=== PATIENT | male | born 1940 | race Caucasian/White ===

== ENCOUNTER → 2017-01-30 | Outpatient (CLI) | payer BC ==
[~2017-01-30] MED LIST: ASPI81TA28 PO; CARV12.52 PO; DEXT30TA7 PO; LOSA50TA6 PO; LPT/40 PO; MAGN1CAP2 PO; OPTIRAY 320 IV PRN; WARF-246 PO
[2017-01-30 10:48] LABS: BLOOD UREA NITROGEN 11 mg/dl (7-18); BUN/CREATININE RATIO 10.4 (10-20)
--- NOTE | 2017-01-30 11:20 | DIAGNOSTIC IMAGING REPORT ---
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 Images are reviewed in the axial, sagittal, and coronal planes. IV contrast was administered without complication. A dose lowering technique was utilized adhering to the principles of ALARA. CT DOSE: 452.54 mGy.cm FINDINGS: Thyroid: Imaged portions of the thyroid gland are normal in appearance. Thoracic aorta: There is mild dilatation of the ascending thoracic aorta which measures 43 mm in diameter. There are no intimal flaps to indicate acute aortic dissection. Atherosclerotic changes are present, and there is an ulcerated plaque within the descending thoracic aorta. Pulmonary vasculature: The pulmonary trunk is normal in caliber. There are no central filling defects identified to suggest pulmonary embolus. Note that this examination was not protocoled for the evaluation of pulmonary emboli. HEART: The heart is normal in size and configuration, without pericardial effusion. Lungs and pleural spaces: No pleural effusions are visualized. There is no focal pulmonary consolidation. There are dependent atelectatic changes. Mediastinum: There is no mediastinal lymphadenopathy. Gabby: Clear. Axilla: Clear. Upper abdomen: Partially visualized upper abdominal viscera is within normal limits. Skeletal structures: There are no lytic or blastic osseous lesions. IMPRESSION: 1. Mild dilatation of the ascending thoracic aorta which measures 43 mm in diameter 2. No evidence of aortic dissection 3. No evidence of focal pulmonary consolidation 4. No evidence of pathologic adenopathy Electronically signed by: Ian Geronimo M.D. 01/30/2017 11:19 AM Dictated Date/Time: 01/30/2017 11:13 AM
== END | disposition home or self-care (01) ==
LOC: C.CTS 10:02
PROVIDERS: ATTEND Internal Medicine Interventional Cardiology
DX: I71.2 Thoracic aortic aneurysm, without rupture (principal)

== ENCOUNTER → 2017-09-07 | Outpatient (CLI) | payer BC ==
[~2017-09-07] MED LIST changes: +ATOR-22 PO; +CZR50 PO; +DILT180C50 PO; +DLTCD/240 PO; +MRLP17 PO; -OPTIRAY 320 IV PRN; +OXYC-57 PO
[2017-09-07 12:33] LABS: ALT/SGPT 27 U/L (12-78); BLOOD UREA NITROGEN 14 mg/dl (7-18); CALCIUM 9.4 mg/dl (8.5-10.1); CARBON DIOXIDE 29 mmol/L (21-32); CHOLESTEROL 141 mg/dl (0-200); CREATININE 1.12 mg/dl (0.60-1.40); GLUCOSE 108 mg/dl (70-99); POTASSIUM 4.5 mmol/L (3.5-5.1); SODIUM 137 mmol/L (136-145)
[2017-09-07 12:36] LABS: ALKALINE PHOSPHATASE 114 U/L (45-117); AST/SGOT 19 U/L (15-37); LDL CHOLESTEROL CALCULATED 66 mg/dl
== END | disposition home or self-care (01) ==
LOC: C.LAB1850 10:42
PROVIDERS: ATTEND Internal Medicine Interventional Cardiology
DX: I65.29 Occlusion and stenosis of unspecified carotid artery (principal)

== ENCOUNTER → 2017-09-20 | Outpatient (CLI) | payer BC ==
[~2017-09-20] MED LIST changes: +OPTIRAY 320 IV PRN
--- NOTE | 2017-09-20 08:21 | DIAGNOSTIC IMAGING REPORT ---
CT ANGIO ABD/PELVIS WITH CONTRAST CT DOSE: 1050.65 mGy.cm CLINICAL HISTORY: Iliac artery aneurysms TECHNIQUE: Arterial phase helical images were acquired during intravenous administration 116 cc of Optiray 320. MIP imaging was performed. A dose lowering technique was utilized adhering to the principles of ALARA. COMPARISON STUDY: None. FINDINGS: There is a 7 mm hypodensity within the right lobe of the liver. There is cholelithiasis. No splenic masses are visualized. No pancreatic masses are visualized. No adrenal masses are visualized. No renal masses are visualized this arterial phase study. There is extensive colonic diverticulosis. No acute peridiverticular inflammatory changes are visualized. Atheromatous changes are present within the distal thoracic aorta. There are mild atheromatous changes the celiac origin. There is no evidence for hemodynamic significant stenosis. There is no evidence of superior mesenteric artery stenosis. There is minimal dilatation of the origin of the right renal artery with atheromatous plaque occupying 50% of the luminal diameter. There is an 80% stenosis of the proximal left renal artery with poststenotic dilatation. Several dissection flaps are visualized within the abdominal aorta. The first is at the level of the left renal artery. The second involves the infrarenal abdominal aorta. The infrarenal abdominal aorta measures 28 mm transversely. The inferior mesenteric artery is patent. The right common iliac artery is dilated measuring 27 mm. The left common iliac artery is dilated measuring 23 mm. There is a focal dissection flap within the left common iliac artery. There is mild dilatation of the left internal iliac artery. There are no stenoses of the external iliac arteries. IMPRESSION: 1. 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 2. 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 3. Bilateral fusiform common iliac artery aneurysms. The right common iliac artery measures 27 mm, and the left common iliac artery measures 23 mm. 4. Short segment dissection involving the left common iliac artery 5. No evidence of hemodynamically significant celiac or superior mesenteric artery stenosis. The inferior mesenteric artery is patent. Electronically signed by: Ian Geronimo M.D. 09/20/2017 8:20 AM Dictated Date/Time: 09/20/2017 8:10 AM
== END | disposition home or self-care (01) ==
LOC: C.CTS 07:42
PROVIDERS: ATTEND Internal Medicine Interventional Cardiology
DX: I72.3 Aneurysm of iliac artery (principal); I71.02 Dissection of abdominal aorta; I70.1 Atherosclerosis of renal artery; I77.72 Dissection of iliac artery

== ENCOUNTER 2017-09-21 13:57 | Inpatient (IN) | payer BC, OTHER ==
[~2017-09-21] VITALS: Ht 177.8 cm; Wt 77.9 kg
[~2017-09-21 13:57] MED LIST changes: -ATOR-22 PO; -CZR50 PO; -DILT180C50 PO; -DLTCD/240 PO; -MRLP17 PO; -OPTIRAY 320 IV PRN; -OXYC-57 PO
[2017-09-21] MEDS ORDERED: DILT180C50 PO (14:27)
[2017-09-21] MEDS ORDERED: ATOR-22 PO (14:27)
[2017-09-21] MEDS ORDERED: SODIUM CHLORIDE 0.9% 1000ML 1,000 ML IV STA (14:33)
[2017-09-21] MEDS ORDERED: ESMOLOL / NSS 2,500 MG in PREMIXED NSS 250 ML IV PRN (14:45)
[2017-09-21] MEDS ORDERED: OPTIRAY 320 IV PRN (15:00)
[2017-09-21 15:12] LABS: BASO % 0.8 %; BASO ABS # 0.04 K/uL (0-0.2); EOS ABS # 0.15 K/uL (0-0.5); HEMATOCRIT 43.8 % (42-52); HEMOGLOBIN 15.4 g/dL (14.0-18.0); IG# 0.01 K/uL (0.00-0.02); LYMPH % 23.8 %; LYMPH ABS # 1.19 K/uL (1.2-3.4); MEAN CELL VOLUME 87.4 fL (80-100); MEAN CORPUSCULAR HEMOGLOBIN 30.7 pg (25-34); MEAN CORPUSCULAR HGB CONC 35.2 g/dl (32-36); MEAN PLATELET VOLUME 9.7 fL (7.4-10.4); MONO % 10.6 %; MONO ABS # 0.53 K/uL (0.11-0.59); NEUT % 61.6 %; NEUT ABS # 3.09 K/uL (1.4-6.5); PLATELET COUNT 188 K/uL (130-400); RED CELL DISTRIBUTION WIDTH CV 13.6 % (11.5-14.5); WHITE BLOOD COUNT 5.01 K/uL (4.8-10.8)
[2017-09-21 15:14] LABS: ISTAT IONIZED CALCIUM 1.14 mmol/l (1.12-1.32); ISTAT POTASSIUM 4.6 mEq/L (3.3-5.0)
[2017-09-21 15:20] LABS: INR 1.9 (0.9-1.1)
--- NOTE | 2017-09-21 15:21 | EMERGENCY ROOM VISIT NOTE ---
History First contact with patient: 14:06 Chief Complaint: BACK PAIN Stated Complaint: BACK PAIN, SEVERE PAIN RADIATING DOWN IN LEG History of Present Illness The patient is a 76 year old male who presents to the Emergency Room for evaluation of low back pain. Notes 1 month of low back pain worse with exertion. Tried physical therapy without improvement. Worse with movement. Better with rest. Developed significant worsening pain 4 days ago and now radiating down both legs. No significant weakness nor loss bowel/bladder functions. Denies abdominal pain, syncope, cp, shob, headache, neck pain, leg swelling, rashes, diarrhea, bleeding, nor other symptoms. On coumadin for history of TIA/pAF. He declines pain medications at this time. Review of Systems See HPI for pertinent positives & negatives. A total of 10 systems reviewed and were otherwise negative. Past Medical/Surgical History Medical Problems: (1) Atrial fibrillation (2) Bicuspid aortic valve (3) History of tonsillectomy (4) Hypertension (5) Hypertensive crisis Family History Hypertension Social History Smoking Status: Former Smoker Alcohol Use: occasionally Drug Use: none Marital Status: Housing Status: lives with family Occupation Status: retired Current/Historical Medications Scheduled Aspirin (Aspirin Ec), 81 MG PO QAM Atorvastatin (Lipitor), 20 MG PO DAILY Diltiazem Hcl Coated Beads (Cartia Xt), 180 MG PO DAILY Losartan Potassium (Cozaar), 50 MG PO HS Warfarin Sodium (Warfarin Sodium), 5 MG PO 5XWK Warfarin Sodium (Warfarin Sodium), 2.5 MG PO 2XWK Physical Exam Vital Signs Date Time Temp Pulse Resp B/P (MAP) Pulse Ox O2 Delivery O2 Flow Rate FiO2 09/21/17 17:42 75 14 149/62 93 Room Air 09/21/17 17:31 70 14 133/60 94 Room Air 09/21/17 17:21 67 14 127/66 93 Room Air 09/21/17 17:11 68 14 133/75 93 Room Air 09/21/17 17:01 69 12 129/66 93 Room Air 09/21/17 16:51 67 14 134/86 94 Room Air 09/21/17 16:45 67 11 147/83 94 Room Air 09/21/17 16:32 63 19 153/83 95 09/21/17 16:28 65 09/21/17 16:26 65 16 150/83 92 Room Air 09/21/17 15:50 60 12 153/85 95 Room Air 09/21/17 15:44 70 16 163/100 93 Room Air 09/21/17 15:00 69 20 164/97 93 Room Air 09/21/17 14:01 36.8 72 20 180/98 95 Room Air Physical Exam GENERAL: Patient is uncomfortable appearing and in moderate distress. EYES: No scleral icterus, unremarkable pupils. ENT: Mucous membranes moist, no nasal congestion. NECK: No masses appreciated, no meningismus, trachea is midline. RESPIRATORY: No dyspnea. Clear to auscultation and equal bilaterally. No wheeze , no rhonchi. CARDIOVASCULAR: Regular rate and rhythm. No murmurs, rubs, gallops appreciated. GASTROINTESTINAL: Abdomen soft, nontender, no peritonitis. Bowel sounds positive. No masses appreciated. BACK: No midline tenderness, no CVA tenderness EXTREMITIES: Normal motion all extremities, no cyanosis, no edema. NEUROLOGIC: Alert and oriented, no acute motor or sensory deficits, no focal weakness, cranial nerves grossly intact. SKIN: No rash, no jaundice, no diaphoresis. Medical Decision & Procedures ER Provider Diagnostic Interpretation: See CT reads on Chart from Yesterday and Today. Laboratory Results 09/21/17 14:45 Red Blood Count 5.01, Mean Corpuscular Volume 87.4, Mean Corpuscular Hemoglobin 30.7, Mean Corpuscular Hemoglobin Concent 35.2, Mean Platelet Volume 9.7, Neutrophils (%) (Auto) 61.6, Lymphocytes (%) (Auto) 23.8, Monocytes (%) (Auto) 10.6, Eosinophils (%) (Auto) 3.0, Basophils (%) (Auto) 0.8, Neutrophils # (Auto ) 3.09, Lymphocytes # (Auto) 1.19, Monocytes # (Auto) 0.53, Eosinophils # (Auto ) 0.15, Basophils # (Auto) 0.04 09/21/17 14:45 Test 09/21/17 14:45 09/21/17 14:58 09/21/17 17:11 White Blood Count 5.01 K/uL (4.8-10.8) Red Blood Count 5.01 M/uL (4.7-6.1) Hemoglobin 15.4 g/dL (14.0-18.0) Hematocrit 43.8 % (42-52) Mean Corpuscular Volume 87.4 fL (80-100) Mean Corpuscular Hemoglobin 30.7 pg (25-34) Mean Corpuscular Hemoglobin Concent 35.2 g/dl (32-36) Platelet Count 188 K/uL (130-400) Mean Platelet Volume 9.7 fL (7.4-10.4) Neutrophils (%) (Auto) 61.6 % Lymphocytes (%) (Auto) 23.8 % Monocytes (%) (Auto) 10.6 % Eosinophils (%) (Auto) 3.0 % Basophils (%) (Auto) 0.8 % Neutrophils # (Auto) 3.09 K/uL (1.4-6.5) Lymphocytes # (Auto) 1.19 K/uL (1.2-3.4) Monocytes # (Auto) 0.53 K/uL (0.11-0.59) Eosinophils # (Auto) 0.15 K/uL (0-0.5) Basophils # (Auto) 0.04 K/uL (0-0.2) RDW Standard Deviation 43.0 fL (36.4-46.3) RDW Coefficient of Variation 13.6 % (11.5-14.5) Immature Granulocyte % (Auto) 0.2 % Immature Granulocyte # (Auto) 0.01 K/uL (0.00-0.02) Prothrombin Time 20.1 SECONDS (9.0-12.0) Prothromb Time International Ratio 1.9 (0.9-1.1) Activated Partial Thromboplast Time 32.0 SECONDS (21.0-31.0) Partial Thromboplastin Ratio 1.2 Est Creatinine Clear Calc Drug Dose 70.6 ml/min Estimated GFR () 79.2 Estimated GFR (Non- 68.3 BUN/Creatinine Ratio 19.1 (10-20) Calcium Level 8.9 mg/dl (8.5-10.1) C-Reactive Protein < 0.29 mg/dl (0-0.29) Bedside Hemoglobin 15.6 g/dl (14.0-18.0) Bedside Hematocrit 46 % (42-52) Bedside Sodium 141 mEq/L (135-144) Bedside Potassium 4.6 mEq/L (3.3-5.0) Bedside Chloride 103 mEq/L (101-112) Bedside Total CO2 29 mEq/l (24-31) Anion Gap 14.0 mmol/L (16-25) Bedside Blood Urea Nitrogen 23 mg/dl (7-18) Bedside Creatinine 1.0 mg/dl (0.6-1.3) Bedside Glucose (other) 85 mg/dl (70-99) Bedside Ionized Calcium (Neha) 1.14 mmol/l (1.12-1.32) Bedside D-Dimer > 450 ng/mlFEU (0-450) Medications Administered Medications (Trade) Dose Ordered Sig/Richard Route Start Time Stop Time Status Last Admin Dose Admin Sodium Chloride 1,000 ml @ 200 mls/hr Q5H STAT IV 09/21/17 14:33 09/21/17 19:32 DC 09/21/17 14:33 200 MLS/HR Esmolol HCl 2500 mg/Prmx 250 ml @ 0 mls/hr Q0M PRN IV 09/21/17 14:45 09/21/17 16:21 DC 09/21/17 15:06 54.4 MLS/HR Fentanyl Citrate (Fentanyl Inj) 75 mcg NOW STAT IV 09/21/17 16:03 09/21/17 16:04 DC 09/21/17 16:28 75 MCG Nicardipine HCl 25 mg/Sodium Chloride 250 ml @ 0 mls/hr Q0M STAT IV 09/21/17 16:19 09/21/17 16:21 DC 09/21/17 16:46 5 MLS/HR Medical Decision Differential: Renal Colic, Pyelonephritis, Hydronephrosis, Appendicitis, Diverticulitis, Retroperitoneal Bleed/Infection, Aortic Pathology, MSK, Neurologic Pathology, amongst other pathologies entertained. 76 yr old male 4 days rapidly worsening low back pain now radiating down leg. Incidentally had CTA Abdo/Pelv for review of his aneurysm yesterday. Review of this notes multiple small dissections. He is quite hypertensive and given dissection, hypertension and on coumadin felt that rapid management of BP required. Given IV esmolol initially though with fact that BP still elevated and HR dropping in to 50s switched to Cardene. Excellent bilateral pulses in legs and no evidence of ischemia. Initially refusing pain medications. No active bleed and thus hold off on reversing already subtherapeutic INR. Seems Coumadin was for episode AFib during a hospitalization previously vs history of his TIA. With history bicuspid valve and his dissection went ahead and did CTA Chest as well which was unremarkable. He did eventually request something for pain which was given IV fentanyl with good result. BP came down and patient looks well. While this may just be incidental dissection findings vs even just calcifications, with his significant hypertension and amount of pain he is is must treat this as actual pain from dissection until proven otherwise. BP monitored closely and patient stable. He will need to come in for further evaluation, but at this time I do not feel he requires emergent surgical intervention. I made multiple phone calls to hospitalist, vascular surgery and cards during management of care of this patient. Impression Primary Impression: Hypertensive emergency Additional Impression: Abdominal aortic aneurysm dissection Critical Care I have personally spent greater than 35 minutes of critical care time in the direct management of this patient. This was a life/limb threatening event. This includes time spent evaluating patient, direct bedside care, chart review, placing orders, interpretation of diagnostic studies, discussion with consultants, patient, and family members, as well as other required patient management activities. This 35 minutes is in excess of all separately billable procedures. Departure Information Referrals Rishi Fournire M.D. (PCP) Patient Instructions My [facility] Problem Qualifiers
[2017-09-21 15:29] LABS: CALCIUM 8.9 mg/dl (8.5-10.1); CREATININE 1.06 mg/dl (0.60-1.40); POTASSIUM 4.4 mmol/L (3.5-5.1)
--- NOTE | 2017-09-21 15:30 | EMERGENCY ROOM VISIT NOTE ---
ED Visit Note First contact with patient: 14:06 Chief Complaint: Lower back pain. History of Present Illness: Mr. Thomas is a 76-year-old white male who ambulates into the ED accompanied by his complaining of lumbar back pain. Historically patient reports he has a history of lumbar spinal stenosis and arthritis. He reports he has been in physical therapy multiple years and has seen multiple back surgeons for his symptoms. He reports he did receive injections of steroids in the past which relieved his symptoms. He also reports that normally when he goes to physical therapy it relieves his back pain. Patient reports he has had exacerbation of lower back pain for approximately 1 week. He reports it was initially mild but gradually increased in intensity. He places his discomfort across the lower back in the L5-S1 area. He does report this is new normally it is unilateral. He rates his discomfort 9/10. He reports radiation down into his buttocks and hip and lateral thigh with prominence on the left. He also reports the radiation is new. His pain worsens with flexion and extension of the lumbar spine and palpation. He has not identified any alleviating factors related to the pain. He reports he has been taken Tylenol without relief of his discomfort. He denies any associated symptoms but does report yesterday Dr. 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 I reviewed the medical records and it showed short segment dissections within the abdominal aorta, hemodynamically significant stenosis involving the proximal left renal artery, bilateral fusiform common iliac artery aneurysms, short segment dissection involving the left common iliac artery and no evidence of hemodynamically stable celiac or superior mesenteric artery stenosis. Patient denies fevers, chills, sweats, skin eruptions, skin color changes, chest pain, shortness of breath, palpitations, abdominal pain, nausea, vomiting , urinary symptoms, hematuria, diarrhea, constipation, rectal bleeding, black/ tarry stools, genital paresthesias, bowel and bladder dysfunction, lower extremity weakness/numbness/tingling. Review of Systems: As noted above in history of present illness. All body systems were reviewed and found to be negative as noted above. Past Medical History: As previously noted and (1) Atrial fibrillation (2) Bicuspid aortic valve (3) History of tonsillectomy (4) Hypertension Current Medications: Medications Dose Route/Sig Max Daily Dose Days Date Category Dose Instructions Lipitor (Atorvastatin Calcium) 20 Mg Tab 20 Mg PO DAILY 09/21/17 Reported Cartia Xt (Diltiazem Hcl Coated Beads) 180 Mg Cap 180 Mg PO DAILY 09/21/17 Reported Cozaar (Losartan Potassium) 50 Mg Tab 50 Mg PO HS 06/14/16 Reported Aspirin Ec (Aspirin) 81 Mg Tab 81 Mg PO QAM 04/03/14 Reported Warfarin Sodium 5 Mg Tab 2.5 Mg PO 2XWK 04/03/14 Reported TAKE HALF A TABLET (2.5 MG) EVERY MON AND FRI OR OTHERWISE DIRECTED TO TAKE BY ANTICOAGULATION CLINIC/MD. Warfarin Sodium 5 Mg Tab 5 Mg PO 5XWK 04/03/14 Reported TAKE 5 MG EVERY SUN,TUE,WED,TH,SAT OR OTHERWISE DIRECTED TO TAKE BY ANTICOAGULATION CLINIC/MD. Allergies to Medications: Patient denies. Social History: Patient is not currently employed; he lives with his and feels safe in his home environment; he denies tobacco use. Physical Examination: Vital Signs: Date Time Temp Pulse Resp B/P (MAP) Pulse Ox O2 Delivery O2 Flow Rate FiO2 09/21/17 15:00 69 20 164/97 93 Room Air 09/21/17 14:01 36.8 72 20 180/98 95 Room Air GENERAL: 76-year-old male in moderate distress due to pain, nontoxic-appearing, afebrile and hemodynamically stable. NEUROLOGICAL: Awake, alert and oriented to person, place and time. Answering questions appropriately and following commands. Normal gait. Good hand eye coordination. SKIN: Warm, dry and pink. No soft tissue eruptions or trauma noted. HEENT: Atraumatic and normocephalic. BACK: No tenderness over the bony thoracic and lumbar spine. Minimal tenderness in the paraspinous muscles associated with L5-S1 without possible spasm. Mild decreased range of motion specifically flexion and extension of the spine. Negative straight leg raise test. No CVA tenderness. THORAX: Lungs sounds are clear to auscultation and equal bilaterally with symmetrical chest wall. HEART: Regular rate and rhythm. ABDOMEN: Mildly distended, soft and nontender. Decreased bowel sounds in all quadrants. No guarding, rigidity or organomegaly. LOWER EXTREMITIES: No gross bony deformity. No shortening or malrotation. No tenderness in the hips, knees, ankles or feet. Was not really able to elicit either patellar or Achilles deep tendon reflexes. 5/5 muscle strength in all movements of the hip, knees and the ankle. He was able to distinguish light sensations to all dermatomes of the lower legs and feet. Dorsalis pedis and anterior tibialis pulses intact and equal bilaterally. The feet were warm and pink and capillary refill was brisk. No calf tenderness or cords. ED Course: Patient is assessed as noted above. Patient's medication list was reviewed. Patient's case was reviewed with Dr. Chaudhry; he took over patient care of this patient. At his request I did put initial laboratory tests and on this patient. Clinical Impression: Abdominal aneurysm. Lumbar back pain. Disposition and Plan: Please see Dr. Chaudhry's notes and orders for final disposition and plan.
--- NOTE | 2017-09-21 15:58 | DIAGNOSTIC IMAGING REPORT ---
CHEST COMBO ANGIO DISSECTION CLINICAL HISTORY: 76 years-old Male presenting with ^multiple dissections on CTA no, back pain, chest pain. TECHNIQUE: Multidetector CT angiography of the chest was performed before and after the administration of intravenous contrast. 3-D volumetric and/or maximum intensity projection (MIP) images were subsequently reconstructed for review. IV contrast: 120 mL of Optiray 320. A dose lowering technique was used consistent with the principles of ALARA (as low as reasonably achievable). COMPARISON: CT chest from 01/30/2017. CT DOSE (mGy.cm): The estimated cumulative dose is 1252.61 mGy.cm. FINDINGS: Business Supervisor topogram: Unremarkable. Vasculature: The study is adequate for assessment of the aorta. Precontrast imaging demonstrates no evidence of intramural hematoma. Postcontrast imaging demonstrates no evidence of dissection, penetrating ulcer, or pseudoaneurysm. Ectasia of the ascending aorta, which measures 4.4 cm in diameter. This is unchanged from the prior exam. The descending thoracic aorta is normal in caliber though tortuous. Atherosclerosis of the three-vessel aortic arch though the origins of the branch vessels remain patent. Tortuosity of cervical vessels suggest chronic hypertension. Allowing for timing of the contrast bolus, no gross evidence of a filling defect within the pulmonary arteries to suggest embolus. Main pulmonary artery is not enlarged. No flattening of the interventricular septum. No intracardiac filling defect. No reflux of contrast into the hepatic veins. Remaining chest: On soft tissue windows, normal thyroid and thoracic inlet. No axillary, supraclavicular, hilar, or mediastinal lymphadenopathy. Normal heart size. No pericardial or pleural effusion. Upper abdomen normal. On lung windows, minimal dependent changes likely atelectasis. Trace apical emphysema. Minimal lower lobe predominant bronchial wall thickening. No other focal nodule or infiltrate. Airways patent. On bone windows, degenerative changes of the spine. IMPRESSION: 1. No evidence of acute aortic injury. No acute intrathoracic pathology. 2. Ectasia of the ascending aorta, which measures 4.4 cm in diameter. This is unchanged since prior CT from January. 3. Trace emphysema. Electronically signed by: Kurt Tatum M.D. 09/21/2017 3:57 PM Dictated Date/Time: 09/21/2017 3:48 PM
[2017-09-21] MEDS ORDERED: FENTANYL CITRATE INJ 50 MCG/1 ML 2 ML VIAL IV STA (16:03)
[2017-09-21] MEDS ORDERED: NiCARDipine IV 25 MG in SODIUM CHLORIDE 0.9% 250ML 240 ML IV STA (16:19)
[2017-09-21] MEDS ORDERED: NiCARDipine IV 25 MG in SODIUM CHLORIDE 0.9% 250ML 240 ML IV PRN (16:45)
[2017-09-21] MEDS ORDERED: ONDANSETRON INJ 2 MG/ML 2 ML VIAL IV PRN (18:00)
[2017-09-21] MEDS ORDERED: MoRPHine SULFATE 2 MG/ML CARP IV PRN (18:00)
[2017-09-21] MEDS ORDERED: ZOLPIDEM TARTRATE 5 MG TAB PO PRN ×2 (18:00)
[2017-09-21] MEDS ORDERED: MAGNESIUM HYDROXIDE SUSP 30 ML UDC PO PRN (18:00)
[2017-09-21] MEDS ORDERED: ACETAMINOPHEN 325 MG TAB PO PRN (18:00)
[2017-09-21] MEDS ORDERED: HydrALAZINE HCL 20 MG/ML VIAL IV. PRN (18:30)
[2017-09-21] MEDS ORDERED: DILTIAZEM HCL 120 MG CAPCR PO STA (18:59)
--- NOTE | 2017-09-21 19:11 | History and Physical ---
History & Physical Date & Time of Service: Sep 21, 2017 at 18:42 Chief Complaint: Back Pain, Severe Pain Radiating Down In Leg Primary Care Physician: Rishi Fournier M.D. History of Present Illness Source: patient, family 76 years old man with PMHx of dyslipidemia, PVD/carotid stenosis s/p b/l CEA, PA Afib currently on coumadin, HTN and lumbar spinal stenosis. Patient has been having lower back pain on and off for the last year. He was told by his orthopedic doctor to come back if he ever had the pain going down his lower extremities. Also referred by his orthopedic doctor for physical therapy. This patient since he started physical therapy for about 1 week he has been having 9/10 severe lower back pain referred to both buttocks. He had a follow-up appointment with Dr. 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 He does not have any abdominal pain and has well intact femoral pulses. Also the CT scan showed left renal artery stenosis. Report will be copied and based on imaging section. Case discussed with Dr. Ivy who will see the patient tomorrow, no need for acute intervention at this point. Patient denies any incontinence to urine or stool. Denies any lower extremity weakness. Past Medical/Surgical History Medical Problems: (1) Atrial fibrillation (2) Bicuspid aortic valve (3) Bronchitis (4) Carotid stenosis (5) History of tonsillectomy (6) Hypertension (7) Hypertension (8) Hypertensive crisis (9) Near syncope (10) Near syncope (11) Rib pain Family History Hypertension Social History Smoking Status: Former Smoker Drug Use: none Marital Status: Occupational Status: retired Immunizations History of Influenza Vaccine: Yes History of Tetanus Vaccine?: Yes History of Pneumococcal: Yes History of Hepatitis B Vaccine: No Allergies Coded Allergies: No Known Allergies (Unverified , 09/21/17) Home Medications Scheduled Aspirin (Aspirin Ec), 81 MG PO QAM Atorvastatin (Lipitor), 20 MG PO DAILY Diltiazem Hcl Coated Beads (Cartia Xt), 180 MG PO DAILY Losartan Potassium (Cozaar), 50 MG PO HS Warfarin Sodium (Warfarin Sodium), 5 MG PO 5XWK Warfarin Sodium (Warfarin Sodium), 2.5 MG PO 2XWK Review of Systems Review of system Constitutional: No fever / no chills / no sweats / no weakness / no fatigue Eyes: no blurring of vision / no eye pain / no discharge / no redness ENT: no hearing loss / no epistaxis /no swallowing problems Respiratory: no cough / no wheezing / no SOB / no hemoptysis Cardiovascular: no Chest pain / no lower extremity edema / no palpitation Abdomen: no pain / no nausea / no vomiting / no constipation Musculoskeletal: Severe lower back pain referred to both buttocks with some muscle cramp Genitourinary: no dysuria / no incontinence / no urinary retention Neurologic: no focal weakness / no numbness/tingling / no ataxia Psychiatric: no depression symptoms / no anxiety / no insomnia Endocrine: no excessive thirst / no excessive urination Hematologic: no abnormal bleeding / no bruising / no LN swelling Skin: No rash / no pallor Physical Exam Vital Signs Date Time Temp Pulse Resp B/P (MAP) Pulse Ox O2 Delivery O2 Flow Rate FiO2 09/21/17 18:17 63 16 128/70 92 Room Air 09/21/17 17:42 75 14 149/62 93 Room Air 09/21/17 17:31 70 14 133/60 94 Room Air 09/21/17 17:21 67 14 127/66 93 Room Air 09/21/17 17:11 68 14 133/75 93 Room Air 09/21/17 17:01 69 12 129/66 93 Room Air 09/21/17 16:51 67 14 134/86 94 Room Air 09/21/17 16:45 67 11 147/83 94 Room Air 09/21/17 16:32 63 19 153/83 95 09/21/17 16:28 65 09/21/17 16:26 65 16 150/83 92 Room Air 09/21/17 15:50 60 12 153/85 95 Room Air 09/21/17 15:44 70 16 163/100 93 Room Air 09/21/17 15:00 69 20 164/97 93 Room Air 09/21/17 14:01 36.8 72 20 180/98 95 Room Air Physical examination General patient appears to be comfortable, not in acute distress HEENT: Atraumatic , normocephalic /no jaundice /no pallor /anicteric /no dry mucous membrane /normal external ear inspection Neck: Supple /no swelling /central trach Heart: S1/S2 normal/regular rate and rhythm/no gallop /no rub /no murmur Lungs: Clear to auscultation bilaterally/normal chest with expansion/no rhonchi/ no rales/no wheezing/no use of accessory muscles of respiration Abdomen: Soft/nontender/no guarding/no rebound/no organomegaly/no pulsatile mass Musculoskeletal: Tenderness and on lumbar spines appears to be less severe than his level of symptoms but he already received pain medications Neuro exam: Awake alert oriented 3/cranial nerves II through XII appear to be intact/sensation intact/moves all extremities/no abnormal movements Psychiatric evaluation: No depressed mood/normal affect Skin: No rash on exposed skin area/no erythema Extremity: Normal pulse/no pitting edema/no clubbing or cyanosis Endocrine/lymphatic: No obvious lymphadenopathy /no lymphedema Diagnostics Laboratory Results Results Past 24 Hours Test 09/21/17 14:45 09/21/17 14:58 09/21/17 17:11 Range/Units White Blood Count 5.01 4.8-10.8 K/uL Red Blood Count 5.01 4.7-6.1 M/uL Hemoglobin 15.4 14.0-18.0 g/dL Hematocrit 43.8 42-52 % Mean Corpuscular Volume 87.4 80-100 fL Mean Corpuscular Hemoglobin 30.7 25-34 pg Mean Corpuscular Hemoglobin Concent 35.2 32-36 g/dl Platelet Count 188 130-400 K/uL Mean Platelet Volume 9.7 7.4-10.4 fL Neutrophils (%) (Auto) 61.6 % Lymphocytes (%) (Auto) 23.8 % Monocytes (%) (Auto) 10.6 % Eosinophils (%) (Auto) 3.0 % Basophils (%) (Auto) 0.8 % Neutrophils # (Auto) 3.09 1.4-6.5 K/uL Lymphocytes # (Auto) 1.19 1.2-3.4 K/uL Monocytes # (Auto) 0.53 0.11-0.59 K/uL Eosinophils # (Auto) 0.15 0-0.5 K/uL Basophils # (Auto) 0.04 0-0.2 K/uL RDW Standard Deviation 43.0 36.4-46.3 fL RDW Coefficient of Variation 13.6 11.5-14.5 % Immature Granulocyte % (Auto) 0.2 % Immature Granulocyte # (Auto) 0.01 0.00-0.02 K/uL Prothrombin Time 20.1 9.0-12.0 SECONDS Prothromb Time International Ratio 1.9 0.9-1.1 Activated Partial Thromboplast Time 32.0 21.0-31.0 SECONDS Partial Thromboplastin Ratio 1.2 Sodium Level 138 136-145 mmol/L Potassium Level 4.4 3.5-5.1 mmol/L Chloride Level 105 98-107 mmol/L Carbon Dioxide Level 28 21-32 mmol/L Anion Gap 5.0 14.0 16-25 mmol/L Blood Urea Nitrogen 20 7-18 mg/dl Creatinine 1.06 0.60-1.40 mg/dl Est Creatinine Clear Calc Drug Dose 70.6 ml/min Estimated GFR () 79.2 Estimated GFR (Non- 68.3 BUN/Creatinine Ratio 19.1 10-20 Random Glucose 82 70-99 mg/dl Calcium Level 8.9 8.5-10.1 mg/dl Bedside Hemoglobin 15.6 14.0-18.0 g/dl Bedside Hematocrit 46 42-52 % Bedside Sodium 141 135-144 mEq/L Bedside Potassium 4.6 3.3-5.0 mEq/L Bedside Chloride 103 101-112 mEq/L Bedside Total CO2 29 24-31 mEq/l Bedside Blood Urea Nitrogen 23 7-18 mg/dl Bedside Creatinine 1.0 0.6-1.3 mg/dl Bedside Glucose (other) 85 70-99 mg/dl Bedside Ionized Calcium (Neha) 1.14 1.12-1.32 mmol/l Bedside D-Dimer > 450 0-450 ng/mlFEU Diagnostic Radiology Patient Name: VENKATESH MONDRAGON Unit Number: [id number] Dictated: 09/20/17809 Transcribed: 09/20/17809 ARG Printed Date/Time: [~ rep prt dt]/[~ rep prt tm] [~ rep ct labl] - [~ rep ct ivnm] [facility] [place] [address] Dictated: 09/20/17809 Transcribed: 09/20/17809 ARG Printed Date/Time: [~ rep prt dt]/[~ rep prt tm] [~ rep ct labl] - [~ rep ct ivnm] Patient: VENKATESH MONDRAGON Address1: [address] [place] [address] Rec: [id number] Address2: Acct ID: [id number] [facility] Zip: [place] [id number] Date: 1940 Sex: M Room/Bed: Ref Phy: Rishi Fournier M.D. SC: C.CTS Att Phy: Jose Luis Schroeder MD Report #: [id number] Rajni Phy: Rishi Fournier M.D. Test: AAPW Admit Phy: Telephone Directory Distributor Driver: [facility] Interpreting Phy: Ian Geronimo M.D. Diagnosis: ILLIAC ANEURYSM Ordering Phy: Jose Luis Schroeder MD Service Date: 09/20/17 Admit Date: 09/20/17 MNE: [id number] CONF: DICTATED BY: Ian Geronimo M.D.]] CC: Rishi Fournier M.D. Jones, Christopher R., MD Endcc: [~ rep ct add3]] CT ANGIO ABD/PELVIS WITH CONTRAST CT DOSE: 1050.65 mGy.cm CLINICAL HISTORY: Iliac artery aneurysms TECHNIQUE: Arterial phase helical images were acquired during intravenous administration 116 cc of Optiray 320. MIP imaging was performed. A dose lowering technique was utilized adhering to the principles of ALARA. COMPARISON STUDY: None. FINDINGS: There is a 7 mm hypodensity within the right lobe of the liver. There is cholelithiasis. No splenic masses are visualized. No pancreatic masses are visualized. No adrenal masses are visualized. No renal masses are visualized this arterial phase study. There is extensive colonic diverticulosis. No acute peridiverticular inflammatory changes are visualized. Atheromatous changes are present within the distal thoracic aorta. There are mild atheromatous changes the celiac origin. There is no evidence for hemodynamic significant stenosis. There is no evidence of superior mesenteric artery stenosis. There is minimal dilatation of the origin of the right renal artery with atheromatous plaque occupying 50% of the luminal diameter. There is an 80% stenosis of the proximal left renal artery with poststenotic dilatation. Several dissection flaps are visualized within the abdominal aorta. The first is at the level of the left renal artery. The second involves the infrarenal abdominal aorta. The infrarenal abdominal aorta measures 28 mm transversely. The inferior mesenteric artery is patent. The right common iliac artery is dilated measuring 27 mm. The left common iliac artery is dilated measuring 23 mm. There is a focal dissection flap within the left common iliac artery. There is mild dilatation of the left internal iliac artery. There are no stenoses of the external iliac arteries. IMPRESSION: 1. 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 2. 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 3. Bilateral fusiform common iliac artery aneurysms. The right common iliac artery measures 27 mm, and the left common iliac artery measures 23 mm. 4. Short segment dissection involving the left common iliac artery 5. No evidence of hemodynamically significant celiac or superior mesenteric artery stenosis. The inferior mesenteric artery is patent. Electronically signed by: Ian Geronimo M.D. 09/20/2017 8:20 AM Dictated Date/Time: 09/20/2017 8:10 AM ++++++++++++++++++++++++++++++++++++++++++++++++++++++++++++++++++++++++++++++++ ++++++++++++++++++++++++++++++++++++++++++++++++++++++ Patient: VENKATESH MONDRAGON Address1: [address] [place] [address] Rec: [id number] Address2: Acct ID: [id number] [facility] Zip: [place] [address] Date: 1940 Sex: M Room/Bed: Ref Phy: Jose Luis Schroeder MD SC: ADRI Roy Phy: Report #: [id number] [facility] Phy: Rishi Fournier M.D. Test: CXCAD Admit Phy: Telephone Directory Distributor Driver: [facility] Interpreting Phy: Kurt Tatum MD Diagnosis: BACK PAIN, SEVERE PAIN RADIATING DOWN IN LEG Ordering Phy: Campos Chaudhry M.D. Service Date: 09/21/17 Admit Date: 09/21/17 MNE: [id number] CONF: DICTATED BY: Kurt Tatum MD]] CC: Rishi Fournier M.D. Jones, Christopher R., MD McKinley, Daniel F., M.D. Endcc: [~ rep ct add3]] CHEST COMBO ANGIO DISSECTION CLINICAL HISTORY: 76 years-old Male presenting with ^multiple dissections on CTA no, back pain, chest pain. TECHNIQUE: Multidetector CT angiography of the chest was performed before and after the administration of intravenous contrast. 3-D volumetric and/or maximum intensity projection (MIP) images were subsequently reconstructed for review. IV contrast: 120 mL of Optiray 320. A dose lowering technique was used consistent with the principles of ALARA (as low as reasonably achievable). COMPARISON: CT chest from 01/30/2017. CT DOSE (mGy.cm): The estimated cumulative dose is 1252.61 mGy.cm. FINDINGS: [employer] Finisher topogram: Unremarkable. Vasculature: The study is adequate for assessment of the aorta. Precontrast imaging demonstrates no evidence of intramural hematoma. Postcontrast imaging demonstrates no evidence of dissection, penetrating ulcer, or pseudoaneurysm. Ectasia of the ascending aorta, which measures 4.4 cm in diameter. This is unchanged from the prior exam. The descending thoracic aorta is normal in caliber though tortuous. Atherosclerosis of the three-vessel aortic arch though the origins of the branch vessels remain patent. Tortuosity of cervical vessels suggest chronic hypertension. Allowing for timing of the contrast bolus, no gross evidence of a filling defect within the pulmonary arteries to suggest embolus. Main pulmonary artery is not enlarged. No flattening of the interventricular septum. No intracardiac filling defect. No reflux of contrast into the hepatic veins. Remaining chest: On soft tissue windows, normal thyroid and thoracic inlet. No axillary, supraclavicular, hilar, or mediastinal lymphadenopathy. Normal heart size. No pericardial or pleural effusion. Upper abdomen normal. On lung windows, minimal dependent changes likely atelectasis. Trace apical emphysema. Minimal lower lobe predominant bronchial wall thickening. No other focal nodule or infiltrate. Airways patent. On bone windows, degenerative changes of the spine. IMPRESSION: 1. No evidence of acute aortic injury. No acute intrathoracic pathology. 2. Ectasia of the ascending aorta, which measures 4.4 cm in diameter. This is unchanged since prior CT from January. 3. Trace emphysema. Electronically signed by: Kurt Tatum M.D. 09/21/2017 3:57 PM Dictated Date/Time: 09/21/2017 3:48 PM The status of this report is Signed. Impression Assessment and Plan 76 years old man with PMHx of dyslipidemia, PVD/carotid stenosis s/p b/l CEA, PA Afib currently on coumadin, HTN and lumbar spinal stenosis. Presented to the ED with intractable lower back pain, hypertensive urgency and abnormal CTA abdomen suspicious for multiple dissection. Assessment Hypertensive urgency Intractable lower back pain lumbar spinal stenosis with exacerbation Paroxysmal A. fib currently on Coumadin, rate controlled Carotid stenosis status post bilateral carotid endarterectomy Peripheral vascular disease Dyslipidemia Obesity Plan Control blood pressure, in ED patient was started on nicardipine, currently his blood pressure is 120/80, will titrate nicardipine off, patient is not on beta- bessie as he is slightly bradycardic will give him an extra dose of Cardizem CD , will start his losartan that he takes at home, he will also take his Cardizem CD in the morning, we will put him on hydralazine as needed for systolic blood pressure more than 170. Morphine/Lidoderm patch for his lower back pain also will continue his home Percocet Consult Dr. Ivy regarding his suspected dissections, as per Dr. Ivy no need to reverse Coumadin and can continue Coumadin while in the hospital Gentle IV fluid hydration as patient received CT with contrast 2 days in a row Continue home medications including Lipitor, except aspirin We will hold aspirin for now just in case any kind of intervention is needed, Coumadin can be reversed but aspirin might create a problem. DVT prophylaxis is not required as INR is 1.9 Resuscitation Status VTE Prophylaxis Will order VTE Prophylaxis: Yes
[2017-09-21] MEDS ORDERED: NURSING VERBAL MED ORDER ONE (19:45)
[2017-09-21] MEDS ORDERED: SODIUM CHLORIDE 0.9% 1000ML 1,000 ML IV SCH (20:30)
[2017-09-21] MEDS ORDERED: WARFARIN SOD 2.5 MG TAB PO SCH (20:30)
[2017-09-21 20:59] VITALS: BP 144/69; PULSE 67; TEMP 36.5; O2SAT 95
[2017-09-21] MEDS ORDERED: OXYCODONE/ACETAMINOPHEN 10/325MG TAB PO PRN (21:00)
[2017-09-21] MEDS ORDERED: LOSARTAN POTASSIUM 50 MG TAB PO SCH (21:00)
[2017-09-21] MEDS ORDERED: DEXAMETHASONE INJ 6 MG in SYRINGE 0 ML IV SCH (21:00)
[2017-09-21 21:35] VITALS: BP 121/71; PULSE 64; TEMP 36.5; O2SAT 95; Ht 177.8 cm; Wt 77.9 kg
--- NOTE | 2017-09-21 21:58 | DIAGNOSTIC IMAGING REPORT ---
LUMBAR SPINE W/O CONTRAST CLINICAL HISTORY: 76 years-old Male presenting with lower back pain with neuropathy / has tooth implant, lumbar pain that radiates bilaterally into the legs, difficulty walking, no prior surgery or injury. TECHNIQUE: Multisequence, multiplanar MR imaging of the lumbar spine was performed without the use of intravenous contrast. IV contrast: None. COMPARISON: CT of the abdomen and pelvis from 09/20/2017. FINDINGS: Localizer images: Diffuse rectal wall thickening likely due to underdistention. 6 mm of retrolisthesis of L2 on L3. Otherwise alignment is maintained. Vertebral bodies and straight fatty endplate changes at L2-3 and L3-4. Prominent Schmorl's node at the superior endplate of L5 as well as fatty endplate changes at L4-5. Vertebral body heights maintained. Significant intervertebral disc height loss at L2-3 and to a lesser extent at L3-4. Disc desiccation and height loss noted at L4-5. Disc desiccation without significant height loss at L5-S1. Severe spinal canal stenosis at L2-3 secondary to disc osteophyte complex, facet arthropathy, and ligamentum flavum hypertrophy. Abnormality along the dorsal thecal sac at this level may be due to facet joint synovial outpouching, ligamentum flavum hypertrophy with displacement of the epidural fat, or simply exuberant facet joint degenerative change (series 6 image 8). This results in significant effacement of the already stenotic spinal canal at this level. Resultant buckling of the cauda equina suggest impingement. Moderate right and severe left neural foraminal narrowing also results at L2-3. Mass effect on the exiting L2 nerve root suspected. Disc osteophyte complex at L3-4 results in mild effacement of the ventral thecal sac. Mild bilateral neural foraminal narrowing noted from L3-4 through L5-S1. No paraspinal muscular edema. Nonspecific subcutaneous edema in the lumbar region. Spinal cord ends in good position at L1. Tortuous and ectatic aorta with suspected focal aneurysm at the bifurcation measuring 2.8 cm in diameter. IMPRESSION: 1. Multilevel degenerative changes most severe at L2-3, where there is severe spinal canal stenosis and suspected cauda equina impingement. This is in large part secondary to effacement of the dorsal aspect of the thecal sac from degenerative change. 2. Moderate right and severe left neural foraminal narrowing at L2-3 with suspected mass effect on the exiting L2 nerve roots. Lesser degrees of neural foraminal narrowing at the more inferior levels. 3. Additional degenerative changes as detailed above. 4. Ectasia of the abdominal aorta measuring 2.8 cm at the bifurcation. The report will be called/faxed according to standard departmental protocol. Electronically signed by: Kurt Tatum M.D. 09/21/2017 9:56 PM Dictated Date/Time: 09/21/2017 9:47 PM
[2017-09-21] MEDS: ATORVASTATIN 20 MG TAB PO SCH (22:01)
[2017-09-22] VITALS (7 sets, daily range): BP systolic 118–143; BP diastolic 74–92; PULSE 52–88; TEMP 36.4–36.9; O2SAT 88–94
--- NOTE | 2017-09-22 00:02 | Progress Note ---
Progress Note Date of Service Sep 21, 2017. Progress Note Phoned by nurse with MRI lumbar spine result which showed possible cauda equina syndrome I went to evaluate the patient and he denied any lumbar spine pain. He denied any urinary/bowel incontinence or leg weakness. He had 5/5 power in his extremities, and normal sensation distally. I was unable to elicit patella reflexes. I tried phoning Neurology but did not get an answer from them. I spoke to Dr. Santamaria who suggested decadron IV 10mg and then 6mg q6 - Campos Willis
[2017-09-22] MEDS ORDERED: DEXAMETHASONE INJ 10 MG in SYRINGE 0 ML IV STA (00:08)
[2017-09-22] MEDS ORDERED: DEXAMETHASONE INJ 6 MG in SYRINGE 0 ML IV STA (00:12)
[2017-09-22] MEDS: DEXAMETHASONE INJ 6 MG in SYRINGE 0 ML IV SCH ×4 (05:59→23:30)
[2017-09-22 06:55] LABS: BASO % 0.2 %; BASO ABS # 0.01 K/uL (0-0.2); HEMATOCRIT 44.1 % (42-52); HEMOGLOBIN 15.4 g/dL (14.0-18.0); IG# 0.01 K/uL (0.00-0.02); LYMPH % 13.1 %; LYMPH ABS # 0.64 K/uL (1.2-3.4); MEAN CELL VOLUME 86.6 fL (80-100); MEAN CORPUSCULAR HEMOGLOBIN 30.3 pg (25-34); MEAN CORPUSCULAR HGB CONC 34.9 g/dl (32-36); MEAN PLATELET VOLUME 10.2 fL (7.4-10.4); MONO ABS # 0.05 K/uL (0.11-0.59); NEUT % 85.5 %; NEUT ABS # 4.16 K/uL (1.4-6.5); PLATELET COUNT 198 K/uL (130-400); RED CELL DISTRIBUTION WIDTH CV 13.5 % (11.5-14.5); WHITE BLOOD COUNT 4.87 K/uL (4.8-10.8)
[2017-09-22 07:09] LABS: INR 1.7 (0.9-1.1)
[2017-09-22 07:32] LABS: ALBUMIN 3.8 gm/dl (3.4-5.0); CALCIUM 9.3 mg/dl (8.5-10.1); CREATININE 0.88 mg/dl (0.60-1.40); POTASSIUM 4.3 mmol/L (3.5-5.1)
[2017-09-22 07:38] LABS: PHOSPHORUS 2.4 mg/dl (2.5-4.9); TOTAL PROTEIN 7.9 gm/dl (6.4-8.2)
--- NOTE | 2017-09-22 08:09 | ORTHOPEDIC CONSULTATION ---
DATE OF ADMISSION: 09/21/2017 HISTORY OF PRESENT ILLNESS: The patient is a 76-year-old man who is admitted for back pain. He has been followed by Dr. Cooper in the past. He has also seen Dr. Ayon in the past. He notes that he has primarily back pain with pain going down both legs. He denies any numbness or tingling in the distal legs. He has difficulty at times walking and standing because of the pain and the burning. He notes that at this point in time, he is sitting up in bed without any pain. He denies any numbness or tingling. Denies any problems voiding. PAST MEDICAL HISTORY: Remarkable for atrial fibrillation, bicuspid aortic valve, bronchitis, carotid stenosis, tonsillectomy, hypertension, hypertensive crisis, near syncope, rib pain. He actually was admitted for his hypertension, presently. SOCIAL HISTORY: Reveals that he is a former smoker. No drug use. He is . He is retired. IMMUNIZATIONS: As charted. ALLERGIES: None. PREADMISSION MEDICATIONS: Include aspirin, Lipitor, diltiazem, Cozaar and warfarin. REVIEW OF SYSTEMS: Reveals no chest pain, shortness of breath, fever, chills, nausea, vomiting or headache. PERTINENT ORTHOPEDIC EXAMINATION: Reveals intact femoral sciatic nerve function, intact peroneal deep superficial function. Intact posterior tibial function, has normal sensation throughout the leg. He has supple hip motion. No log rolling pain. He has good quad and hamstring function, good anterior and posterior tib tendon function, good eversion with peroneals, good inversion with posterior tib. LABORATORY WORK: Reveals white count 5.01. Hematocrit stable at 43.8, INR is at 1.9. Platelet count 188. MRI scan of his back reveals substantial spinal stenosis, multilevel, particularly at the L2-3 level. ASSESSMENT: Substantial degenerative disc disease, spinal stenosis of the lumbar spine At this point in time, will need to defer care to a spine surgeon , Dr. Cooper, who the patient has an appointment with on 10/05/2017. Presently just pain management and discharge when able based on medical findings. If patient's pain remains escalated, will need to officially have you consult Dr. Cooper directly.At this point ,a course of steroids is appropriate if there are no issues from a medical perspective. PIPPA
--- NOTE | 2017-09-22 08:19 | Progress Note ---
Subjective Date of Service: Sep 22, 2017. Subjective this pt has had lower extermity pain radiating from lower back, he has not had any motor weakness nor loss of bowel or bladder function unfortunatley his CTA 09/20 as an out pt shows 1. 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 2. 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 3. Bilateral fusiform common iliac artery aneurysms. The right common iliac artery measures 27 mm, and the left common iliac artery measures 23 mm. 4. Short segment dissection involving the left common iliac artery Dr vegas did see and evaluate the pt on 09/22 and his A/P is : Imp: Infrarenal aortic dissection Bilateral iliac artery aneurysms Plan: Back pain is not related to his aorto iliac disease. Can be d/c from vascular standpoint once BP controlled. Will follow up in 6 months with [facility]. If iliac aneurysms enlarge in the future, they can be repaired by endovascular approach. Problem List Medical Problems: (1) Abdominal aortic aneurysm dissection Status: Acute (2) Hypertensive emergency Status: Acute Review of Systems Constitutional: No fever, No chills, No weakness Respiratory: No cough, No shortness of breath, No dyspnea on exertion Cardiac: No chest pain, No edema Abdomen: No pain, No nausea, No vomiting, No diarrhea Psychiatric: No depression symptoms, No anhedonism, No anxiety Objective Vital Signs Date Time Temp Pulse Resp B/P (MAP) Pulse Ox O2 Delivery O2 Flow Rate FiO2 09/22/17 07:55 36.4 78 20 137/92 (107) 91 Room Air 09/22/17 04:00 Nasal Cannula 2.0 09/22/17 03:22 36.7 72 18 143/83 (103) 92 Room Air 09/22/17 00:30 36.9 52 18 134/80 (98) 94 Nasal Cannula 2.0 09/22/17 00:01 Nasal Cannula 2.0 09/21/17 21:35 36.5 64 16 121/71 95 Room Air 2.0 09/21/17 20:59 36.5 67 18 144/69 (94) 95 Nasal Cannula 2.0 09/21/17 18:58 95 09/21/17 18:50 62 20 106/73 93 Room Air 09/21/17 18:17 63 16 128/70 92 Room Air 09/21/17 17:42 75 14 149/62 93 Room Air 09/21/17 17:31 70 14 133/60 94 Room Air 09/21/17 17:21 67 14 127/66 93 Room Air 09/21/17 17:11 68 14 133/75 93 Room Air 09/21/17 17:01 69 12 129/66 93 Room Air 09/21/17 16:51 67 14 134/86 94 Room Air 09/21/17 16:45 67 11 147/83 94 Room Air 09/21/17 16:32 63 19 153/83 95 09/21/17 16:28 65 09/21/17 16:26 65 16 150/83 92 Room Air 09/21/17 15:50 60 12 153/85 95 Room Air 09/21/17 15:44 70 16 163/100 93 Room Air 09/21/17 15:00 69 20 164/97 93 Room Air 09/21/17 14:01 36.8 72 20 180/98 95 Room Air Physical Exam General Appearance: WD/WN, + moderate distress (worsend with ambulation) Neck: supple, no JVD Respiratory/Chest: chest non-tender, lungs clear, normal breath sounds Cardiovascular: regular rate, rhythm (although history of afib sounds regular) , + systolic murmur Abdomen: normal bowel sounds, non tender, soft Extremities: no pedal edema, no calf tenderness Neurologic/Psychiatric: alert, oriented x 3 Laboratory Results Last 24 Hours Test 09/21/17 14:45 09/21/17 14:58 09/21/17 17:11 09/21/17 19:59 White Blood Count 5.01 K/uL Red Blood Count 5.01 M/uL Hemoglobin 15.4 g/dL Hematocrit 43.8 % Mean Corpuscular Volume 87.4 fL Mean Corpuscular Hemoglobin 30.7 pg Mean Corpuscular Hemoglobin Concent 35.2 g/dl Platelet Count 188 K/uL Mean Platelet Volume 9.7 fL Neutrophils (%) (Auto) 61.6 % Lymphocytes (%) (Auto) 23.8 % Monocytes (%) (Auto) 10.6 % Eosinophils (%) (Auto) 3.0 % Basophils (%) (Auto) 0.8 % Neutrophils # (Auto) 3.09 K/uL Lymphocytes # (Auto) 1.19 K/uL Monocytes # (Auto) 0.53 K/uL Eosinophils # (Auto) 0.15 K/uL Basophils # (Auto) 0.04 K/uL RDW Standard Deviation 43.0 fL RDW Coefficient of Variation 13.6 % Immature Granulocyte % (Auto) 0.2 % Immature Granulocyte # (Auto) 0.01 K/uL Prothrombin Time 20.1 SECONDS Prothromb Time International Ratio 1.9 Activated Partial Thromboplast Time 32.0 SECONDS Partial Thromboplastin Ratio 1.2 Sodium Level 138 mmol/L Potassium Level 4.4 mmol/L Chloride Level 105 mmol/L Carbon Dioxide Level 28 mmol/L Anion Gap 5.0 mmol/L 14.0 mmol/L Blood Urea Nitrogen 20 mg/dl Creatinine 1.06 mg/dl Est Creatinine Clear Calc Drug Dose 70.6 ml/min Estimated GFR () 79.2 Estimated GFR (Non- 68.3 BUN/Creatinine Ratio 19.1 Random Glucose 82 mg/dl Calcium Level 8.9 mg/dl C-Reactive Protein < 0.29 mg/dl Bedside Hemoglobin 15.6 g/dl Bedside Hematocrit 46 % Bedside Sodium 141 mEq/L Bedside Potassium 4.6 mEq/L Bedside Chloride 103 mEq/L Bedside Total CO2 29 mEq/l Bedside Blood Urea Nitrogen 23 mg/dl Bedside Creatinine 1.0 mg/dl Bedside Glucose (other) 85 mg/dl Bedside Ionized Calcium (Neha) 1.14 mmol/l Bedside D-Dimer > 450 ng/mlFEU Troponin I < 0.015 ng/ml Test 09/21/17 21:05 09/22/17 06:02 Urine Color YELLOW Urine Appearance CLEAR Urine pH 6.0 Urine Specific Marana > 1.045 Urine Protein NEG Urine Glucose (UA) NEG Urine Ketones NEG Urine Occult Blood TRACE Urine Nitrite NEG Urine Bilirubin NEG Urine Urobilinogen NEG Urine Leukocyte Esterase NEG Urine WBC (Auto) 0 /hpf Urine RBC (Auto) 0-4 /hpf Urine Hyaline Casts (Auto) 0 /lpf Urine Epithelial Cells (Auto) 0-5 /lpf Urine Bacteria (Auto) NEG White Blood Count 4.87 K/uL Red Blood Count 5.09 M/uL Hemoglobin 15.4 g/dL Hematocrit 44.1 % Mean Corpuscular Volume 86.6 fL Mean Corpuscular Hemoglobin 30.3 pg Mean Corpuscular Hemoglobin Concent 34.9 g/dl Platelet Count 198 K/uL Mean Platelet Volume 10.2 fL Neutrophils (%) (Auto) 85.5 % Lymphocytes (%) (Auto) 13.1 % Monocytes (%) (Auto) 1.0 % Eosinophils (%) (Auto) 0.0 % Basophils (%) (Auto) 0.2 % Neutrophils # (Auto) 4.16 K/uL Lymphocytes # (Auto) 0.64 K/uL Monocytes # (Auto) 0.05 K/uL Eosinophils # (Auto) 0.00 K/uL Basophils # (Auto) 0.01 K/uL RDW Standard Deviation 43.0 fL RDW Coefficient of Variation 13.5 % Immature Granulocyte % (Auto) 0.2 % Immature Granulocyte # (Auto) 0.01 K/uL Prothrombin Time 17.4 SECONDS Prothromb Time International Ratio 1.7 Sodium Level 135 mmol/L Potassium Level 4.3 mmol/L Chloride Level 104 mmol/L Carbon Dioxide Level 21 mmol/L Anion Gap 10.0 mmol/L Blood Urea Nitrogen 20 mg/dl Creatinine 0.88 mg/dl Est Creatinine Clear Calc Drug Dose 83.5 ml/min Estimated GFR () 97.4 Estimated GFR (Non- 84.0 BUN/Creatinine Ratio 23.0 Random Glucose 157 mg/dl Calcium Level 9.3 mg/dl Phosphorus Level 2.4 mg/dl Magnesium Level 2.1 mg/dl Total Bilirubin 0.8 mg/dl Aspartate Amino Transf (AST/SGOT) 17 U/L Alanine Aminotransferase (ALT/SGPT) 28 U/L Alkaline Phosphatase 105 U/L Total Protein 7.9 gm/dl Albumin 3.8 gm/dl Globulin 4.1 gm/dl Albumin/Globulin Ratio 0.9 Triglycerides Level 66 mg/dl Cholesterol Level 142 mg/dl HDL Cholesterol 47 mg/dl LDL Cholesterol, Calculated 82 mg/dl VLDL Cholesterol, Calculated 13 mg/dl Cholesterol/HDL Ratio 3.0 Assessment and Plan 76 years old man presented to the ED with intractable lower back pain, hypertensive urgency and ectasia of Ascending aorta as before PMHx of dyslipidemia, PVD/carotid stenosis s/p b/l CEA, PA Afib currently on coumadin, HTN and lumbar spinal stenosis. Hypertensive urgency, titrated nicardipine off, losartan( increased 09/22) , Cardizem CD and hydralazine as needed Intractable lower back pain with a lumbar spinal stenosis with exacerbation, has concern for cauda equina syndrome and L2 nerve root impingement, Morphine/ Lidoderm patch for his lower back pain also will continue his home Percocet, ortho evaluation but if intervention is needed will involve cardiology to optimize pre operatively consideration of aortic abnormality, possible JOANNA, Consulted Dr. Vegas regarding his suspected dissections, no plans of immediate intervention, will recommend outpt follow up Paroxysmal A. fib currently on Coumadin, rate controlled Carotid stenosis status post bilateral carotid endarterectomy Peripheral vascular disease, will hold aspirin in case of procedure needed Dyslipidemia, lipitor DVT prophylaxis will be scd as coumadin is held in consideration if surgical intervention is needed
[2017-09-22] MEDS ORDERED: DICLOFENAC SOD 1% GEL 100 GM TUBE EXT SCH (09:00)
--- NOTE | 2017-09-22 09:42 | Surgery Consultation ---
Consultation Date of Service Sep 22, 2017. Chief Complaint Back pain History of Present Illness The patient is a 76 year old male who was seen in the and admitted for hypertension control. He had a CT scan done prior to admission which showed slight aneurysmal dilatation of the aorta with dissection from the proximal infrarenal aorta to the right common iliac artery with small iliac artery aneurysms. He was also complaining of back pain which has been off and on over the last year. He does have spinal stenosis. Since starting PT one week ago, he has had severe lower back pain into the buttocks. He has known PVD and carotid disease, atrial fib, hypertension and a bicuspid aortic valve. He denies any rest pain in his feet. Vitals Vital Signs Past 12 Hours Date Time Temp Pulse Resp B/P (MAP) Pulse Ox O2 Delivery O2 Flow Rate FiO2 09/22/17 07:55 36.4 78 20 137/92 (107) 91 Room Air 09/22/17 04:00 Nasal Cannula 2.0 09/22/17 03:22 36.7 72 18 143/83 (103) 92 Room Air 09/22/17 00:30 36.9 52 18 134/80 (98) 94 Nasal Cannula 2.0 09/22/17 00:01 Nasal Cannula 2.0 09/21/17 21:35 36.5 64 16 121/71 95 Room Air 2.0 Allergies Coded Allergies: No Known Allergies (Unverified , 09/21/17) Home Medications Scheduled Aspirin (Aspirin Ec), 81 MG PO QAM Atorvastatin (Lipitor), 20 MG PO DAILY Diltiazem Hcl Coated Beads (Cartia Xt), 180 MG PO DAILY Losartan Potassium (Cozaar), 50 MG PO HS Warfarin Sodium (Warfarin Sodium), 5 MG PO [id number] Warfarin Sodium (Warfarin Sodium), 2.5 MG PO [id number] Problem List Medical Problems: (1) Atrial fibrillation (2) Bicuspid aortic valve (3) History of tonsillectomy (4) Hypertension (5) Hypertensive crisis Surgical / Medical History Hx Cardiac Surgery: Yes (Bicuspid valve replacement) Hx Abdominal Surgery: Yes (LT INGUINAL HERNIA REPAIR) Hx Cancer Surgery: Yes (SKIN CANCER REMOVALS) Hx Thoracic Surgery: No Hx Orthopedic: Yes (RT RCR, LT HAND TRIGGER FINGER, Degen disc disease) Hx Urinary Tract Surgery: No Past Medical/Surgical History: Heart Disease, High Cholesterol, Hypertension, Other (spinal stenosis, carotid stenosis, a fib, bicuspid aortic valve) Family History Hypertension Social History Smoking Status: Former Smoker Hx Tobacco Use In Past Year?: No Hx Alcohol Use - Type & Amnt: Yes (10-12 beers) Hx Substance Use -Type & Amnt: No Review of Systems Constitutional: No chills, No diaphoresis, No fever, No malaise, No weakness, No weight gain, No weight loss, No sweats, No fatigue, No problem reported Respiratory: No cough, No cyanosis, No RAND, No hemoptysis, No orthopnea, No PND , No short of breath, No sputum production, No stridor, No wheezing, No dyspnea , No problem reported Cardiovascular: No chest pain, No chest tightness, No chest pressure, No palpitations, No syncope, No diaphoresis, No edema, No intermittent claudication , No orthopnea, No cyanosis, No mumur, No lightheadedness, No paroxysmal nocturnal dyspnea, No problem reported Gastrointestinal: No abdominal pain, No constipation, No diarrhea, No nausea, No vomiting, No anorexia, No appetite changes, No belching, No flatulence, No food intolerance, No hematemesis, No hemorrhoids, No hematochezia, No stool changes, No heartburn, No indigestion, No dysphagia, No rectal bleeding, No problem reported Genitourinary - Male: No impotence, No penile discharge, No penile itching, No rash, No testicular pain, No testicular swelling, No hematuria, No difficulty urinating, No problem reported Musculoskeletal: + back pain Neurologic: No dizziness, No weakness, No headache, No lethargy, No numbness, No paresthesia, No pre-existing deficit, No seizures, No tics, No tingling, No tremors, No vertigo, No memory loss, No LOC, No problem reported Psychiatric: No anxiety, No alcohol abuse, No auditory hallucinations, No depression, No drug abuse, No homicidal ideation, No mood changes, No suicidal ideation, No visual hallucinations, No problem reported Physical Exam Constitutional: General Apperance: heathly-appearing, well-nourished, well-developed Level of Distress: NAD Ambulation: ambulating normally Psychiatric: Mental Status: active & alert, normal mood, normal affect Orientation: oriented except where noted, to time, to place, to person Memory: recent memory normal, remote memory normal Lungs: Auscultation: breath sounds normal Cardiovascular: Heart Auscultation: RRR, II/ MYKEL Peripheral Pulses: Pulses: full and equal, in all extremities except if noted Abdomen: Inspection & Palpation: soft, non-distended, no tenderness, guarding & rebound Musculoskeletal: normal Extremities: Upper Right: no cyanosis, no edema, no varicosities, no palpable cord, no clubbing, no ulcers, no mottling Upper Left: no cyanosis, no edema, no palpable cord, no clubbing, no ulcers , no mottling Lower Right: no cyanosis, no edema, no varicosities, no palpable cord, no clubbing, no ulcers, no mottling Lower Left: no cyanosis, no edema, no varicosities, no palpable cord, no clubbing, no ulcers, no mottling Neurologic: Cranial Nerves: grossly intact Sensation: grossly intact Assessment and Plan Imp: Infrarenal aortic dissection Bilateral iliac artery aneurysms Plan: Back pain is not related to his aorto iliac disease. Can be d/c from vascular standpoint once BP controlled. Will follow up in 6 months with [facility]. If iliac aneurysms enlarge in the future, they can be repaired by endovascular approach. Thank you very much for letting me participate in the care of this patient.
[2017-09-22] MEDS: LIDODERM (LIDOCAINE) PATCH 5% TD SCH (10:17)
[2017-09-22] MEDS: CYCLOBENZAPRINE HCL 5 MG TAB PO SCH ×3 (10:18→20:55)
[2017-09-22] MEDS: DILTIAZEM HCL 180 MG CAPCR PO SCH (10:18)
[2017-09-22] MEDS ORDERED: NURSING VERBAL MED ORDER ONE ×3 (14:00→21:30)
[2017-09-22] MEDS ORDERED: WARFARIN SOD 5 MG TAB PO SCH (16:00)
[2017-09-22] MEDS: ATORVASTATIN 20 MG TAB PO SCH (20:55)
[2017-09-22] MEDS: LOSARTAN POTASSIUM 50 MG TAB PO SCH (20:55)
[2017-09-22] MEDS: DICLOFENAC SOD 1% GEL 100 GM TUBE EXT SCH (20:55)
[2017-09-23] VITALS (7 sets, daily range): BP systolic 112–130; BP diastolic 69–87; PULSE 60–126; TEMP 36.4–36.8; O2SAT 91–95
[2017-09-23] MEDS: DEXAMETHASONE INJ 6 MG in SYRINGE 0 ML IV SCH ×2 (05:59→13:14)
[2017-09-23] MEDS: DILTIAZEM HCL 180 MG CAPCR PO SCH (07:47)
[2017-09-23 07:48] LABS: HEMATOCRIT 41.7 % (42-52); HEMOGLOBIN 14.9 g/dL (14.0-18.0); MEAN CELL VOLUME 87.2 fL (80-100); MEAN CORPUSCULAR HEMOGLOBIN 31.2 pg (25-34); MEAN CORPUSCULAR HGB CONC 35.7 g/dl (32-36); MEAN PLATELET VOLUME 10.1 fL (7.4-10.4); PLATELET COUNT 214 K/uL (130-400); RED CELL DISTRIBUTION WIDTH CV 13.6 % (11.5-14.5); RED CELL DISTRIBUTION WIDTH SD 43.4 fL (36.4-46.3); WHITE BLOOD COUNT 13.49 K/uL (4.8-10.8)
[2017-09-23] MEDS: LIDODERM (LIDOCAINE) PATCH 5% TD SCH (07:48)
[2017-09-23] MEDS: CYCLOBENZAPRINE HCL 5 MG TAB PO SCH ×3 (07:48→20:30)
--- NOTE | 2017-09-23 07:51 | PROGRESS NOTE ---
DATE: 09/23/2017 The patient is sitting up in bed comfortably. He is frustrated at this point because he wants to get up and do more. He denies any increased numbness or tingling in his legs. He notes no change in his overall complaints. He has no increased weakness. Vital signs are stable. He is afebrile. His blood pressure is well controlled. His pulse is in the 60s. Laboratory work today that was ordered is pending. ASSESSMENT: Clinically stable spinal stenosis. At this point in time, there has been no aggressive progressive change. He does need spinal surgical assessment for potential decompression. At this point in time, we will order PT. Discharge plans per medicine. From my perspective, this can be redone and reevaluated as an outpatient if they cannot get Dr. Cooper if he is not available for in-house consultation this weekend. The patient has an appointment with him early in September. The patient is to discontinue all of his outpatient physical therapy because that seems to be aggravating his condition. He will follow up with me on a p.r.n. basis as he has spinal needs and has an appointment with Dr. Cooper.
[2017-09-23 08:03] LABS: INR 1.8 (0.9-1.1)
[2017-09-23 08:20] LABS: CALCIUM 8.8 mg/dl (8.5-10.1); CREATININE 1.2 mg/dl (0.60-1.40); POTASSIUM 4.3 mmol/L (3.5-5.1)
--- NOTE | 2017-09-23 12:09 | HISTORY & PHYSICAL EXAMINATION ---
DATE OF ADMISSION: 09/21/2017 UNIT NUMBER: [id number]. REASON FOR CONSULTATION: significant spinal stenosis at L2-L3 of lumbar spine. HISTORY OF PRESENT ILLNESS: Varun is a delightful patient, I remember him from the past it was either 1 or 2 years ago in the office, he had stenosis at that period of time, we were to put it off from a surgical prospective and he has done well. For the last few weeks he has had increasing pain, he called the office, he was given an appointment in about 2 weeks. The pain became unbearable for him, more recently he had to make a trip to the Emergency Room on the or 22 of September was admitted because of pain and his significant stenosis. It is radicular, it is in his back and his lower extremities. In the Emergency Room's setting, visual analog scale, his pain was a 9/10 with radiation to the buttocks and lateral thigh. He was admitted appropriately for evaluation and treatment along with the possibility of surgical intervention on spine along with control of his medical problems. PAST MEDICAL HISTORY: Atrial fibrillation, tonsillectomy, hypertension, and aortic valve issues. MEDICATIONS: Lipitor, Cozaar, aspirin, and warfarin as well. REVIEW OF SYSTEMS: He denies any blurred vision, double vision, tinnitus or vertigo. Denies any chest pain, orthopnea. Denies nausea, vomiting, urgency, frequency. He has no loss of bowel and bladder function. His lower extremities given difficulty in the hip region in lateral thigh towards the thigh itself. OBJECTIVE: VITAL SIGNS: Blood pressure elevated at 180/90, respirations 20, pulse 72 and irregular, temperature 36.2. HEENT: Pupils react to light and accommodation. Ear, nose and throat clear. GENERAL: Currently, in atrial fibrillation. ABDOMEN: Soft, nontender, no organomegaly, no rebound tenderness. No referred pain. No masses. EXTREMITIES: Intact with normal in appearance. He has good motor strength in quadriceps, hamstrings, dorsiflexes, plantar flexes, a little bit of weakness in iliopsoas bilaterally. UPPER EXTREMITIES: Fine. No signs of upper motor neuron issues, no hyperreflexia clonus. We did not walk the patient this morning. He has been to get up on his feet and ambulate and does moderately well. IMAGES: His MRI scan was amazingly impressive with severe stenosis, looks like at the L2-L3 level of the lumbar spine with almost pinpoint canal. ASSESSMENT: Delightful gentleman with medical issues including atrial fibrillation, aortic valve issues, and severe spinal stenosis. DISPOSITION: At this point in time, I had tyler discussion with the family. He would like to proceed with surgical intervention, it truly is a surgical problem. If left unattended, it could end him with some bowel and bladder incontinence. I also do not want to have to operate this on an emergent basis on some evening or late on the weekend. I think the desmin cast and surgery on his spine is inevitable. He agrees with the assessment and understands and asked intelligent questions. To make a long story short, we will medically optimize the patient in the next 24-48 hours. I will look at my schedule to get him on the operative schedule for lumbar spine laminectomy. I believe I can accomplish his surgery to about 90 minutes, I keep blood loss to about 100-150 mL, fairly minimally invasive approach. I will continue talking to the family. I will be looking at my schedule to see when I get him on the schedule as soon as possible. PIPPA
--- NOTE | 2017-09-23 14:26 | Progress Note ---
Subjective Date of Service: Sep 23, 2017. Subjective pt remains with significant issues when ambulating only going short distances before back, and leg pain and extreme leg fatigue, no chest pain or sob discussion with Dr Cooper may consider surgical intervention Problem List Medical Problems: (1) Abdominal aortic aneurysm dissection Status: Acute (2) Hypertensive emergency Status: Acute Review of Systems Constitutional: + weakness, + fatigue, No fever, No chills Respiratory: No cough, No shortness of breath, No dyspnea on exertion Cardiac: No chest pain, No edema, No claudication Abdomen: No pain, No nausea, No vomiting, No diarrhea Musculoskeletal: + joint pain, + muscle pain Neurologic: + weakness, No memory loss Psychiatric: + anxiety, No depression symptoms Objective Vital Signs Date Time Temp Pulse Resp B/P (MAP) Pulse Ox O2 Delivery O2 Flow Rate FiO2 09/23/17 11:01 36.4 66 18 130/76 (94) 92 Room Air 09/23/17 09:15 95 Room Air 09/23/17 08:05 Room Air 09/23/17 07:45 36.5 66 16 115/73 (87) 93 2.0 09/23/17 04:00 Room Air 09/23/17 03:05 36.6 60 16 112/69 (83) 92 Nasal Cannula 2.0 09/23/17 00:01 Room Air 09/22/17 23:15 36.6 71 16 122/75 (91) 91 Room Air 09/22/17 20:00 Room Air 09/22/17 19:25 36.6 69 18 133/74 (93) 92 Nasal Cannula 2.0 09/22/17 16:00 Room Air 09/22/17 15:54 90 Nasal Cannula 2.0 09/22/17 15:54 36.7 67 18 118/75 (89) 88 Room Air Physical Exam General Appearance: WD/WN, + moderate distress Eyes: normal inspection, sclerae normal Neck: supple, thyroid normal Respiratory/Chest: chest non-tender, lungs clear, normal breath sounds Cardiovascular: regular rate, rhythm, + systolic murmur Abdomen: normal bowel sounds, non tender, soft Extremities: no pedal edema, no calf tenderness Neurologic/Psychiatric: alert, oriented x 3 Laboratory Results Last 24 Hours Test 09/23/17 07:17 White Blood Count 13.49 K/uL Red Blood Count 4.78 M/uL Hemoglobin 14.9 g/dL Hematocrit 41.7 % Mean Corpuscular Volume 87.2 fL Mean Corpuscular Hemoglobin 31.2 pg Mean Corpuscular Hemoglobin Concent 35.7 g/dl RDW Standard Deviation 43.4 fL RDW Coefficient of Variation 13.6 % Platelet Count 214 K/uL Mean Platelet Volume 10.1 fL Prothrombin Time 19.1 SECONDS Prothromb Time International Ratio 1.8 Sodium Level 136 mmol/L Potassium Level 4.3 mmol/L Chloride Level 103 mmol/L Carbon Dioxide Level 25 mmol/L Anion Gap 8.0 mmol/L Blood Urea Nitrogen 35 mg/dl Creatinine 1.20 mg/dl Est Creatinine Clear Calc Drug Dose 59.9 ml/min Estimated GFR () 68.1 Estimated GFR (Non- 58.8 BUN/Creatinine Ratio 29.0 Random Glucose 151 mg/dl Calcium Level 8.8 mg/dl Assessment and Plan 76 years old man presented to the ED with intractable lower back pain, hypertensive urgency and ectasia of Ascending aorta as before PMHx of dyslipidemia, PVD/carotid stenosis s/p b/l CEA, PA Afib currently on coumadin, HTN and lumbar spinal stenosis. I personally discussed the case with Dr Cooper in the unit 09/23 Hypertensive urgency, resolved, losartan( increased 09/22) , Cardizem CD and hydralazine as needed Intractable lower back pain with a lumbar spinal stenosis with exacerbation, has concern for cauda equina syndrome and L2 nerve root impingement, Morphine/ Lidoderm patch for his lower back pain also will continue his home Percocet, ortho evaluation considering surgical intervention will consult cardiology to optimize pre operatively consideration of aortic abnormality, possible JOANNA, Consulted Dr. Ivy regarding his suspected dissections, no plans of immediate intervention, will recommend outpt follow up Paroxysmal A. fib currently, rate controlled, coumadin held on full dose therapeutic lovenox will need to be held pre op Carotid stenosis status post bilateral carotid endarterectomy Peripheral vascular disease, will hold aspirin in case of procedure needed Dyslipidemia, lipitor DVT prophylaxis will be scd as coumadin is held in consideration if surgical intervention is needed
[2017-09-23] MEDS: ENOXAPARIN 100 MG/1ML SYR SQ SCH (20:28)
[2017-09-23] MEDS: DICLOFENAC SOD 1% GEL 100 GM TUBE EXT SCH (20:29)
[2017-09-23] MEDS: DEXAMETHASONE INJ 4 MG in SYRINGE 0 ML IV SCH (20:29)
[2017-09-23] MEDS: LOSARTAN POTASSIUM 50 MG TAB PO SCH (20:30)
[2017-09-23] MEDS: ATORVASTATIN 20 MG TAB PO SCH (20:30)
[2017-09-24 03:48] VITALS: BP 122/61; PULSE 94; TEMP 36.8; O2SAT 93
[2017-09-24 07:27] LABS: INR 1.8 (0.9-1.1)
[2017-09-24 07:43] VITALS: BP 129/89; PULSE 88; TEMP 36.6; O2SAT 90
[2017-09-24] MEDS: ENOXAPARIN 100 MG/1ML SYR SQ SCH ×2 (09:09→18:15)
[2017-09-24] MEDS: DILTIAZEM HCL 180 MG CAPCR PO SCH (09:09)
[2017-09-24] MEDS: CYCLOBENZAPRINE HCL 5 MG TAB PO SCH ×3 (09:09→20:56)
[2017-09-24] MEDS: LIDODERM (LIDOCAINE) PATCH 5% TD SCH (09:09)
[2017-09-24] MEDS: DEXAMETHASONE INJ 4 MG in SYRINGE 0 ML IV SCH ×2 (09:10→20:56)
[2017-09-24] MEDS: POLYETHYLENE (MIRALAX) 17 GM PACK PO PRN (09:40)
[2017-09-24 12:24] VITALS: BP 145/92; PULSE 101; TEMP 37; O2SAT 95
[2017-09-24] MEDS ORDERED: NURSING VERBAL MED ORDER ONE (14:00)
--- NOTE | 2017-09-24 14:47 | Cardiology Consultation ---
Cardiology Consultation Date of Consultation: Sep 24, 2017. Requesting Physician: Hafsa History of Present Illness Mr. Thomas is a very pleasant 76-year-old man well known to me from the outpatient setting, followed for his bicuspid aortic valve with mild aortic insufficiency and paroxysmal atrial fibrillation who is currently admitted for acute low back pain in the setting of lumbar spinal stenosis being evaluated for possible laminectomy. Cardiology consult for management of atrial fibrillation and perioperative recommendations. Patient was last seen by me earlier this month at which time was doing well but continued to deal with issues with his back pain. He had had a recent abdominal aortic ultrasound which had shown iliac aneurysms and a CT scan of his abdomen and pelvis have been ordered to confirm iliac aneurysms. CTA was remarkable for incidentally noted infrarenal aortic dissection in confirmed bilateral iliac aneurysms. Patient presented on 09/21 with refractory back pain. Was initially treated for possible hypertensive urgency in the setting of dissections noted on CTA. Has since been evaluated by vascular surgery recommends outpatient surveillance. MRI confirmed lumbar stenosis with possible cauda equina syndrome. Currently being treated with high-dose steroids has been evaluated by Dr. Cooper was considering laminectomy later this week. From a cardiac standpoint patient went into atrial fibrillation with intermittent RVR yesterday around 1400. Has been continued on his home Cardizem. His Coumadin is being held in preparation for surgery, currently on Lovenox. Past Medical/Surgical History Medical Problems: 1. Paroxysmal atrial fibrillation 2. Bicuspid aortic valve--mild aortic insufficiency, no significant stenosis 3. Mildly dilated aortic root--stable on surveillance echocardiograms, CTA 2016 4. Hypertension 5. Carotid artery disease status post prior bilateral endarterectomy--lasts duplex 08/2016 6. Bilateral common iliac aneurysms -- 2.4 on right, 2.1 on left 7. Spinal stenosis Recent cardiovascular studies: Abdominal aorta ultrasound (06/2017):No evidence of AAA, less than 50 percent stenosis in the aortoiliac system. Dilated bilateral common iliacs (proximal 2.1 centimeter, right proximal 2.4 centimeter) Echo (12/2016): Normal LV size and wall thickness. EF 60-65 percent. Bicuspid aortic valve with mild aortic insufficiency, mild MR, mild ascending aortic dilation (4.3 centimeters) chest CTA (01/2017): Mild dilation of ascending aorta (4.3 centimeter) carotid Doppler (08/2016): Less than 50 percent stenosis bilaterally, no significant atherosclerotic plaque noted status post right ICA endarterectomy [facility] 01/2016): Right 0.98, left 0.95; normal segmental pressures, PVR waveforms Family History Hypertension Social History Smoking Status: Former Smoker History of Alcohol Use: Yes (10-12 beers) Review of Systems Respiratory: No cough, No shortness of breath, No dyspnea on exertion Cardiac: No chest pain, No edema, No claudication 10 point review of systems was completed and was otherwise negative unless stated in HPI Allergies Coded Allergies: No Known Allergies (Unverified , 09/21/17) Medications Current Inpatient Medications Medications (Trade) Dose Ordered Sig/Richard Route Start Time Stop Time Status Last Admin Dose Admin Ioversol (Optiray 320) 111 ml UD PRN IV 09/21/17 15:00 09/25/17 14:59 Diltiazem HCl (Cardizem Cd Cap) 180 mg DAILY PO 09/22/17 09:00 10/22/17 08:59 09/24/17 09:09 180 MG Warfarin Sodium (Coumadin Tab) 2.5 mg MoFr@1600 PO 09/21/17 20:30 10/21/17 20:29 Future Hold 09/21/17 21:58 2.5 MG Acetaminophen (Tylenol Tab) 650 mg Q4H PRN PO 09/21/17 18:00 10/21/17 17:59 Al Hydrox/Mg Hydrox/Simethicone (Maalox Max Susp) 15 ml Q4H PRN PO 09/21/17 18:00 10/21/17 17:59 Magnesium Hydroxide (Milk Of Magnesia Susp) 30 ml Q12H PRN PO 09/21/17 18:00 10/21/17 17:59 09/23/17 20:28 30 ML Zolpidem Tartrate (Ambien Tab) 5 mg HSZ PRN PO 09/21/17 18:00 10/21/17 17:59 Zolpidem Tartrate (Ambien Tab) 5 mg HSZ PRN PO 09/21/17 18:00 10/21/17 17:59 Ondansetron HCl (Zofran Inj) 4 mg Q6H PRN IV 09/21/17 18:00 10/21/17 17:59 Morphine Sulfate (MoRPHine SULFATE INJ) 2 mg Q30M PRN IV 09/21/17 18:00 10/05/17 17:59 Polyethylene (Miralax Powder Packet) 17 gm DAILY PRN PO 09/21/17 18:00 10/21/17 17:59 09/24/17 09:40 17 GM Hydralazine HCl (HydrALAZINE INJ) 15 mg Q6H PRN IV. 09/21/17 18:30 10/21/17 18:29 Lidocaine (Lidoderm Patch 5%) 1 patch QAM TD 09/22/17 09:00 10/22/17 08:59 09/24/17 09:09 1 PATCH Miscellaneous (Remove Lidoderm Patch) 1 ea DAILY@21 N/A 09/22/17 21:00 10/22/17 20:59 09/23/17 20:30 1 EA Oxycodone/ Acetaminophen (Percocet 10-325MG Tab) 1 tab Q8H PRN PO 09/21/17 21:00 10/05/17 20:59 09/22/17 10:29 1 TAB Cyclobenzaprine HCl (Flexeril Tab) 5 mg TID PO 09/22/17 09:00 10/22/17 08:59 09/24/17 13:44 5 MG Diclofenac Sodium (Voltaren 1% Top Gel) 1 appln HS EXT 09/22/17 21:00 10/22/17 08:59 09/23/17 20:29 1 APPLN Losartan Potassium (coZAAR TAB) 100 mg HS PO 09/22/17 21:00 10/21/17 20:59 09/23/17 20:30 100 MG Atorvastatin Calcium (Lipitor Tab) 20 mg HS PO 09/23/17 21:00 10/23/17 20:59 09/23/17 20:30 20 MG Dexamethasone Sodium Phosphate 4 mg/Syringe 1 ml @ 1 mls/min Q12 IV 09/23/17 21:00 10/22/17 05:59 09/24/17 09:10 1 MLS/MIN Enoxaparin Sodium (Lovenox Inj) 90 mg Q12H SQ 09/23/17 19:00 10/23/17 18:59 09/24/17 09:09 90 MG Metoprolol Tartrate (Lopressor Iv) 5 mg Q4H PRN IV 09/23/17 16:45 10/23/17 16:44 Guaifenesin (Mucinex Contr Rel Tab) 600 mg Q12 PO 09/24/17 14:00 10/24/17 13:59 Physical Exam Vital Signs Past 12 Hours Date Time Temp Pulse Resp B/P (MAP) Pulse Ox O2 Delivery O2 Flow Rate FiO2 09/24/17 12:24 37.0 101 16 145/92 (109) 95 09/24/17 11:34 Room Air 09/24/17 08:05 Room Air 09/24/17 07:43 36.6 88 16 129/89 (102) 90 Room Air 09/24/17 04:00 Room Air 09/24/17 03:48 36.8 94 18 122/61 (81) 93 Room Air Psychiatric: Orientation: oriented except where noted, to time, to place, to person Memory: recent memory normal, remote memory normal General: Comfortable, no acute distress Eyes: Sclerae anicteric, extraocular movements intact HENT: Oropharynx clear mucous membranes moist Neck: Normal carotid upstrokes, no bruits. No JVD. Lungs: Clear to auscultation bilaterally, no rhonchi or wheezes Cardiac: Irregularly irregular, no murmurs, rubs or gallops. Vascular: 2+ radial, DP and PT pulses. 2+ femoral pulses bilaterally Abdomen: Soft, nontender, nondistended, positive bowel sounds. Extremities: Well perfused, no peripheral edema Skin: No rashes or lesions. Neuro: Nonfocal Psych: Alert orient x3, normal affect and mood Data Laboratory Results: Last 24 Hours Test 09/24/17 07:01 Prothrombin Time 18.3 SECONDS Prothromb Time International Ratio 1.8 Imaging: CTA--ascending aorta 4.4 cm, unchanged from study in January CTA abdomen and pelvis--short dissection with an infrarenal abdominal aorta; left renal artery stenosis (80%), right common iliac dilated 27 mm, left common iliac dilated 23 mm with short segment of dissection EKG: EKG (09/23/2017): Atrial fibrillation, ventricular rate 106, nonspecific T- wave abnormality Telemetry reviewed: Atrial fibrillation beginning 09/23 at 1400. Largely in the 90s to 100s, occasionally up to 140s overnight Assessment & Plan 1. Spinal stenosis, cauda equina syndrome, intractable back pain 2. Paroxysmal atrial fibrillation with RVR 3. Bicuspid aortic valve with mild aortic insufficiency 4. Preserved LV function 5. Hypertension 6. Chronic abdominal aortic dissection; iliac aneurysms 7. Renal artery stenosis 8. Dyslipidemia -patient with improved back pain, no significant neurologic symptoms, up ambulating the floor; on high-dose steroids with plan for possible laminectomy by Dr. Cooper later this week. -from a cardiac standpoint now in atrial fibrillation with intermittent RVR, asymptomatic, on anticoagulation now with Lovenox -on exam well compensated without signs of heart failure Recommendations: -with epsidoes AF+RVR to 140s increase Cardizem to 240 mg daily -agree with perioperative Lovenox although feel cardioembolic risk relatively low. Feel lovenox can be safely held as long as needed from a surgical standpoint. -continue current losartan, atorvastatin and perioperative setting -overall from a cardiac standpoint, assuming heart rate well controlled, patient is relatively low risk for planned surgery and can undergo laminectomy without additional risk stratification or cardiac testing. Will continue to follow in hospital. Thank you for consultation.
[2017-09-24 14:51] VITALS: BP 123/84; PULSE 99; TEMP 36.5; O2SAT 95
[2017-09-24] MEDS: GUAIFENESIN 600 MG TABCR PO SCH ×2 (15:04→20:56)
--- NOTE | 2017-09-24 15:35 | ORTHOPEDICS PROGRESS NOTE ---
DATE: 09/24/2017 SUBJECTIVE: Back and lower extremity difficulty, paresthesias. Slight weakness. MRI demonstrate a severe central stenosis at L2-L3 with a pending cauda equina. IMPRESSION: Severe stenosis lumbar spine, L2-L3 with paroxysmal atrial fibrillation. DISPOSITION: I will be in contact with Dr. Jose Luis Schroeder, tentatively reschedule him for a surgery, which will be coming . This is the first time ____ clear off my schedule to get him taken care of. We will more or less hold the Lovenox on the morning of Sunday and the surgery scheduled for . I anticipate approximately a 90-minute operation. I will be reviewing with this patient and the family over the next several days.
[2017-09-24 19:24] VITALS: BP 139/89; PULSE 89; TEMP 36.5; O2SAT 91
[2017-09-24] MEDS: DICLOFENAC SOD 1% GEL 100 GM TUBE EXT SCH (20:56)
[2017-09-24] MEDS: ATORVASTATIN 20 MG TAB PO SCH (20:56)
[2017-09-24] MEDS: LOSARTAN POTASSIUM 50 MG TAB PO SCH (20:58)
--- NOTE | 2017-09-24 21:04 | Progress Note ---
Subjective Date of Service: Sep 24, 2017. Subjective Pt evaluation today including: conversation w/ patient, physical exam Patient reports that his pain has significantly improved. Patient reports that he is ambulating with no significant discomfort. He does state that he is receiving pain medicine that is helping him tremendously. Patient is excited to get his surgery for . Problem List Medical Problems: (1) Abdominal aortic aneurysm dissection Status: Acute (2) Hypertensive emergency Status: Acute Review of Systems Constitutional: No fever, No chills Eyes: No worsening of vision ENT: No hearing loss Respiratory: No cough Cardiac: No chest pain Abdomen: No pain Musculoskeletal: No joint pain Neurologic: No memory loss Psychiatric: No depression symptoms All Other Systems: Reviewed and Negative Medications Current Inpatient Medications Medications (Trade) Dose Ordered Sig/Richard Route Start Time Stop Time Status Last Admin Dose Admin Ioversol (Optiray 320) 111 ml UD PRN IV 09/21/17 15:00 09/25/17 14:59 Diltiazem HCl (Cardizem Cd Cap) 180 mg DAILY PO 09/22/17 09:00 10/22/17 08:59 09/25/17 10:04 180 MG Warfarin Sodium (Coumadin Tab) 2.5 mg MoFr@1600 PO 09/21/17 20:30 10/21/17 20:29 Future Hold 09/21/17 21:58 2.5 MG Acetaminophen (Tylenol Tab) 650 mg Q4H PRN PO 09/21/17 18:00 10/21/17 17:59 Al Hydrox/Mg Hydrox/Simethicone (Maalox Max Susp) 15 ml Q4H PRN PO 09/21/17 18:00 10/21/17 17:59 Magnesium Hydroxide (Milk Of Magnesia Susp) 30 ml Q12H PRN PO 09/21/17 18:00 10/21/17 17:59 09/23/17 20:28 30 ML Zolpidem Tartrate (Ambien Tab) 5 mg HSZ PRN PO 09/21/17 18:00 10/21/17 17:59 Zolpidem Tartrate (Ambien Tab) 5 mg HSZ PRN PO 09/21/17 18:00 10/21/17 17:59 Ondansetron HCl (Zofran Inj) 4 mg Q6H PRN IV 09/21/17 18:00 10/21/17 17:59 Morphine Sulfate (MoRPHine SULFATE INJ) 2 mg Q30M PRN IV 09/21/17 18:00 10/05/17 17:59 Polyethylene (Miralax Powder Packet) 17 gm DAILY PRN PO 09/21/17 18:00 10/21/17 17:59 09/24/17 09:40 17 GM Hydralazine HCl (HydrALAZINE INJ) 15 mg Q6H PRN IV. 09/21/17 18:30 10/21/17 18:29 Lidocaine (Lidoderm Patch 5%) 1 patch QAM TD 09/22/17 09:00 10/22/17 08:59 09/25/17 10:04 1 PATCH Miscellaneous (Remove Lidoderm Patch) 1 ea DAILY@21 N/A 09/22/17 21:00 10/22/17 20:59 09/24/17 20:56 1 EA Oxycodone/ Acetaminophen (Percocet 10-325MG Tab) 1 tab Q8H PRN PO 09/21/17 21:00 10/05/17 20:59 09/22/17 10:29 1 TAB Cyclobenzaprine HCl (Flexeril Tab) 5 mg TID PO 09/22/17 09:00 10/22/17 08:59 09/25/17 10:04 5 MG Diclofenac Sodium (Voltaren 1% Top Gel) 1 appln HS EXT 09/22/17 21:00 10/22/17 08:59 09/24/17 20:56 1 APPLN Losartan Potassium (coZAAR TAB) 100 mg HS PO 09/22/17 21:00 10/21/17 20:59 09/24/17 20:58 100 MG Atorvastatin Calcium (Lipitor Tab) 20 mg HS PO 09/23/17 21:00 10/23/17 20:59 09/24/17 20:56 20 MG Dexamethasone Sodium Phosphate 4 mg/Syringe 1 ml @ 1 mls/min Q12 IV 09/23/17 21:00 10/22/17 05:59 09/25/17 10:04 1 MLS/MIN Enoxaparin Sodium (Lovenox Inj) 90 mg Q12H SQ 09/23/17 19:00 10/23/17 18:59 Future Hold 09/25/17 10:05 90 MG Metoprolol Tartrate (Lopressor Iv) 5 mg Q4H PRN IV 09/23/17 16:45 10/23/17 16:44 09/24/17 23:15 5 MG Guaifenesin (Mucinex Contr Rel Tab) 600 mg Q12 PO 09/24/17 14:00 10/24/17 13:59 09/25/17 10:04 600 MG Objective Vital Signs Date Time Temp Pulse Resp B/P (MAP) Pulse Ox O2 Delivery O2 Flow Rate FiO2 09/24/17 19:24 36.5 89 19 139/89 (106) 91 Room Air 09/24/17 14:51 36.5 99 20 123/84 (97) 95 Room Air 09/24/17 12:24 37.0 101 16 145/92 (109) 95 09/24/17 12:00 Room Air 09/24/17 11:34 Room Air 09/24/17 08:05 Room Air 09/24/17 07:43 36.6 88 16 129/89 (102) 90 Room Air 09/24/17 04:00 Room Air 09/24/17 03:48 36.8 94 18 122/61 (81) 93 Room Air 09/24/17 00:00 Room Air 09/23/17 23:56 36.4 88 18 127/81 (96) 91 Room Air Physical Exam General Appearance: WD/WN, no apparent distress Eyes: normal inspection ENT: normal ENT inspection Neck: supple, no adenopathy Respiratory/Chest: chest non-tender, lungs clear, normal breath sounds, no respiratory distress Cardiovascular: no edema, + irregularly irregular Abdomen: normal bowel sounds, non tender, soft Extremities: normal range of motion Neurologic/Psychiatric: alert, oriented x 3 Skin: normal color Lymphatic: no adenopathy Laboratory Results Last 24 Hours Test 09/24/17 07:01 Prothrombin Time 18.3 SECONDS Prothromb Time International Ratio 1.8 Assessment and Plan 76 years old man presented to the ED with intractable lower back pain, hypertensive urgency and ectasia of Ascending aorta as before PMHx of dyslipidemia, PVD/carotid stenosis s/p b/l CEA, PA Afib currently on coumadin, HTN and lumbar spinal stenosis. Lumbar spinal stenosis Team discussed the case with Dr Cooper in the unit 09/23 Patient is scheduled for procedure on Hypertensive urgency, resolved, losartan( increased 09/22) , Cardizem CD and hydralazine as needed will monitor BP. Intractable lower back pain with a lumbar spinal stenosis with exacerbation, has concern for cauda equina syndrome and L2 nerve root impingement, Morphine/Lidoderm patch for his lower back pain also will continue his home Percocet, ortho evaluation considering surgical intervention will consult cardiology to optimize pre operatively consideration of aortic abnormality, possible JOANNA, Consulted Dr. Ivy regarding his suspected dissections, no plans of immediate intervention, will recommend outpt follow up Paroxysmal A. fib currently, rate controlled, coumadin held on full dose therapeutic lovenox will need to be held pre op. Plan to hold either Sunday morning or Sunday evening dose. Patient is low risk for emboli from a. fib. Carotid stenosis status post bilateral carotid endarterectomy Peripheral vascular disease, will continue to hold aspirin Dyslipidemia, lipitor DVT prophylaxis will be scd as coumadin is held in consideration if surgical intervention is needed Continued [facility] stay due to: other Discharge planning: rehab hospital
[2017-09-24] MEDS: METOPROLOL TARTRATE 1 MG/ML VIAL IV PRN (23:15)
[2017-09-25] VITALS (8 sets, daily range): BP systolic 101–132; BP diastolic 72–88; PULSE 67–99; TEMP 36.4–36.9; O2SAT 90–95
[2017-09-25 04:44] LABS: HEMATOCRIT 43.3 % (42-52); HEMOGLOBIN 15.3 g/dL (14.0-18.0); MEAN CELL VOLUME 87.1 fL (80-100); MEAN CORPUSCULAR HEMOGLOBIN 30.8 pg (25-34); MEAN CORPUSCULAR HGB CONC 35.3 g/dl (32-36); MEAN PLATELET VOLUME 10.3 fL (7.4-10.4); PLATELET COUNT 222 K/uL (130-400); RED CELL DISTRIBUTION WIDTH CV 13.7 % (11.5-14.5); RED CELL DISTRIBUTION WIDTH SD 43.2 fL (36.4-46.3)
[2017-09-25 04:52] LABS: INR 1.5 (0.9-1.1)
[2017-09-25 05:18] LABS: CALCIUM 8.8 mg/dl (8.5-10.1); CREATININE 1.11 mg/dl (0.60-1.40)
[2017-09-25 05:38] LABS: POTASSIUM 5.2 mmol/L (3.5-5.1)
[2017-09-25] MEDS: GUAIFENESIN 600 MG TABCR PO SCH ×2 (10:04→20:37)
[2017-09-25] MEDS: LIDODERM (LIDOCAINE) PATCH 5% TD SCH (10:04)
[2017-09-25] MEDS: DEXAMETHASONE INJ 4 MG in SYRINGE 0 ML IV SCH ×2 (10:04→20:37)
[2017-09-25] MEDS: CYCLOBENZAPRINE HCL 5 MG TAB PO SCH ×3 (10:04→20:38)
[2017-09-25] MEDS: DILTIAZEM HCL 180 MG CAPCR PO SCH (10:04)
[2017-09-25] MEDS: ENOXAPARIN 100 MG/1ML SYR SQ SCH (10:05)
--- NOTE | 2017-09-25 10:44 | Progress Note ---
Subjective Date of Service: Sep 25, 2017. Subjective Pt evaluation today including: conversation w/ patient Patient reports feeling well. He has no complaints at this time. Problem List Medical Problems: (1) Abdominal aortic aneurysm dissection Status: Acute (2) Hypertensive emergency Status: Acute Review of Systems Constitutional: No fever, No chills Eyes: No worsening of vision ENT: No hearing loss Respiratory: No cough Abdomen: No pain Musculoskeletal: No joint pain Neurologic: No memory loss Psychiatric: No depression symptoms Heme: No abnormal bleeding/bruising Endo: No fatigue Skin: No rash All Other Systems: Reviewed and Negative Medications Current Inpatient Medications Medications (Trade) Dose Ordered Sig/Richard Route Start Time Stop Time Status Last Admin Dose Admin Warfarin Sodium (Coumadin Tab) 2.5 mg MoFr@1600 PO 09/21/17 20:30 10/21/17 20:29 Future Hold 09/21/17 21:58 2.5 MG Acetaminophen (Tylenol Tab) 650 mg Q4H PRN PO 09/21/17 18:00 10/21/17 17:59 Al Hydrox/Mg Hydrox/Simethicone (Maalox Max Susp) 15 ml Q4H PRN PO 09/21/17 18:00 10/21/17 17:59 Magnesium Hydroxide (Milk Of Magnesia Susp) 30 ml Q12H PRN PO 09/21/17 18:00 10/21/17 17:59 09/23/17 20:28 30 ML Zolpidem Tartrate (Ambien Tab) 5 mg HSZ PRN PO 09/21/17 18:00 10/21/17 17:59 Zolpidem Tartrate (Ambien Tab) 5 mg HSZ PRN PO 09/21/17 18:00 10/21/17 17:59 Ondansetron HCl (Zofran Inj) 4 mg Q6H PRN IV 09/21/17 18:00 10/21/17 17:59 Morphine Sulfate (MoRPHine SULFATE INJ) 2 mg Q30M PRN IV 09/21/17 18:00 10/05/17 17:59 Polyethylene (Miralax Powder Packet) 17 gm DAILY PRN PO 09/21/17 18:00 10/21/17 17:59 09/24/17 09:40 17 GM Hydralazine HCl (HydrALAZINE INJ) 15 mg Q6H PRN IV. 09/21/17 18:30 10/21/17 18:29 Lidocaine (Lidoderm Patch 5%) 1 patch QAM TD 09/22/17 09:00 10/22/17 08:59 09/25/17 10:04 1 PATCH Miscellaneous (Remove Lidoderm Patch) 1 ea DAILY@21 N/A 09/22/17 21:00 10/22/17 20:59 09/25/17 20:37 1 EA Oxycodone/ Acetaminophen (Percocet 10-325MG Tab) 1 tab Q8H PRN PO 09/21/17 21:00 10/05/17 20:59 09/22/17 10:29 1 TAB Cyclobenzaprine HCl (Flexeril Tab) 5 mg TID PO 09/22/17 09:00 10/22/17 08:59 09/25/17 20:38 5 MG Diclofenac Sodium (Voltaren 1% Top Gel) 1 appln HS EXT 09/22/17 21:00 10/22/17 08:59 09/25/17 20:37 1 APPLN Losartan Potassium (coZAAR TAB) 100 mg HS PO 09/22/17 21:00 10/21/17 20:59 09/25/17 20:38 100 MG Atorvastatin Calcium (Lipitor Tab) 20 mg HS PO 09/23/17 21:00 10/23/17 20:59 09/25/17 20:37 20 MG Dexamethasone Sodium Phosphate 4 mg/Syringe 1 ml @ 1 mls/min Q12 IV 09/23/17 21:00 10/22/17 05:59 09/25/17 20:37 1 MLS/MIN Enoxaparin Sodium (Lovenox Inj) 90 mg Q12H SQ 09/23/17 19:00 10/23/17 18:59 Future Hold 09/25/17 10:05 90 MG Metoprolol Tartrate (Lopressor Iv) 5 mg Q4H PRN IV 09/23/17 16:45 10/23/17 16:44 09/24/17 23:15 5 MG Guaifenesin (Mucinex Contr Rel Tab) 600 mg Q12 PO 09/24/17 14:00 10/24/17 13:59 09/25/17 20:37 600 MG Diltiazem HCl (Cardizem Cd Cap) 240 mg DAILY PO 09/26/17 09:00 10/22/17 08:59 Objective Vital Signs Date Time Temp Pulse Resp B/P (MAP) Pulse Ox O2 Delivery O2 Flow Rate FiO2 09/25/17 07:56 36.5 81 18 126/80 (95) 92 09/25/17 04:05 36.9 72 16 132/83 (99) 92 Room Air 09/25/17 04:00 Room Air 09/25/17 00:10 36.4 99 18 132/88 (103) 90 Room Air 09/25/17 00:00 Room Air 09/24/17 23:15 125 133/89 09/24/17 20:00 Room Air 09/24/17 19:24 36.5 89 19 139/89 (106) 91 Room Air 09/24/17 14:51 36.5 99 20 123/84 (97) 95 Room Air 09/24/17 12:24 37.0 101 16 145/92 (109) 95 09/24/17 12:00 Room Air 09/24/17 11:34 Room Air Physical Exam Comments: General Appearance: WD/WN, no apparent distress Eyes: normal inspection ENT: normal ENT inspection Neck: supple, no adenopathy Respiratory/Chest: chest non-tender, lungs clear, normal breath sounds, no respiratory distress Cardiovascular: no edema, + irregularly irregular Abdomen: normal bowel sounds, non tender, soft Extremities: normal range of motion Neurologic/Psychiatric: alert, oriented x 3 Skin: normal color Lymphatic: no adenopathy Laboratory Results Last 24 Hours Test 09/25/17 04:11 White Blood Count 12.00 K/uL Red Blood Count 4.97 M/uL Hemoglobin 15.3 g/dL Hematocrit 43.3 % Mean Corpuscular Volume 87.1 fL Mean Corpuscular Hemoglobin 30.8 pg Mean Corpuscular Hemoglobin Concent 35.3 g/dl RDW Standard Deviation 43.2 fL RDW Coefficient of Variation 13.7 % Platelet Count 222 K/uL Mean Platelet Volume 10.3 fL Prothrombin Time 15.9 SECONDS Prothromb Time International Ratio 1.5 Sodium Level 136 mmol/L Potassium Level 5.2 mmol/L Chloride Level 103 mmol/L Carbon Dioxide Level 26 mmol/L Anion Gap 7.0 mmol/L Blood Urea Nitrogen 32 mg/dl Creatinine 1.11 mg/dl Est Creatinine Clear Calc Drug Dose 64.8 ml/min Estimated GFR () 74.9 Estimated GFR (Non- 64.6 BUN/Creatinine Ratio 28.9 Random Glucose 151 mg/dl Calcium Level 8.8 mg/dl Assessment and Plan 76 years old man presented to the ED with intractable lower back pain, hypertensive urgency and ectasia of Ascending aorta as before PMHx of dyslipidemia, PVD/carotid stenosis s/p b/l CEA, PA Afib currently on coumadin, HTN and lumbar spinal stenosis. Lumbar spinal stenosis Team discussed the case with Dr Cooper in the unit 09/23 Patient is scheduled for procedure on (09/27) Hypertensive urgency, resolved, losartan( increased 09/22) , Cardizem CD and hydralazine as needed will monitor BP. Intractable lower back pain with a lumbar spinal stenosis with exacerbation, has concern for cauda equina syndrome and L2 nerve root impingement, Morphine/Lidoderm patch for his lower back pain also will continue his home Percocet, ortho evaluation considering surgical intervention will consult cardiology to optimize pre operatively consideration of aortic abnormality, possible JOANNA, Consulted Dr. Ivy regarding his suspected dissections, no plans of immediate intervention, will recommend outpt follow up Paroxysmal A. fib currently, rate controlled, coumadin held on full dose therapeutic lovenox will need to be held pre op will hold tonights dose. Carotid stenosis status post bilateral carotid endarterectomy Peripheral vascular disease, will hold aspirin in case of procedure needed Dyslipidemia, lipitor DVT prophylaxis will be scd as coumadin is held in consideration if surgical intervention is needed
--- NOTE | 2017-09-25 13:40 | Cardiology Follow-Up ---
Subjective Subjective Date of Service: Sep 25, 2017. Pt evaluation today including: conversation w/ patient, physical exam, chart review, lab review, review of studies, review of inpatient medication list Additional Details: Patient feeling well. Back pain well controlled. Denies any palpitations. No other new concerns today Telemetry reviewed--remains in atrial fibrillation heart rates up to the 140s last night, better controlled today post diltiazem, 90s to 100s Problem List Medical Problems: (1) Abdominal aortic aneurysm dissection Status: Acute (2) Hypertensive emergency Status: Acute Review of Systems Constitutional: No fever, No chills Eyes: No worsening of vision ENT: No hearing loss Respiratory: No cough Cardiac: No chest pain Abdomen: No pain Musculoskeletal: No joint pain Neurologic: No memory loss Psychiatric: No depression symptoms Objective Vital Signs Last Vital Signs Documentation Date Time Temp Pulse Resp B/P (MAP) Pulse Ox O2 Delivery O2 Flow Rate FiO2 09/25/17 12:11 36.6 67 18 116/81 (93) 95 09/25/17 04:05 Room Air 09/23/17 07:45 2.0 Physical Exam: General Appearance: no apparent distress ENT: normal ENT inspection Neck: supple, no adenopathy Respiratory/Chest: lungs clear, normal breath sounds, no respiratory distress Cardiovascular: no edema, + tachycardia, + irregularly irregular Abdomen: normal bowel sounds, non tender, soft Extremities: normal range of motion Neurologic/Psychiatric: alert, oriented x 3 Skin: normal color Lymphatic: no adenopathy Assessment and Plan 1. Spinal stenosis, cauda equina syndrome, intractable back pain 2. Paroxysmal atrial fibrillation with RVR 3. Bicuspid aortic valve with mild aortic insufficiency 4. Preserved LV function 5. Hypertension 6. Chronic abdominal aortic dissection; iliac aneurysms 7. Renal artery stenosis 8. Dyslipidemia Patient feeling well. Awaiting laminectomy on with Dr. Cooper. Remains in atrial fibrillation, reasonably rate controlled on diltiazem, receiving Lovenox for anticoagulation --will increase patient's Cardizem to 240 milligrams daily --home coumadin held. OK to stop lovenox today in preparation for surgery No other change to current cardiac regimen. Will continue to follow through perioperative period. Medications: Current Inpatient Medications Medications (Trade) Dose Ordered Sig/Richard Route Start Time Stop Time Status Last Admin Dose Admin Ioversol (Optiray 320) 111 ml UD PRN IV 3/23/18 15:00 09/25/17 14:59 Diltiazem HCl (Cardizem Cd Cap) 180 mg DAILY PO 09/22/17 09:00 10/22/17 08:59 09/25/17 10:04 180 MG Warfarin Sodium (Coumadin Tab) 2.5 mg MoFr@1600 PO 09/21/17 20:30 10/21/17 20:29 Future Hold 09/21/17 21:58 2.5 MG Acetaminophen (Tylenol Tab) 650 mg Q4H PRN PO 09/21/17 18:00 10/21/17 17:59 Al Hydrox/Mg Hydrox/Simethicone (Maalox Max Susp) 15 ml Q4H PRN PO 09/21/17 18:00 10/21/17 17:59 Magnesium Hydroxide (Milk Of Magnesia Susp) 30 ml Q12H PRN PO 09/21/17 18:00 10/21/17 17:59 09/23/17 20:28 30 ML Zolpidem Tartrate (Ambien Tab) 5 mg HSZ PRN PO 09/21/17 18:00 10/21/17 17:59 Zolpidem Tartrate (Ambien Tab) 5 mg HSZ PRN PO 09/21/17 18:00 10/21/17 17:59 Ondansetron HCl (Zofran Inj) 4 mg Q6H PRN IV 09/21/17 18:00 10/21/17 17:59 Morphine Sulfate (MoRPHine SULFATE INJ) 2 mg Q30M PRN IV 09/21/17 18:00 10/05/17 17:59 Polyethylene (Miralax Powder Packet) 17 gm DAILY PRN PO 09/21/17 18:00 10/21/17 17:59 09/24/17 09:40 17 GM Hydralazine HCl (HydrALAZINE INJ) 15 mg Q6H PRN IV. 09/21/17 18:30 10/21/17 18:29 Lidocaine (Lidoderm Patch 5%) 1 patch QAM TD 09/22/17 09:00 10/22/17 08:59 09/25/17 10:04 1 PATCH Miscellaneous (Remove Lidoderm Patch) 1 ea DAILY@21 N/A 09/22/17 21:00 10/22/17 20:59 09/24/17 20:56 1 EA Oxycodone/ Acetaminophen (Percocet 10-325MG Tab) 1 tab Q8H PRN PO 09/21/17 21:00 10/05/17 20:59 09/22/17 10:29 1 TAB Cyclobenzaprine HCl (Flexeril Tab) 5 mg TID PO 09/22/17 09:00 10/22/17 08:59 09/25/17 10:04 5 MG Diclofenac Sodium (Voltaren 1% Top Gel) 1 appln HS EXT 09/22/17 21:00 10/22/17 08:59 09/24/17 20:56 1 APPLN Losartan Potassium (coZAAR TAB) 100 mg HS PO 09/22/17 21:00 10/21/17 20:59 09/24/17 20:58 100 MG Atorvastatin Calcium (Lipitor Tab) 20 mg HS PO 09/23/17 21:00 10/23/17 20:59 09/24/17 20:56 20 MG Dexamethasone Sodium Phosphate 4 mg/Syringe 1 ml @ 1 mls/min Q12 IV 09/23/17 21:00 10/22/17 05:59 09/25/17 10:04 1 MLS/MIN Enoxaparin Sodium (Lovenox Inj) 90 mg Q12H SQ 09/23/17 19:00 10/23/17 18:59 Future Hold 09/25/17 10:05 90 MG Metoprolol Tartrate (Lopressor Iv) 5 mg Q4H PRN IV 09/23/17 16:45 10/23/17 16:44 09/24/17 23:15 5 MG Guaifenesin (Mucinex Contr Rel Tab) 600 mg Q12 PO 09/24/17 14:00 10/24/17 13:59 09/25/17 10:04 600 MG Lab Results: 09/25/17 04:11 09/25/17 04:11 Test 09/25/17 04:11 Red Blood Count 4.97 M/uL (4.7-6.1) Mean Corpuscular Volume 87.1 fL (80-100) Mean Corpuscular Hemoglobin 30.8 pg (25-34) Mean Corpuscular Hemoglobin Concent 35.3 g/dl (32-36) RDW Standard Deviation 43.2 fL (36.4-46.3) RDW Coefficient of Variation 13.7 % (11.5-14.5) Mean Platelet Volume 10.3 fL (7.4-10.4) Prothrombin Time 15.9 SECONDS (9.0-12.0) Prothromb Time International Ratio 1.5 (0.9-1.1) Anion Gap 7.0 mmol/L (3-11) Est Creatinine Clear Calc Drug Dose 64.8 ml/min Estimated GFR () 74.9 Estimated GFR (Non- 64.6 BUN/Creatinine Ratio 28.9 (10-20) Calcium Level 8.8 mg/dl (8.5-10.1)
[2017-09-25] MEDS: DICLOFENAC SOD 1% GEL 100 GM TUBE EXT SCH (20:37)
[2017-09-25] MEDS: ATORVASTATIN 20 MG TAB PO SCH (20:37)
[2017-09-25] MEDS: LOSARTAN POTASSIUM 50 MG TAB PO SCH (20:38)
[2017-09-26] VITALS (7 sets, daily range): BP systolic 94–129; BP diastolic 61–79; PULSE 86–114; TEMP 36.5–37.1; O2SAT 92–97
[2017-09-26] MEDS: METOPROLOL TARTRATE 1 MG/ML VIAL IV PRN (06:54)
[2017-09-26 07:36] LABS: INR 1.3 (0.9-1.1)
[2017-09-26] MEDS: DEXAMETHASONE INJ 4 MG in SYRINGE 0 ML IV SCH ×2 (08:02→21:00)
[2017-09-26] MEDS: LIDODERM (LIDOCAINE) PATCH 5% TD SCH (08:03)
[2017-09-26] MEDS: GUAIFENESIN 600 MG TABCR PO SCH ×2 (08:03→21:00)
[2017-09-26] MEDS: CYCLOBENZAPRINE HCL 5 MG TAB PO SCH ×3 (08:03→21:00)
[2017-09-26] MEDS ORDERED: DILTIAZEM HCL 180 MG CAPCR PO SCH (09:00)
--- NOTE | 2017-09-26 09:48 | Anesthesiology Progress Note ---
Anesthesia Progress Note Date of Service Sep 26, 2017. Progress Notes Mr. Thomas is scheduled for posterior spinal fusion on 09/27/[address] Cooper. NKDA. PSH sig for b/l CEA's (4.5 years ago) and tonsillectomy without anesthesia complications. PMH sig for snoring but neg sleep study, HTN, A fib with RVR being followed by cardiology as inpatient and being rate controlled, chronic abdominal aortic dissection, TIA 2012, obesity. Former smoker (quit 2012 ). Echo 12/2016 with EF 60-65%. Cardiology stated assuming HR well controlled, patient relatively low risk for planned surgery and can undergo laminectomy without additional stratification or cardiac testing. Airway notable for full dentures and MP 3. GETA discussed. Consent obtained. All questions answered.
[2017-09-26] MEDS: DICLOFENAC SOD 1% GEL 100 GM TUBE EXT SCH (21:00)
[2017-09-26] MEDS: LOSARTAN POTASSIUM 50 MG TAB PO SCH (21:00)
[2017-09-26] MEDS: ATORVASTATIN 20 MG TAB PO SCH (21:00)
[2017-09-27] VITALS (13 sets, daily range): BP systolic 110–138; BP diastolic 68–90; PULSE 76–94; TEMP 36.4–36.7; O2SAT 90–97
[2017-09-27 06:50] LABS: HEMATOCRIT 43.4 % (42-52); HEMOGLOBIN 15.4 g/dL (14.0-18.0); MEAN CELL VOLUME 86.3 fL (80-100); MEAN CORPUSCULAR HEMOGLOBIN 30.6 pg (25-34); MEAN CORPUSCULAR HGB CONC 35.5 g/dl (32-36); MEAN PLATELET VOLUME 9.9 fL (7.4-10.4); PLATELET COUNT 216 K/uL (130-400); RED CELL DISTRIBUTION WIDTH CV 13.6 % (11.5-14.5); RED CELL DISTRIBUTION WIDTH SD 42.6 fL (36.4-46.3); WHITE BLOOD COUNT 10.15 K/uL (4.8-10.8)
[2017-09-27 06:57] LABS: INR 1.2 (0.9-1.1)
[2017-09-27 07:20] LABS: CALCIUM 8.2 mg/dl (8.5-10.1); CREATININE 1.39 mg/dl (0.60-1.40); POTASSIUM 4.7 mmol/L (3.5-5.1)
--- NOTE | 2017-09-27 08:05 | Cardiology Follow-Up ---
Subjective Subjective Date of Service: Sep 27, 2017. Pt evaluation today including: conversation w/ patient, physical exam, chart review, lab review, review of studies, review of inpatient medication list Additional Details: Feeling well. Anxious for surgery today. No chest pain, palpitations, shortness of breath. Tele reviewed -- AF primarily in 100-110s, occasionally up to 140s. Problem List Medical Problems: (1) Abdominal aortic aneurysm dissection Status: Acute (2) Hypertensive emergency Status: Acute Review of Systems Constitutional: No fever, No chills Eyes: No worsening of vision ENT: No hearing loss Respiratory: No cough Cardiac: No chest pain Abdomen: No pain Musculoskeletal: No joint pain Neurologic: No memory loss Psychiatric: No depression symptoms Objective Vital Signs Last Vital Signs Documentation Date Time Temp Pulse Resp B/P (MAP) Pulse Ox O2 Delivery O2 Flow Rate FiO2 09/27/17 04:00 Room Air 09/27/17 03:35 36.7 89 22 117/81 (93) 95 09/26/17 12:00 2.0 Physical Exam: General Appearance: no apparent distress Neck: supple, no adenopathy Respiratory/Chest: lungs clear, normal breath sounds Cardiovascular: no edema, + tachycardia, + irregularly irregular Abdomen: normal bowel sounds, non tender, soft Extremities: normal range of motion Neurologic/Psychiatric: alert, oriented x 3 Skin: normal color Lymphatic: no adenopathy Assessment and Plan 1. Spinal stenosis, cauda equina syndrome, intractable back pain 2. Paroxysmal atrial fibrillation with RVR 3. Bicuspid aortic valve with mild aortic insufficiency 4. Preserved LV function 5. Hypertension 6. Chronic abdominal aortic dissection; iliac aneurysms 7. Renal artery stenosis 8. Dyslipidemia Patient feeling well. Awaiting laminectomy with Dr. Cooper today No signs of heart failure. Remains in AF, RVR prior to cardizem this morning. --Cardizem increased to 300mg --Anticoagulation on hold OK to proceed with planned surgery later this afternoon. Continued [facility] stay due to: other Discharge planning: rehab hospital Medications: Current Inpatient Medications Medications (Trade) Dose Ordered Sig/Richard Route Start Time Stop Time Status Last Admin Dose Admin Warfarin Sodium (Coumadin Tab) 2.5 mg MoFr@1600 PO 09/21/17 20:30 10/21/17 20:29 Future Hold 09/21/17 21:58 2.5 MG Acetaminophen (Tylenol Tab) 650 mg Q4H PRN PO 09/21/17 18:00 10/21/17 17:59 Al Hydrox/Mg Hydrox/Simethicone (Maalox Max Susp) 15 ml Q4H PRN PO 09/21/17 18:00 10/21/17 17:59 Magnesium Hydroxide (Milk Of Magnesia Susp) 30 ml Q12H PRN PO 09/21/17 18:00 10/21/17 17:59 09/23/17 20:28 30 ML Zolpidem Tartrate (Ambien Tab) 5 mg HSZ PRN PO 09/21/17 18:00 10/21/17 17:59 Zolpidem Tartrate (Ambien Tab) 5 mg HSZ PRN PO 09/21/17 18:00 10/21/17 17:59 Ondansetron HCl (Zofran Inj) 4 mg Q6H PRN IV 09/21/17 18:00 10/21/17 17:59 Morphine Sulfate (MoRPHine SULFATE INJ) 2 mg Q30M PRN IV 09/21/17 18:00 10/05/17 17:59 Polyethylene (Miralax Powder Packet) 17 gm DAILY PRN PO 09/21/17 18:00 10/21/17 17:59 09/24/17 09:40 17 GM Hydralazine HCl (HydrALAZINE INJ) 15 mg Q6H PRN IV. 09/21/17 18:30 10/21/17 18:29 Lidocaine (Lidoderm Patch 5%) 1 patch QAM TD 09/22/17 09:00 10/22/17 08:59 09/26/17 08:03 1 PATCH Miscellaneous (Remove Lidoderm Patch) 1 ea DAILY@21 N/A 09/22/17 21:00 10/22/17 20:59 09/26/17 21:00 1 EA Oxycodone/ Acetaminophen (Percocet 10-325MG Tab) 1 tab Q8H PRN PO 09/21/17 21:00 10/05/17 20:59 09/22/17 10:29 1 TAB Cyclobenzaprine HCl (Flexeril Tab) 5 mg TID PO 09/22/17 09:00 10/22/17 08:59 09/26/17 21:00 5 MG Diclofenac Sodium (Voltaren 1% Top Gel) 1 appln HS EXT 09/22/17 21:00 10/22/17 08:59 09/26/17 21:00 1 APPLN Losartan Potassium (coZAAR TAB) 100 mg HS PO 09/22/17 21:00 10/21/17 20:59 09/26/17 21:00 100 MG Atorvastatin Calcium (Lipitor Tab) 20 mg HS PO 09/23/17 21:00 10/23/17 20:59 09/26/17 21:00 20 MG Dexamethasone Sodium Phosphate 4 mg/Syringe 1 ml @ 1 mls/min Q12 IV 09/23/17 21:00 10/22/17 05:59 09/26/17 21:00 1 MLS/MIN Enoxaparin Sodium (Lovenox Inj) 90 mg Q12H SQ 09/23/17 19:00 10/23/17 18:59 Future Hold 09/25/17 10:05 90 MG Metoprolol Tartrate (Lopressor Iv) 5 mg Q4H PRN IV 09/23/17 16:45 10/23/17 16:44 09/26/17 06:54 5 MG Guaifenesin (Mucinex Contr Rel Tab) 600 mg Q12 PO 09/24/17 14:00 10/24/17 13:59 09/26/17 21:00 600 MG Diltiazem HCl (Cardizem Cd Cap) 240 mg DAILY PO 09/26/17 09:00 10/22/17 08:59 09/26/17 08:02 240 MG Lab Results: 09/27/17 06:34 09/27/17 06:34 Test 09/27/17 06:34 Red Blood Count 5.03 M/uL (4.7-6.1) Mean Corpuscular Volume 86.3 fL (80-100) Mean Corpuscular Hemoglobin 30.6 pg (25-34) Mean Corpuscular Hemoglobin Concent 35.5 g/dl (32-36) RDW Standard Deviation 42.6 fL (36.4-46.3) RDW Coefficient of Variation 13.6 % (11.5-14.5) Mean Platelet Volume 9.9 fL (7.4-10.4) Prothrombin Time 12.8 SECONDS (9.0-12.0) Prothromb Time International Ratio 1.2 (0.9-1.1) Anion Gap 6.0 mmol/L (3-11) Est Creatinine Clear Calc Drug Dose 52.9 ml/min Estimated GFR () 57.1 Estimated GFR (Non- 49.2 BUN/Creatinine Ratio 25.7 (10-20) Calcium Level 8.2 mg/dl (8.5-10.1)
[2017-09-27] MEDS: DEXAMETHASONE INJ 4 MG in SYRINGE 0 ML IV SCH (08:25)
[2017-09-27] MEDS: GUAIFENESIN 600 MG TABCR PO SCH ×2 (08:26→20:45)
[2017-09-27] MEDS: LIDODERM (LIDOCAINE) PATCH 5% TD SCH (08:26)
[2017-09-27] MEDS: CYCLOBENZAPRINE HCL 5 MG TAB PO SCH ×3 (08:26→20:45)
[2017-09-27] MEDS: METOPROLOL TARTRATE 1 MG/ML VIAL IV PRN (08:56)
[2017-09-27] MEDS ORDERED: MIDAZOLAM HCL 1 MG/ML 2ML VIAL ONE (09:33)
[2017-09-27] MEDS ORDERED: PROPOFOL IV EMULSION 10 MG/ML 20 ML VIAL IV ONE (09:33)
[2017-09-27] MEDS ORDERED: FENTANYL CITRATE INJ 50 MCG/1 ML 2 ML VIAL ONE ×2 (09:33→15:01)
[2017-09-27] MEDS ORDERED: DEXAMETHASONE SOD INJ 4 MG/ML VIAL ONE (09:33)
[2017-09-27] MEDS ORDERED: NEOSTIGMINE METHYLSULFATE 1 MG/ML 10ML VIAL ONE (09:33)
[2017-09-27] MEDS ORDERED: LIDOCAINE HCL 2% 2 ML VIAL (20MG/ML) ONE (09:33)
[2017-09-27] MEDS ORDERED: GLYCOPYRROLATE INJ 0.2 MG/ML VIAL ONE ×2 (09:33→14:06)
[2017-09-27] MEDS ORDERED: ROCURONIUM BROMIDE 10 MG/ML 5 ML VIAL IV ONE (09:33)
[2017-09-27] MEDS ORDERED: ONDANSETRON INJ 2 MG/ML 2 ML VIAL ONE (09:33)
[2017-09-27] MEDS: DILTIAZEM HCL 300 MG CAPCR PO SCH (10:36)
--- NOTE | 2017-09-27 10:48 | Progress Note ---
Subjective Date of Service: Sep 26, 2017. Subjective Late entry as system was down. Patient is scheduled for procedure on . Patient has no complaints today. Problem List Medical Problems: (1) Abdominal aortic aneurysm dissection Status: Acute (2) Hypertensive emergency Status: Acute Review of Systems Constitutional: No fever, No chills Eyes: No worsening of vision ENT: No hearing loss Respiratory: No cough Cardiac: No chest pain Abdomen: No pain Neurologic: No memory loss Psychiatric: No depression symptoms Heme: No abnormal bleeding/bruising Endo: No fatigue Skin: No rash All Other Systems: Reviewed and Negative Objective Vital Signs Date Time Temp Pulse Resp B/P (MAP) Pulse Ox O2 Delivery O2 Flow Rate FiO2 09/27/17 08:56 132 09/27/17 08:00 96 Room Air 2.0 09/27/17 07:52 36.4 76 21 119/81 (94) 94 Room Air 09/27/17 04:00 Room Air 09/27/17 03:35 36.7 89 22 117/81 (93) 95 Room Air 09/26/17 23:59 Room Air 09/26/17 23:50 36.5 99 20 94/61 (72) 92 Room Air 09/26/17 16:00 Room Air 09/26/17 15:29 37.1 96 20 122/79 (93) 92 Room Air 09/26/17 12:00 96 Room Air 2.0 09/26/17 11:52 36.6 114 18 129/71 (90) 97 Physical Exam Comments: General Appearance: WD/WN, no apparent distress Eyes: normal inspection ENT: normal ENT inspection Neck: supple, no adenopathy Respiratory/Chest: chest non-tender, lungs clear, normal breath sounds, no respiratory distress Cardiovascular: no edema, + irregularly irregular Abdomen: normal bowel sounds, non tender, soft Extremities: normal range of motion Neurologic/Psychiatric: alert, oriented x 3 Skin: normal color Lymphatic: no adenopathy Laboratory Results Last 24 Hours Test 09/27/17 06:34 White Blood Count 10.15 K/uL Red Blood Count 5.03 M/uL Hemoglobin 15.4 g/dL Hematocrit 43.4 % Mean Corpuscular Volume 86.3 fL Mean Corpuscular Hemoglobin 30.6 pg Mean Corpuscular Hemoglobin Concent 35.5 g/dl RDW Standard Deviation 42.6 fL RDW Coefficient of Variation 13.6 % Platelet Count 216 K/uL Mean Platelet Volume 9.9 fL Prothrombin Time 12.8 SECONDS Prothromb Time International Ratio 1.2 Sodium Level 135 mmol/L Potassium Level 4.7 mmol/L Chloride Level 102 mmol/L Carbon Dioxide Level 27 mmol/L Anion Gap 6.0 mmol/L Blood Urea Nitrogen 36 mg/dl Creatinine 1.39 mg/dl Est Creatinine Clear Calc Drug Dose 52.9 ml/min Estimated GFR () 57.1 Estimated GFR (Non- 49.2 BUN/Creatinine Ratio 25.7 Random Glucose 158 mg/dl Calcium Level 8.2 mg/dl Assessment and Plan 76 years old man presented to the ED with intractable lower back pain, hypertensive urgency and ectasia of Ascending aorta as before PMHx of dyslipidemia, PVD/carotid stenosis s/p b/l CEA, PA Afib currently on coumadin, HTN and lumbar spinal stenosis. Lumbar spinal stenosis Team discussed the case with Dr Cooper in the unit 09/23 Patient is scheduled for procedure on (tomorrow) Hypertensive urgency, resolved, losartan( increased 09/22) , Cardizem CD and hydralazine as needed will monitor BP. Intractable lower back pain with a lumbar spinal stenosis with exacerbation, has concern for cauda equina syndrome and L2 nerve root impingement, Pain appears to be controlled Morphine/Lidoderm patch for his lower back pain also will continue his home Percocet, ortho evaluation considering surgical intervention will consult cardiology to optimize pre operatively consideration of aortic abnormality, possible JOANNA, Consulted Dr. Ivy regarding his suspected dissections, no plans of immediate intervention, will recommend outpt follow up Paroxysmal A. fib currently, rate controlled, coumadin held on full dose therapeutic lovenox will need to be held pre op. Plan to hold either Sunday morning or Sunday evening dose. Patient is low risk for emboli from a. fib. Carotid stenosis status post bilateral carotid endarterectomy Peripheral vascular disease, will continue to hold aspirin Dyslipidemia, lipitor DVT prophylaxis will be scd as coumadin is held in consideration if surgical intervention is needed Continued [facility] stay due to: other Discharge planning: rehab hospital
[2017-09-27] MEDS ORDERED: HYDROmorphone INJ 0.5 MG/0.5 ML SYR IV PRN (12:15)
[2017-09-27] MEDS ORDERED: ATROPINE SULFATE 0.1 MG/ML 5ML SYR IV PRN (12:15)
[2017-09-27] MEDS ORDERED: EpHEDrine SULFATE INJ 50 MG/ML AMP IV PRN (12:15)
[2017-09-27] MEDS ORDERED: ONDANSETRON INJ 2 MG/ML 2 ML VIAL IV PRN ×2 (12:15→15:30)
[2017-09-27] MEDS ORDERED: PHENYLEPHRINE 100MCG/ML 5ML SYR IV PRN (12:15)
[2017-09-27] MEDS ORDERED: FENTANYL CITRATE INJ 50 MCG/1 ML 2 ML VIAL IV PRN (12:15)
--- NOTE | 2017-09-27 12:54 | History & Physical Bridge Note ---
H&P Re-Evaluation Bridge Note: I have examined the patient, reviewed the History & Physical and in the interval since the performance of the History & Physical I have noted the following changes of clinical significance: No changes noted
[2017-09-27] MEDS ORDERED: GELATIN SPONGE SZ 100 ONE (12:56)
[2017-09-27] MEDS ORDERED: THROMBIN FOR SOLN 20000 UNIT KIT ONE (12:57)
[2017-09-27] MEDS ORDERED: CEFAZOLIN SOD 2000MG/15 ML IV PUSH IV ONE (12:57)
[2017-09-27] MEDS ORDERED: BACITRACIN 50000 UNIT VIAL ONE (12:58)
[2017-09-27] MEDS ORDERED: VANCOMYCIN HCL 1000MG/20ML VIAL ONE (12:58)
[2017-09-27] MEDS ORDERED: NURSING VERBAL MED ORDER ONE (13:00)
[2017-09-27] MEDS ORDERED: BUPIVACAINE/EPINEPHRINE 0.5% MPF 1:200,000 30 ML VIAL ONE (13:16)
[2017-09-27] MEDS ORDERED: PHENYLEPHRINE 100MCG/ML 5ML SYR ONE (13:44)
[2017-09-27] MEDS ORDERED: ESMOLOL HCL 10 MG/ML 10 ML VIAL ONE (13:44)
--- NOTE | 2017-09-27 15:10 | DIAGNOSTIC IMAGING REPORT ---
INTRAOPERATIVE RADIOGRAPH CLINICAL HISTORY: L2-L3 spinal fusion. Fluoroscopy time: 6 seconds. FINDINGS: A single spot fluoroscopic view of the lumbar spine is presented. There has been laminectomy and posterior fusion in the upper lumbar spine, reportedly at L2-L3. Interpedicular screws are present at both levels. The orthopedic hardware appears intact. IMPRESSION: Intraoperative image from L2 -L3 spinal fusion as above. Electronically signed by: Paul Phillips M.D. 09/27/2017 3:09 PM Dictated Date/Time: 09/27/2017 3:08 PM
--- NOTE | 2017-09-27 15:17 | [facility] Post Operative Brief Note ---
Immediate Operative Summary Operative Date Sep 27, 2017. Pre-Operative Diagnosis Spinal Stenosis Post-Operative Diagnosis Spinal Stenosis with hematoma Procedure(s) Performed L2-3 Laminectomy with Fusion Surgeon Dr. Cooper Director Critical Care Surgeon(s) Guru Triana PA-C Estimated Blood Loss 200ml Findings Consistent with Post-Op Diagnosis Specimens A: Ligamentum flavum hematoma- look for abnormal cells (per Dr. Cooper) Drains hemovac Anesthesia Type General Complication(s) none Disposition Accompanied Pt To Recover: yes Disposition: Recovery Room / PACU
[2017-09-27] MEDS: SODIUM CHLORIDE 0.9% 1000ML 1,000 ML IV SCH ×3 (15:21→17:36)
[2017-09-27] MEDS ORDERED: ACETAMINOPHEN 325 MG TAB PO PRN (15:30)
[2017-09-27] MEDS ORDERED: HYDROmorphone HCL 0.5MG/ML 50 ML CASSETTE IV PRN (15:30)
[2017-09-27] MEDS ORDERED: LORAZEPAM INJ 1 MG in SYRINGE 0 ML IV PRN (15:30)
[2017-09-27] MEDS ORDERED: PROMETHAZINE HCL INJ 12.5 MG in SODIUM CHLORIDE 0.9% 50ML 50 ML IV PRN (15:30)
[2017-09-27] MEDS ORDERED: NALOXONE HCL 0.4 MG/1 ML VIAL/CARP IV PRN (15:30)
[2017-09-27] MEDS ORDERED: LORAZEPAM 1 MG TAB PO PRN (15:30)
[2017-09-27] MEDS ORDERED: METOCLOPRAMIDE HCL INJ 5 MG/ML 2 ML VIAL IV PRN (15:30)
[2017-09-27] MEDS ORDERED: CEFAZOLIN IV 1,000 MG in DEXTROSE 5% 50ML 50 ML IV SCH (15:30)
--- NOTE | 2017-09-27 15:40 | OPERATIVE REPORT ---
DATE OF OPERATION: 09/27/2017 PREOPERATIVE DIAGNOSES: Severe stenosis lumbar spine L2-L3, instability through L2-L3, lumbar spine. POSTOPERATIVE DIAGNOSES: Same and included an epidural hematoma, L2-L3 lumbar spine. PROCEDURE: 1. Decompression of the neural elements of 2 levels L2 and L3 laminectomy. 2. Evacuation of a hematoma. 3. Biopsy of the tissue. 4. Pedicle screw instrumentation, L2-L3. 5. Posterolateral fusion. SURGEON: Dr. Cooper. LANDCARE FACILITATOR: Guru Triana PA-C. COMPLICATIONS: No complications. BLOOD LOSS: Controlled at 200 mL ANESTHETIC: General. IMPLANTS USED: By the Fix8. COUNTS: Sponge and needle count correct at the close. DESCRIPTION OF PROCEDURE: The patient was taken to the main OR #4 here at [facility], placed prone, prepped and draped sterile. We made a skin incision, fascial incision. I was able to get the dissection out over the transverse processes putting a deep self-retaining retractor. We decompressed the neural elements, ligamentum flavum, facet joint hypertrophy of the lamina, lamina of 2 and lamina of 3. Good foraminotomies. I was concerned about the soft tissue in the posterior elements of the spine. We did send this for a biopsy. It did look more like hematoma and we were concerned. The nerve roots were free of obstruction. We then safely got pedicle screws in to 2-3 bilaterally, locked down the construct with a longitudinal member. We also did cross link. The implants were used by the Fix8, they varied from 45 mm in length and 50 mm in length. The ebonie used was 45 mm. We irrigated thoroughly, bone grafted out over the transverse process initiating the fusion. Closed fascia to fascia over Gelfoam plus vancomycin powder with #1 Vicryl suture, 2-0 in the subcuticular layer, 3-0 nylon to the skin, sterile dressing applied. This was also closed over a Hemovac drain. Sterile dressings applied. The patient returned supine, extubated to PACU stable. No apparent complications. I attest to the content of the Intraoperative Record and any orders documented therein. Any exception s are noted below.
[2017-09-27] MEDS ORDERED: HYDROmorphone HCL 0.5MG/ML 50 ML CASSETTE ONE (15:42)
--- NOTE | 2017-09-27 16:01 | Anesthesiology Progress Note ---
Anesthesia Post Op Note Date & Time Sep 27, 2017 at 16:01 Vital Signs Pain Intensity: 3 Vital Signs Past 12 Hours Date Time Temp Pulse Resp B/P (MAP) Pulse Ox O2 Delivery O2 Flow Rate FiO2 09/27/17 15:50 96 18 120/87 95 Nasal Cannula 4 09/27/17 15:40 105 20 113/90 96 Oxymask 10 09/27/17 15:30 103 20 124/72 96 Oxymask 10 09/27/17 15:24 36.2 103 20 152/95 98 Oxymask 10 09/27/17 12:23 36.4 86 20 116/77 (90) 96 Room Air 09/27/17 12:00 96 Room Air 2.0 09/27/17 08:56 132 09/27/17 08:00 96 Room Air 2.0 09/27/17 07:52 36.4 76 21 119/81 (94) 94 Room Air Notes Mental Status: alert / awake / arousable, participated in evaluation Pt Amnestic to Procedure: Yes Nausea / Vomiting: adequately controlled Pain: adequately controlled Airway Patency, RR, SpO2: stable & adequate BP & HR: stable & adequate Hydration State: stable & adequate Anesthetic Complications: no major complications apparent
[2017-09-27 16:08] LABS: HEMATOCRIT 44.4 % (42-52); HEMOGLOBIN 15.8 g/dL (14.0-18.0)
[2017-09-27] MEDS: DEXAMETHASONE INJ 10 MG in SYRINGE 0 ML IV SCH (19:16)
[2017-09-27] MEDS: ATORVASTATIN 20 MG TAB PO SCH (20:45)
[2017-09-27] MEDS: LOSARTAN POTASSIUM 50 MG TAB PO SCH (20:46)
[2017-09-27] MEDS: DICLOFENAC SOD 1% GEL 100 GM TUBE EXT SCH (20:46)
--- NOTE | 2017-09-27 22:52 | Progress Note ---
Subjective Date of Service: Sep 27, 2017. Subjective Pt evaluation today including: conversation w/ patient Patient seen prior to surgery Patient reports feeling well. He is excited to get surgery today. He reports his pain has been adequately controlled. Problem List Medical Problems: (1) Abdominal aortic aneurysm dissection Status: Acute (2) Hypertensive emergency Status: Acute Review of Systems Constitutional: No fever Eyes: No worsening of vision ENT: No hearing loss Respiratory: No cough Cardiac: No chest pain Abdomen: No pain Musculoskeletal: + joint pain Neurologic: No memory loss Psychiatric: No depression symptoms Heme: No abnormal bleeding/bruising Endo: No fatigue Skin: No rash All Other Systems: Reviewed and Negative Objective Vital Signs Date Time Temp Pulse Resp B/P (MAP) Pulse Ox O2 Delivery O2 Flow Rate FiO2 09/27/17 20:30 36.6 88 20 138/90 (106) 96 Nasal Cannula 4.0 09/27/17 20:00 Room Air 09/27/17 19:30 36.6 94 20 118/71 (87) 97 Nasal Cannula 4.0 09/27/17 18:30 36.6 94 20 118/71 (87) 97 Nasal Cannula 4.0 09/27/17 18:00 36.4 80 20 125/79 (94) 90 Nasal Cannula 4.0 09/27/17 17:30 36.5 86 20 120/74 (89) 96 Nasal Cannula 4.0 09/27/17 16:49 76 16 110/71 (84) 93 Nasal Cannula 4.0 09/27/17 16:43 94 Nasal Cannula 4.0 09/27/17 16:20 36.4 83 18 114/68 (83) 94 Nasal Cannula 4.0 09/27/17 16:20 Nasal Cannula 4.0 09/27/17 16:00 36.3 94 18 107/78 95 Nasal Cannula 4 09/27/17 15:50 96 18 120/87 95 Nasal Cannula 4 09/27/17 15:40 105 20 113/90 96 Oxymask 10 09/27/17 15:30 103 20 124/72 96 Oxymask 10 09/27/17 15:24 36.2 103 20 152/95 98 Oxymask 10 09/27/17 12:23 36.4 86 20 116/77 (90) 96 Room Air 09/27/17 12:00 96 Room Air 2.0 09/27/17 08:56 132 09/27/17 08:00 96 Room Air 2.0 09/27/17 07:52 36.4 76 21 119/81 (94) 94 Room Air 09/27/17 04:00 Room Air 09/27/17 03:35 36.7 89 22 117/81 (93) 95 Room Air 09/26/17 23:59 Room Air 09/26/17 23:50 36.5 99 20 94/61 (72) 92 Room Air Physical Exam Comments: General Appearance: WD/WN, no apparent distress Eyes: normal inspection ENT: normal ENT inspection Neck: supple, no adenopathy Respiratory/Chest: chest non-tender, lungs clear, normal breath sounds, no respiratory distress Cardiovascular: no edema, + irregularly irregular Abdomen: normal bowel sounds, non tender, soft Extremities: normal range of motion Neurologic/Psychiatric: alert, oriented x 3 Skin: normal color Lymphatic: no adenopathy Laboratory Results Last 24 Hours Test 09/27/17 06:34 09/27/17 06:42 09/27/17 15:41 White Blood Count 10.15 K/uL Red Blood Count 5.03 M/uL Hemoglobin 15.4 g/dL 15.8 g/dL Hematocrit 43.4 % 44.4 % Mean Corpuscular Volume 86.3 fL Mean Corpuscular Hemoglobin 30.6 pg Mean Corpuscular Hemoglobin Concent 35.5 g/dl RDW Standard Deviation 42.6 fL RDW Coefficient of Variation 13.6 % Platelet Count 216 K/uL Mean Platelet Volume 9.9 fL Prothrombin Time 12.8 SECONDS Prothromb Time International Ratio 1.2 Sodium Level 135 mmol/L Potassium Level 4.7 mmol/L Chloride Level 102 mmol/L Carbon Dioxide Level 27 mmol/L Anion Gap 6.0 mmol/L Blood Urea Nitrogen 36 mg/dl Creatinine 1.39 mg/dl Est Creatinine Clear Calc Drug Dose 52.9 ml/min Estimated GFR () 57.1 Estimated GFR (Non- 49.2 BUN/Creatinine Ratio 25.7 Random Glucose 158 mg/dl Calcium Level 8.2 mg/dl Bedside Glucose 137 mg/dl Assessment and Plan 76 years old man presented to the ED with intractable lower back pain, hypertensive urgency and ectasia of Ascending aorta as before PMHx of dyslipidemia, PVD/carotid stenosis s/p b/l CEA, PA Afib currently on coumadin, HTN and lumbar spinal stenosis. Lumbar spinal stenosis Team discussed the case with Dr Cooper in the unit 09/23 Patient is scheduled for procedure later today. Hypertensive urgency, resolved, losartan( increased 09/22) , Cardizem CD and hydralazine as needed will monitor BP. Intractable lower back pain with a lumbar spinal stenosis with exacerbation, has concern for cauda equina syndrome and L2 nerve root impingement, Pain is adeqautely Morphine/Lidoderm patch for his lower back pain also will continue his home Percocet, ortho evaluation considering surgical intervention will consult cardiology to optimize pre operatively consideration of aortic abnormality, possible JOANNA, Consulted Dr. Ivy regarding his suspected dissections, no plans of immediate intervention, will recommend outpt follow up Paroxysmal A. fib currently, rate controlled, coumadin held on full dose therapeutic lovenox will need to be held pre op. Held meds Sunday evening. Patient is low risk for emboli from a. fib. Carotid stenosis status post bilateral carotid endarterectomy Peripheral vascular disease, will continue to hold aspirin Dyslipidemia, lipitor DVT prophylaxis will be scd as coumadin is held in consideration if surgical intervention is needed Continued [facility] stay due to: other Discharge planning: rehab hospital
[2017-09-28] VITALS (9 sets, daily range): BP systolic 113–136; BP diastolic 72–90; PULSE 80–122; TEMP 36.3–36.6; O2SAT 95–96
[2017-09-28] MEDS: ALUMINUM/MAGNESIUM/SIMETH (MAALOX MAX) 30 ML UDC PO PRN (00:31)
[2017-09-28] MEDS: CEFAZOLIN IV 2,000 MG in SYRINGE 0 ML IV SCH ×3 (00:33→14:06)
[2017-09-28] MEDS: DEXAMETHASONE INJ 10 MG in SYRINGE 0 ML IV SCH ×3 (02:12→18:33)
[2017-09-28] MEDS: SODIUM CHLORIDE 0.9% 1000ML 1,000 ML IV SCH (05:00)
[2017-09-28] MEDS ORDERED: NURSING VERBAL MED ORDER ONE (05:15)
[2017-09-28] MEDS ORDERED: DC PCA SCH (06:00)
[2017-09-28] MEDS ORDERED: HYDROmorphone INJ 2 MG/ML SYR/VIAL IV PRN ×2 (06:00)
[2017-09-28] MEDS ORDERED: BISACODYL 10 MG SUPP PR PRN (06:00)
[2017-09-28] MEDS ORDERED: BISACODYL 5 MG TABEC PO PRN (06:00)
[2017-09-28] MEDS ORDERED: OXYCODONE/ACETAMINOPHEN 5-325 TAB PO PRN ×2 (06:00)
[2017-09-28] MEDS: DILTIAZEM HCL 300 MG CAPCR PO SCH (08:53)
[2017-09-28] MEDS: ASPIRIN 81 MG ECTAB PO SCH (08:53)
[2017-09-28] MEDS: GUAIFENESIN 600 MG TABCR PO SCH ×2 (08:54→21:28)
[2017-09-28] MEDS: POLYETHYLENE (MIRALAX) 17 GM PACK PO SCH (08:54)
[2017-09-28] MEDS: CYCLOBENZAPRINE HCL 5 MG TAB PO SCH ×3 (08:54→21:07)
[2017-09-28] MEDS: LIDODERM (LIDOCAINE) PATCH 5% TD SCH (08:55)
--- NOTE | 2017-09-28 09:50 | Anesthesiology Progress Note ---
Anesthesia Post Op Note Date & Time Sep 28, 2017 at 09:49 Vital Signs Pain Intensity: 0.0 Vital Signs Past 12 Hours Date Time Temp Pulse Resp B/P (MAP) Pulse Ox O2 Delivery O2 Flow Rate FiO2 09/28/17 07:28 36.5 89 20 121/79 (93) 96 Nasal Cannula 4.0 09/28/17 04:09 36.5 94 20 130/90 (103) 95 Nasal Cannula 4.0 09/28/17 04:00 96 Room Air 2.0 09/28/17 00:01 96 Room Air 2.0 09/27/17 23:21 36.4 82 20 131/85 (100) 96 Nasal Cannula 4.0 Notes Mental Status: alert / awake / arousable, participated in evaluation Pt Amnestic to Procedure: Yes Nausea / Vomiting: adequately controlled Pain: adequately controlled Airway Patency, RR, SpO2: stable & adequate BP & HR: stable & adequate Hydration State: stable & adequate Anesthetic Complications: no major complications apparent
--- NOTE | 2017-09-28 17:59 | Cardiology Follow-Up ---
Subjective Subjective Date of Service: Sep 28, 2017. Pt evaluation today including: conversation w/ family, physical exam, chart review, lab review, review of studies, conversation w/ otm consultant, review of inpatient medication list Problem List Medical Problems: (1) Abdominal aortic aneurysm dissection Status: Acute (2) Hypertensive emergency Status: Acute Review of Systems Constitutional: No fever, No chills Eyes: No worsening of vision ENT: No hearing loss Respiratory: No cough Cardiac: No chest pain Abdomen: No pain Musculoskeletal: No joint pain Neurologic: No memory loss Psychiatric: No depression symptoms Heme: No abnormal bleeding/bruising Endo: No fatigue Skin: No rash Objective Vital Signs Last Vital Signs Documentation Date Time Temp Pulse Resp B/P (MAP) Pulse Ox O2 Delivery O2 Flow Rate FiO2 09/28/17 16:00 Room Air 2.0 09/28/17 15:50 36.3 80 20 113/74 (87) 95 Physical Exam: General Appearance: no apparent distress Neck: supple, no adenopathy Respiratory/Chest: lungs clear, normal breath sounds Cardiovascular: no edema, + irregularly irregular Abdomen: normal bowel sounds, non tender, soft Extremities: no pedal edema, + pertinent finding (Dressing clean dry and intact at site of back surgery) Neurologic/Psychiatric: alert, oriented x 3 Skin: normal color Lymphatic: no adenopathy Assessment and Plan 1. Spinal stenosis, cauda equina syndrome, intractable back pain--postoperative day 1 L2-L3 laminectomy/fusion 2. Paroxysmal atrial fibrillation with RVR--asymptomatic 3. Bicuspid aortic valve with mild aortic insufficiency 4. Preserved LV function 5. Hypertension 6. Chronic abdominal aortic dissection; iliac aneurysms 7. Renal artery stenosis 8. Dyslipidemia Patient feeling well post surgery yesterday. Tolerated procedure without complications. Remains in atrial fibrillation, heart rates reasonably controlled on current Cardizem. Remains asymptomatic. No signs of heart failure. --continue current rate control with Cardizem --Anticoagulation on hold--do not feel patient needs Lovenox bridging and can be started back on Coumadin when safe from a surgical standpoint --has follow-up with INR clinic at our office on Continued [facility] stay due to: other Discharge planning: rehab hospital Medications: Current Inpatient Medications Medications (Trade) Dose Ordered Sig/Richard Route Start Time Stop Time Status Last Admin Dose Admin Warfarin Sodium (Coumadin Tab) 2.5 mg MoFr@1600 PO 09/21/17 20:30 10/21/17 20:29 Future Hold 09/21/17 21:58 2.5 MG Al Hydrox/Mg Hydrox/Simethicone (Maalox Max Susp) 15 ml Q4H PRN PO 09/21/17 18:00 10/21/17 17:59 09/28/17 00:31 15 ML Zolpidem Tartrate (Ambien Tab) 5 mg HSZ PRN PO 09/21/17 18:00 10/21/17 17:59 Polyethylene (Miralax Powder Packet) 17 gm DAILY PRN PO 09/21/17 18:00 10/21/17 17:59 09/24/17 09:40 17 GM Hydralazine HCl (HydrALAZINE INJ) 15 mg Q6H PRN IV. 09/21/17 18:30 10/21/17 18:29 Lidocaine (Lidoderm Patch 5%) 1 patch QAM TD 09/22/17 09:00 10/22/17 08:59 09/28/17 08:55 1 PATCH Miscellaneous (Remove Lidoderm Patch) 1 ea DAILY@21 N/A 09/22/17 21:00 10/22/17 20:59 09/27/17 20:46 1 EA Cyclobenzaprine HCl (Flexeril Tab) 5 mg TID PO 09/22/17 09:00 10/22/17 08:59 09/28/17 14:06 5 MG Diclofenac Sodium (Voltaren 1% Top Gel) 1 appln HS EXT 09/22/17 21:00 10/22/17 08:59 09/27/17 20:46 1 APPLN Losartan Potassium (coZAAR TAB) 100 mg HS PO 09/22/17 21:00 10/21/17 20:59 09/27/17 20:46 100 MG Atorvastatin Calcium (Lipitor Tab) 20 mg HS PO 09/23/17 21:00 10/23/17 20:59 09/27/17 20:45 20 MG Enoxaparin Sodium (Lovenox Inj) 90 mg Q12H SQ 09/23/17 19:00 10/23/17 18:59 Future Hold 09/25/17 10:05 90 MG Metoprolol Tartrate (Lopressor Iv) 5 mg Q4H PRN IV 09/23/17 16:45 10/23/17 16:44 09/27/17 08:56 5 MG Guaifenesin (Mucinex Contr Rel Tab) 600 mg Q12 PO 09/24/17 14:00 10/24/17 13:59 09/28/17 08:54 600 MG Diltiazem HCl (Cardizem Cd Cap) 300 mg DAILY PO 09/27/17 10:00 10/27/17 09:59 09/28/17 08:53 300 MG Diphenhydramine HCl (Benadryl Cap) 25 mg Q6H PRN PO 09/28/17 06:00 10/28/17 05:59 Magnesium Hydroxide (Milk Of Magnesia Susp) 30 ml DAILY PRN PO 09/27/17 15:30 10/27/17 15:29 Bisacodyl (Dulcolax Supp) 10 mg DAILY PRN [place] 09/28/17 06:00 10/28/17 05:59 Bisacodyl (Dulcolax Tab) 5 mg DAILY PRN PO 09/28/17 06:00 10/28/17 05:59 Polyethylene (Miralax Powder Packet) 17 gm DAILY PO 09/28/17 09:00 10/28/17 08:59 09/28/17 08:54 17 GM Lorazepam 1 mg/ Syringe 0.5 ml @ 1 mls/min Q6H PRN IV 09/27/17 15:30 10/27/17 15:29 Lorazepam (Ativan Tab) 1 mg Q6H PRN PO 09/27/17 15:30 10/27/17 15:29 Metoclopramide HCl (Reglan Inj) 10 mg Q6H PRN IV 09/27/17 15:30 10/27/17 15:29 Ondansetron HCl (Zofran Inj) 4 mg Q6H PRN IV 09/27/17 15:30 10/27/17 15:29 Promethazine HCl 12.5 mg/Sodium Chloride 50.5 ml @ 202 mls/hr Q6H PRN IV 09/27/17 15:30 10/27/17 15:29 Hydromorphone HCl (Dilaudid Inj) 1.5 mg Q3H PRN IV 09/28/17 06:00 10/12/17 05:59 Oxycodone/ Acetaminophen (Percocet 5-325mg Tab) 2 tab Q4H PRN PO 09/28/17 06:00 10/12/17 05:59 Hydromorphone HCl (Dilaudid Inj) 1 mg Q3H PRN IV 09/28/17 06:00 10/12/17 05:59 Oxycodone/ Acetaminophen (Percocet 5-325mg Tab) 1 tab Q4H PRN PO 09/28/17 06:00 10/12/17 05:59 Acetaminophen (Tylenol Tab) 650 mg Q6H PRN PO 09/27/17 15:30 10/27/17 15:29 Dexamethasone Sodium Phosphate 10 mg/Syringe 2.5 ml @ 1 mls/min Q8H IV 09/27/17 18:00 09/29/17 02:03 09/28/17 08:55 1 MLS/MIN Aspirin (Ecotrin Tab) 81 mg QAM PO 09/28/17 09:00 10/28/17 08:59 09/28/17 08:53 81 MG
[2017-09-28] MEDS: DICLOFENAC SOD 1% GEL 100 GM TUBE EXT SCH (21:06)
[2017-09-28] MEDS: LOSARTAN POTASSIUM 50 MG TAB PO SCH (21:06)
[2017-09-28] MEDS: ATORVASTATIN 20 MG TAB PO SCH (21:07)
--- NOTE | 2017-09-28 22:15 | Progress Note ---
Subjective Date of Service: Sep 28, 2017. Subjective 76 yo male reports feeling well. Patient denies any complaints today. Patient states pain is well controlled. Problem List Medical Problems: (1) Abdominal aortic aneurysm dissection Status: Acute (2) Hypertensive emergency Status: Acute Review of Systems Constitutional: No fever Eyes: No worsening of vision ENT: No hearing loss Respiratory: No cough Cardiac: No chest pain Abdomen: No pain Musculoskeletal: + joint pain Neurologic: No memory loss Psychiatric: No depression symptoms Heme: No abnormal bleeding/bruising Endo: No fatigue Skin: No rash All Other Systems: Reviewed and Negative All Other Systems: Reviewed and Negative Objective Vital Signs Date Time Temp Pulse Resp B/P (MAP) Pulse Ox O2 Delivery O2 Flow Rate FiO2 09/28/17 20:00 Room Air 2.0 09/28/17 19:58 36.6 122 22 129/72 (91) 95 Nasal Cannula 4.0 09/28/17 16:00 Room Air 2.0 09/28/17 15:50 36.3 80 20 113/74 (87) 95 Nasal Cannula 4.0 09/28/17 13:07 36.5 92 18 115/75 (88) 96 Nasal Cannula 3.5 09/28/17 12:00 Nasal Cannula 2.0 09/28/17 08:10 Nasal Cannula 2.0 09/28/17 07:28 36.5 89 20 121/79 (93) 96 Nasal Cannula 4.0 09/28/17 04:09 36.5 94 20 130/90 (103) 95 Nasal Cannula 4.0 09/28/17 04:00 96 Room Air 2.0 09/28/17 00:01 96 Room Air 2.0 09/27/17 23:21 36.4 82 20 131/85 (100) 96 Nasal Cannula 4.0 Physical Exam Comments: General Appearance: WD/WN, no apparent distress Eyes: normal inspection ENT: normal ENT inspection Neck: supple, no adenopathy Respiratory/Chest: chest non-tender, lungs clear, normal breath sounds, no respiratory distress Cardiovascular: no edema, + irregularly irregular Abdomen: normal bowel sounds, non tender, soft Extremities: normal range of motion Neurologic/Psychiatric: alert, oriented x 3 Skin: normal color Lymphatic: no adenopathy Assessment and Plan 89 years old man presented to the ED with intractable lower back pain, hypertensive urgency and ectasia of Ascending aorta as before PMHx of dyslipidemia, PVD/carotid stenosis s/p b/l CEA, PA Afib currently on coumadin, HTN and lumbar spinal stenosis. Lumbar spinal stenosis Team discussed the case with Dr Cooper in the unit 09/23 Patient had procedure yesterday Hypertensive urgency, Resolved. Losartan( increased 09/22) , Cardizem CD and hydralazine as needed will monitor BP. Intractable lower back pain with a lumbar spinal stenosis with exacerbation, has concern for cauda equina syndrome and L2 nerve root impingement, Pain is adequately controlled Morphine/Lidoderm patch for his lower back pain also will continue his home Percocet, Patient had surgery yesterday. Will monitor consideration of aortic abnormality, possible JOANNA, Consulted Dr. Ivy regarding his suspected dissections, no plans of immediate intervention, will recommend outpt follow up Paroxysmal A. fib currently, rate controlled, coumadin held on Anticoag held from Sunday evening Will continue to hold for now. Will place patient back on coumadin on Carotid stenosis status post bilateral carotid endarterectomy Peripheral vascular disease, will continue to hold aspirin Dyslipidemia, lipitor DVT prophylaxis will be scd as coumadin is held due to surgical intervention Continued [facility] stay due to: other Discharge planning: rehab hospital
[2017-09-29] VITALS (8 sets, daily range): BP systolic 114–125; BP diastolic 66–78; PULSE 64–97; TEMP 36.2–36.5; O2SAT 92–96
[2017-09-29] MEDS: ALUMINUM/MAGNESIUM/SIMETH (MAALOX MAX) 30 ML UDC PO PRN ×2 (00:25→12:42)
[2017-09-29] MEDS: DEXAMETHASONE INJ 10 MG in SYRINGE 0 ML IV SCH (02:14)
[2017-09-29 06:29] LABS: HEMATOCRIT 41.4 % (42-52); HEMOGLOBIN 14.7 g/dL (14.0-18.0); MEAN CELL VOLUME 85.7 fL (80-100); MEAN CORPUSCULAR HEMOGLOBIN 30.4 pg (25-34); MEAN CORPUSCULAR HGB CONC 35.5 g/dl (32-36); MEAN PLATELET VOLUME 9.9 fL (7.4-10.4); PLATELET COUNT 207 K/uL (130-400); RED CELL DISTRIBUTION WIDTH CV 13.5 % (11.5-14.5); RED CELL DISTRIBUTION WIDTH SD 42.4 fL (36.4-46.3); WHITE BLOOD COUNT 14.44 K/uL (4.8-10.8)
[2017-09-29 07:02] LABS: CALCIUM 7.9 mg/dl (8.5-10.1); CREATININE 1.05 mg/dl (0.60-1.40); POTASSIUM 5.2 mmol/L (3.5-5.1)
[2017-09-29] MEDS: DILTIAZEM HCL 300 MG CAPCR PO SCH (07:34)
[2017-09-29] MEDS: POLYETHYLENE (MIRALAX) 17 GM PACK PO SCH (07:34)
[2017-09-29] MEDS: LIDODERM (LIDOCAINE) PATCH 5% TD SCH (07:34)
[2017-09-29] MEDS: GUAIFENESIN 600 MG TABCR PO SCH ×2 (07:35→20:36)
[2017-09-29] MEDS: CYCLOBENZAPRINE HCL 5 MG TAB PO SCH (07:35)
[2017-09-29] MEDS: ASPIRIN 81 MG ECTAB PO SCH (07:35)
--- NOTE | 2017-09-29 09:48 | ORTHOPEDICS PROGRESS NOTE ---
DATE: 09/29/2017 SUBJECTIVE: He is alert, oriented. Moves all extremities, communicates well. No chest pain or shortness of breath. Vascular structures intact. Wound clean. ASSESSMENT: Status post decompression spinal surgery and fusion, doing well in short run. He is only out now about 40 hours. DISPOSITION: 1. We will change his dressings here today. 2. We will hold on his Lovenox and Coumadin here yet today. We will transfer out of [facility] floor this morning and hopefully start his Lovenox tomorrow and Coumadin, watching this very closely.
[2017-09-29] MEDS: MAGNESIUM HYDROXIDE SUSP 30 ML UDC PO PRN (18:10)
[2017-09-29] MEDS: ATORVASTATIN 20 MG TAB PO SCH (20:36)
[2017-09-29] MEDS: LOSARTAN POTASSIUM 50 MG TAB PO SCH (20:36)
--- NOTE | 2017-09-29 22:42 | Progress Note ---
Subjective Date of Service: Sep 29, 2017. Subjective Patient reports feeling well. Problem List Medical Problems: (1) Abdominal aortic aneurysm dissection Status: Acute (2) Hypertensive emergency Status: Acute Review of Systems Constitutional: No fever, No chills ENT: No hearing loss Respiratory: No cough Cardiac: No chest pain Abdomen: No pain Neurologic: No memory loss Psychiatric: No depression symptoms Heme: No abnormal bleeding/bruising Endo: No fatigue All Other Systems: Reviewed and Negative Objective Vital Signs Date Time Temp Pulse Resp B/P (MAP) Pulse Ox O2 Delivery O2 Flow Rate FiO2 09/29/17 15:39 36.2 94 16 114/78 (90) 92 Room Air 09/29/17 15:08 Room Air 09/29/17 10:44 36.4 93 18 122/70 (87) 93 Room Air 09/29/17 10:30 36.5 97 20 96 2.0 09/29/17 08:00 96 Room Air 2.0 09/29/17 07:17 36.5 97 20 116/66 (83) 93 Nasal Cannula 2.0 09/29/17 04:00 Nasal Cannula 2.0 09/29/17 03:59 36.3 64 20 115/74 (88) 93 Nasal Cannula 2.0 09/28/17 23:59 96 Nasal Cannula 2.0 09/28/17 23:38 36.3 93 22 136/85 (102) 95 Nasal Cannula 4.0 Physical Exam Comments: General Appearance: WD/WN, no apparent distress Eyes: normal inspection ENT: normal ENT inspection Neck: supple, no adenopathy Respiratory/Chest: chest non-tender, lungs clear, normal breath sounds, no respiratory distress Cardiovascular: no edema, + irregularly irregular Abdomen: normal bowel sounds, non tender, soft Extremities: normal range of motion Neurologic/Psychiatric: alert, oriented x 3 Skin: normal color Lymphatic: no adenopathy Laboratory Results Last 24 Hours Test 09/29/17 05:58 White Blood Count 14.44 K/uL Red Blood Count 4.83 M/uL Hemoglobin 14.7 g/dL Hematocrit 41.4 % Mean Corpuscular Volume 85.7 fL Mean Corpuscular Hemoglobin 30.4 pg Mean Corpuscular Hemoglobin Concent 35.5 g/dl RDW Standard Deviation 42.4 fL RDW Coefficient of Variation 13.5 % Platelet Count 207 K/uL Mean Platelet Volume 9.9 fL Sodium Level 130 mmol/L Potassium Level 5.2 mmol/L Chloride Level 100 mmol/L Carbon Dioxide Level 23 mmol/L Anion Gap 8.0 mmol/L Blood Urea Nitrogen 41 mg/dl Creatinine 1.05 mg/dl Est Creatinine Clear Calc Drug Dose 62.8 ml/min Estimated GFR () 80.1 Estimated GFR (Non- 69.1 BUN/Creatinine Ratio 39.0 Random Glucose 192 mg/dl Calcium Level 7.9 mg/dl Assessment and Plan 76 years old man presented to the ED with intractable lower back pain, hypertensive urgency and ectasia of Ascending aorta as before PMHx of dyslipidemia, PVD/carotid stenosis s/p b/l CEA, PA Afib currently on coumadin, HTN and lumbar spinal stenosis. Lumbar spinal stenosis Team discussed the case with Dr Cooper in the unit 09/23 Patient had procedure on Hypertensive urgency, Resolved. Losartan( increased 09/22) , Cardizem CD and hydralazine as needed will monitor BP. Intractable lower back pain with a lumbar spinal stenosis with exacerbation, has concern for cauda equina syndrome and L2 nerve root impingement, Pain is adequately controlled Morphine/Lidoderm patch for his lower back pain also will continue his home Percocet, Patient had surgery yesterday. Will monitor consideration of aortic abnormality, possible JOANNA, Consulted Dr. Ivy regarding his suspected dissections, no plans of immediate intervention, will recommend outpt follow up Paroxysmal A. fib currently, rate controlled, coumadin held on Anticoag held from Sunday evening Will continue to hold for now. Will place patient back on coumadin on Weekend No need for lovenox. will start coumadin tomorrow. Carotid stenosis status post bilateral carotid endarterectomy Peripheral vascular disease, will continue to hold aspirin Dyslipidemia, lipitor DVT prophylaxis will be scd as coumadin is held due to surgical intervention Continued [facility] stay due to: other Discharge planning: rehab hospital
[2017-09-30 06:42] VITALS: BP 124/87; PULSE 85; TEMP 36.4; O2SAT 92
[2017-09-30] MEDS: ALUMINUM/MAGNESIUM/SIMETH (MAALOX MAX) 30 ML UDC PO PRN (07:41)
[2017-09-30 08:05] VITALS: BP 120/77; PULSE 79; TEMP 36.4; O2SAT 90
[2017-09-30 08:17] VITALS: BP 120/77; PULSE 79; O2SAT 90
[2017-09-30] MEDS: ASPIRIN 81 MG ECTAB PO SCH (08:37)
[2017-09-30] MEDS: GUAIFENESIN 600 MG TABCR PO SCH ×2 (08:37→21:19)
[2017-09-30] MEDS: POLYETHYLENE (MIRALAX) 17 GM PACK PO SCH (08:38)
[2017-09-30] MEDS: LIDODERM (LIDOCAINE) PATCH 5% TD SCH (08:38)
[2017-09-30] MEDS: DILTIAZEM HCL 300 MG CAPCR PO SCH (08:38)
[2017-09-30] MEDS ORDERED: WARFARIN SOD 7.5 MG TAB PO ONE (12:30)
[2017-09-30 16:00] VITALS: BP_SYST 116; BP_DIAS 50; BP_DIAS 82; PULSE 58; PULSE 90; TEMP 36.3; O2SAT 94; O2SAT 97
[2017-09-30] MEDS: WARFARIN SOD 5 MG TAB PO SCH (16:45)
[2017-09-30] MEDS: ATORVASTATIN 20 MG TAB PO SCH (21:18)
[2017-09-30] MEDS: LOSARTAN POTASSIUM 50 MG TAB PO SCH (21:19)
[2017-09-30 23:16] VITALS: BP 119/75; PULSE 65; TEMP 36.4; O2SAT 95
--- NOTE | 2017-09-30 23:23 | Progress Note ---
Subjective Date of Service: Sep 30, 2017. Subjective Pt evaluation today including: conversation w/ patient No complaints today. Problem List Medical Problems: (1) Abdominal aortic aneurysm dissection Status: Acute (2) Hypertensive emergency Status: Acute Review of Systems Constitutional: No fever, No chills Eyes: No worsening of vision ENT: No hearing loss Respiratory: No cough Cardiac: No chest pain Abdomen: No pain Male : No dysuria Neurologic: No memory loss Heme: No abnormal bleeding/bruising Skin: No rash All Other Systems: Reviewed and Negative Objective Vital Signs Date Time Temp Pulse Resp B/P (MAP) Pulse Ox O2 Delivery O2 Flow Rate FiO2 09/30/17 23:16 36.4 65 16 119/75 (90) 95 Room Air 09/30/17 16:00 36.3 58 18 116/50 (72) 97 Room Air 09/30/17 15:40 Room Air 09/30/17 08:17 09/30/17 08:05 36.4 79 16 120/77 (91) 90 Room Air 09/30/17 07:15 Room Air 09/30/17 06:42 36.4 85 18 124/87 (99) 92 Room Air 09/29/17 23:40 93 Room Air 2.0 09/29/17 23:32 36.4 87 18 125/77 (93) 93 Room Air Physical Exam Comments: General Appearance: WD/WN, no apparent distress Eyes: normal inspection ENT: normal ENT inspection Neck: supple, no adenopathy Respiratory/Chest: chest non-tender, lungs clear, normal breath sounds, no respiratory distress Cardiovascular: no edema, + irregularly irregular Abdomen: normal bowel sounds, non tender, soft Extremities: normal range of motion Neurologic/Psychiatric: alert, oriented x 3 Skin: normal color Lymphatic: no adenopathy Assessment and Plan 76 years old man presented to the ED with intractable lower back pain, hypertensive urgency and ectasia of Ascending aorta as before PMHx of dyslipidemia, PVD/carotid stenosis s/p b/l CEA, PA Afib currently on coumadin, HTN and lumbar spinal stenosis. Lumbar spinal stenosis Team discussed the case with Dr Cooper in the unit 09/23 Patient had procedure on Hypertensive urgency, Resolved. Losartan( increased 09/22) , Cardizem CD and hydralazine as needed will monitor BP. Intractable lower back pain with a lumbar spinal stenosis with exacerbation, has concern for cauda equina syndrome and L2 nerve root impingement, Pain is adequately controlled Morphine/Lidoderm patch for his lower back pain also will continue his home Percocet, Patient had surgery on Will monitor consideration of aortic abnormality, possible JOANNA, Consulted Dr. Ivy regarding his suspected dissections, no plans of immediate intervention, will recommend outpt follow up Paroxysmal A. fib currently, rate controlled, coumadin will be restarted Anticoag held from Sunday evening Will continue to hold for now. Will place patient back on coumadin on Weekend No need for lovenox. will start coumadin today. Patient take 5mg 5x a week with 2 days he takes 2.5mg. He will be on 5 mg of coumadin daily. Willl recommend checking INR on at his outpatient clinic. Carotid stenosis status post bilateral carotid endarterectomy Peripheral vascular disease, will continue to hold aspirin Dyslipidemia, lipitor DVT prophylaxis will be scd coumadin has been started Discharge in next 1-2 days Continued [facility] stay due to[facility] other Discharge planning: rehab hospital
[2017-09-30] MEDS: POLYETHYLENE (MIRALAX) 17 GM PACK PO PRN (23:38)
[2017-09-30 23:40] VITALS: O2SAT 95
[2017-10-01 07:01] VITALS: BP 129/80; PULSE 59; TEMP 36.3; O2SAT 94
[2017-10-01 07:03] VITALS: BP 136/80; PULSE 63; TEMP 36.3; O2SAT 93
[2017-10-01 07:33] LABS: HEMATOCRIT 42.2 % (42-52); MEAN CELL VOLUME 85.6 fL (80-100); MEAN CORPUSCULAR HEMOGLOBIN 30.4 pg (25-34); MEAN CORPUSCULAR HGB CONC 35.5 g/dl (32-36); MEAN PLATELET VOLUME 9.9 fL (7.4-10.4); PLATELET COUNT 219 K/uL (130-400); RED CELL DISTRIBUTION WIDTH CV 13.6 % (11.5-14.5); RED CELL DISTRIBUTION WIDTH SD 42.5 fL (36.4-46.3); WHITE BLOOD COUNT 10.22 K/uL (4.8-10.8)
--- NOTE | 2017-10-01 08:03 | Cardiology Follow-Up ---
Subjective Subjective Date of Service: Oct 01, 2017. Pt evaluation today including: conversation w/ patient, physical exam, chart review, lab review, review of studies, conversation w/ [employer] consultant, review of inpatient medication list Additional Details: Feels bloated. States hasn't been able to really move his bowels. Denies chest pain, shortness of breath. Back reasonable with walking halls yesterday. Problem List Medical Problems: (1) Abdominal aortic aneurysm dissection Status: Acute (2) Hypertensive emergency Status: Acute Review of Systems Constitutional: No fever, No chills Eyes: No worsening of vision ENT: No hearing loss Respiratory: No cough Cardiac: No chest pain Abdomen: No pain Musculoskeletal: + joint pain Male : No dysuria Neurologic: No memory loss Psychiatric: No depression symptoms Heme: No abnormal bleeding/bruising Endo: No fatigue Skin: No rash Objective Vital Signs Last Vital Signs Documentation Date Time Temp Pulse Resp B/P (MAP) Pulse Ox O2 Delivery O2 Flow Rate FiO2 10/01/17 07:03 36.3 63 19 136/80 (98) 93 Room Air 09/30/17 23:40 2.0 Physical Exam: General Appearance: no apparent distress Neck: supple, no adenopathy Respiratory/Chest: lungs clear, normal breath sounds Cardiovascular: regular rate, rhythm, no edema Abdomen: normal bowel sounds, non tender, soft Extremities: no pedal edema, + pertinent finding (Dressing clean dry and intact at site of back surgery) Neurologic/Psychiatric: alert, oriented x 3 Skin: normal color Lymphatic: no adenopathy Assessment and Plan 1. Spinal stenosis, cauda equina syndrome, intractable back pain--postoperative day 4 L2-L3 laminectomy/fusion 2. Paroxysmal atrial fibrillation with RVR-- now in sinus rhythm 3. Bicuspid aortic valve with mild aortic insufficiency 4. Preserved LV function 5. Hypertension 6. Chronic abdominal aortic dissection; iliac aneurysms 7. Renal artery stenosis 8. Dyslipidemia Asymptomatic from a cardiac standpoint. Converted to sinus rhythm over the weekend. -- Coumadin restarted last night -- outpatient INR check scheduled for -- Now in sinus rhythm -- reduce cardizem to 240mg daily -- No other change to current cardiac meds. From a cardiac standpoint OK for discharge when safe from a surgical standpoint. Continued [facility] stay due to: other Discharge planning: rehab hospital Medications: Current Inpatient Medications Medications (Trade) Dose Ordered Sig/Richard Route Start Time Stop Time Status Last Admin Dose Admin Warfarin Sodium (Coumadin Tab) 2.5 mg MoFr@1600 PO 09/21/17 20:30 10/21/17 20:29 Future Hold 09/21/17 21:58 2.5 MG Al Hydrox/Mg Hydrox/Simethicone (Maalox Max Susp) 15 ml Q4H PRN PO 09/21/17 18:00 10/21/17 17:59 09/30/17 07:41 15 ML Polyethylene (Miralax Powder Packet) 17 gm DAILY PRN PO 09/21/17 18:00 10/21/17 17:59 09/30/17 23:38 17 GM Hydralazine HCl (HydrALAZINE INJ) 15 mg Q6H PRN IV. 09/21/17 18:30 10/21/17 18:29 Lidocaine (Lidoderm Patch 5%) 1 patch QAM TD 09/22/17 09:00 10/22/17 08:59 09/30/17 08:38 1 PATCH Losartan Potassium (coZAAR TAB) 100 mg HS PO 09/22/17 21:00 10/21/17 20:59 09/30/17 21:19 100 MG Atorvastatin Calcium (Lipitor Tab) 20 mg HS PO 09/23/17 21:00 10/23/17 20:59 09/30/17 21:18 20 MG Enoxaparin Sodium (Lovenox Inj) 90 mg Q12H SQ 09/23/17 19:00 10/23/17 18:59 Future Hold 09/25/17 10:05 90 MG Metoprolol Tartrate (Lopressor Iv) 5 mg Q4H PRN IV 09/23/17 16:45 10/23/17 16:44 09/27/17 08:56 5 MG Guaifenesin (Mucinex Contr Rel Tab) 600 mg Q12 PO 09/24/17 14:00 10/24/17 13:59 09/30/17 21:19 600 MG Diltiazem HCl (Cardizem Cd Cap) 300 mg DAILY PO 09/27/17 10:00 10/27/17 09:59 09/30/17 08:38 300 MG Diphenhydramine HCl (Benadryl Cap) 25 mg Q6H PRN PO 09/28/17 06:00 10/28/17 05:59 Magnesium Hydroxide (Milk Of Magnesia Susp) 30 ml DAILY PRN PO 09/27/17 15:30 10/27/17 15:29 09/29/17 18:10 30 ML Bisacodyl (Dulcolax Supp) 10 mg DAILY PRN [place] 09/28/17 06:00 10/28/17 05:59 Bisacodyl (Dulcolax Tab) 5 mg DAILY PRN PO 09/28/17 06:00 10/28/17 05:59 Polyethylene (Miralax Powder Packet) 17 gm DAILY PO 09/28/17 09:00 10/28/17 08:59 09/30/17 08:38 17 GM Lorazepam 1 mg/ Syringe 0.5 ml @ 1 mls/min Q6H PRN IV 09/27/17 15:30 10/27/17 15:29 Lorazepam (Ativan Tab) 1 mg Q6H PRN PO 09/27/17 15:30 10/27/17 15:29 Metoclopramide HCl (Reglan Inj) 10 mg Q6H PRN IV 09/27/17 15:30 10/27/17 15:29 Ondansetron HCl (Zofran Inj) 4 mg Q6H PRN IV 09/27/17 15:30 10/27/17 15:29 Promethazine HCl 12.5 mg/Sodium Chloride 50.5 ml @ 202 mls/hr Q6H PRN IV 09/27/17 15:30 10/27/17 15:29 Oxycodone/ Acetaminophen (Percocet 5-325mg Tab) 2 tab Q4H PRN PO 09/28/17 06:00 10/12/17 05:59 Hydromorphone HCl (Dilaudid Inj) 1 mg Q3H PRN IV 09/28/17 06:00 10/12/17 05:59 Oxycodone/ Acetaminophen (Percocet 5-325mg Tab) 1 tab Q4H PRN PO 09/28/17 06:00 10/12/17 05:59 Acetaminophen (Tylenol Tab) 650 mg Q6H PRN PO 09/27/17 15:30 10/27/17 15:29 Aspirin (Ecotrin Tab) 81 mg QAM PO 09/28/17 09:00 10/28/17 08:59 09/30/17 08:37 81 MG Warfarin Sodium (Coumadin Tab) 5 mg DAILY@16 PO 09/30/17 16:00 10/30/17 15:59 09/30/17 16:45 5 MG Lab Results: 10/01/17 07:05 Test 10/01/17 07:05 Red Blood Count 4.93 M/uL (4.7-6.1) Mean Corpuscular Volume 85.6 fL (80-100) Mean Corpuscular Hemoglobin 30.4 pg (25-34) Mean Corpuscular Hemoglobin Concent 35.5 g/dl (32-36) RDW Standard Deviation 42.5 fL (36.4-46.3) RDW Coefficient of Variation 13.6 % (11.5-14.5) Mean Platelet Volume 9.9 fL (7.4-10.4) Prothrombin Time 11.0 SECONDS (9.0-12.0) Prothromb Time International Ratio 1.0 (0.9-1.1)
[2017-10-01 08:10] LABS: CALCIUM 8.3 mg/dl (8.5-10.1); CREATININE 1.08 mg/dl (0.60-1.40)
[2017-10-01] MEDS: MAGNESIUM HYDROXIDE SUSP 30 ML UDC PO PRN (08:19)
[2017-10-01] MEDS: GUAIFENESIN 600 MG TABCR PO SCH (08:21)
[2017-10-01] MEDS: POLYETHYLENE (MIRALAX) 17 GM PACK PO SCH (08:22)
[2017-10-01] MEDS: ASPIRIN 81 MG ECTAB PO SCH (08:22)
[2017-10-01] MEDS: LIDODERM (LIDOCAINE) PATCH 5% TD SCH (08:22)
[2017-10-01] MEDS ORDERED: DILTIAZEM HCL 240 MG CAPCR PO SCH (09:00)
[2017-10-01 09:41] VITALS: O2SAT 93
--- NOTE | 2017-10-01 10:51 | Discharge Instructions ---
Discharge Instructions Date of Service Oct 01, 2017. Admission Reason for Admission: Hypertensive Crisis Discharge Discharge Diagnosis / Problem: severe stenosi, co morbidities Discharge Goals Goal(s): Improve function Activity Recommendations Activity Limitations: as noted below Lifting Limitations: no more than 5 pounds Exercise/Sports Limitations: until after follow-up appointment May Resume Sexual Activity: after follow-up appointment Shower/Bathe: keep incision dry . Instructions / Follow-Up Instructions / Follow-Up MEDICATIONS: Please take your prescriptions as instructed at your pre-op appointment. SPECIAL CARE: The following information is intended to answer some of the common questions and concerns regarding your surgery. Each patient is an individual and receives individual counselling throughout the course of treatment, from diagnosis to surgery all the way through recovery. What follows is not an exhaustive list, but should be a useful guide to some of the common questions and concerns patients have regarding their surgeries. These are not provided to keep you from calling us; rather, they give you something accurate and concrete to reference as you recover from your procedure. If you need us, we are available to you. As always, if you are not sure about something, call us at [phone]. MEDICAL EMERGENCIES: For these conditions, call 911 or go to your local hospital-based Emergency Department - not [facility] or equivalent. * Paralysis * Severe chest pain or difficulty breathing * Swelling or redness of either leg Spine procedures can be rather complex and though complications are rare, they do occur. In such cases, effective advice regarding emergency situations cannot always be addressed over the telephone. You may be referred to the emergency department for more effective management of your problem. Activity Limitations: It is important to give your body time to heal, so please limit your activities : * In general, don't do anything that moves your spine too much. You should avoid contact sports, twisting or heavy lifting while you recover. * 5-10 pounds is all you should attempt to lift. * You should not plan on driving for approximately 3 weeks and you should avoid traveling more than 30-45 minutes at a time. Longer trips should be broken down with walking breaks spaced appropriately. * Physical therapy is not usually required. * Walking and good posture practices will help you recover and regain your function. * Avoid straining or sudden changes in position. * In general, the goal is to take it easy and recover. Don't cause any new problems. Just relax. Showers: * Do not take a bath, use a Jacuzzi or hot tub or otherwise submerge your incision. * It is usually safe to take a shower 4-5 days after your surgery. * Your incision does not require any special creams or ointments. * Simply clean it with soap and water, dry and re-dress with a clean bandage afterwards. Incision: * Keep incision clean, dry and protected until your first follow-up appointment. * Some amount of drainage and redness is normal. Any drainage should be fairly clear and not have a foul odor. * If you feel anything is wrong or you have excessive drainage, please call us. * Your stitches and calvin will be removed 10-14 days after your surgery. At the time of your first post-op visit. * Neck surgeries are typically closed with a suture underneath the skin. The steri-strips over the incision should be maintained until we see you in the office. Bracing: * You may be provided with a back or neck brace to encourage good posture and prevent injury. It will remind you not to do too much as you heal and will alert others to the fact that you have had a surgery. * Back braces may be removed for showers and when you are resting at home. They must be worn when you are walking around for any period of time or for travel. * For neck surgery, you will likely be provided with two cervical collars. The soft collar ([place] or foam rubber) is worn most commonly throughout the day and while sleeping. The plastic collar (provided at the hospital) is for showering/bathing. * Except while eating, collars should remain in place. More specifically, bracing is provided for a purpose and should be worn. * Please obtain your brace or collars prior to your operation and bring them to the hospital with you on the day of surgery. * You should also bring your collars to your post-op appointment with Dr. Cooper. You should always take good care of your body and practice healthy habits, especially following surgery. You should: * Follow your doctor's treatment plan * Sit and stand properly with good posture (ears over shoulders, shoulders over hips) Don't slouch * Learn to lift correctly * Exercise regularly (low-impact aerobic exercise is especially good, but check with your doctor first) * Generally, be up and walking for 5-10 minutes at a time at least 3-4 times per day from the day you get home * Increasing walking to tolerance until you can walk for 20-30 minutes at a time * Attain and maintain a healthy body weight * Eat healthy foods ( a well-balanced, low-fat diet rich in fruits and vegetables) and get enough calcium * Avoid excessive use of alcohol When to call our office - If you notice any of the following: * Increased pain not relieve by pain medicine * Fevers greater then 100 degrees F, chills or flu symptoms * Increased redness around incision * Drainage from the incision that is not clear * Any foul smelling drainage * Swelling or fluid collection beneath the skin Miscellaneous: * In the hospital, you may be given a walker or cane for support while walking. These are temporary needs and are intended to prevent injuries due to falls. You may discontinue them when you feel strong and steady enough on your feet. * Sleep in a comfortable position. We find that many patients find a lounge chair or recliner with several pillows to be beneficial in the early post-operative period. * The support stockings should be used for 7-10 days and may be discontinued when you are back to walking more and conducting usual household activities. No problem is insignificant. We are here to help you and get you well. Contact us at [phone]. Definitions: Foraminotomy: If part of the disc or a bone spur (osteophyte) is pressing on a nerve as it leaves the vertebra (through an exit called the foramen), a foraminotomy may be done. Otomy means "to make an opening." A foraminotomy is making the opening of the foramen larger, so the nerve can exit without being compressed. Laminotomy: Similar to the foraminotomy, a laminotomy makes a larger opening, this time in your bony plate protecting your spinal canal and spinal cord (the lamina). The lamina may be pressing on your nerve, so the surgeon may make more room for the nerves using a laminotomy. Laminectomy: Sometimes, a laminotomy is not sufficient. The surgeon may need to remove all or part of the lamina. This procedure is called a laminectomy. This can often be done at many levels without any harmful effects. Current Hospital Diet Patient's current hospital diet: AHA Diet (Heart Healthy) Discharge Diet Recommended Diet: AHA Diet (Heart Healthy) Procedures Procedures Performed: L2-3 Laminectomy with Fusion Pending Studies Studies pending at discharge: no Laboratory Results Hemoglobin A1c Test 09/22/17 06:02 Range/Units Estimated Average Glucose 126 mg/dl Hemoglobin A1c 6.0 H 4.5-5.6 % Lipid Panel Test 09/22/17 06:02 Range/Units Triglycerides Level 66 0-150 mg/dl Cholesterol Level 142 0-200 mg/dl HDL Cholesterol 47 mg/dl Cholesterol/HDL Ratio 3.0 LDL Cholesterol, Calculated 82 mg/dl Medical Emergencies . Who to Call and When: Medical Emergencies: If at any time you feel your situation is an emergency, please call 911 immediately. . Non-Emergent Contact Non-Emergency issues call your: Primary Care Provider . "Provider Documentation" section prepared by Shen Cooper. .
[2017-10-01] MEDS ORDERED: SENNA 8.6 MG TAB PO ONE (11:30)
[2017-10-01] MEDS ORDERED: DOCUSATE SODIUM 100 MG CAP PO ONE (11:30)
--- NOTE | 2017-10-01 12:31 | Hospitalist Progress Note ---
Hospitalist Progress Note Date of Service Oct 01, 2017. Subjective Pt evaluation today including: conversation w/ patient, conversation w/ family ( at bedside), physical exam, chart review, lab review, review of inpatient medication list Pain: None PO Intake: Poor intake, ate 1 bite breakfast Voiding: no voiding problems The patient complains of constipation, stating he has not had any significant bowel movements since his surgery. He states he had a very small BM this morning, but he is still very uncomfortable. He has poor oral intake, only eating 1 bite of his breakfast because he feels that there is "no room in there " for more food. He does not even want his lunch. He is otherwise feeling well postoperatively and is ambulating in the antunez. He states his back pain is very manageable. The patient denies fevers, chills, sweats, chest pain, palpitations, claudication, cough, wheezing, shortness of breath, nausea, vomiting, abdominal pain, dysuria, hematuria, urinary retention, paralysis, weakness, numbness and tingling. Additional Comments: See HPI for pertinent positives and negatives. All other systems reviewed and negative. Objective Vital Signs Date Time Temp Pulse Resp B/P (MAP) Pulse Ox O2 Delivery O2 Flow Rate FiO2 10/01/17 09:41 93 Room Air 10/01/17 08:15 Room Air 10/01/17 07:03 36.3 63 19 136/80 (98) 93 Room Air 10/01/17 07:01 36.3 59 18 129/80 (96) 94 Room Air 09/30/17 23:40 95 Room Air 2.0 09/30/17 23:16 36.4 65 16 119/75 (90) 95 Room Air 09/30/17 16:00 36.3 58 18 116/50 (72) 97 Room Air 09/30/17 15:40 Room Air Physical Exam Notes: General appearance: Well-developed, well-nourished, no apparent distress Head: Normocephalic, atraumatic Eyes: Normal inspection, PERRL, EOMI ENT: Normal ENT inspection, hearing grossly normal, pharynx normal Neck: Supple, no JVD, trachea midline Respiratory/Chest: Lungs clear to auscultation, normal breath sounds, no respiratory distress Cardiovascular: Regular rate & rhythm, no gallop, no murmur Abdomen/GI: +Firm. Normal bowel sounds, non-tender Extremities/Musculoskeletal: Normal inspection, no calf tenderness, no pedal edema Neurological/Psych: Alert, normal mood/affect, oriented x 3 Skin: Normal color, warm/dry, no rash Laboratory Results Last 24 Hours Test 10/01/17 07:05 White Blood Count 10.22 K/uL Red Blood Count 4.93 M/uL Hemoglobin 15.0 g/dL Hematocrit 42.2 % Mean Corpuscular Volume 85.6 fL Mean Corpuscular Hemoglobin 30.4 pg Mean Corpuscular Hemoglobin Concent 35.5 g/dl RDW Standard Deviation 42.5 fL RDW Coefficient of Variation 13.6 % Platelet Count 219 K/uL Mean Platelet Volume 9.9 fL Prothrombin Time 11.0 SECONDS Prothromb Time International Ratio 1.0 Sodium Level 131 mmol/L Potassium Level 5.0 mmol/L Chloride Level 97 mmol/L Carbon Dioxide Level 28 mmol/L Anion Gap 6.0 mmol/L Blood Urea Nitrogen 35 mg/dl Creatinine 1.08 mg/dl Est Creatinine Clear Calc Drug Dose 61.0 ml/min Estimated GFR () 77.4 Estimated GFR (Non- 66.8 BUN/Creatinine Ratio 32.7 Random Glucose 132 mg/dl Calcium Level 8.3 mg/dl Assessment and Plan 76 y/o male with a history of HTN, HLD, paroxysmal a-fib on Coumadin, PVD, carotid stenosis s/p bilateral CEA, and lumbar stenosis who presents with hypertensive urgency and lower back pain. HTN urgency--resolved -Home losartan increased to 100 mg PO qd -Decrease diltiazem to 240 per cardio recs -Hydralazine prn Lower back pain w/lumbar stenosis -s/p L2-L3 laminectomy with fusion and evacuation of hematoma on 09/27 -Cardiology consulted for preop clearance, a-fib with RVR, appreciate recs: Decrease Cardizem to 240 mg -Pain well controlled on Lidoderm patch, has not required Percocet/Dilaudid Constipated -Pt receiving scheduled daily Miralax and prn milk of magnesia. No significant BMs since surgery -DulcoLax 10 mg suppository given, still no BM -Add milk & molasses enema -Senokot 2 tab PO qd, Colace 100 mg PO BID HLD--stable -Continue Lipitor 20 mg PO qd PAF on Coumadin--stable, rate controlled. Had episodes of a-fib with RVR, now resolved -Continue Coumadin 5 mg PO qd -INR 1.0 on 10/01 -Recheck INR as outpt later this week Infrarenal aortic dissection, bilateral iliac artery aneurysms, left renal artery stenosis -Vascular surgery consulted, appreciate recs: No intervention at this time. F/ u in 6 months with ultrasound. If aneurysms enlarge, can repair with endovascular approach at that time. Carotid artery stenosis s/p bilateral CEA--noted DVT prophylaxis -SCDs -Coumadin not yet therapeutic
[2017-10-01 12:37] VITALS: BP 130/88; PULSE 70; TEMP 36.3; O2SAT 91
[2017-10-01] MEDS ORDERED: MILK AND MOLASSES ENEMA PR ONE (13:30)
[2017-10-01 14:36] VITALS: BP 130/88; PULSE 70; TEMP 36.3; O2SAT 91
[2017-10-01] MEDS ORDERED: MRLP17 PO (14:40)
[2017-10-01] MEDS ORDERED: CZR50 PO (14:40)
[2017-10-01] MEDS ORDERED: DLTCD/240 PO (14:40)
[2017-10-01] MEDS ORDERED: OXYC-57 PO (14:40)
[2017-10-01] MEDS: WARFARIN SOD 5 MG TAB PO SCH (15:47)
[2017-10-01] MEDS ORDERED: DOCUSATE SODIUM 100 MG CAP PO SCH (21:00)
[2017-10-02] MEDS ORDERED: SENNA 8.6 MG TAB PO SCH (09:00)
--- NOTE | 2017-10-04 17:42 | DISCHARGE SUMMARY ---
Varun is a delightful gentleman who was admitted to the medical service in the late August timeframe. He had significant back pain, vascular issues. He actually had a severe stenotic situation with a lumbar hematoma in the area of the 2-3 area. He was taken to surgery for decompression fusion and did well. Up and ambulatory over the weekend. He was made stable on his anticoagulants. Discharged home the 2nd in improved stable condition. His wound was clean and dry. He was alert, oriented. Mentation normal. No chest pain, shortness of breath or calf tenderness. IMPRESSION: Status post reconstructive surgery. DISPOSITION: Home on 10/01/2017 in improved stable condition. Instructions given, medication provided. Follow up in 10 days with us here in the office.
== END 2017-10-01 15:58 | disposition home or self-care (01) | DRG 459 ==
LOC: C.EDB 13:59 → C.2T 18:02 → ENRESERV 18:29 → CANRESERV 09-23 15:28 → EDBEDREQSVC 09-23 15:48 → CANRESERV 09-23 15:53 → ENRESERV 09-23 15:53 → CANBEDREQ 09-23 16:30 → C.3E 09-27 15:26 → ENRESERV 09-27 15:55 → C.2T 09-27 17:23 → ENRESERV 09-29 10:00 → C.MSW 09-29 10:26
PROVIDERS: ADMIT Internal Medicine; ATTEND Orthopaedic Surgery Orthopaedic Surgery of the Spine
PROC: 0SG00Z1 (ICD-10-PCS; principal; 2017-09-27 11:30)
PROC: 0JB70ZX Excision of Back Subcutaneous Tissue and Fascia, Open Approach, Diagnostic (ICD-10-PCS; principal; 2017-09-27 11:30)
PROC: 009Y0ZZ Drainage of Lumbar Spinal Cord, Open Approach (ICD-10-PCS; principal; 2017-09-27 11:30)
DX: M48.061 Spinal stenosis, lumbar region without neurogenic claudication (principal); I71.02 Dissection of abdominal aorta; S34.109A Unspecified injury to unspecified level of lumbar spinal cord, initial encounter; G83.4 Cauda equina syndrome; Q23.1 Congenital insufficiency of aortic valve; I16.0 Hypertensive urgency; I72.3 Aneurysm of iliac artery; M53.2X6 Spinal instabilities, lumbar region; I70.1 Atherosclerosis of renal artery; K59.03 Drug induced constipation; T40.605A Adverse effect of unspecified narcotics, initial encounter; K59.09 Other constipation; I48.0 Paroxysmal atrial fibrillation; I11.9 Hypertensive heart disease without heart failure; E78.5 Hyperlipidemia, unspecified; I73.9 Peripheral vascular disease, unspecified; E66.9 Obesity, unspecified; Z79.899 Other long term (current) drug therapy; Z79.01 Long term (current) use of anticoagulants; Z79.82 Long term (current) use of aspirin; Z86.73 Personal history of transient ischemic attack (TIA), and cerebral infarction without residual deficits; Z98.890 Other specified postprocedural states; Z68.24 Body mass index [BMI] 24.0-24.9, adult; Z87.891 Personal history of nicotine dependence; Z82.49 Family history of ischemic heart disease and other diseases of the circulatory system; X58.XXXA Exposure to other specified factors, initial encounter

== ENCOUNTER 2020-10-27 20:25 | Observation (INO) ==
[2020-10-27 21:17] LABS: Basophils # (auto) 0.03 K/uL (0-0.2); Basophils % (auto) 0.5 %; Eosinophils # (auto) 0.19 K/uL (0-0.5); Eosinophils % (auto) 3.1 %; Hematocrit (blood only) 42.4 % (42-52); Hemoglobin 14.6 g/dL (14.0-18.0); Immature Granulocytes # (auto) 0.02 K/uL (0.00-0.02); Immature Granulocytes % (auto) 0.3 %; Lymphocytes # (auto) 1.38 K/uL (1.2-3.4); Lymphocytes % (auto) 22.2 %; Mean Corpuscular Hemoglobin 29.7 pg (25-34); Mean Corpuscular Hgb Conc 34.4 g/dL (32-36); Mean Corpuscular Volume 86.2 fL (80-100); Mean Platelet Volume 10.2 fL (7.4-10.4); Monocytes # (auto) 0.68 K/uL (0.11-0.59); Neutrophils # (auto) 3.91 K/uL (1.4-6.5); Neutrophils % (auto) 62.9 %; Platelet Count 226 K/uL (130-400); RDW Coefficient of Variation 13.7 % (11.5-14.5); RDW Standard Deviation 43.1 fL (36.4-46.3); Red Blood Count 4.92 M/uL (4.7-6.1); White Blood Count 6.21 K/uL (4.8-10.8)
[2020-10-27 21:27] LABS: Alanine Aminotransferase 26 U/L (12-78); Albumin Level 4.1 gm/dl (3.4-5.0); Aspartate Aminotransferase 16 U/L (15-37); BUN Creatinine Ratio 16.3 (10-20); Blood Urea Nitrogen 23 mg/dl (7-18); Calcium 9.7 mg/dl (8.5-10.1); Carbon Dioxide 28 mmol/L (21-32); Chloride 104 mmol/L (98-107); Creatinine Clr Calc Pharmacy 49.1 ml/min; Est GFR (African American) 54.1; Est GFR (Non-African American) 46.6; Glucose 143 mg/dl (70-99); Potassium 4.1 mmol/L (3.5-5.1); Sodium 137 mmol/L (136-145)
[2020-10-27] MEDS ORDERED: SODIUM CHLORIDE 0.9% 1000ML 1,000 ML IV SCH (21:30)
[2020-10-27 21:34] LABS: Albumin Globulin Ratio 1.1 (0.9-2); Alkaline Phosphatase 112 U/L (45-117); Bilirubin,Total 0.6 mg/dl (0.2-1); Globulin 3.6 gm/dl (2.5-4.0); Total Protein 7.7 gm/dl (6.4-8.2); Troponin I < 0.015 ng/ml (0-0.045)
--- NOTE | 2020-10-27 21:44 | Emergency Department Note ---
Impression & Plan Syncope ED Provider Note NAME: VENKATESH MONDRAGON AGE: 80 SEX: M : 1940 ARRIVES VIA: Walk-In INFORMANT: Patient, ED PROVIDER(S): King Tejada MD Chief Complaint: Syncope HPI: Patient does present with at bedside due to concern for syncope that occurred prior to arrival. Patient states that he was eating a carrot felt as though he had some indigestion and got not gone to the sink and felt a strange f eeling and subsequently passed out. The states that it was maybe only seconds in duration. No reported head strike but the patient does take Coumadin for known history of A. fib. The patient denies any presyncopal symptoms i.e. dizziness lightheadedness, palpitations, or skipped beats. The patient states that has been compliant with his medications. The patient states that he had been out golfing today but was hydrating well and did not feel ill. Patient denies any nausea or vomiting. The patient denies any numbness tingling or focal weakness. Patient denies any headache or neck pain. Patient has no current chest pain, nausea, vomiting, fevers or chills. ROS: See HPI for pertinent positives and negatives. A total of 10 systems were reviewed and otherwise negative. Past medical history: See below Surgical history: See below Social history: See below Physical Exam: GENERAL: Well appearing, well nourished, NAD, non-toxic. Wearing a mask. EYE EXAM: Normal conjunctiva. PERRL, no anisocoria and EOM's grossly intact w/o pain. NECK: Supple, no nuchal rigidity, no adenopathy, non-tender. No signs of meningismus. LUNGS: Clear to auscultation. Normal chest wall mechanics. HEART: NSR, no MRG. ABDOMEN: Abdomen soft, non-tender, normo-active bowel sounds, no masses, no re bound or guarding. BACK: No CVA TTP. SKIN: No rashes and no bruising. UPPER EXTREMITIES: Upper extremities are grossly normal. LOWER EXTREMITIES: Grossly normal, no edema. NEURO EXAM: A&O x3, cranial nerves II-XII grossly intact, normal speech, moves all 4 extremities on command w/o issue. Differential diagnoses: Vasovagal event, dehydration, infection, hypoglycemia, electrolyte abnormalities, cardiac sources, intracerebral event, pulmonary embolism, seizure, toxicologic, neurologic, as well as other pathologies. Course: Patient was seen and evaluated the bedside. Full history physical exam was performed. EKG: Indication: Syncope Sinus rhythm with PACs, rate of 73, normal QRS, normal axis, no obvious ST changes. Imaging Studies: 1 view chest x-ray No obvious pneumothorax, pleural effusion, or consolidation. Cardiac monitoring: An order was placed for continuous cardiac monitoring. The monitor shows a rate of 65 with sinus rhythm. MDM: Patient did present with concern for syncope. The patient did have blood work completed along with CT of the head and coags. Patient is a normal white count H&H and platelet count. The patient's kidney function does show some mild sky ge in kidney function from 3 years ago but may be age-related. Patient did receive IV fluids. Troponin is not detectable. EKG with no obvious ischemic change. Covid flu and RSV negative. Chest x-ray by my read appears unremarkable and the patient is currently anticoagulated and therapeutic with an INR of 2.6. Given the patient's known history of A. fib with syncope believe the patient would benefit from observation. I did speak with the on-call hospitalist Dr. Mix and the patient was admitted to the medicine service. Past Med/Surg History Medical History (Updated 10/27/20 @ 23:54 by King Tejada MD) Atrial fibrillation Carotid stenosis HTN (hypertension) No significant family history Surgical History No significant past surgical history Social History Smoking Status: Former smoker Preferred Language: Australian Feels Safe at Home: Yes Allergies Allergies Allergy/AdvReac Type Severity Reaction Status Date / Time No Known Drug Allergies Allergy Unknown Verified 10/27/20 20:39 Home Meds Home Medications Medication Instructions Recorded Confirmed aspirin [Aspirin Low-Strength] 81 mg PO DAILY 10/27/20 10/27/20 Previous Rx's Medication Instructions Recorded atorvastatin 20 mg tablet 20 mg PO HS #90 tab 01/13/20 hydrochlorothiazide 25 mg tablet 25 mg PO DAILY #90 tab 02/27/20 losartan 100 mg tablet 100 mg PO DAILY #90 tab 03/04/20 warfarin 5 mg tablet 5 mg PO .COMPLEX #90 tab 10/12/20 diltiazem HCl 240 mg 240 mg PO DAILY #90 cap 10/16/20 capsule,extended release 24 hr Results & Data (ED) Vital Signs Vital Signs - 24 hr 10/27/20 20:32 10/27/20 21:00 10/27/20 21:30 Temperature 36.9 C Temperature Source Temporal Artery Scan Pulse Rate 78 71 69 Pulse Rate from SpO2 Sensor 71 69 Respiratory Rate 18 15 21 Respiratory Depth Normal Blood Pressure 130/70 118/64 128/84 Blood Pressure Mean 90 82 98 Pulse Oximetry 93 94 93 Oxygen Delivery Method Room Air Sepsis Recent Fever Within 48 Hours No Sepsis New/Unexplained Change in Mental Status N/A Sepsis Action Taken by Nursing No Action Required 10/27/20 22:00 10/27/20 22:20 10/27/20 22:34 Temperature Temperature Source Pulse Rate 70 72 Pulse Rate from SpO2 Sensor 70 73 Respiratory Rate 16 25 H Respiratory Depth Blood Pressure 124/83 124/82 Blood Pressure Mean 96 96 Pulse Oximetry 93 94 93 Oxygen Delivery Method Room Air Sepsis Recent Fever Within 48 Hours Sepsis New/Unexplained Change in Mental Status Sepsis Action Taken by Nursing 10/27/20 23:00 10/27/20 23:30 Temperature Temperature Source Pulse Rate 67 65 Pulse Rate from SpO2 Sensor 67 Respiratory Rate 15 Respiratory Depth Blood Pressure 117/70 126/84 Blood Pressure Mean 85 98 Pulse Oximetry 94 94 Oxygen Delivery Method Room Air Room Air Sepsis Recent Fever Within 48 Hours Sepsis New/Unexplained Change in Mental Status Sepsis Action Taken by Snf Medications Current Medication List: was personally reviewed by me Laboratory Data Attestation: I reviewed the patient's lab results. Result diagrams: 10/27/20 20:50 10/27/20 20:50 Lab Results 10/27/20 10/27/20 10/27/20 Range/Units 20:50 20:50 20:50 WBC 6.21 (4.8-10.8) K/uL RBC 4.92 (4.7-6.1) M/uL Hgb 14.6 (14.0-18.0) g/dL Hct 42.4 (42-52) % MCV 86.2 (80-100) fL MCH 29.7 (25-34) pg MCHC 34.4 (32-36) g/dL RDW Std Deviation 43.1 (36.4-46.3) fL RDW Coeff of Demetrius 13.7 (11.5-14.5) % Plt Count 226 (130-400) K/uL MPV 10.2 (7.4-10.4) fL Immature Gran % (Auto) 0.3 % Neut % (Auto) 62.9 % Lymph % (Auto) 22.2 % [place] % (Auto) 11.0 % Eos % (Auto) 3.1 % Baso % (Auto) 0.5 % Neut # (Auto) 3.91 (1.4-6.5) K/uL Lymph # (Auto) 1.38 (1.2-3.4) K/uL [place] # (Auto) 0.68 H (0.11-0.59) K/uL Eos # (Auto) 0.19 (0-0.5) K/uL Baso # (Auto) 0.03 (0-0.2) K/uL Immature Gran # (Auto) 0.02 (0.00-0.02) K/uL PT 24.7 H (9.0-12.0) Seconds INR 2.6 H (0.9-1.1) APTT 35.8 H (21.0-31.0) Seconds PTT Ratio 1.4 Sodium 137 (136-145) mmol/L Potassium 4.1 (3.5-5.1) mmol/L Chloride 104 (98-107) mmol/L Carbon Dioxide 28 (21-32) mmol/L Anion Gap 5.0 (3-11) BUN 23 H (7-18) mg/dl Creatinine 1.42 H (0.6-1.4) mg/dl Est Cr Clr Drug Dosing 49.1 ml/min Est GFR ( Amer) 54.1 Est GFR (Non-Af Amer) 46.6 BUN/Creatinine Ratio 16.3 (10-20) Glucose 143 H (70-99) mg/dl Calcium 9.7 (8.5-10.1) mg/dl Magnesium 2.0 (1.8-2.4) mg/dl Total Bilirubin 0.6 (0.2-1) mg/dl AST 16 (15-37) U/L ALT 26 (12-78) U/L Alkaline Phosphatase 112 (45-117) U/L Troponin I < 0.015 (0-0.045) ng/ml Total Protein 7.7 (6.4-8.2) gm/dl Albumin 4.1 (3.4-5.0) gm/dl Globulin 3.6 (2.5-4.0) gm/dl Albumin/Globulin Ratio 1.1 (0.9-2) TSH 2.200 (0.300-4.500) uIu/ml COVID-19 Eval Order SARS-CoV-2 (PCR) (Negative) Influenza Type A (PCR) (Neg) Influenza Type B (PCR) (Neg) RSV (RT-PCR) (Neg) 10/27/20 10/27/20 Range/Units 22:15 22:15 WBC (4.8-10.8) K/uL RBC (4.7-6.1) M/uL Hgb (14.0-18.0) g/dL Hct (42-52) % MCV (80-100) fL MCH (25-34) pg MCHC (32-36) g/dL RDW Std Deviation (36.4-46.3) fL RDW Coeff of Demetrius (11.5-14.5) % Plt Count (130-400) K/uL MPV (7.4-10.4) fL Immature Gran % (Auto) % Neut % (Auto) % Lymph % (Auto) % [place] % (Auto) % Eos % (Auto) % Baso % (Auto) % Neut # (Auto) (1.4-6.5) K/uL Lymph # (Auto) (1.2-3.4) K/uL [place] # (Auto) (0.11-0.59) K/uL Eos # (Auto) (0-0.5) K/uL Baso # (Auto) (0-0.2) K/uL Immature Gran # (Auto) (0.00-0.02) K/uL PT (9.0-12.0) Seconds INR (0.9-1.1) APTT (21.0-31.0) Seconds PTT Ratio Sodium (136-145) mmol/L Potassium (3.5-5.1) mmol/L Chloride (98-107) mmol/L Carbon Dioxide (21-32) mmol/L Anion Gap (3-11) BUN (7-18) mg/dl Creatinine (0.6-1.4) mg/dl Est Cr Clr Drug Dosing ml/min Est GFR ( Amer) Est GFR (Non-Af Amer) BUN/Creatinine Ratio (10-20) Glucose (70-99) mg/dl Calcium (8.5-10.1) mg/dl Magnesium (1.8-2.4) mg/dl Total Bilirubin (0.2-1) mg/dl AST (15-37) U/L ALT (12-78) U/L Alkaline Phosphatase (45-117) U/L Troponin I (0-0.045) ng/ml Total Protein (6.4-8.2) gm/dl Albumin (3.4-5.0) gm/dl Globulin (2.5-4.0) gm/dl Albumin/Globulin Ratio (0.9-2) TSH (0.300-4.500) uIu/ml COVID-[address] Eval [address] CovFluRsv at [facility] SARS-CoV-2 (PCR) NEGATIVE (Negative) Influenza Type A (PCR) Negative (Neg) Influenza Type B (PCR) Negative (Neg) RSV (RT-PCR) Negative (Neg) Administered Medications Discontinued Medications Sodium Chloride (Nss 1000ml) 1,000 mls @ 999 mls/hr IV .[id number] Stop: 10/27/20 22:30 Last Infusion: 10/27/20 23:16 Dose: 0 mls/hr Documented by: [id number] Admin: 10/27/20 22:15 Dose: 999 mls/hr Documented by: [id number] Discharge Plan Visit Data Chief Complaint: Syncope Stated Complaint: PASSED OUT ED Provider: King Tejada Discharge Problem: Syncope Forms Stand Alone Forms: My [facility] Prescriptions Prescriptions: No Action atorvastatin 20 mg tablet 20 mg PO HS Qty: 90 RF: 3 hydrochlorothiazide 25 mg tablet 25 mg PO DAILY Qty: 90 RF: 3 losartan 100 mg tablet 100 mg PO DAILY Qty: 90 RF: 3 diltiazem HCl 240 mg capsule,extended release 24hr 240 mg PO DAILY Qty: 90 RF: 2 warfarin 5 mg tablet 5 mg PO .COMPLEX Qty: 90 RF: 3 aspirin [Aspirin Low-Strength] 81 mg Tablet,Delayed Release (Dr/Ec) 81 mg PO DAILY RF: 0 Discharge Problem: Syncope Qualifiers: Syncope type: unspecified Qualified Code(s): R55 - Syncope and collapse
[2020-10-27 22:29] LABS: INR 2.6 (0.9-1.1); Partial Thromboplastin Ratio 1.4; Partial Thromboplastin Time 35.8 Seconds (21.0-31.0); Prothrombin Time 24.7 Seconds (9.0-12.0)
[2020-10-27 23:33] LABS: Influenza A virus by PCR Negative (Neg); Influenza B virus by PCR Negative (Neg); RSV by PCR Negative (Neg); SARS CoV2 RNA(COVID-19) InHosp NEGATIVE (Negative)
--- NOTE | 2020-10-28 00:20 | History & Physical Report ---
Date of Service October 28, 2020 Assessment & Plan (1) Syncope: Syncope- Most likely vasovagal syncope on top of dehydrated state. The patient will be admitted to telemetry for serial cardiac enzymes, serial EKG's, cardiac rhythm monitoring and a 2-D echocardiogram with Dopplers. Repeat laboratories in a.m. Present on Admission?: Yes (2) Atrial fibrillation: Atrial fibrillation/bicuspid aortic valve/hypertension- Warfarin therapeutic with INR 2.6. Continue aspirin and warfarin. Present on Admission?: Yes (3) Long-term (current) use of anticoagulants, INR goal 2.0-3.0: See above Present on Admission?: Yes (4) Bicuspid aortic valve: See above Present on Admission?: Yes (5) Hypertension: See above Present on Admission?: Yes (6) Acute kidney injury: Creatinine 1.42 upon admission, with baseline 1.08. NSS at 125 mils per hour Hold HCTZ and losartan Repeat laboratories in a.m. Discussed improved water intake at adding such as golf which occurred today, and increased water in general. Present on Admission?: Yes History of Present Illness Chief Complaint: The patient presents to the emergency department after a syncopal episode that occurred prior to arrival Primary Care Provider: Rishi Fournier MD The patient is a 80-year-old male with a past medical history including atrial fibrillation on warfarin, bicuspid aortic valve, hypertension, carotid stenosis, near syncope, hypertension, hypertensive crisis and lumbar spinal stenosis. The patient reports that he involved in the hot weather today earlier in the morning. He reports that while he was laying on the sofa at home, he felt little little uneasy in the stomach, had gotten the care at to try to settle the stomach down, which seemed to make things worse. He then went to the kitchen, and while holding onto the sink, ended up on the floor during the syncopal episode. He did not have any loss of bowel or bladder control, and his reported he was disoriented for about a few seconds. He denies any palpitations. He denies any recent travels or sick exposures. Allergies Allergy/AdvReac Type Severity Reaction Status Date / Time No Known Drug Allergies Allergy Unknown Verified 10/27/20 20:39 Home Medications Medication Instructions Recorded Confirmed Type atorvastatin 20 mg tablet 20 mg PO HS #90 tab 01/13/20 10/27/20 Rx hydrochlorothiazide 25 mg tablet 25 mg PO DAILY #90 tab 02/27/20 10/27/20 Rx losartan 100 mg tablet 100 mg PO DAILY #90 tab 03/04/20 10/27/20 Rx warfarin 5 mg tablet 5 mg PO .COMPLEX #90 tab 10/12/20 10/27/20 Rx diltiazem HCl 240 mg 240 mg PO DAILY #90 cap 10/16/20 10/27/20 Rx capsule,extended release 24 hr aspirin [Aspirin Low-Strength] 81 mg PO DAILY 10/27/20 10/27/20 History Past Med/Surg History Medical History (Updated 10/28/20 @ 00:41 by Zafar Coleman MD) Atrial fibrillation Carotid stenosis HTN (hypertension) No significant family history Surgical History No significant past surgical history Social History Smoking Status: Former smoker Preferred Language: Czech Feels Safe at Home: Yes Review of Systems Review of Systems: The patient denies chest pain, palpitations, shortness of breath, dyspnea on exertion, cough, lower extremity swelling, sore throat, fevers, chills, sweats, nausea, vomiting, diarrhea , constipation, abdominal pain, pelvic pain, blood in urine or stool, dysuria, urinary frequency or urgency, lightheadedness, dizziness, headache, rash, abnormal bruising or bleeding, imbalance, focal or generalized weakness, numbness or tingling in arms or legs, generalized arthralgias or myalgias, back or neck pain, or night sweats. The review of systems is otherwise negative other than for that already noted above, and at least 10 systems have been reviewed. Physical Exam Physical Exam: The patient is awake, alert and oriented 3, well developed and well nourished, normocephalic and atraumatic, lying in bed and in no acute distress. HEENT--PERRL, EOMI, mucous membranes and oropharynx dry. Neck--supple. No JVD. No bruits. Thyroid normal, trachea midline, no adenopathy. Heart--normal S1 and S2. No murmurs, rubs or gallops. Lungs--clear bilaterally, no respiratory distress, no accessory muscle use. Abdomen--normal bowel sounds and soft. Nontender. Nondistended, no hernias or masses, no organomegaly. Extremities--no cyanosis or clubbing. No edema. There are good distal pulses b/l. Dermatologic--normal skin turgor, normal color, no abnormal lymph nodes, no rash. Neurologic--cranial nerves II through XII grossly intact. Rheumatologic--normal range of motion. Psychiatric--normal affect. Results & Data Results & Data ([facility]) Vital Signs (Past 12 Hours) Vital Signs Temp Pulse Resp BP Pulse Ox 10/27/20 23:30 65 126/84 94 10/27/20 23:00 67 15 117/70 94 10/27/20 22:34 72 25 H 124/82 93 10/27/20 22:20 94 10/27/20 22:00 70 16 124/83 93 10/27/20 21:30 69 21 128/84 93 10/27/20 21:00 71 15 118/64 94 10/27/20 20:32 98.4 F 78 18 130/70 93 Laboratory Results Laboratory Results WBC 6.21 K/uL (4.8-10.8) 10/27/20 20:50 RBC 4.92 M/uL (4.7-6.1) 10/27/20 20:50 Hgb 14.6 g/dL (14.0-18.0) 10/27/20 20:50 Hct 42.4 % (42-52) 10/27/20 20:50 MCV 86.2 fL (80-100) 10/27/20 20:50 MCH 29.7 pg (25-34) 10/27/20 20:50 MCHC 34.4 g/dL (32-36) 10/27/20 20:50 RDW Std Deviation 43.1 fL (36.4-46.3) 10/27/20 20:50 RDW Coeff of Demetrius 13.7 % (11.5-14.5) 10/27/20 20:50 Plt Count 226 K/uL (130-400) 10/27/20 20:50 MPV 10.2 fL (7.4-10.4) 10/27/20 20:50 Immature Gran % (Auto) 0.3 % 10/27/20 20:50 Neut % (Auto) 62.9 % 10/27/20 20:50 Lymph % (Auto) 22.2 % 10/27/20 20:50 [place] % (Auto) 11.0 % 10/27/20 20:50 Eos % (Auto) 3.1 % 10/27/20 20:50 Baso % (Auto) 0.5 % 10/27/20 20:50 Neut # (Auto) 3.91 K/uL (1.4-6.5) 10/27/20 20:50 Lymph # (Auto) 1.38 K/uL (1.2-3.4) 10/27/20 20:50 [place] # (Auto) 0.68 K/uL (0.11-0.59) H 10/27/20 20:50 Eos # (Auto) 0.19 K/uL (0-0.5) 10/27/20 20:50 Baso # (Auto) 0.03 K/uL (0-0.2) 10/27/20 20:50 Immature Gran # (Auto) 0.02 K/uL (0.00-0.02) 10/27/20 20:50 PT 24.7 Seconds (9.0-12.0) H 10/27/20 20:50 INR 2.6 (0.9-1.1) H 10/27/20 20:50 APTT 35.8 Seconds (21.0-31.0) H 10/27/20 20:50 PTT Ratio 1.4 10/27/20 20:50 Sodium 137 mmol/L (136-145) 10/27/20 20:50 Potassium 4.1 mmol/L (3.5-5.1) 10/27/20 20:50 Chloride 104 mmol/L (98-107) 10/27/20 20:50 Carbon Dioxide 28 mmol/L (21-32) 10/27/20 20:50 Anion Gap 5.0 (3-11) 10/27/20 20:50 BUN 23 mg/dl (7-18) H 10/27/20 20:50 Creatinine 1.42 mg/dl (0.6-1.4) H 10/27/20 20:50 Est Cr Clr Drug Dosing 49.1 ml/min 10/27/20 20:50 Est GFR ( Amer) 54.1 10/27/20 20:50 Est GFR (Non-Af Amer) 46.6 10/27/20 20:50 BUN/Creatinine Ratio 16.3 (10-20) 10/27/20 20:50 Glucose 143 mg/dl (70-99) H 10/27/20 20:50 Calcium 9.7 mg/dl (8.5-10.1) 10/27/20 20:50 Magnesium 2.0 mg/dl (1.8-2.4) 10/27/20 20:50 Total Bilirubin 0.6 mg/dl (0.2-1) 10/27/20 20:50 AST 16 U/L (15-37) 10/27/20 20:50 ALT 26 U/L (12-78) 10/27/20 20:50 Alkaline Phosphatase 112 U/L (45-117) 10/27/20 20:50 Troponin I < 0.015 ng/ml (0-0.045) 10/27/20 20:50 Total Protein 7.7 gm/dl (6.4-8.2) 10/27/20 20:50 Albumin 4.1 gm/dl (3.4-5.0) 10/27/20 20:50 Globulin 3.6 gm/dl (2.5-4.0) 10/27/20 20:50 Albumin/Globulin Ratio 1.1 (0.9-2) 10/27/20 20:50 TSH 2.200 uIu/ml (0.300-4.500) 10/27/20 20:50 COVID-19 Eval Order CovFluRsv at [facility] 10/27/20 22:15 SARS-CoV-2 (PCR) NEGATIVE (Negative) 10/27/20 22:15 Influenza Type A (PCR) Negative (Neg) 10/27/20 22:15 Influenza Type B (PCR) Negative (Neg) 10/27/20 22:15 RSV (RT-PCR) Negative (Neg) 10/27/20 22:15 Diagnostic Findings [facility] Patient: VENKATESH MONDRAGON (Male) : 42 Status: ER Date: 10/27/20 22:33 Room #: History: FALL Slices: 65 Priors: Tech: Jack Calderon @ [id number] Exams: CT HEAD Contrast: Accession Numbers: [id number] Preliminary Findings Only See Final Report For Complete Findings CT HEAD: Comparison 03/01/2013. No acute intracranial hemorrhage, edema or mass. Mild periventricular white matter chronic microvascular ischemic changes. No extra-axial fluid collection. No calvarial fracture. Visualized orbits, paranasal sinuses and mastoids are unremarkable. Radiologist: Tommie Fernandez M.D. Study ready at 22:40 and initial results transmitted at 22:46 *This report constitutes a preliminary interpretation only. Non-acute findings felt to be unrelated to the clinical presentation may not be discussed in this report. The study will be interpreted and a final report will be generated by the local Radiologist the following shift. To reach the hospital radiology department call [phone]. If a discrepancy is found between the preliminary and final interpretations of this study, please notify us via our Client Portal at [email or web address] [email or web address].You can also fax this report with a description of the discrepancy, or include the final report, to our daytime fax number [phone].If faxing, please indicate the severity of discrepancy using one of the following categories: [ ] 1 - Agree/Informational [ ] 2 - Unlikely to Affect Management [ ] 3 - Possible Eventual Change of Management [ ] 4 - Probable Immediate Change of Management For all other patient related information, please fax us at [phone]. [id number] Code Status & VTE Plan Code Status Full code VTE Prophylaxis Plan VTE Prophylaxis will be ordered: Yes PG Care Time/CCT Total # of Minutes Spent Total Time Spent with Patient: Total time spent is greater than 50% in coordination of care (as documented) at patient's floor/unit and/or counseling patient: Coding Level of Care Code 90250 OBS Care - Level 3 Diagnoses Syncope R55 Syncope type: unspecified Atrial fibrillation I48.91 Long-term (current) use of anticoagulants, INR goal 2.0-3.0 Z79.01 Bicuspid aortic valve Q23.1 Hypertension I10 Acute kidney injury N17.9 (1) Syncope Syncope type: unspecified Qualified Code(s): R55 - Syncope and collapse
[2020-10-28] MEDS ORDERED: MAGNESIUM HYDROXIDE SUSP 30 ML UDC PO PRN (01:28)
[2020-10-28] MEDS ORDERED: ONDANSETRON INJ 2 MG/ML 2 ML VIAL IV PRN (01:28)
[2020-10-28] MEDS ORDERED: ACETAMINOPHEN 325 MG TAB PO PRN (01:28)
[2020-10-28] MEDS ORDERED: ALUMINUM/MAGNESIUM SUSP 30 ML UDC PO PRN (01:28)
[2020-10-28] MEDS: SODIUM CHLORIDE 0.9% 1000ML 1,000 ML IV SCH ×2 (04:11→13:42)
[2020-10-28 05:03] LABS: Basophils # (auto) 0.04 K/uL (0-0.2); Basophils % (auto) 0.7 %; Eosinophils # (auto) 0.23 K/uL (0-0.5); Eosinophils % (auto) 4.2 %; Hematocrit (blood only) 39.1 % (42-52); Hemoglobin 13.9 g/dL (14.0-18.0); Immature Granulocytes # (auto) 0.01 K/uL (0.00-0.02); Immature Granulocytes % (auto) 0.2 %; Lymphocytes # (auto) 1.57 K/uL (1.2-3.4); Lymphocytes % (auto) 28.4 %; Mean Corpuscular Hemoglobin 30.3 pg (25-34); Mean Corpuscular Hgb Conc 35.5 g/dL (32-36); Mean Corpuscular Volume 85.2 fL (80-100); Mean Platelet Volume 9.8 fL (7.4-10.4); Monocytes # (auto) 0.64 K/uL (0.11-0.59); Monocytes % (auto) 11.6 %; Neutrophils # (auto) 3.03 K/uL (1.4-6.5); Neutrophils % (auto) 54.9 %; Platelet Count 214 K/uL (130-400); RDW Coefficient of Variation 13.8 % (11.5-14.5); RDW Standard Deviation 42.9 fL (36.4-46.3); Red Blood Count 4.59 M/uL (4.7-6.1); White Blood Count 5.52 K/uL (4.8-10.8)
[2020-10-28 05:12] LABS: Prothrombin Time 27.5 Seconds (9.0-12.0)
[2020-10-28 05:23] LABS: Alanine Aminotransferase 23 U/L (12-78); Albumin Level 3.6 gm/dl (3.4-5.0); Aspartate Aminotransferase 15 U/L (15-37); Blood Urea Nitrogen 20 mg/dl (7-18); Calcium 8.4 mg/dl (8.5-10.1); Carbon Dioxide 27 mmol/L (21-32); Chloride 110 mmol/L (98-107); Creatinine Clr Calc Pharmacy 66.2 ml/min; Est GFR (Non-African American) 66.4; Glucose 102 mg/dl (70-99); Potassium 4.1 mmol/L (3.5-5.1); Sodium 140 mmol/L (136-145)
[2020-10-28 05:27] LABS: Albumin Globulin Ratio 1.1 (0.9-2); Alkaline Phosphatase 103 U/L (45-117); Bilirubin,Total 0.5 mg/dl (0.2-1); Globulin 3.3 gm/dl (2.5-4.0); Total Protein 6.9 gm/dl (6.4-8.2); Troponin I < 0.015 ng/ml (0-0.045)
--- NOTE | 2020-10-28 06:41 | CT Scan Report ---
CT head/brain wo con CLINICAL HISTORY: 80 years-old Male with fall, on coumadin. Acute head injury status post fall TECHNIQUE: Multiple axial CT images of the head were obtained without contrast. A dose lowering tech nique was utilized adhering to the principles of ALARA. CT DOSE: 614.27 mGy.cm COMPARISON: 03/01/2013 FINDINGS: No acute intracranial hemorrhage, midline shift, intracranial mass, hydrocephalus, territorial ischem ia or abnormal extra-axial collection. Age-related involutional changes. Mild white matter hypodensit ies suggestive of chronic microvascular ischemic disease. Cerebral vascular calcifications. The calvarium is intact. The paranasal sinuses, mastoid air cells, and middle ear cavities are clear . IMPRESSION: No acute intracranial abnormality or calvarial fracture. ACT 112: Negative or not required by law. The above report was generated using voice recognition software. It may contain grammatical, syntax o r spelling errors. Electronically signed by: Tristen Sawyer M.D. 10/28/2020 6:40 AM
--- NOTE | 2020-10-28 07:34 | XRay Report ---
XR chest 1V portable HISTORY: weakness COMPARISON: Chest 10/03/2018. FINDINGS: The lungs are clear. The cardiac silhouette remains mildly enlarged. There is a mildly tort uous thoracic aorta, unchanged. No pleural effusions. No pneumothorax. IMPRESSION: No significant change compared to the prior study. No acute process. ACT 112: Negative or not required by law. Electronically signed by: Uziel Toth M.D. 10/28/2020 7:32 AM
[2020-10-28] MEDS: ASPIRIN 81 MG ECTAB PO SCH (08:58)
[2020-10-28] MEDS: dilTIAZem HCL 240 MG CAPCR PO SCH (08:58)
--- NOTE | 2020-10-28 12:11 | Hospitalist Progress Note ---
Date of Service October 28, 2020 Assessment & Plan (1) Syncope: Syncope- Most likely vasovagal syncope on top of dehydrated state. However could be cardiac related. Will obtain serial troponins, cardiac echo, head and neck CTA. Continue IV fluids. Hold diuretics. Physical therapy evaluation requested. (2) Atrial fibrillation: Atrial fibrillation/bicuspid aortic valve/hypertension-currently in normal sinus rhythm. Warfarin therapeutic with INR 3.0. Continue aspirin and warfarin. (3) Long-term (current) use of anticoagulants, INR goal 2.0-3.0: See above (4) Bicuspid aortic valve: See above. Cardiac echo pending (5) Hypertension: See above. Treated with losartan, diltiazem, hydrochlorothiazide. HCTZ is on hold (6) Acute kidney injury: Creatinine 1.42 upon admission, with baseline 1.08. Now normalized with IV fluids. HCTZ is on hold. Serial lab studies. DVT prophylaxis: Coumadin therapy Disposition: Eventual discharge to home Admission and Anticipated Discharge Date Admission Date: October 28, 2020 Subjective Alert and oriented and asymptomatic at the time of my examination. He has a history of bicuspid aortic valve, paroxysmal atrial fibrillation on Coumadin therapy, and previously had bilateral CEA studies done. Head CT scan negative for acute findings. He had vague chest discomfort at the time of his syncopal episode. Cardiac dysrhythmia needs to be ruled out. Will obtain head and neck CTA and cardiac echo. Continue IV fluids. Diuretic is on hold. Review of Systems Review of Systems: All systems reviewed & are unremarkable except as noted in HPI & below Physical Exam Physical Exam: General-alert and oriented x3, no fevers, no chills HEENT-head atraumatic and normocephalic, pupils equal and reactive to light, extraocular muscles intact Neck-no lymphadenopathy or thyromegaly, trachea midline Chest-clear to auscultation percussion. No rales wheezing or rhonchi Cardiac-regular rate and rhythm, normal S1 and S2, Abdomen-normal bowel sounds, nontender, no hepatosplenomegaly Extremities-no cyanosis, clubbing, or edema Neuro-cranial nerves II through XII intact, motor and sensory function within normal limits, strength symmetrical , no focal deficits Psych-normal affect, normal mood Results & Data Results & Data ([facility]) Vital Signs (Past 12 Hours) Vital Signs Temp Pulse Pulse Resp BP BP Pulse Ox 10/28/20 03:59 36.5 C 62 16 120/87 96 10/28/20 01:35 36.5 C 69 18 131/92 95 10/28/20 01:28 68 18 117/81 92 10/28/20 00:53 68 18 124/83 91 10/28/20 00:30 69 17 122/76 94 Laboratory Results 10/28/20 04:51 10/28/20 04:51 PG Care Time/CCT Total # of Minutes Spent Total Time Spent with Patient: Total time spent is greater than 50% in coordination of care (as documented) at patient's floor/unit and/or counseling patient: Coding Level of Care Code 58548 Subseq Obs Care Lvl 3 Diagnoses Syncope R55 Syncope type: unspecified Atrial fibrillation I48.91 Long-term (current) use of anticoagulants, INR goal 2.0-3.0 Z79.01 Bicuspid aortic valve Q23.1 Hypertension I10 Acute kidney injury N17.9 (1) Syncope Syncope type: unspecified Qualified Code(s): R55 - Syncope and collapse
[2020-10-28] MEDS ORDERED: OPTIRAY 350 500ml IV ONE (13:03)
--- NOTE | 2020-10-28 13:18 | CT Scan Report ---
CT angio head w con CLINICAL HISTORY: 80 years-old Male with syncope. Acute syncope COMPARISON STUDY: CTA head and CT head studies of same day TECHNIQUE: Following the IV administration of 120 cc of Optiray, CT angiogram of the brain was perfor med from the skull base to the vertex. Images are reviewed in the axial, sagittal, and coronal planes . 3-D MIPS images are created and assessed. IV contrast was administered without complication. All me asurements were obtained according to NASCET criteria. A dose lowering technique was utilized adherin g to the principles of ALARA. FINDINGS: Mild calcified plaque of the cavernous, clinoid and supraclinoid segments without significa nt stenosis. The middle and anterior cerebral arteries are patent. The imaged vertebral arteries, bas ilar and posterior cerebral arteries are widely patent. Cerebral venous sinuses are patent. There is no abnormal intracranial enhancement. IMPRESSION: Unremarkable CTA of the head. ACT 112: Negative or not required by law. The above report was generated using voice recognition software. It may contain grammatical, syntax o r spelling errors. Electronically signed by: Tristen Sawyer M.D. 10/28/2020 1:17 PM
--- NOTE | 2020-10-28 13:22 | CT Scan Report ---
NECK CTA HISTORY: syncope, hx bilateral carotid endarterectomy TECHNIQUE: Multiaxial CT images of the neck were performed following the intravenous administration o f contrast to evaluate the major cervical vessels. Maximum intensity projection images were also obta ined. All measurements were calculated based on NASCET criteria. A dose lowering technique was utili zed adhering to the principles of ALARA. COMPARISON STUDY: Carotid Doppler 05/05/2014. FINDINGS: The aortic arch and proximal great vessels are widely patent. The lung apices are clear. M oderate to severe degenerative changes from C3 through C7. Moderate to severe narrowing within the or igins of the bilateral vertebral arteries due to the calcified plaque. Otherwise, no significant sten osis, occlusion, or dissection within the remaining bilateral vertebral arteries. Evidence for bilate ral carotid endarterectomies. The bilateral common carotid and internal carotid arteries are widely p atent. IMPRESSION: 1. No significant stenosis, occlusion, or dissection identified within the carotid arteries. 2. Moderate to severe focal narrowing within the origins of the bilateral vertebral arteries due to t he calcified plaque. The remaining bilateral vertebral arteries are widely patent. ACT 112: Negative or not required by law. Electronically signed by: Uziel Toth M.D. 10/28/2020 1:21 PM
[2020-10-28] MEDS ORDERED: WARFARIN SOD 5 MG TAB PO SCH (16:00)
--- NOTE | 2020-10-28 17:15 | XCELERA ---
[id number]
[2020-10-28] MEDS ORDERED: ATORVASTATIN 20 MG TAB PO SCH (21:00)
[2020-10-29] MEDS: SODIUM CHLORIDE 0.9% 1000ML 1,000 ML IV SCH (04:12)
--- NOTE | 2020-10-29 06:20 | Electrocardiogram Report ---
Test Reason : Blood Pressure : / mmHG Vent. Rate : 073 BPM Atrial Rate : 073 BPM P-R Int : 206 ms QRS Dur : 094 ms QT Int : 400 ms P-R-T Axes : 035 024 032 degrees QTc Int : 440 ms Sinus rhythm with Premature atrial complexes Otherwise normal ECG When compared with ECG of 25-SEP-2017 06:16, Sinus rhythm has replaced Atrial fibrillation Nonspecific T wave abnormality no longer evident in Anterolateral leads Confirmed by Arron Howard ([id number]) on 10/29/2020 6:19:37 AM Referred By: REFERRED SELF Confirmed By:Arron Howard
[2020-10-29 07:19] LABS: Basophils # (auto) 0.03 K/uL (0-0.2); Basophils % (auto) 0.6 %; Eosinophils # (auto) 0.18 K/uL (0-0.5); Eosinophils % (auto) 3.3 %; Hematocrit (blood only) 39.9 % (42-52); Hemoglobin 13.6 g/dL (14.0-18.0); Immature Granulocytes # (auto) 0.01 K/uL (0.00-0.02); Immature Granulocytes % (auto) 0.2 %; Lymphocytes # (auto) 1.28 K/uL (1.2-3.4); Lymphocytes % (auto) 23.6 %; Mean Corpuscular Hemoglobin 29.4 pg (25-34); Mean Corpuscular Hgb Conc 34.1 g/dL (32-36); Mean Corpuscular Volume 86.4 fL (80-100); Monocytes # (auto) 0.67 K/uL (0.11-0.59); Monocytes % (auto) 12.3 %; Neutrophils # (auto) 3.26 K/uL (1.4-6.5); Platelet Count 202 K/uL (130-400); RDW Coefficient of Variation 13.8 % (11.5-14.5); RDW Standard Deviation 43.2 fL (36.4-46.3); Red Blood Count 4.62 M/uL (4.7-6.1); White Blood Count 5.43 K/uL (4.8-10.8)
[2020-10-29 07:29] LABS: INR 2.8 (0.9-1.1); Prothrombin Time 25.9 Seconds (9.0-12.0)
[2020-10-29 07:53] LABS: Albumin Level 3.4 gm/dl (3.4-5.0); BUN Creatinine Ratio 16.5 (10-20); Calcium 8.7 mg/dl (8.5-10.1); Creatinine Clr Calc Pharmacy 75.6 ml/min; Est GFR (African American) 92.6; Est GFR (Non-African American) 79.9; Magnesium 1.9 mg/dl (1.8-2.4); Potassium 3.9 mmol/L (3.5-5.1)
[2020-10-29 07:56] LABS: Albumin Globulin Ratio 1.1 (0.9-2); Bilirubin,Total 0.7 mg/dl (0.2-1); Globulin 3.2 gm/dl (2.5-4.0); Total Protein 6.6 gm/dl (6.4-8.2)
[2020-10-29] MEDS: dilTIAZem HCL 240 MG CAPCR PO SCH (08:27)
[2020-10-29] MEDS: ASPIRIN 81 MG ECTAB PO SCH (08:27)
--- NOTE | 2020-10-29 09:46 | Discharge Summary ---
Date of Service October 29, 2020 Admission HPI Per Admitting Provider The patient is a 80-year-old male with a past medical history including atrial fibrillation on warfarin, bicuspid aortic valve, hypertension, carotid stenosis, near syncope, hypertension, hypertensive crisis and lumbar spinal stenosis. The patient reports that he involved in the hot weather today earlier in the morning. He reports that while he was laying on the sofa at home, he felt little little uneasy in the stomach, had gotten the care at to try to settle the stomach down, which seemed to make things worse. He then went to the kitchen, and while holding onto the sink, ended up on the floor during the syncopal episode. He did not have any loss of bowel or bladder control, and his reported he was disoriented for about a few seconds. He denies any palpitations. He denies any recent travels or sick exposures. Principal Diagnosis Syncope, acute kidney injury Discharge Data Allergies Allergy/AdvReac Type Severity Reaction Status Date / Time No Known Drug Allergies Allergy Unknown Verified 10/27/20 20:39 Consultations 10/27/20 23:25 ED Decision to Admit Stat Ordered Studies 10/27/20 21:31 CT head/brain wo con Urgent 10/28/20 12:02 CT angio head w con Urgent CT angio neck with con Urgent Hospital Course (1) Syncope: Syncope- Most likely vasovagal syncope on top of dehydrated state. Telemetry while hospitalized revealed normal sinus rhythm. Serial troponins negative. Cardiac echo reveals bicuspid aortic valve with mild stenosis and normal ejection fraction. Neck CTA reveals patent bilateral carotid arteries. 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 Treated with IV fluids. Will discontinue hydrochlorothiazide for now. He will follow-up with his PCP who will decide if this should be restarted. (2) Atrial fibrillation: Atrial fibrillation/bicuspid aortic valve/hypertension-currently in normal sinus rhythm. Warfarin therapeutic with INR 2.8. Continue aspirin and warfarin. (3) Long-term (current) use of anticoagulants, INR goal 2.0-3.0: See above (4) Bicuspid aortic valve: See above. Cardiac echo report noted. No significant aortic stenosis. Normal ejection fraction. (5) Hypertension: See above. Treated with losartan, diltiazem, hydrochlorothiazide. HCTZ has been discontinued (6) Acute kidney injury: Creatinine 1.42 upon admission, with baseline 1.08. Now normalized with IV fluids. HCTZ has been discontinued . Serial lab studies. DVT prophylaxis: Coumadin therapy Disposition: Home today, October 29. Total Time Total Time Spent Total Time Spent (In Minutes): 35 minutes Total Time Includes: Examination of the Patient, Discharge Planning and Medication Reconciliation Discharge Plan Discharge Items Reason For Visit: PASSED OUT Follow-up/Referrals: Rishi Fournier MD [Primary Care Provider] - Stand-Alone Forms: My [facility] Medications and DC Order Prescriptions: No Action atorvastatin 20 mg tablet 20 mg PO HS Qty: 90 RF: 3 hydrochlorothiazide 25 mg tablet 25 mg PO DAILY Qty: 90 RF: 3 losartan 100 mg tablet 100 mg PO DAILY Qty: 90 RF: 3 diltiazem HCl 240 mg capsule,extended release 24hr 240 mg PO DAILY Qty: 90 RF: 2 warfarin 5 mg tablet 5 mg PO .COMPLEX Qty: 90 RF: 3 aspirin [Aspirin Low-Strength] 81 mg Tablet,Delayed Release (Dr/Ec) 81 mg PO DAILY RF: 0 Admission Data Admit Date/Time: 10/28/20 00:19 Attending Provider: Surjit Mendoza Admit Provider: Matias Pereyra Primary Care Provider: Rishi Fournier Other Providers: Zafar Coleman Coding Level of Care Code D/C Day Management >30 mins Diagnoses Syncope R55 Syncope type: unspecified Atrial fibrillation I48.91 Long-term (current) use of anticoagulants, INR goal 2.0-3.0 Z79.01 Bicuspid aortic valve Q23.1 Hypertension I10 Acute kidney injury N17.9
== END 2020-10-29 10:39 | disposition home or self-care (01) ==
LOC: ED 20:25 → INTOOBSV 10-28 00:19 → EDINP 10-28 01:12 → SUATTDRO 10-28 01:12 → 2S 10-28 13:16

== ENCOUNTER 2022-10-25 06:15 | Observation (INO) ==
[2022-10-25] MEDS ORDERED: MoRPHine SULFATE 10 MG/ML CARP/VIAL IV STA (06:54)
[2022-10-25] MEDS ORDERED: SODIUM CHLORIDE 0.9% 1000ML 500 ML IV ONE (06:54)
[2022-10-25] MEDS ORDERED: MoRPHine SULFATE 2 MG/ML CARP ONE (07:01)
--- NOTE | 2022-10-25 07:03 | Emergency Department Note ---
Impression & Plan Acute abdominal pain in left flank ED Provider Note Name: VENKATESH MONDRAGON Age: 82 Sex: M Arrives Via: Ambulance Informant: Patient ED Provider: Campos Chaudhry MD Chief Complaint: Left flank pain Impression: As per impressions above Medical Decision Making: Pleasant 82-year-old male with history of A-fib on anticoagulation and a history of hypertension, amongst others arrives for evaluation of left with 4 days of initially mild left posterior back pain which is rapidly worsened and is now over the left flank. Patient is getting episodes of spasm with severe pain and unable to get around at home. He is quite uncomfortable on arrival. He did have some tenderness palpation over the left lower quadrant. There is no sciatic type symptoms. No falls, trauma, injuries. Recent x-rays were unremarkable. Given the abdominal tenderness palpation a CT was obtained which is fortunately unremarkable. Laboratory work-up is benign. Urinalysis with trace blood recently no evidence of infection. There is no finding of intra- abdominal bleed or retroperitoneal hematoma on the CT. Patient required several rounds of IV narcotics. He still far too uncomfortable to go home and is requiring nasal cannula O2 after the IV narcotics. Do not feel that this is a respiratory infection, PE etc. Prior Medical Record and Triage/Nursing Notes reviewed by Me External chart reviewed by me Differentials:Renal colic, renal infection, pyelonephritis, UTI, obstruction, diverticulitis, appendicitis, shingles, lumbar pathology amongst many other pathologies considered Vital Signs: reviewed and remarkable for tachycardia on arrival Interventions: Fentanyl IV, Dilaudid IV Labs:Reviewed and remarkable for no significant abnormalities Imaging:CT of the and pelvis with IV contrast reveals no evidence of intracranial hemorrhage or retroperitoneal bleed as per my informal interpretation. Radiologist confirms no acute findings. Consults:Dr Mihai POLLARD Hospitalist Plan: Disposition:Hospitalization. Condition: Good History of Present Illness:82-year-old male arrives for evaluation of flank pain. Patient with 4 days rapidly worsening left flank pain. He was initially seen in the ER 4 days ago for left lower back pain that was limited and had been radiating at that time. Since then though patient notes severe worsening of his pain. Pain now radiates to the left lower quadrant/abdomen. Severe and unrelenting. Tylenol does not help pain. No falls, trauma, injury. He does note that he has a hernia in the left lower abdomen. Denies any vomiting or bowel changes. Notes some blood in his urine a few days ago but denies any gross hematuria. His INR was elevated yesterday and thus he held his Coumadin dose last night. He does take Coumadin for A-fib. No history of similar pain like this. Does have a history of low back surgery about 6 years ago but denies this being anything like that pain. Past History:A-fib, hypertension, amongst others. Previous CEA and lumbar back surgeries Home Medications:See Below Allergies:nkda Vitals:Blood Pressure: 170/100, Pulse 98, RR 20, T 36.6C, O2 93% on RA Physical Exam: GENERAL: Patient is uncomfortable appearing and in moderate distress. EYES: No scleral icterus, unremarkable pupils. ENT: Mucous membranes dry, no nasal congestion. RESPIRATORY: No dyspnea. Clear to auscultation and equal bilaterally. No wheeze, no rhonchi. CARDIOVASCULAR: Irregular ABDOMEN: moderate tenderness palpation over the left lower quadrant without guarding, mildly hyperactive bowel sounds BACK: left CVA tenderness EXTREMITIES: Normal motion all extremities, no cyanosis, no edema. NEUROLOGIC: Alert and oriented, no focal neurologic deficit appreciated SKIN: No rash, no jaundice, no diaphoresis. PSYCH: Appropriate GCS: 15 ED Course: Times/Reassessments: Multiple repeat evaluations patient still with significant pain and spasm Campos Chaudhry MD Past Med/Surg History Medical History Atrial fibrillation Atrial fibrillation Bicuspid aortic valve Carotid stenosis HTN (hypertension) Hypertension Long-term (current) use of anticoagulants, INR goal 2.0-3.0 No significant family history Surgical History History of removal of cyst (04/03/22) FINAL DIAGNOSIS: In office procedure Dr. 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 Beliefs That Will Affect Care: None marital status: Current Living Situation: Spouse How many Children do You have: 2 Feels Safe at Home: Yes Assistive Devices: None Allergies Allergies Allergy/AdvReac Type Severity Reaction Status Date / Time No Known Drug Allergies Allergy Unknown Verified 04/18/22 09:55 Home Meds Home Medications Medication Instructions Recorded Confirmed aspirin 81 mg tablet,delayed 81 mg PO QAM 10/27/20 10/25/22 release warfarin 5 mg tablet 2.5 mg PO WK 10/25/22 10/25/22 warfarin 5 mg tablet 5 mg PO [id number] 10/25/22 10/25/22 Previous Rx's Medication Instructions Recorded atorvastatin 20 mg tablet 20 mg PO QPM #90 tabs 01/09/22 losartan 100 mg tablet 100 mg PO QAM #90 tabs 02/23/22 diltiazem HCl 240 mg 240 mg PO QAM #90 caps 07/10/22 capsule,extended release 24 hr Results & Data (ED) Vital Signs Vital Signs - 24 hr 10/25/22 06:23 10/25/22 06:23 10/25/22 06:28 Temperature 36.6 C Temperature Source Temporal Artery Scan Pulse Rate 98 H 103 H Pulse Rate [Apical] 98 H Pulse Rate from SpO2 Sensor Respiratory Rate 20 20 Respiratory Effort / Characteristics Non-Labored Spontaneous Non-Labored Spontaneous Respiratory Depth Normal Normal Blood Pressure 170/100 H Blood Pressure [Right Arm] 170/100 H Blood Pressure Mean 123 Blood Pressure Mean [Right Arm] 123 Blood Pressure Position Lying Blood Pressure Position [Right Arm] Lying Pulse Oximetry 93 93 Oxygen Delivery Method Room Air Room Air Oxygen Flow Rate Sepsis Recent Fever Within 48 Hours No Sepsis New/Unexplained Change in Mental Status No Sepsis Action Taken by Nursing No Action Required 10/25/22 07:00 10/25/22 07:00 10/25/22 07:30 Temperature Temperature Source Pulse Rate 91 H Pulse Rate [Apical] Pulse Rate from SpO2 Sensor Respiratory Rate 15 Respiratory Effort / Characteristics Respiratory Depth Blood Pressure 144/93 H 148/114 H Blood Pressure [Right Arm] Blood Pressure Mean 110 125 Blood Pressure Mean [Right Arm] Blood Pressure Position Blood Pressure Position [Right Arm] Pulse Oximetry Oxygen Delivery Method Oxygen Flow Rate Sepsis Recent Fever Within 48 Hours Sepsis New/Unexplained Change in Mental Status Sepsis Action Taken by Nursing 10/25/22 07:30 10/25/22 08:09 10/25/22 08:10 Temperature Temperature Source Pulse Rate 101 H Pulse Rate [Apical] Pulse Rate from SpO2 Sensor 93 H 82 Respiratory Rate 20 Respiratory Effort / Characteristics Respiratory Depth Blood Pressure 139/97 Blood Pressure [Right Arm] Blood Pressure Mean 111 Blood Pressure Mean [Right Arm] Blood Pressure Position Blood Pressure Position [Right Arm] Pulse Oximetry 92 88 L Oxygen Delivery Method Oxygen Flow Rate Sepsis Recent Fever Within 48 Hours Sepsis New/Unexplained Change in Mental Status Sepsis Action Taken by Nursing 10/25/22 08:10 10/25/22 08:30 10/25/22 08:30 Temperature Temperature Source Pulse Rate 103 H Pulse Rate [Apical] Pulse Rate from SpO2 Sensor 70 109 H Respiratory Rate 22 22 Respiratory Effort / Characteristics Respiratory Depth Blood Pressure 140/99 Blood Pressure [Right Arm] Blood Pressure Mean 112 Blood Pressure Mean [Right Arm] Blood Pressure Position Blood Pressure Position [Right Arm] Pulse Oximetry 93 90 Oxygen Delivery Method Nasal Cannula Nasal Cannula Oxygen Flow Rate 2 1 Sepsis Recent Fever Within 48 Hours Sepsis New/Unexplained Change in Mental Status Sepsis Action Taken by Nursing 10/25/22 09:00 10/25/22 09:00 10/25/22 09:30 Temperature Temperature Source Pulse Rate 106 H 102 H Pulse Rate [Apical] Pulse Rate from SpO2 Sensor Respiratory Rate 22 20 Respiratory Effort / Characteristics Respiratory Depth Blood Pressure 159/107 H Blood Pressure [Right Arm] Blood Pressure Mean 124 Blood Pressure Mean [Right Arm] Blood Pressure Position Blood Pressure Position [Right Arm] Pulse Oximetry 92 93 Oxygen Delivery Method Nasal Cannula Nasal Cannula Oxygen Flow Rate 1 3 Sepsis Recent Fever Within 48 Hours Sepsis New/Unexplained Change in Mental Status Sepsis Action Taken by Nursing 10/25/22 09:31 10/25/22 09:31 10/25/22 10:05 Temperature Temperature Source Pulse Rate 105 H 100 H Pulse Rate [Apical] Pulse Rate from SpO2 Sensor 105 H Respiratory Rate 16 Respiratory Effort / Characteristics Respiratory Depth Blood Pressure 143/97 H Blood Pressure [Right Arm] Blood Pressure Mean 112 Blood Pressure Mean [Right Arm] Blood Pressure Position Blood Pressure Position [Right Arm] Pulse Oximetry 92 Oxygen Delivery Method Nasal Cannula Oxygen Flow Rate 3 Sepsis Recent Fever Within 48 Hours Sepsis New/Unexplained Change in Mental Status Sepsis Action Taken by Nursing 10/25/22 10:00 10/25/22 10:00 10/25/22 10:30 Temperature Temperature Source Pulse Rate 98 H 103 H Pulse Rate [Apical] Pulse Rate from SpO2 Sensor 90 99 H Respiratory Rate 19 15 Respiratory Effort / Characteristics Respiratory Depth Blood Pressure 136/113 H Blood Pressure [Right Arm] Blood Pressure Mean 120 Blood Pressure Mean [Right Arm] Blood Pressure Position Blood Pressure Position [Right Arm] Pulse Oximetry 93 92 Oxygen Delivery Method Nasal Cannula Nasal Cannula Oxygen Flow Rate 3 3 Sepsis Recent Fever Within 48 Hours Sepsis New/Unexplained Change in Mental Status Sepsis Action Taken by Nursing 10/25/22 10:31 10/25/22 10:31 10/25/22 11:39 Temperature Temperature Source Pulse Rate 102 H Pulse Rate [Apical] 100 H Pulse Rate from SpO2 Sensor 79 Respiratory Rate 20 18 Respiratory Effort / Characteristics Respiratory Depth Blood Pressure 150/108 H Blood Pressure [Right Arm] 138/100 Blood Pressure Mean 122 Blood Pressure Mean [Right Arm] 112 Blood Pressure Position Blood Pressure Position [Right Arm] Pulse Oximetry 93 93 Oxygen Delivery Method Nasal Cannula Room Air Oxygen Flow Rate 3 Sepsis Recent Fever Within 48 Hours Sepsis New/Unexplained Change in Mental Status Sepsis Action Taken by Nursing 10/25/22 11:00 10/25/22 11:00 10/25/22 11:30 Temperature Temperature Source Pulse Rate 101 H 98 H Pulse Rate [Apical] Pulse Rate from SpO2 Sensor 100 H 78 Respiratory Rate 16 22 Respiratory Effort / Characteristics Respiratory Depth Blood Pressure 144/103 H Blood Pressure [Right Arm] Blood Pressure Mean 116 Blood Pressure Mean [Right Arm] Blood Pressure Position Blood Pressure Position [Right Arm] Pulse Oximetry 94 93 Oxygen Delivery Method Room Air Room Air Oxygen Flow Rate Sepsis Recent Fever Within 48 Hours Sepsis New/Unexplained Change in Mental Status Sepsis Action Taken by Nursing 10/25/22 12:00 10/25/22 12:00 10/25/22 12:30 Temperature Temperature Source Pulse Rate 116 H 99 H Pulse Rate [Apical] Pulse Rate from SpO2 Sensor 113 H 87 Respiratory Rate 20 16 Respiratory Effort / Characteristics Respiratory Depth Blood Pressure 150/107 H Blood Pressure [Right Arm] Blood Pressure Mean 121 Blood Pressure Mean [Right Arm] Blood Pressure Position Blood Pressure Position [Right Arm] Pulse Oximetry 94 92 Oxygen Delivery Method Nasal Cannula Nasal Cannula Oxygen Flow Rate 2 2 Sepsis Recent Fever Within 48 Hours Sepsis New/Unexplained Change in Mental Status Sepsis Action Taken by Nursing 10/25/22 13:00 10/25/22 13:01 10/25/22 13:30 Temperature Temperature Source Pulse Rate 105 H Pulse Rate [Apical] Pulse Rate from SpO2 Sensor 81 Respiratory Rate Respiratory Effort / Characteristics Respiratory Depth Blood Pressure 150/100 H Blood Pressure [Right Arm] Blood Pressure Mean 116 Blood Pressure Mean [Right Arm] Blood Pressure Position Blood Pressure Position [Right Arm] Pulse Oximetry 95 93 Oxygen Delivery Method Oxygen Flow Rate Sepsis Recent Fever Within 48 Hours Sepsis New/Unexplained Change in Mental Status Sepsis Action Taken by Nursing 10/25/22 13:30 10/25/22 14:00 10/25/22 14:00 Temperature Temperature Source Pulse Rate 112 H 109 H Pulse Rate [Apical] Pulse Rate from SpO2 Sensor 88 Respiratory Rate 16 16 Respiratory Effort / Characteristics Respiratory Depth Blood Pressure 151/98 H Blood Pressure [Right Arm] Blood Pressure Mean 115 Blood Pressure Mean [Right Arm] Blood Pressure Position Blood Pressure Position [Right Arm] Pulse Oximetry 95 Oxygen Delivery Method Oxygen Flow Rate Sepsis Recent Fever Within 48 Hours Sepsis New/Unexplained Change in Mental Status Sepsis Action Taken by Nursing 10/25/22 14:19 10/25/22 14:32 Temperature Temperature Source Pulse Rate 105 H Pulse Rate [Apical] Pulse Rate from SpO2 Sensor Respiratory Rate Respiratory Effort / Characteristics Respiratory Depth Blood Pressure Blood Pressure [Right Arm] Blood Pressure Mean Blood Pressure Mean [Right Arm] Blood Pressure Position Blood Pressure Position [Right Arm] Pulse Oximetry 92 Oxygen Delivery Method Room Air Oxygen Flow Rate Sepsis Recent Fever Within 48 Hours Sepsis New/Unexplained Change in Mental Status Sepsis Action Taken by Nursing Laboratory Data 10/25/22 06:25 10/25/22 06:25 Lab Results 10/25/22 10/25/22 10/25/22 Range/Units 06:25 06:25 06:25 WBC 6.27 (4.8-10.8) K/ul RBC 5.33 (4.70-6.10) M/uL Hgb 15.7 (14.0-18.0) g/dl POC Hgb (14.0-18.0) g/dl Hct 45.7 (42.0-52.0) % POC Hct (42-52) % MCV 85.7 (80.0-100.0) fL MCH 29.5 (25.0-34.0) pg MCHC 34.4 (32.0-36.0) g/dL RDW Std Deviation 43.5 (36.4-46.3) fL RDW Coeff of Demetrius 14.0 (11.5-14.5) % Plt Count 195 (130-400) K/uL MPV 10.4 (9.4-12.4) fL Immature Gran % (Auto) 0.6 % Neut % (Auto) 62.0 % Lymph % (Auto) 21.1 % [place] % (Auto) 12.0 % Eos % (Auto) 3.3 % Baso % (Auto) 1.0 % Neut # (Auto) 3.89 (1.40-6.50) K/uL Lymph # (Auto) 1.32 (1.2-3.4) K/uL [place] # (Auto) 0.75 H (0.11-0.59) K/uL Eos # (Auto) 0.21 (0-0.50) K/uL Baso # (Auto) 0.06 (0-0.2) K/uL Immature Gran # (Auto) 0.04 (0.01-0.20) K/uL PT 36.6 H (9.0-12.0) Seconds INR 3.6 H (0.9-1.1) POC Sodium (135-144) mmol/L Sodium 140 (136-145) mmol/L POC Potassium (3.3-5.0) mmol/L Potassium 4.2 (3.5-5.1) mmol/L POC Chloride (101-112) mmol/L Chloride 108 H (98-107) mmol/L Carbon Dioxide 23 (21-32) mmol/L POC Total CO2 (24-31) mmol/L Anion Gap 9 (3-11) POC Anion Gap (16-25) mmol/L POC BUN (7-18) mg/dl BUN 17 (6-23) mg/dl Creatinine 0.93 (0.6-1.4) mg/dl POC Creatinine (0.6-1.3) mg/dl Est Cr Clr Drug Dosing 74.6 ml/min Est GFR ( Amer) 88.9 ml/min Est GFR (Non-Af Amer) 76.7 ml/min BUN/Creatinine Ratio 18.3 (10-20) Glucose 104 H (70-99(Fasting)) mg/dl POC Glucose (other) (70-99) mg/dl Calcium 9.3 (8.6-10.3) mg/dl POC Ioniz Calcium Neha (1.12-1.32) mmol/l Magnesium 1.8 (1.7-2.4) mg/dl Total Bilirubin 0.6 (0.2-1.0) mg/dl Direct Bilirubin 0.1 (0-0.2) mg/dl AST 27 (13-39) U/L ALT 34 (7-52) U/L Alkaline Phosphatase 100 (34-104) U/L Total Protein 7.3 (6.0-8.3) gm/dl Albumin 4.2 (3.4-5.0) gm/dl Lipase 17 (11-82) U/L Urine Color Urine Appearance (Clear) Urine pH (4.5-7.5) Ur Specific [place] (1.000-1.030) Urine Protein (Negative) Urine Glucose (UA) (Negative) Urine Ketones (Negative) Urine Blood (Negative) Urine Nitrite (Negative) Urine Bilirubin (Negative) Urine Urobilinogen (Negative) Ur Leukocyte Esterase (Negative) Urine WBC (Auto) (0-5) /hpf Urine RBC (Auto) (0-4) /hpf U Hyaline Cast (Auto) (0-5) /lpf U Epithel Cells (Auto) (0-5) /lpf Urine Bacteria (Auto) (Negative) SARS-CoV-2, RNA, NAAT (NEGATIVE) 10/25/22 10/25/22 10/25/22 Range/Units 07:45 09:17 11:38 WBC (4.8-10.8) K/ul RBC (4.70-6.10) M/uL Hgb (14.0-18.0) g/dl POC Hgb 14.6 (14.0-18.0) g/dl Hct (42.0-52.0) % POC Hct 43 (42-52) % MCV (80.0-100.0) fL MCH (25.0-34.0) pg MCHC (32.0-36.0) g/dL RDW Std Deviation (36.4-46.3) fL RDW Coeff of Demetrius (11.5-14.5) % Plt Count (130-400) K/uL MPV (9.4-12.4) fL Immature Gran % (Auto) % Neut % (Auto) % Lymph % (Auto) % [place] % (Auto) % Eos % (Auto) % Baso % (Auto) % Neut # (Auto) (1.40-6.50) K/uL Lymph # (Auto) (1.2-3.4) K/uL [place] # (Auto) (0.11-0.59) K/uL Eos # (Auto) (0-0.50) K/uL Baso # (Auto) (0-0.2) K/uL Immature Gran # (Auto) (0.01-0.20) K/uL PT (9.0-12.0) Seconds INR (0.9-1.1) POC Sodium 142 (135-144) mmol/L Sodium (136-145) mmol/L POC Potassium 4.1 (3.3-5.0) mmol/L Potassium (3.5-5.1) mmol/L POC Chloride 107 (101-112) mmol/L Chloride (98-107) mmol/L Carbon Dioxide (21-32) mmol/L POC Total CO2 24 (24-31) mmol/L Anion Gap (3-11) POC Anion Gap 15.0 L (16-25) mmol/L POC BUN 15 (7-18) mg/dl BUN (6-23) mg/dl Creatinine (0.6-1.4) mg/dl POC Creatinine 0.7 (0.6-1.3) mg/dl Est Cr Clr Drug Dosing ml/min Est GFR ( Amer) ml/min Est GFR (Non-Af Amer) ml/min BUN/Creatinine Ratio (10-20) Glucose (70-99(Fasting)) mg/dl POC Glucose (other) 110 H (70-99) mg/dl Calcium (8.6-10.3) mg/dl POC Ioniz Calcium Neha 1.17 (1.12-1.32) mmol/l Magnesium (1.7-2.4) mg/dl Total Bilirubin (0.2-1.0) mg/dl Direct Bilirubin (0-0.2) mg/dl AST (13-39) U/L ALT (7-52) U/L Alkaline Phosphatase (34-104) U/L Total Protein (6.0-8.3) gm/dl Albumin (3.4-5.0) gm/dl Lipase (11-82) U/L Urine Color Yellow Urine Appearance Cloudy A (Clear) Urine pH 5.5 (4.5-7.5) Ur Specific [place] 1.037 H (1.000-1.030) Urine Protein Negative (Negative) Urine Glucose (UA) Negative (Negative) Urine Ketones Negative (Negative) Urine Blood 1+ H (Negative) Urine Nitrite Negative (Negative) Urine Bilirubin Negative (Negative) Urine Urobilinogen Negative (Negative) Ur Leukocyte Esterase Negative (Negative) Urine WBC (Auto) 0 (0-5) /hpf Urine RBC (Auto) 5-10 H (0-4) /hpf U Hyaline Cast (Auto) 0 (0-5) /lpf U Epithel Cells (Auto) 0-5 (0-5) /lpf Urine Bacteria (Auto) Negative (Negative) SARS-CoV-2, RNA, NAAT NEGATIVE (NEGATIVE) Administered Medications Discontinued Medications Dexamethasone (Dexamethasone Sod Inj 4 Mg/Ml Vial) 8 mg IV ONE STA Stop: 10/25/22 13:00 Last Admin: 10/25/22 13:05 Dose: 8 mg Documented By: AGNIESZKA Diltiazem HCl (Diltiazem Hcl 240 Mg Capcr) 240 mg PO QAM ONE Stop: 10/25/22 12:32 Last Admin: 10/25/22 13:39 Dose: 240 mg Documented By: AGNIESZKA Sodium Chloride (Nss 1000ml) 500 mls @ 999 mls/hr IV .Q31M ONE Stop: 10/25/22 07:24 Last Infusion: 10/25/22 08:12 Dose: 0 mls/hr Documented By: Admin: 10/25/22 07:06 Dose: 999 mls/hr Documented By: SHERI Ioversol (Optiray 350 100ml) 85 ml IV ONCE ONE Stop: 10/25/22 08:11 Last Admin: 10/25/22 08:01 Dose: 85 ml Documented By: HODA Morphine Sulfate (Morphine Sulfate 10 Mg/Ml Carp/Vial) 6 mg IV NOW STA Stop: 10/25/22 06:55 Last Admin: 10/25/22 07:11 Dose: Not Given Documented By: SHERI Morphine Sulfate (Morphine Sulfate 2 Mg/Ml Carp) Confirm Administered Dose 6 mg .ROUTE .STK-MED ONE Stop: 10/25/22 07:02 Last Admin: 10/25/22 07:11 Dose: 6 mg Documented By: SHERI Morphine Sulfate (Morphine Sulfate 4 Mg/Ml 1 Ml Carp\Vial) 4 mg IV NOW STA Stop: 10/25/22 08:55 Last Admin: 10/25/22 09:12 Dose: 4 mg Documented By: SHERI Imaging Data Radiologist's Impression: Abdomen/Pelvis CT 10/25/22 06:54 CT SCAN OF THE ABDOMEN AND PELVIS WITH IV CONTRAST CLINICAL HISTORY: Left lower quadrant abdominal pain. COMPARISON STUDY: Abdominal CT dated 09/20/2017. TECHNIQUE: Following the IV administration of 85 cc of Optiray 350, CT scan of the abdomen and pelvis is performed from the lung bases to the proximal femora. Images are reviewed in the axial, sagittal, and coronal planes. IV contrast was administered without complication. A dose lowering technique was utilized adhering to the principles of ALARA. CT DOSE: 826.02 mGy.cm FINDINGS: Lung bases: The heart is enlarged and without pericardial effusion. The coronary arteries and aortic valve leaflets are densely calcified. Edematous change is suspected. There is dependent consolidation, right greater than left. Probable scarring is seen in the lower lobes. No pleural effusion is identified. There is a [id number] hiatal hernia. Liver: The contrast-enhanced liver is normal in size, contour, and attenuation. There is no intrahepatic biliary ductal dilatation. The hepatic veins and portal veins are patent. Gallbladder: The gallbladder is distended and there are tiny calcified gallstones. There is no definitive CT evidence of acute cholecystitis. Spleen: Normal in size and attenuation imaging heterogeneous arterial phase enhancement. There are scattered calcified splenic granulomas. Pancreas: Unremarkable. Adrenal glands: Unremarkable. Kidneys: The contrast enhanced kidneys are normal in size and without hydronephrosis. The kidneys enhance symmetrically. Scattered subcentimeter cortical hypodensities likely represent cysts but are too small for definitive characterization. Abdominal vasculature: There is advanced atherosclerotic calcification and ectasia of the abdominal aorta. A small infrarenal abdominal aortic aneurysm measures 3.1 x 3.0 cm (AP x transverse). 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 Aneurysmal dilatation of the left internal iliac artery measures up to 1.6 cm. Bowel: There is advanced colonic diverticulosis without CT evidence of acute diverticulitis. No bowel obstruction is seen. Moderate fecal retention is noted throughout the colon. A duodenal diverticulum is observed. The appendix is normal as visualized. Peritoneum: There is no intraperitoneal free air or abdominal ascites. Lymphadenopathy: None. Pelvic viscera: The prostate gland is enlarged and heterogeneous. The bladder is distended, and the wall is thickened/trabeculated indicating chronic outlet obstruction. Skeletal structures: The skeletal structures are osteopenic. Postoperative and spondylotic change is noted in the lumbar spine. No lytic or blastic lesions are seen. IMPRESSION: 1. No acute infectious or inflammatory findings are identified in the abdomen or pelvis. 2. Dependent consolidation is seen at both lung bases, right greater than left. This may represent scarring/atelectasis. Correlate clinically for evidence of a superimposed infectious/inflammatory pneumonitis. 3. Cardiomegaly and suspect emphysema. 4. The gallbladder is distended and contains tiny calcified gallstones. There is no CT evidence of acute cholecystitis. Correlate with clinical and laboratory findings. 5. Advanced colonic diverticulosis without CT evidence of acute diverticulitis. 7. There is a 3.1 cm aneurysm of the distal abdominal aorta. There is also aneurysmal dilatation of the iliac arteries as detailed above. 8. Additional findings as above. ACT 112: Negative or not required by law. Electronically signed by: Paul Phillips M.D. 10/25/2022 8:26 AM Discharge Plan Visit Data Chief Complaint: Back Injury/Pain Stated Complaint: BACK PAIN ED Provider: Campos Chaudhry Discharge Problem: Acute abdominal pain in left flank Forms Stand Alone Forms: [facility] Prescriptions Prescriptions: No Action atorvastatin 20 mg tablet 20 mg PO QPM Qty: 90 3RF losartan 100 mg tablet 100 mg PO QAM Qty: 90 3RF diltiazem HCl 240 mg capsule,extended release 24hr 240 mg PO QAM Qty: 90 1RF aspirin 81 mg Tablet,Delayed Release (Dr/Ec) 81 mg PO QAM warfarin 5 mg Tablet 2.5 mg PO WK Rx Instructions: On Tuesdays warfarin 5 mg tablet 5 mg PO [id number] Protocol: Dose Management Condition: Sunday (Week One) Dose/Route: 5 mg Instruction: 1 x 5 mg tablet Condition: Sunday Dose/Route: 5 mg Instruction: 1 x 5 mg tablet Condition: Sunday Dose/Route: 0 mg Instruction: 0 tablets Condition: Sunday Dose/Route: 0 mg Instruction: 0 tablets Condition: Dose/Route: 5 mg Instruction: 1 x 5 mg tablet Condition: Sunday Dose/Route: 5 mg Instruction: 1 x 5 mg tablet Condition: Sunday Dose/Route: 5 mg Instruction: 1 x 5 mg tablet Condition: Sunday (Week Two) Dose/Route: 5 mg Instruction: 1 x 5 mg tablet Condition: Sunday Dose/Route: 5 mg Instruction: 1 x 5 mg tablet Condition: Sunday Dose/Route: 2.5 mg Instruction: 0.5 x 5 mg tablets Condition: Sunday Dose/Route: 5 mg Instruction: 1 x 5 mg tablet Condition: Dose/Route: 5 mg Instruction: 1 x 5 mg tablet Condition: Sunday Dose/Route: 5 mg Instruction: 1 x 5 mg tablet Condition: Sunday Dose/Route: 5 mg Instruction: 1 x 5 mg tablet Protocol Text: Adjustment Start Date: Sunday10/24/22 INR Value: 3.8 INR Date: 10/24/22 Recheck Date: 11/02/22 Rx Instructions: Except on Sunday take 2.5mg Referrals Referrals: PCP,NO [Primary Care Provider] -
[2022-10-25 07:30] LABS: Basophils # (auto) 0.06 K/uL (0-0.2); Eosinophils # (auto) 0.21 K/uL (0-0.50); Eosinophils % (auto) 3.3 %; Hematocrit (blood only) 45.7 % (42.0-52.0); Hemoglobin 15.7 g/dl (14.0-18.0); Immature Granulocytes # (auto) 0.04 K/uL (0.01-0.20); Immature Granulocytes % (auto) 0.6 %; Lymphocytes # (auto) 1.32 K/uL (1.2-3.4); Lymphocytes % (auto) 21.1 %; Mean Corpuscular Hemoglobin 29.5 pg (25.0-34.0); Mean Corpuscular Hgb Conc 34.4 g/dL (32.0-36.0); Mean Corpuscular Volume 85.7 fL (80.0-100.0); Mean Platelet Volume 10.4 fL (9.4-12.4); Monocytes # (auto) 0.75 K/uL (0.11-0.59); Neutrophils # (auto) 3.89 K/uL (1.40-6.50); Platelet Count 195 K/uL (130-400); RDW Standard Deviation 43.5 fL (36.4-46.3); Red Blood Count 5.33 M/uL (4.70-6.10); White Blood Count 6.27 K/ul (4.8-10.8)
[2022-10-25 07:52] LABS: INR 3.6 (0.9-1.1); Prothrombin Time 36.6 Seconds (9.0-12.0)
[2022-10-25 07:57] LABS: iSTAT Creatinine 0.7 mg/dl (0.6-1.3); iSTAT Hemoglobin 14.6 g/dl (14.0-18.0); iSTAT Ionized Calcium 1.17 mmol/l (1.12-1.32); iSTAT Potassium 4.1 mmol/L (3.3-5.0)
[2022-10-25] MEDS ORDERED: OPTIRAY 350 100ml IV ONE (08:10)
[2022-10-25 08:16] LABS: Albumin Level 4.2 gm/dl (3.4-5.0); BUN Creatinine Ratio 18.3 (10-20); Bilirubin Direct 0.1 mg/dl (0-0.2); Bilirubin,Total 0.6 mg/dl (0.2-1.0); Calcium 9.3 mg/dl (8.6-10.3); Creatinine Clr Calc Pharmacy 74.6 ml/min; Est GFR (African American) 88.9 ml/min; Est GFR (Non-African American) 76.7 ml/min; Magnesium 1.8 mg/dl (1.7-2.4); Potassium 4.2 mmol/L (3.5-5.1); Total Protein 7.3 gm/dl (6.0-8.3)
--- NOTE | 2022-10-25 08:27 | CT Scan Report ---
CT SCAN OF THE ABDOMEN AND PELVIS WITH IV CONTRAST CLINICAL HISTORY: Left lower quadrant abdominal pain. COMPARISON STUDY: Abdominal CT dated 09/20/2017. TECHNIQUE: Following the IV administration of 85 cc of Optiray 350, CT scan of the abdomen and pelvi s is performed from the lung bases to the proximal femora. Images are reviewed in the axial, sagittal , and coronal planes. IV contrast was administered without complication. A dose lowering technique wa s utilized adhering to the principles of ALARA. CT DOSE: 826.02 mGy.cm FINDINGS: Lung bases: The heart is enlarged and without pericardial effusion. The coronary arteries and aortic valve leaflets are densely calcified. Edematous change is suspected. There is dependent consolidation , right greater than left. Probable scarring is seen in the lower lobes. No pleural effusion is ident ified. There is a xiyfp-de-exnarmqi hiatal hernia. Liver: The contrast-enhanced liver is normal in size, contour, and attenuation. There is no intrahepa tic biliary ductal dilatation. The hepatic veins and portal veins are patent. Gallbladder: The gallbladder is distended and there are tiny calcified gallstones. There is no defini tive CT evidence of acute cholecystitis. Spleen: Normal in size and attenuation imaging heterogeneous arterial phase enhancement. There are sc attered calcified splenic granulomas. Pancreas: Unremarkable. Adrenal glands: Unremarkable. Kidneys: The contrast enhanced kidneys are normal in size and without hydronephrosis. The kidneys enh ance symmetrically. Scattered subcentimeter cortical hypodensities likely represent cysts but are too small for definitive characterization. Abdominal vasculature: There is advanced atherosclerotic calcification and ectasia of the abdominal a unruly. A small infrarenal abdominal aortic aneurysm measures 3.1 x 3.0 cm (AP x transverse). 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 Aneurysmal dilatation of the left internal iliac artery measures up to 1.6 cm. Bowel: There is advanced colonic diverticulosis without CT evidence of acute diverticulitis. No bowel obstruction is seen. Moderate fecal retention is noted throughout the colon. A duodenal diverticulum is observed. The appendix is normal as visualized. Peritoneum: There is no intraperitoneal free air or abdominal ascites. Lymphadenopathy: None. Pelvic viscera: The prostate gland is enlarged and heterogeneous. The bladder is distended, and the w all is thickened/trabeculated indicating chronic outlet obstruction. Skeletal structures: The skeletal structures are osteopenic. Postoperative and spondylotic change is noted in the lumbar spine. No lytic or blastic lesions are seen. IMPRESSION: 1. No acute infectious or inflammatory findings are identified in the abdomen or pelvis. 2. Dependent consolidation is seen at both lung bases, right greater than left. This may represent sc arring/atelectasis. Correlate clinically for evidence of a superimposed infectious/inflammatory pneum onitis. 3. Cardiomegaly and suspect emphysema. 4. The gallbladder is distended and contains tiny calcified gallstones. There is no CT evidence of ac sokaogon cholecystitis. Correlate with clinical and laboratory findings. 5. Advanced colonic diverticulosis without CT evidence of acute diverticulitis. 7. There is a 3.1 cm aneurysm of the distal abdominal aorta. There is also aneurysmal dilatation of t he iliac arteries as detailed above. 8. Additional findings as above. ACT 112: Negative or not required by law. Electronically signed by: Paul Phillips M.D. 10/25/2022 8:26 AM
[2022-10-25] MEDS ORDERED: MoRPHine SULFATE 4 MG/ML 1 ML CARP\\VIAL IV STA (08:54)
[2022-10-25 09:28] LABS: Appearance Urine Cloudy (Clear); Bacteria Urine Automated Negative (Negative); Bilirubin Urine Negative (Negative); Blood Urine 1+ (Negative); Cast Urine Automated 0 /lpf (0-5); Color Urine Yellow; Epithelial Cell Urine Auto 0-5 /lpf (0-5); Glucose Urine UA Negative (Negative); Ketones Urine Negative (Negative); Leukocyte Esterase Urine Negative (Negative); Nitrite Urine Negative (Negative); Protein Urine Negative (Negative); Specific Gravity Urine 1.037 (1.000-1.030); Urobilinogen Urine Negative (Negative); WBC Urine Automated 0 /hpf (0-5); pH Urine 5.5 (4.5-7.5)
[2022-10-25] MEDS ORDERED: dilTIAZem HCL 240 MG CAPCR PO ONE (12:31)
--- NOTE | 2022-10-25 12:38 | History & Physical Report ---
Date of Service October 25, 2022 Assessment & Plan (1) Low back pain: Plan: Acute/unstable - no c/f cauda equina syndrome - Admit to med/surg primarily for pain control and additional diagnostic imaging - Reviewed cbc, cmp - no acute abnormalities that require intervention - Obtain MRI w/o contrast of lumbar spine to exclude HNP - Pain control with APAP 1g TID, OxyIR 5-10mg (dose according pain scale), and Morphine for breakthrough - Add Decadron 8mg IV x1 - PT/OT eval - Await MRI results to determine further plan, if no evidence of HNP, will consult pain management - If evidence of HNP, will consult Dr. Ayon, patient has seen him in the past - Can add kpad to affected area prn - Could consider adding muscle relaxer if he should continue to have frequent s pasms (2) Atrial fibrillation: Plan: Chronic/stable - Did not take his morning medications this morning - Dose of Diltiazem CD 240mg PO x1 and then daily - Was told to hold his Coumadin yesterday and today - Today's INR is 3.6, yesterday was 3.9 - Will hold Coumadin today and repeat INR in AM (3) Hypertension: Plan: H/o HTN, Carotid stenosis, HLD Chronic/stable - Controlled on Diltiazem and Losartan - Continue Atorvastatin and ASA Plan Plan as outlined above. No need for DVT ppx as it is covered by therapeutic INR on chronic coumadin therapy. Discussed code status with pt and family, he elects to be full code. Plan has been d/w Dr. Holm who will also see and evaluate this patient, further orders will be implemented as warranted. History of Present Illness Chief Complaint: Back pain Primary Care Provider: NO PCP Varun Thomas is an 82 yo M with a pmhx of afib on chronic Coumadin therapy, HTN, carotid artery stenosis s/p b/l CEA, and spinal stenosis s/p l2/3 laminectomy 6 years ago who presents to the ER today c/o uncontrolled low back pain. Patient reports that since his surgery, he has been told that he would experience intermittent back pain/flares. When these occur, he typically goes to [facility] and has physical therapy and manages the pain with OTC APAP. He does not take NSAIDs due to his Coumadin therapy. He reports that starting Sunday, he began noticing some lower left sided back pain. On Sunday, pain was slightly worse prompting him to come to the ER for evaluation. Here, xrays were taken and he was told there was no acute abnormalities and he was discharged home. Since then, he continued to take OTC APAP for pain without much relief and also contacted [facility] to arrange to be seen. Unfortunately, [facility] was unable to see him until November 09. Since Sunday, his pain has seemed to migrate around his left flank and also into the middle of his lower back. Today, he attempted to ambulate with use of a walker this morning to the bathroom and after taking 2 steps he had to stop and be assisted back to a chair. His family subsequently summoned EMS to transport him back to the ER for evaluation. He denies n/v/d, abdominal pain, f/c, urinary symptoms including dysuria or hematuria. He denies h/o kidney stones. He denies loss of bowel/bladder control or saddle anesthesias. ER work up included a CT a/p that demonstrated no infectious/inflammatory findings in the abdomen or pelvis. No acute laboratory abnormalities were noted. He was medicated with two doses of Morphine, he notes that his pain is slightly improved but continues to have intermittent back spasms. He has been referred to the hospitalist service for admission for further care. Allergies Allergy/AdvReac Type Severity Reaction Status Date / Time No Known Drug Allergies Allergy Unknown Verified 04/18/22 09:55 Home Medications Medication Instructions Recorded Confirmed Type aspirin 81 mg tablet,delayed 81 mg PO QAM 10/27/20 10/25/22 History release atorvastatin 20 mg tablet 20 mg PO QPM #90 tabs 01/09/22 10/25/22 Rx losartan 100 mg tablet 100 mg PO QAM #90 tabs 02/23/22 10/25/22 Rx diltiazem HCl 240 mg 240 mg PO QAM #90 caps 07/10/22 10/25/22 Rx capsule,extended release 24 hr warfarin 5 mg tablet 2.5 mg PO WK 10/25/22 10/25/22 History warfarin 5 mg tablet 5 mg PO [id number] 10/25/22 10/25/22 History Past Med/Surg History Medical History Atrial fibrillation Atrial fibrillation Bicuspid aortic valve Carotid stenosis HTN (hypertension) Hypertension Long-term (current) use of anticoagulants, INR goal 2.0-3.0 No significant family history Surgical History History of removal of cyst (04/03/22) FINAL DIAGNOSIS: In office procedure Dr. 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 NAD. LUNGS: Clear to auscultation bilaterally. No W/R/R. CARDIOVASCULAR: Regular rate and rhythm. No M/G/R. ABDOMEN: Soft, non-tender and non-distended. BS normoactive x 4 quad. Tenderness to palp of left lateral side of abdomen and flank. EXTREMITIES: +cross straight leg raise (R leg elicited L low back pain) Results & Data Results & Data Vital Signs (Past 12 Hours) Vital Signs Temp Pulse Pulse Resp BP BP Pulse Ox 10/25/22 12:00 116 H 20 94 10/25/22 12:00 150/107 H 10/25/22 11:30 98 H 22 93 10/25/22 11:00 101 H 16 94 10/25/22 11:00 144/103 H 10/25/22 11:39 100 H 18 138/100 93 10/25/22 10:31 102 H 20 93 10/25/22 10:31 150/108 H 10/25/22 10:30 103 H 15 92 10/25/22 10:00 98 H 19 93 10/25/22 10:00 136/113 H 10/25/22 10:05 100 H 10/25/22 09:31 105 H 16 92 10/25/22 09:31 143/97 H 10/25/22 09:30 102 H 20 93 10/25/22 09:00 106 H 22 92 10/25/22 09:00 159/107 H 10/25/22 08:30 103 H 22 90 10/25/22 08:30 140/99 10/25/22 08:10 22 93 10/25/22 08:10 139/97 10/25/22 08:09 88 L 10/25/22 07:30 101 H 20 92 10/25/22 07:30 148/114 H 10/25/22 07:00 91 H 15 10/25/22 07:00 144/93 H 10/25/22 06:28 98 H 20 170/100 H 93 10/25/22 06:23 103 H 10/25/22 06:23 36.6 C 98 H 20 170/100 H 93 O2 Del Method O2 Flow Rate 10/25/22 12:00 Nasal Cannula 2 10/25/22 12:00 10/25/22 11:30 Room Air 10/25/22 11:00 Room Air 10/25/22 11:00 10/25/22 11:39 Room Air 10/25/22 10:31 Nasal Cannula 3 10/25/22 10:31 10/25/22 10:30 Nasal Cannula 3 10/25/22 10:00 Nasal Cannula 3 10/25/22 10:00 10/25/22 10:05 10/25/22 09:31 Nasal Cannula 3 10/25/22 09:31 10/25/22 09:30 Nasal Cannula 3 10/25/22 09:00 Nasal Cannula 1 10/25/22 09:00 10/25/22 08:30 Nasal Cannula 1 10/25/22 08:30 10/25/22 08:10 Nasal Cannula 2 10/25/22 08:10 10/25/22 08:09 10/25/22 07:30 10/25/22 07:30 10/25/22 07:00 10/25/22 07:00 10/25/22 06:28 Room Air 10/25/22 06:23 10/25/22 06:23 Room Air Laboratory Results 10/25/22 06:25 10/25/22 06:25 Diagnostic Findings Abdomen/Pelvis CT 10/25/22 06:54 CT SCAN OF THE ABDOMEN AND PELVIS WITH IV CONTRAST CLINICAL HISTORY: Left lower quadrant abdominal pain. COMPARISON STUDY: Abdominal CT dated 09/20/2017. TECHNIQUE: Following the IV administration of 85 cc of Optiray 350, CT scan of the abdomen and pelvis is performed from the lung bases to the proximal femora. Images are reviewed in the axial, sagittal, and coronal planes. IV contrast was administered without complication. A dose lowering technique was utilized adhering to the principles of ALARA. CT DOSE: 826.02 mGy.cm FINDINGS: Lung bases: The heart is enlarged and without pericardial effusion. The coronary arteries and aortic valve leaflets are densely calcified. Edematous change is suspected. There is dependent consolidation, right greater than left. Probable scarring is seen in the lower lobes. No pleural effusion is identified. There is a ewvsd-kq-grrabata hiatal hernia. Liver: The contrast-enhanced liver is normal in size, contour, and attenuation. There is no intrahepatic biliary ductal dilatation. The hepatic veins and portal veins are patent. Gallbladder: The gallbladder is distended and there are tiny calcified gallston es. There is no definitive CT evidence of acute cholecystitis. Spleen: Normal in size and attenuation imaging heterogeneous arterial phase enhancement. There are scattered calcified splenic granulomas. Pancreas: Unremarkable. Adrenal glands: Unremarkable. Kidneys: The contrast enhanced kidneys are normal in size and without hydronephrosis. The kidneys enhance symmetrically. Scattered subcentimeter cortical hypodensities likely represent cysts but are too small for definitive characterization. Abdominal vasculature: There is advanced atherosclerotic calcification and ectasia of the abdominal aorta. A small infrarenal abdominal aortic aneurysm measures 3.1 x 3.0 cm (AP x transverse). 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 Aneurysmal dilatation of the left internal iliac artery measures up to 1.6 cm. Bowel: There is advanced colonic diverticulosis without CT evidence of acute diverticulitis. No bowel obstruction is seen. Moderate fecal retention is noted throughout the colon. A duodenal diverticulum is observed. The appendix is normal as visualized. Peritoneum: There is no intraperitoneal free air or abdominal ascites. Lymphadenopathy: None. Pelvic viscera: The prostate gland is enlarged and heterogeneous. The bladder is distended, and the wall is thickened/trabeculated indicating chronic outlet obstruction. Skeletal structures: The skeletal structures are osteopenic. Postoperative and spondylotic change is noted in the lumbar spine. No lytic or blastic lesions are seen. IMPRESSION: 1. No acute infectious or inflammatory findings are identified in the abdomen or pelvis. 2. Dependent consolidation is seen at both lung bases, right greater than left. This may represent scarring/atelectasis. Correlate clinically for evidence of a superimposed infectious/inflammatory pneumonitis. 3. Cardiomegaly and suspect emphysema. 4. The gallbladder is distended and contains tiny calcified gallstones. There is no CT evidence of acute cholecystitis. Correlate with clinical and laboratory findings. 5. Advanced colonic diverticulosis without CT evidence of acute diverticulitis. 7. There is a 3.1 cm aneurysm of the distal abdominal aorta. There is also aneurysmal dilatation of the iliac arteries as detailed above. 8. Additional findings as above. ACT 112: Negative or not required by law. Electronically signed by: Paul Phillips M.D. 10/25/2022 8:26 AM Supervising Physician Co-Signing Physician Notes Patient seen and examined, chart reviewed, case discussed with Germania Hernandez PA-C and I agree with the assessment and plan as above except as otherwise noted Labs and images reviewed Varun Thomas is an 82-year-old male with past medical history of A-fib on Coumadin, hypertension, carotid stenosis s/p bilateral endarterectomy, spinal stenosis who presents with low back pain. No lower extremity weakness, no bowel or bladder incontinence, no saddle anesthesia. Patient is unable to ambulate due to severe pain. Lumbar spine MRI shows postoperative and spondylitic change. Patient does have significant lumbar for aminal narrowing, and broad- based posterior disc bulges at L4-L5 without significant compromise of the central canal. Patient does have mild central canal stenosis at L3-L4 with a minimum AP diameter of 7 mm. At time of bedside visit patient has 5/5 ankle dorsiflexion/plantarflexion, hip flexion is somewhat limited by pain in his mid low back. No sensory deficits, sensation soft touch is intact in hands and feet bilaterally without asymmetry. Does endorse some shooting pain into his groin in the last few days. Given narrowing of central canal of 7 mm did discuss with Dr. Ayon, who will review images and see patient in the morning. No red flags requiring emergent intervention, no saddle anesthesia/muscle weakness/acute sensory change/bowel or bladder incontinence. Agree with evaluation and management as above. PG Care Time/CCT Total # of Minutes Spent Total Time Spent with Patient: Total time spent is greater than 50% in coordination of care (as documented) at patient's floor/unit and/or counseling patient: Coding Level of Care Code 90685 INT INP/OBS CARE 3/75MIN Diagnoses Low back pain M54.5 Atrial fibrillation I48.91 Hypertension I10
[2022-10-25] MEDS ORDERED: dexAMETHasone 8 MG in SYRINGE 0 ML IV ONE (12:57)
[2022-10-25] MEDS ORDERED: DEXAMETHASONE SOD INJ 4 MG/ML VIAL IV STA (12:59)
[2022-10-25] MEDS ORDERED: ACETAMINOPHEN 500 MG TAB PO PRN (16:23)
[2022-10-25] MEDS ORDERED: POLYETHYLENE (MIRALAX) 17 GM PACK PO PRN (16:23)
[2022-10-25] MEDS ORDERED: MoRPHine SULFATE 4 MG/ML 1 ML CARP\\VIAL IV PRN (16:23)
[2022-10-25] MEDS ORDERED: MAGNESIUM HYDROXIDE SUSP 30 ML UDC PO PRN (16:23)
[2022-10-25] MEDS ORDERED: ONDANSETRON INJ 2 MG/ML 2 ML VIAL IV PRN (16:23)
[2022-10-25] MEDS ORDERED: oxyCODONE HCL IR 5 MG TAB (IMMEDIATE RELEASE) PO PRN ×2 (16:23)
[2022-10-25] MEDS ORDERED: ALUMINUM/MAGNESIUM SUSP 30 ML UDC PO PRN (16:23)
--- NOTE | 2022-10-25 16:29 | Magnetic Resonance Report ---
MRI OF THE LUMBAR SPINE WITHOUT IV CONTRAST CLINICAL HISTORY: Low back pain. Ambulatory dysfunction. COMPARISON STUDY: Radiographs of the lumbar spine dated 10/21/2022. MRI of the lumbar spine dated 09/21. Abdominal CT dated 10/25/2022. TECHNIQUE: MRI of the lumbar spine was performed utilizing various T1 and T2-weighted sequences in th e axial and sagittal planes. IV contrast was not administered for this examination. The examination i s degraded by motion artifact, as well as by susceptibility artifact from metallic spinal hardware. FINDINGS: Lumbar spine: Vertebral body height and alignment are maintained throughout the lumbar spine. Marrow signal intensity is heterogeneous. Anterior and lateral marginal osteophytes are seen throughout. The re is postsurgical change from laminectomy and posterior fusion seen at L2-L3. Interpedicular screws are present at both levels. There is no evidence of spondylolysis. Chronic degenerative endplate sky ges are seen at several levels. Endplate edema is noted at L1-L2 and L4-L5. The transverse processes appear intact. No destructive bony lesion is seen. Intervertebral discs: Degenerative disc desiccation and loss of height is seen throughout the lumbar spine. Loss of height is severe at L2-L3 and moderate at L3-L4 and L4-L5. Spinal cord: The visualized spinal cord is normal in morphology and signal intensity. The conus medul justin terminates at the T12-L1 interspace. The nerve roots of the cauda equina are normal in morpholo gy. L1-L2: Unremarkable. L2-L3: The central canal and neural foramina appear patent. L3-L4: There is broad-based posterior disc bulge. This abuts the transiting nerve roots. In conjuncti on with hypertrophy of the ligamentum flavum, there is mild central canal stenosis at this level with a minimum AP diameter of 7 mm. Bilateral disc bulges contribute to bilateral subarticular stenosis. In conjunction with facet arthropathy, there is moderate left and mild right neural frontal stenosis. L4-L5: There is broad-based posterior disc bulge. This abuts the transiting nerve roots. No significa nt acquired compromise of the central canal is identified. A right lateral disc extrusion at this lev el contributes to subarticular stenosis and impinges the exiting right L4 nerve root. This is best se en on axial image #21. In conjunction with facet arthropathy, there is [id number]-ce-wmpcdq right and m akr-[id number] left neuroforaminal stenosis. L5-S1: The central canal is clear. Lateral disc bulges contribute to mild bilateral subarticular sten osis. This may abut the exiting bilateral L5 nerve roots. In conjunction with facet arthropathy, ther e is mild bilateral neuroforaminal narrowing. Sacrum: The visualized sacrum is normal in morphology and signal intensity. Soft tissues: Postsurgical changes are seen posterior to the thecal sac at L2-L3. There is fatty atro phy of the paraspinous musculature. The retroperitoneal structures are grossly unremarkable but incom pletely evaluated. IMPRESSION: 1. Postoperative and spondylotic change as above. See discussion for detailed level by level analysis . 2. No destructive bony lesion is seen. 3. Degenerative disc disease as above. Dictated: 10/25/2022 3:45 PM Transcribed: 10/25/2022 4:10 PM Demar [id number] [email or web address] Electronically signed by: Paul Phillips M.D. 10/25/2022 4:28 PM
[2022-10-25] MEDS ORDERED: ATORVASTATIN 20 MG TAB PO SCH (21:00)
[2022-10-26 06:25] LABS: BUN Creatinine Ratio 23.1 (10-20); Calcium 9.2 mg/dl (8.6-10.3); Est GFR (African American) 91.3 ml/min; Est GFR (Non-African American) 78.8 ml/min; Potassium 4.4 mmol/L (3.5-5.1)
[2022-10-26 06:37] LABS: Basophils # (auto) 0.01 K/uL (0-0.2); Basophils % (auto) 0.1 %; Hematocrit (blood only) 43.2 % (42.0-52.0); Hemoglobin 14.7 g/dl (14.0-18.0); Immature Granulocytes # (auto) 0.05 K/uL (0.01-0.20); Immature Granulocytes % (auto) 0.5 %; Lymphocytes # (auto) 0.68 K/uL (1.2-3.4); Lymphocytes % (auto) 7.3 %; Mean Corpuscular Hemoglobin 29.1 pg (25.0-34.0); Mean Corpuscular Volume 85.5 fL (80.0-100.0); Mean Platelet Volume 10.3 fL (9.4-12.4); Monocytes # (auto) 0.29 K/uL (0.11-0.59); Monocytes % (auto) 3.1 %; Neutrophils # (auto) 8.34 K/uL (1.40-6.50); Platelet Count 201 K/uL (130-400); RDW Coefficient of Variation 13.7 % (11.5-14.5); RDW Standard Deviation 42.9 fL (36.4-46.3); Red Blood Count 5.05 M/uL (4.70-6.10); White Blood Count 9.37 K/ul (4.8-10.8)
[2022-10-26 06:39] LABS: INR 1.9 (0.9-1.1); Prothrombin Time 20.1 Seconds (9.0-12.0)
[2022-10-26] MEDS ORDERED: ASPIRIN 81 MG ECTAB PO SCH (09:00)
[2022-10-26] MEDS ORDERED: dilTIAZem HCL 240 MG CAPCR PO SCH (09:00)
[2022-10-26] MEDS ORDERED: LOSARTAN POTASSIUM 50 MG TAB PO SCH (09:00)
--- NOTE | 2022-10-26 09:09 | Consultation ---
Date of Consultation October 26, 2022 Assessment & Plan (1) Mechanical low back pain: Patient has a lumbar strain. Pain is improving. There are no acute surgical indications. Continue with current pain control. No true restrictions. Ambulate ad sanyd. I have suggested to him that he starts his physical therapy on November 09 as scheduled with [facility]. He is orthopedically stable. Dr. Ayon has reviewed all imaging. We will sign off. History of Present Illness Reason for Consultation: Left lumbar pain Attending Physician: Matias Pereyra MD History of Present Illness Varun Is a pleasant 82-year-old gentleman we are asked see in consultation regarding acute on chronic left lumbar pain. He has undergone prior L2-3 de compression and fusion by Dr. Cooper in 2018. He states about once a year he sustained a flareup which take several days for to resolve. This started about several days ago. He was working in the yard prior to his back pain starting. He went to the ER. He was concerned about his hardware. X-rays were performed. Hardware was deemed stable. He went home. He followed up with his family physician who gave him an [facility] physical therapy prescription what is which has been successful for him in the past. Pain then progressed throughout the week and he went to the ER yesterday with subsequent admission. This morning he states his left lumbar pain is improving. He has no radicular component to his symptoms. Denies any bowel or bladder changes. At home he ambulates independently. He is on Coumadin. He therefore only takes Tylenol at home for pain control. Allergies Allergy/AdvReac Type Severity Reaction Status Date / Time No Known Drug Allergies Allergy Unknown Verified 04/18/22 09:55 Home Medications Medication Instructions Recorded Confirmed Type aspirin 81 mg tablet,delayed 81 mg PO QAM 10/27/20 10/25/22 History release atorvastatin 20 mg tablet 20 mg PO QPM #90 tabs 01/09/22 10/25/22 Rx losartan 100 mg tablet 100 mg PO QAM #90 tabs 02/23/22 10/25/22 Rx diltiazem HCl 240 mg 240 mg PO QAM #90 caps 07/10/22 10/25/22 Rx capsule,extended release 24 hr warfarin 5 mg tablet 2.5 mg PO WK 10/25/22 10/25/22 History warfarin 5 mg tablet 5 mg PO 6XWK 10/25/22 10/25/22 History Patient History Medical History Atrial fibrillation Atrial fibrillation Bicuspid aortic valve Carotid stenosis HTN (hypertension) Hypertension Long-term (current) use of anticoagulants, INR goal 2.0-3.0 No significant family history Surgical History History of removal of cyst (04/03/22) FINAL DIAGNOSIS: In office procedure Dr. Pickens 04/03/2022 Skin, thigh cyst, excision: - Benign glomangioma (glomus tumor) No significant past surgical history Social History Smoking Status: Former smoker Do You Dip or Chew Tobacco: No; Hx Alcohol Use: No Hx Substance Use: No Preferred Language: Icelandic Communication Ability: Effective Supervisor Matrix Required: No Beliefs That Will Affect Care: None marital status: Current Living Situation: Spouse How many Children do You have: 2 Other Information That Helps Us Care for You: No Feels Safe at Home: Yes Assistive Devices: Cane and Walker Assistive Devices Comment: upper and lower dentures Review of Systems Review of Systems: All systems reviewed & are unremarkable except as noted in HPI & below Physical Exam Physical Exam: He is lying in bed in no acute distress Alert and oriented x3 He is able to change from a lying down to a seated position independently. No significant distress He has a well-healed midline upper lumbar incision He is nontender to palpation to the midline lumbar spine He is nontender over the sciatic notch regions bilaterally Strength is intact bilateral lower extremity Negative tension signs bilateral lower extremities Negative logrolling bilateral lower extremities Constitutional: WD/WN, vitals as above Eyes: normal visual boyd by confrontation ENMT: external ear and nose normal, oropharynx normal Neck: normal visual inspection Respiratory: normal respiratory effort Cardiovascular: Extremities: normal capillary refill Gastrointestinal (Abdomen): Inspection/Auscultation: abdomen normal to inspection Musculoskeletal: Extremities: extremities normal to inspection and strength 5/5 throughout Skin: no rashes, warm and dry Neurologic: normal touch/pain/proprioception and moves all extremities Psychiatric: A+Ox3, euthymic affect Eye Contact: good eye contact Results & Data Vital Signs (Past 12 Hours) Vital Signs Temp Pulse Resp BP Pulse Ox O2 Del Method 10/26/22 07:20 Room Air 10/26/22 07:14 36.3 C L 90 16 123/90 94 Room Air 10/25/22 22:49 36.5 C 88 16 120/68 94 Room Air 10/25/22 22:18 36.5 C 92 H 14 137/91 92 Room Air
--- NOTE | 2022-10-26 09:39 | Hospitalist Progress Note ---
Date of Service October 26, 2022 Assessment & Plan (1) Low back pain: Plan: Acute,surgery did review and is not considering surgical intervention - Obtain MRI w/o contrast of lumbar spine, Postoperative and spondylotic changedid exclude HNP - Pain control with APAP 1g TID, OxyIR 5-10mg (dose according pain scale), and Morphine for breakthrough - Decadron 8mg IV x1 - PT/OT eval - Can add kpad to affected area prn (2) Atrial fibrillation: Plan: Chronic/stable - Diltiazem CD 240mg daily - Coumadin on admission INR is 3.6, coumadin on hold (3) Hypertension: Plan: H/o HTN, Carotid stenosis, HLD Chronic/stable - Controlled on Diltiazem and Losartan - Continue Atorvastatin and ASA Admission and Anticipated Discharge Date Admission Date: October 25, 2022 Results & Data Results & Data Vital Signs (Past 12 Hours) Vital Signs Temp Pulse Resp BP Pulse Ox O2 Del Method 10/26/22 07:20 Room Air 10/26/22 07:14 97.3 F L 90 16 123/90 94 Room Air 10/25/22 22:49 97.7 F 88 16 120/68 94 Room Air 10/25/22 22:18 97.7 F 92 H 14 137/91 92 Room Air PG Care Time/CCT Total # of Minutes Spent Total Time Spent with Patient: Total time spent is greater than 50% in coordination of care (as documented) at patient's floor/unit and/or counseling patient: Coding Diagnoses Low back pain M54.5 Atrial fibrillation I48.91 Hypertension I10
[2022-10-26] MEDS ORDERED: ACETAMINOPHEN 500 MG TAB PO SCH (10:00)
[2022-10-26] MEDS ORDERED: LIDOCAINE 5% 1 PATCH TD SCH (10:00)
[2022-10-26] MEDS ORDERED: WARFARIN SOD 4 MG TAB PO SCH (16:00)
--- NOTE | 2022-10-26 16:02 | Discharge Summary ---
Date of Service October 26, 2022 Admission HPI Per Admitting Provider Varun Thomas is an 82 yo M with a pmhx of afib on chronic Coumadin therapy, HTN, carotid artery stenosis s/p b/l CEA, and spinal stenosis s/p l2/3 laminectomy 6 years ago who presents to the ER today c/o uncontrolled low back pain. Patient reports that since his surgery, he has been told that he would experience intermittent back pain/flares. When these occur, he typically goes to [facility] and has physical therapy and manages the pain with OTC APAP. He does not take NSAIDs due to his Coumadin therapy. He reports that starting Sunday, he began noticing some lower left sided back pain. On Sunday, pain was slightly worse prompting him to come to the ER for evaluation. Here, xrays were taken and he was told there was no acute abnormalities and he was discharged home. Since then, he continued to take OTC APAP for pain without much relief and also contacted [facility] to arrange to be seen. Unfortunately, [facility] was unable to see him until November 09. Since Sunday, his pain has seemed to migrate around his left flank and also into the middle of his lower back. Today, he attempted to ambulate with use of a walker this morning to the bathroom and after taking 2 steps he had to stop and be assisted back to a chair. His family subsequently summoned EMS to transport him back to the ER for evaluation. He denies n/v/d, abdominal pain, f/c, urinary symptoms including dysuria or hematuria. He denies h/o kidney stones. He denies loss of bowel/bladder control or saddle anesthesias. ER work up included a CT a/p that demonstrated no infectious/inflammatory findings in the abdomen or pelvis. No acute laboratory abnormalities were noted. He was medicated with two doses of Morphine, he notes that his pain is slightly improved but continues to have intermittent back spasms. He has been referred to the hospitalist service for admission for further care. Principal Diagnosis mechanical low back pain Discharge Exam Patient is without radicular pain he actually has very little focal pain in his back Discharge Data Allergies Allergy/AdvReac Type Severity Reaction Status Date / Time No Known Drug Allergies Allergy Unknown Verified 04/18/22 09:55 Consultations 10/25/22 11:05 ED Decision to Admit Stat 10/25/22 11:17 ED Decision to Admit Stat 10/25/22 16:53 Consult Orthopedic Surgery Routine Ordered Studies 10/25/22 06:54 CT abd pelvis IV con only Stat 10/25/22 12:31 MRI Lumbar Spine [MR lumbar spine wo con] Stat Hospital Course (1) Low back pain: Acute,surgery did review and is not considering surgical intervention - Obtain MRI w/o contrast of lumbar spine, Postoperative and spondylotic changedid exclude HNP - Pain control with APAP 1g TID, OxyIR 5 milligram as needed Did receive 1 dose of dexamethasone in the emergency department -Prescription for oxycodone given at time of discharge (2) Atrial fibrillation: Chronic/stable - Diltiazem CD 240mg daily - Coumadin on admission INR is 3.6, coumadin INR is come down after holding Coumadin recommend checking INR level as outpatient provider early next week (3) Hypertension: H/o HTN, Carotid stenosis, HLD Chronic/stable - Controlled on Diltiazem and Losartan - Continue Atorvastatin and ASA Total Time Total Time Spent Total Time Spent (In Minutes): It required greater than 30 minutes to prepare this patient for discharge Discharge Plan Discharge Items Patient Disposition: Home - Self-Care Reason For Visit: BACK PAIN Discharge Diagnosis: mechanical low back pain Activity: Per Instructions section Activity Comment: slowly increase activity and stretching Non-emergency contact: Primary Care Provider Call non-emergency contact if: your symptoms worsen Follow-up/Referrals: PCP,NO [Primary Care Provider] - Diet: Regular Addtl Attending Provider Instructions: please be careful moving bending and twisting follow up with your primary care and [facility] as you have scheduled take tylenol 1000mg three times a day for at least another day and if you have no further pain, you may only take as needed use oxycodone sparingly but start early if pain recurs consider involving a daily stretching and strengthening routing into you life please have your warfarin checked early next week at your typical location Pending Studies at Discharge: No Stand-Alone Forms: My [employer], Smoking Cessation Medications and DC Order Prescriptions: New acetaminophen [Tylenol Extra Strength] 500 mg Tablet 1,000 mg PO UD Qty: 1 0RF oxycodone 5 mg Tablet 5 mg PO Q4H PRN (Reason: pain) Qty: 20 0RF Continued atorvastatin 20 mg tablet 20 mg PO QPM Qty: 90 3RF losartan 100 mg tablet 100 mg PO QAM Qty: 90 3RF diltiazem HCl 240 mg capsule,extended release 24hr 240 mg PO QAM Qty: 90 1RF aspirin 81 mg Tablet,Delayed Release (Dr/Ec) 81 mg PO QAM warfarin 5 mg Tablet 2.5 mg PO WK Rx Instructions: On Tuesdays warfarin 5 mg tablet 5 mg PO [id number] Protocol: Dose Management Condition: Sunday (Week One) Dose/Route: 5 mg Instruction: 1 x 5 mg tablet Condition: Sunday Dose/Route: 5 mg Instruction: 1 x 5 mg tablet Condition: Sunday Dose/Route: 0 mg Instruction: 0 tablets Condition: Sunday Dose/Route: 0 mg Instruction: 0 tablets Condition: Dose/Route: 5 mg Instruction: 1 x 5 mg tablet Condition: Sunday Dose/Route: 5 mg Instruction: 1 x 5 mg tablet Condition: Sunday Dose/Route: 5 mg Instruction: 1 x 5 mg tablet Condition: Sunday (Week Two) Dose/Route: 5 mg Instruction: 1 x 5 mg tablet Condition: Sunday Dose/Route: 5 mg Instruction: 1 x 5 mg tablet Condition: Sunday Dose/Route: 2.5 mg Instruction: 0.5 x 5 mg tablets Condition: Sunday Dose/Route: 5 mg Instruction: 1 x 5 mg tablet Condition: Dose/Route: 5 mg Instruction: 1 x 5 mg tablet Condition: Sunday Dose/Route: 5 mg Instruction: 1 x 5 mg tablet Condition: Sunday Dose/Route: 5 mg Instruction: 1 x 5 mg tablet Protocol Text: Adjustment Start Date: Sunday10/24/22 INR Value: 3.8 INR Date: 10/24/22 Recheck Date: 11/02/22 Rx Instructions: Except on Sunday take 2.5mg Discharge Orders: Discharge Order (Routine); Ordered 10/26/22 Ordered By: Matias Pereyra Admission Data Admit Date/Time: 10/25/22 12:31 Attending Provider: Matias Pereyra Admit Provider: Kurt Holm Primary Care Provider: PCP,NO Other Providers: Kurt Holm ; William Ayon Other Interventions: Discharge Summary Assessment (RN) Last Done: 10/26/22 15:33 Coding Level of Care Code 72690 INP/OBS DISCH >30 MIN Diagnoses Low back pain M54.5 Atrial fibrillation I48.91 Hypertension I10
== END 2022-10-26 16:35 | disposition home or self-care (01) | DRG 552 ==
LOC: ED 06:15 → INTOOBSV 12:31 → 3W 12:31 → SUATTDRO 12:31 → 3W 14:50

== ENCOUNTER 2022-10-27 17:32 | Inpatient (IN) ==
--- NOTE | 2022-10-27 18:10 | Emergency Department Note ---
History of Present Illness General Chief complaint: Back Injury/Pain Stated complaint: LOWER BACK PAIN, Time Seen by Provider: 10/27/22 17:49 History of Present Illness Maximum Pain Intensity: 6 82-year-old male who presents emergency department for evaluation of left-sided low back pain. Patient has been seen in this ED twice in the last week as well as admitted and discharged from our hospitalist service yesterday for these symptoms. He has had full work-up including labs and imaging with CT abd/pelvis and Lumbar MRI. CT unremarkable for acute findings. Lumbar MRI demonstrated spo ndylitic changes as well as degenerative disc disease. He was evaluated by orthopedic spine surgeon while inpatient and was felt to have no indications for surgical intervention. He states he was feeling well upon discharge but last evening his symptoms returned. He notes muscle spasms in his left low back. These are unchanged since initial presentation. He was instructed to take Tylenol and prescribed oxycodone for his pain upon discharge from hospital. He was also referred to PT and is scheduled to be seen with [facility] physical therapy on Sunday. Patient reports taking pain medications as prescribed without any major improvement. He is unable to ambulate secondary to pain. He denies w eakness/numbness/tingling of the lower extremity, saddle paresthesias, bowel or bladder incontinence. He further denies fever/chills, n/v, chest pain, SOB, abdominal pain, urinary symptoms. Home Medications Medication Instructions Recorded Confirmed Type aspirin 81 mg tablet,delayed 81 mg PO QAM 10/27/20 10/27/22 History release atorvastatin 20 mg tablet 20 mg PO QPM #90 tabs 01/09/22 10/27/22 Rx losartan 100 mg tablet 100 mg PO QAM #90 tabs 02/23/22 10/27/22 Rx diltiazem HCl 240 mg 240 mg PO QAM #90 caps 07/10/22 10/27/22 Rx capsule,extended release 24 hr warfarin 5 mg tablet See Rx Instructions .Route .COMPLEX 10/25/22 10/27/22 History acetaminophen 500 mg tablet 1,000 mg PO DIRECTED PRN Pain 10/27/22 10/27/22 History (Tylenol Extra Strength) oxycodone 5 mg tablet 5 mg PO Q4H PRN Pain 10/27/22 10/27/22 History Allergies Allergy/AdvReac Type Severity Reaction Status Date / Time No Known Allergies Allergy Verified 10/27/22 19:51 Past Med/Surg History Medical History Atrial fibrillation Atrial fibrillation Bicuspid aortic valve Carotid stenosis HTN (hypertension) Hypertension Long-term (current) use of anticoagulants, INR goal 2.0-3.0 No significant family history Surgical History History of removal of cyst (04/03/22) FINAL DIAGNOSIS: In office procedure Dr. Pickens 04/03/2022 Skin, thigh cyst, excision: - Benign glomangioma (glomus tumor) No significant past surgical history Social History Smoking Status: Former smoker Do You Dip or Chew Tobacco: No; Hx Alcohol Use: No Hx Substance Use: No Preferred Language: Tamazight Communication Ability: Effective Corporate Director Of Pharmacy Required: No Beliefs That Will Affect Care: None marital status: Current Living Situation: Spouse How many Children do You have: 2 Feels Safe at Home: Yes Assistive Devices: Cane and Walker Physical Exam Vital Signs Vital Signs - 24 hr 10/27/22 17:35 10/27/22 21:00 Temperature 36.5 C Temperature Source Temporal Artery Scan Pulse Rate 85 104 H Pulse Rhythm Irregular Respiratory Rate 20 18 Respiratory Effort / Characteristics Non-Labored Respiratory Depth Normal Respiratory Pattern Regular Blood Pressure 122/90 Blood Pressure Mean 100 Blood Pressure Position Sitting Pulse Oximetry 95 95 Oxygen Delivery Method Room Air Room Air Sepsis Recent Fever Within 48 Hours No Sepsis New/Unexplained Change in Mental Status No Sepsis Action Taken by Nursing No Action Required Constitutional: alert and oriented x3. Mild distress secondary to pain HEENT: normocephalic, atraumatic. normal conjunctiva.EOM's grossly intact. Neck: neck is supple, nontender. C-spine nontender Respiratory: lungs are clear to auscultation without wheezes, rhonchi, or rales bilaterally. equal chest rise. normal respiratory effort, no accessory muscle use. Cardiovascular: normal heart sounds without murmur. regular rate and rhythm. GI: abdomen is soft, nontender. nl bowel sounds present throughout. No palpable masses. No rebound tenderness or guarding. No CVA tenderness MSK: No obvious bony deformity. Nontender midline lumbar spine. Positive left straight leg test. Strength +5 in bilateral lower extremities. Sensation intact Peripheral vascular: Lower extremities warm and well perfused with palpable pedal pulses. Psych:appropriate mood and affect. Course Administered Medications Discontinued Medications Baclofen (Baclofen 10 Mg Tab) 10 mg PO NOW STA Stop: 10/27/22 20:23 Last Admin: 10/27/22 20:33 Dose: 10 mg Documented By: IRMA Dexamethasone Sodium Phosphate (DexamethasonePf 10 Mg/Ml Vial) 10 mg IM NOW ONE Stop: 10/27/22 18:20 Last Admin: 10/27/22 18:34 Dose: 10 mg Documented By: TABBYL Diazepam (Diazepam 5 Mg Tablet) 5 mg PO NOW ONE Stop: 10/27/22 18:20 Last Admin: 10/27/22 18:35 Dose: 5 mg Documented By: RSL Morphine Sulfate (Morphine Sulfate 4 Mg/Ml 1 Ml Carp\\Vial) 4 mg IV NOW STA Stop: 10/27/22 20:06 Last Admin: 10/27/22 20:46 Dose: Not Given Documented By: IRMA Medical Decision Making Differential Diagnosis Musculoskeletal, disc herniation, fracture, metastatic disease, cord compression, discitis, sciatica, cauda equina, infection, aortic disease, renal colic, gastrointestinal, as well as other pathologies. Laboratory Data 10/27/22 20:24 Lab Results 10/27/22 Range/Units 20:24 WBC 11.83 H (4.8-10.8) K/ul RBC 4.97 (4.70-6.10) M/uL Hgb 14.6 (14.0-18.0) g/dl Hct 42.7 (42.0-52.0) % MCV 85.9 (80.0-100.0) fL MCH 29.4 (25.0-34.0) pg MCHC 34.2 (32.0-36.0) g/dL RDW Std Deviation 44.4 (36.4-46.3) fL RDW Coeff of Demetrius 14.1 (11.5-14.5) % Plt Count 197 (130-400) K/uL MPV 10.2 (9.4-12.4) fL Immature Gran % (Auto) 0.5 % Neut % (Auto) 83.5 % Lymph % (Auto) 8.0 % [place] % (Auto) 7.8 % Eos % (Auto) 0.1 % Baso % (Auto) 0.1 % Neut # (Auto) 9.88 H (1.40-6.50) K/uL Lymph # (Auto) 0.95 L (1.2-3.4) K/uL [place] # (Auto) 0.92 H (0.11-0.59) K/uL Eos # (Auto) 0.01 (0-0.50) K/uL Baso # (Auto) 0.01 (0-0.2) K/uL Immature Gran # (Auto) 0.06 (0.01-0.20) K/uL MDM Narrative 82-year-old male who presents emergency department for evaluation of left low back pain. Review of pertinent visits including admission from 10/25 to 10/26 as well as past medical history were performed. Vital signs in ED within normal limits, afebrile. Clinically, patient is nontoxic-appearing in moderate distress secondary to pain. He continues to have left low back "spasms." He is nontender over the midline lumbar spine. No red flag back symptoms. He has already undergone x-ray, CT, lumbar MRI. Patient denies any new trauma, therefore, I do not feel repeat imaging is warranted at this time. Patient took Tylenol prior to arrival. He has not taken his prescribed oxycodone since last evening. Patient declines trying any muscle relaxers. Therefore he was given p.o. Valium and IM dexamethasone for his symptoms. Upon reevaluation, patient reports minimal improvement in his symptoms. We discussed further treatment options. He is unable to move his left lower extremity without significant pain as well as be ambulatory. Given these findings, I feel it is best patient be readmitted to the hospital for further pain control and possibly inpatient physical therapy. Patient verbalized understanding and was agreeable to this plan. Case was discussed with hospitalist, Dr. Mix, who reviewed patient's case and graciously excepted him to his service. IV access was then established and patient was provided additional pain control with IV morphine. He was admitted to the hospital in stable condition. Case was discussed with attending, Dr. Floyd, who agrees with work-up and treatment plan. Impression & Plan Low back pain Discharge Plan Visit Data Chief Complaint: Back Injury/Pain Stated Complaint: LOWER BACK PAIN, ED Provider: Claude Floyd ED Midlevel Provider: Betsy Kang Discharge Problem: Low back pain Forms Stand Alone Forms: [facility] Prescriptions Prescriptions: No Action atorvastatin 20 mg tablet 20 mg PO QPM Qty: 90 3RF losartan 100 mg tablet 100 mg PO QAM Qty: 90 3RF diltiazem HCl 240 mg capsule,extended release 24hr 240 mg PO QAM Qty: 90 1RF aspirin 81 mg Tablet,Delayed Release (Dr/Ec) 81 mg PO QAM warfarin 5 mg tablet See Rx Instructions .ROUTE .COMPLEX Protocol: Dose Management Condition: Sunday (Week One) Dose/Route: 5 mg Instruction: 1 x 5 mg tablet Condition: Sunday Dose/Route: 5 mg Instruction: 1 x 5 mg tablet Condition: Sunday Dose/Route: 0 mg Instruction: 0 tablets Condition: Sunday Dose/Route: 0 mg Instruction: 0 tablets Condition: Dose/Route: 5 mg Instruction: 1 x 5 mg tablet Condition: Sunday Dose/Route: 5 mg Instruction: 1 x 5 mg tablet Condition: Sunday Dose/Route: 5 mg Instruction: 1 x 5 mg tablet Condition: Sunday (Week Two) Dose/Route: 5 mg Instruction: 1 x 5 mg tablet Condition: Sunday Dose/Route: 5 mg Instruction: 1 x 5 mg tablet Condition: Sunday Dose/Route: 2.5 mg Instruction: 0.5 x 5 mg tablets Condition: Sunday Dose/Route: 5 mg Instruction: 1 x 5 mg tablet Condition: Dose/Route: 5 mg Instruction: 1 x 5 mg tablet Condition: Sunday Dose/Route: 5 mg Instruction: 1 x 5 mg tablet Condition: Sunday Dose/Route: 5 mg Instruction: 1 x 5 mg tablet Protocol Text: Adjustment Start Date: Sunday10/24/22 INR Value: 3.8 INR Date: 10/24/22 Recheck Date: 11/02/22 Rx Instructions: 5 mg orally ;TAKES QPM @ 1600, TAKES 5 MG EVERY DAY, EXCEPT TUESDAYS--TAKES 2.5 MG. acetaminophen [Tylenol Extra Strength] 500 mg tablet 1,000 mg PO DIRECTED PRN (Reason: Pain) oxycodone 5 mg Tablet 5 mg PO Q4H PRN (Reason: Pain) Rx Instructions: PER PT "USED 1 TAB". Referrals Referrals: PCP,NO [Primary Care Provider] -
[2022-10-27] MEDS ORDERED: dexAMETHasone**PF** 10 MG/ML VIAL IM ONE (18:19)
[2022-10-27] MEDS ORDERED: diazePAM 5 MG TABLET PO ONE (18:19)
[2022-10-27] MEDS ORDERED: MoRPHine SULFATE 4 MG/ML 1 ML CARP\\VIAL IV STA (20:05)
[2022-10-27] MEDS ORDERED: BACLOFEN 10 MG TAB PO STA (20:22)
--- NOTE | 2022-10-27 20:48 | History & Physical Report ---
Date of Service October 27, 2022 Assessment & Plan (1) Acute abdominal pain in left flank: (2) Mechanical low back pain: (3) Bicuspid aortic valve: (4) Atrial fibrillation: (5) snf current use of anticoagulants with INR goal of 2.0-3.0: (6) Syncope: (7) Hypertension: (8) Lumbar stenosis: Plan Intractable low back pain/lumbar spinal stenosis/lumbar degenerative disc disease/postoperative and spondylitic change- Patient was just admitted to [facility] from 10/25-10/26/2022 for similar symptoms MRI and orthopedic spine consult suggested no aggressive surgical intervention Patient has developed intractable pain, and is unable to walk at home He was given dexamethasone 10 mg IV and Valium 5 mg p.o. before arriving to the ED Dexamethasone 6 mg IV every 8 hours Baclofen 10 mg p.o. every 8 hours Acetaminophen 650 mg p.o. every 6 hours as needed for mild pain or fever Oxycodone 5 mg p.o. every 4 hours as needed for moderate pain Once pain is controlled, will need to consult PT/OT, and determine if the patient will need to go to inpatient rehab Hyperlipidemia- Continue atorvastatin Atrial fibrillation/bicuspid aortic valve/hypertension- Continue aspirin, losartan, diltiazem CD and warfarin Follow serial CBC with differential, renal panel, PT/INR History of Present Illness Chief Complaint: The patient presents to the emergency department with complaint of return of severe left-sided low back pain after being discharged from the hospital the previous day. Primary Care Provider: NO PCP The patient is an 82-year-old male with a past medical history including mechanical low back pain, bicuspid aortic valve, atrial fibrillation, long-term use of warfarin, acute kidney injury, syncope, carotid stenosis, near syncope, hypertension, hypertensive crisis, lumbar stenosis and rib pain. He was admitted to [facility] from 10/25-10/26 for severe lower left back pain. During that admission he underwent an MRI of the lumbar spine, which showed postoperative and spondylitic change with no destructive bony lesion seen and degenerative disc disease as noted. He was seen by orthopedic spine surgery during that admission, and there was felt no indication for surgery. He was then discharged to home. Had a recurrence of his severe pain, and return to the emergency department for assessment today. Allergies Allergy/AdvReac Type Severity Reaction Status Date / Time No Known Allergies Allergy Verified 10/27/22 19:51 Home Medications Medication Instructions Recorded Confirmed Type aspirin 81 mg tablet,delayed 81 mg PO QAM 10/27/20 10/27/22 History release atorvastatin 20 mg tablet 20 mg PO QPM #90 tabs 01/09/22 10/27/22 Rx losartan 100 mg tablet 100 mg PO QAM #90 tabs 02/23/22 10/27/22 Rx diltiazem HCl 240 mg 240 mg PO QAM #90 caps 07/10/22 10/27/22 Rx capsule,extended release 24 hr warfarin 5 mg tablet See Rx Instructions .Route .COMPLEX 10/25/22 10/27/22 History acetaminophen 500 mg tablet 1,000 mg PO DIRECTED PRN Pain 10/27/22 10/27/22 History (Tylenol Extra Strength) oxycodone 5 mg tablet 5 mg PO Q4H PRN Pain 10/27/22 10/27/22 History Past Med/Surg History Medical History Atrial fibrillation Atrial fibrillation Bicuspid aortic valve Carotid stenosis HTN (hypertension) Hypertension Long-term (current) use of anticoagulants, INR goal 2.0-3.0 No significant family history Surgical History History of removal of cyst (04/03/22) FINAL DIAGNOSIS: In office procedure Dr. Pickens 04/03/2022 Skin, thigh cyst, excision: - Benign glomangioma (glomus tumor) No significant past surgical history Social History Smoking Status: Former smoker Smoking End Date: 10 years ago; Second Hand Exposure: No; Do You Dip or Chew Tobacco: No; Hx Alcohol Use: Yes Alcohol type: beer Hx Substance Use: No Preferred Language: Maltese Communication Ability: Effective Sealant Mixer Required: No Beliefs That Will Affect Care: None marital status: Current Living Situation: Spouse How many Children do You have: 2 Other Information That Helps Us Care for You: No Feels Safe at Home: Yes Safety Concerns: Feels Safe At This Time Assistive Devices: Cane, Denture - Upper, Denture - Lower and Walker Review of Systems Review of Systems: The patient denies chest pain, palpitations, shortness of breath, dyspnea on exertion, cough, lower extremity swelling, sore throat, fevers, chills, sweats, weight change, fatigue, nausea, vomiting, diarrhea , constipation, abdominal pain, pelvic pain, blood in urine or stool, dysuria, urinary frequency or urgency, lightheadedness, dizziness, headache, memory loss, loss of consciousness, rash, abnormal bruising or bleeding, focal or generalized weakness, numbness or tingling in arms or, generalized arthralgias or myalgias, neck pain, or night sweats. The review of systems is otherwise negative other than for that already noted above, and at least 10 systems have been reviewed. Physical Exam Physical Exam: The patient is awake, alert and oriented 3, well developed and well nourished, normocephalic and atraumatic, lying in bed and in no acute distress. HEENT--PERRL, EOMI, mucous membranes and oropharynx normal. Neck--supple. No JVD. No bruits. Thyroid normal, trachea midline, no adenopathy. Heart--normal S1 and S2. No murmurs, rubs or gallops. Lungs--clear bilaterally, no respiratory distress, no accessory muscle use. Abdomen--normal bowel sounds and soft. Nontender. Nondistended, no hernias or masses, no organomegaly. Extremities--no cyanosis or clubbing. No edema. There are good distal pulses b/l. Dermatologic--normal skin turgor, normal color, no abnormal lymph nodes, no rash. Neurologic--cranial nerves II through XII grossly intact. Rheumatologic--limited exam due to low back pain Psychiatric--normal affect. Results & Data Results & Data Vital Signs (Past 12 Hours) Vital Signs Temp Pulse Resp BP Pulse Ox O2 Del Method 10/27/22 17:35 36.5 C 85 20 122/90 95 Room Air Laboratory Results Laboratory Results WBC 11.83 K/ul (4.8-10.8) H 10/27/22 20:24 RBC 4.97 M/uL (4.70-6.10) 10/27/22 20:24 Hgb 14.6 g/dl (14.0-18.0) 10/27/22 20:24 Hct 42.7 % (42.0-52.0) 10/27/22 20:24 MCV 85.9 fL (80.0-100.0) 10/27/22 20: MCH 29.4 pg (25.0-34.0) 10/27/22 20: MCHC 34.2 g/dL (32.0-36.0) 10/27/22 20:24 RDW Std Deviation 44.4 fL (36.4-46.3) 10/27/22 20: RDW Coeff of Demetrius 14.1 % (11.5-14.5) 10/27/22 20: Plt Count 197 K/uL (130-400) 10/27/22 20: MPV 10.2 fL (9.4-12.4) 10/27/22 20: Immature Gran % (Auto) 0.5 % 10/27/22 20: Neut % (Auto) 83.5 % 10/27/22 20: Lymph % (Auto) 8.0 % 10/27/22 20: [place] % (Auto) 7.8 % 10/27/22 20:24 Eos % (Auto) 0.1 % 10/27/22 20:24 Baso % (Auto) 0.1 % 10/27/22 20:24 Neut # (Auto) 9.88 K/uL (1.40-6.50) H 10/27/22 20:24 Lymph # (Auto) 0.95 K/uL (1.2-3.4) L 10/27/22 20:24 [place] # (Auto) 0.92 K/uL (0.11-0.59) H 10/27/22 20:24 Eos # (Auto) 0.01 K/uL (0-0.50) 10/27/22 20:24 Baso # (Auto) 0.01 K/uL (0-0.2) 10/27/22 20:24 Immature Gran # (Auto) 0.06 K/uL (0.01-0.20) 10/27/22 20:24 ESR 11 mm/hr (0-20) 10/27/22 20:24 PT 17.5 Seconds (9.0-12.0) H 10/27/22 20:25 INR 1.6 (0.9-1.1) H 10/27/22 20:25 APTT 28.5 Seconds (21.0-31.0) 10/27/22 20:25 PTT Ratio 1.0 10/27/22 20:25 Sodium 134 mmol/L (136-145) L 10/27/22 20:24 Potassium 4.5 mmol/L (3.5-5.1) 10/27/22 20:24 Chloride 103 mmol/L (98-107) 10/27/22 20:24 Carbon Dioxide 25 mmol/L (21-32) 10/27/22 20:24 Anion Gap 6 (3-11) 10/27/22 20:24 BUN 32 mg/dl (6-23) H 10/27/22 20:24 Creatinine 0.96 mg/dl (0.6-1.4) 10/27/22 20:24 Est Cr Clr Drug Dosing 69.3 ml/min 10/27/22 20:24 Est GFR ( Amer) 85.6 ml/min 10/27/22 20:24 Est GFR (Non-Af Amer) 73.8 ml/min 10/27/22 20:24 BUN/Creatinine Ratio 33.3 (10-20) H 10/27/22 20:24 Glucose 114 mg/dl (70-99(Fasting)) H 10/27/22 20:24 Calcium 9.2 mg/dl (8.6-10.3) 10/27/22 20:24 Phosphorus 2.1 mg/dl (2.5-4.9) L 10/27/22 20:24 Magnesium 2.0 mg/dl (1.7-2.4) 10/27/22 20:24 C-Reactive Protein < 0.50 mg/dl (0-0.5) 10/27/22 20:24 Albumin 4.1 gm/dl (3.4-5.0) 10/27/22 20:24 SARS-CoV-2, RNA, NAAT NEGATIVE (NEGATIVE) 10/27/22 20:25 Diagnostic Findings [place], [place] [phone] Magnetic Resonance Report Patient:VENKATESH MONDRAGON Admit Date:10/25/22 MR#:[id number] Address1:[address] [place] [address] Acct ID:[id number] Address2: Date:1940 [facility] Zip:[place] [id number] Age:82 Location:3W Sex:M Room/Bed:[facility] Att Phy:Kurt Holm MD Diagnosis:BACK PAIN Rajni Phy:PCP,NO Service Date:10/25/22 Fam Phy: Interpreting Phy:Paul Phillips MDAdmit Phy:Kurt Holm MD Ordering Phy:Germania Hernandez PA-C cc: ~ MRI OF THE LUMBAR SPINE WITHOUT IV CONTRAST CLINICAL HISTORY: Low back pain. Ambulatory dysfunction. COMPARISON STUDY: Radiographs of the lumbar spine dated 10/21/2022. MRI of the lumbar spine dated 09/21/2017. Abdominal CT dated 10/25/2022. TECHNIQUE: MRI of the lumbar spine was performed utilizing various T1 and T2-weighted sequences in the axial and sagittal planes. IV contrast was not administered for this examination. The examination is degraded by motion artifact, as well as by susceptibility artifact from metallic spinal hardware. FINDINGS: Lumbar spine: Vertebral body height and alignment are maintained throughout the lumbar spine. Marrow signal intensity is heterogeneous. Anterior and lateral marginal osteophytes are seen throughout. There is postsurgical change from laminectomy and posterior fusion seen at L2-L3. Interpedicular screws are present at both levels. There is no evidence of spondylolysis. Chronic degenerative endplate changes are seen at several levels. Endplate edema is noted at L1-L2 and L4-L5. The transverse processes appear intact. No destructive bony lesion is seen. Intervertebral discs: Degenerative disc desiccation and loss of height is seen throughout the lumbar spine. Loss of height is severe at L2-L3 and moderate at L3-L4 and L4-L5. Spinal cord: The visualized spinal cord is normal in morphology and signal intensity. The conus medullaris terminates at the T12-L1 interspace. The nerve roots of the cauda equina are normal in morphology. L1-L2: Unremarkable. L2-L3: The central canal and neural foramina appear patent. L3-L4: There is broad-based posterior disc bulge. This abuts the transiting nerve roots. In conjunction with hypertrophy of the ligamentum flavum, there is mild central canal stenosis at this level with a minimum AP diameter of 7 mm. Bilateral disc bulges contribute to bilateral subarticular stenosis. In conjunction with facet arthropathy, there is moderate left and mild right neural frontal stenosis. L4-L5: There is broad-based posterior disc bulge. This abuts the transiting nerve roots. No significant acquired compromise of the central canal is identified. A right lateral disc extrusion at this level contributes to subarticular stenosis and impinges the exiting right L4 nerve root. This is best seen on axial image #21. In conjunction with facet arthropathy, there is plmhlweo-av-knyezh right and qhnx-ot-hcipevwy left neuroforaminal stenosis. L5-S1: The central canal is clear. Lateral disc bulges contribute to mild bilateral subarticular stenosis. This may abut the exiting bilateral L5 nerve roots. In conjunction with facet arthropathy, there is mild bilateral neuroforaminal narrowing. Sacrum: The visualized sacrum is normal in morphology and signal intensity. Soft tissues: Postsurgical changes are seen posterior to the thecal sac at L2- L3. There is fatty atrophy of the paraspinous musculature. The retroperitoneal structures are grossly unremarkable but incompletely evaluated. IMPRESSION: 1. Postoperative and spondylotic change as above. See discussion for detailed level by level analysis. 2. No destructive bony lesion is seen. 3. Degenerative disc disease as above. Dictated: 10/25/2022 3:45 PM Transcribed: 10/25/2022 4:10 PM Demar [id number] MIGUEL A_Naravanaswamy Electronically signed by: Paul Phillips M.D. 10/25/2022 4:28 PM Dictated:10/25/22 1545 Transcribed: 10/25/22 1610 Code Status & VTE Plan Code Status Full code VTE Prophylaxis Plan VTE Prophylaxis will be ordered: Yes PG Care Time/CCT Total # of Minutes Spent Total Time Spent with Patient: Total time spent is greater than 50% in coordination of care (as documented) at patient's floor/unit and/or counseling patient: Coding Level of Care Code 56794 INT INP/OBS CARE 3/75MIN Diagnoses Acute abdominal pain in left flank R10.9 Mechanical low back pain M54.59 Bicuspid aortic valve Q23.1 Atrial fibrillation I48.91 intermediate card tender current use of anticoagulants with INR goal of 2.0-3.0 Z79.01 Syncope R55 Syncope type: unspecified Hypertension I10 Lumbar stenosis M48.061 (6) Syncope Syncope type: unspecified Qualified Code(s): R55 - Syncope and collapse
[2022-10-27 20:55] LABS: Hematocrit (blood only) 42.7 % (42.0-52.0); Hemoglobin 14.6 g/dl (14.0-18.0); Mean Corpuscular Hemoglobin 29.4 pg (25.0-34.0); Mean Corpuscular Hgb Conc 34.2 g/dL (32.0-36.0); Mean Corpuscular Volume 85.9 fL (80.0-100.0); Mean Platelet Volume 10.2 fL (9.4-12.4); Platelet Count 197 K/uL (130-400); RDW Coefficient of Variation 14.1 % (11.5-14.5); RDW Standard Deviation 44.4 fL (36.4-46.3); Red Blood Count 4.97 M/uL (4.70-6.10); White Blood Count 11.83 K/ul (4.8-10.8)
[2022-10-27 20:56] LABS: Basophils # (auto) 0.01 K/uL (0-0.2); Basophils % (auto) 0.1 %; Eosinophils # (auto) 0.01 K/uL (0-0.50); Eosinophils % (auto) 0.1 %; Immature Granulocytes # (auto) 0.06 K/uL (0.01-0.20); Immature Granulocytes % (auto) 0.5 %; Lymphocytes # (auto) 0.95 K/uL (1.2-3.4); Monocytes # (auto) 0.92 K/uL (0.11-0.59); Monocytes % (auto) 7.8 %; Neutrophils # (auto) 9.88 K/uL (1.40-6.50); Neutrophils % (auto) 83.5 %
[2022-10-27 21:24] LABS: INR 1.6 (0.9-1.1); Partial Thromboplastin Time 28.5 Seconds (21.0-31.0); Prothrombin Time 17.5 Seconds (9.0-12.0)
[2022-10-27 21:28] LABS: Albumin Level 4.1 gm/dl (3.4-5.0); Anion Gap 6 (3-11); Calcium 9.2 mg/dl (8.6-10.3); Carbon Dioxide 25 mmol/L (21-32); Chloride 103 mmol/L (98-107); Potassium 4.5 mmol/L (3.5-5.1); Sodium 134 mmol/L (136-145)
[2022-10-27 21:34] LABS: BUN Creatinine Ratio 33.3 (10-20); Blood Urea Nitrogen 32 mg/dl (6-23); C Reactive Protein < 0.50 mg/dl (0-0.5); Creatinine Clr Calc Pharmacy 69.3 ml/min; Est GFR (African American) 85.6 ml/min; Est GFR (Non-African American) 73.8 ml/min; Glucose 114 mg/dl (70-99(Fasting)); Phosphorus 2.1 mg/dl (2.5-4.9)
[2022-10-27] MEDS ORDERED: ACETAMINOPHEN 325 MG TAB PO PRN (22:41)
[2022-10-27] MEDS ORDERED: oxyCODONE HCL IR 5 MG TAB (IMMEDIATE RELEASE) PO PRN (22:41)
[2022-10-27] MEDS ORDERED: ALBUT/IPRATROP 3MG/0.5MG NEB 3 ML VIAL NEB PRN (22:41)
[2022-10-27] MEDS: ATORVASTATIN 20 MG TAB PO SCH (23:32)
[2022-10-27] MEDS: guaiFENesin 600 MG TABCR PO SCH (23:32)
[2022-10-28] MEDS: dexAMETHasone 6 MG in SYRINGE 0 ML IV SCH ×2 (02:09→09:01)
[2022-10-28] MEDS: BACLOFEN 10 MG TAB PO SCH ×3 (07:49→13:21)
--- NOTE | 2022-10-28 07:50 | Hospitalist Progress Note ---
Date of Service October 28, 2022 Assessment & Plan (1) Mechanical low back pain: Plan: Acute,surgery did review and is not considering surgical intervention - previous MRI 10/25/22 w/o contrast of lumbar spine,Postoperative and spondylotic changedidexclude HNP - Pain control with APAP 1g TID, OxyIR 5 milligram as needed Did receive 1 dose of dexamethasone in the emergency department, dosing will continue daily baclofen prn -Prescription for oxycodone given at time of discharge (2) Atrial fibrillation: Plan: Chronic/stable - Diltiazem CD 240mg daily - Coumadin on admission INR is low will follow chronic hypertension is stable continue diltiazem and losartan Chronic cad is stable, on aspriin and atorvastatin, will hold asa incase procedure is warranted PT has bicuspid aortic valve Admission and Anticipated Discharge Date Admission Date: October 27, 2022 Subjective pt is improved from admission but now concerned about short time home was not dc on steroids and hindsight maybe steroids would have been more help, did have additional dose and now improved continue treatment and asses, consider repeat surg eval or even pain management Physical Exam Physical Exam: Patient awake and alert. He has no radicular pain but does have some upper hip lower back pain on the left side. He has no other physical complaints and remainder of his examination is unremarkable. He does not have pain with straight leg raising he has no neurological cuts or deficits Results & Data Results & Data Vital Signs (Past 12 Hours) Vital Signs Temp Pulse Pulse Resp BP BP Pulse Ox 10/27/22 23:23 98.1 F 117 H 150/96 H 94 10/27/22 23:00 10/27/22 21:16 108 H 10/27/22 21:05 108 H 19 138/105 H 94 10/27/22 21:00 104 H 18 95 O2 Del Method 10/27/22 23:23 Room Air 10/27/22 23:00 Room Air 10/27/22 21:16 10/27/22 21:05 Room Air 10/27/22 21:00 Room Air PG Care Time/CCT Total # of Minutes Spent Total Time Spent with Patient: Total time spent is greater than 50% in coordination of care (as documented) at patient's floor/unit and/or counseling patient: Coding Level of Care Code 46220 SUB INP/OBS CARE 2/35MIN Diagnoses Mechanical low back pain M54.59 Atrial fibrillation I48.91
[2022-10-28] MEDS: guaiFENesin 600 MG TABCR PO SCH ×2 (08:59→21:38)
[2022-10-28] MEDS: dilTIAZem HCL 240 MG CAPCR PO SCH (09:00)
[2022-10-28] MEDS ORDERED: ASPIRIN 81 MG ECTAB PO SCH (09:00)
[2022-10-28] MEDS: LOSARTAN POTASSIUM 50 MG TAB PO SCH (09:01)
[2022-10-28] MEDS ORDERED: BACLOFEN 10 MG TAB PO PRN (14:25)
[2022-10-28] MEDS: WARFARIN SOD 5 MG TAB PO SCH (16:02)
[2022-10-28] MEDS: ATORVASTATIN 20 MG TAB PO SCH (21:38)
[2022-10-29] MEDS: guaiFENesin 600 MG TABCR PO SCH ×2 (08:39→20:12)
[2022-10-29] MEDS: dexAMETHasone 6 MG in SYRINGE 0 ML IV SCH (08:39)
[2022-10-29] MEDS: dilTIAZem HCL 240 MG CAPCR PO SCH (08:40)
[2022-10-29] MEDS: LOSARTAN POTASSIUM 50 MG TAB PO SCH (08:40)
--- NOTE | 2022-10-29 14:09 | Hospitalist Progress Note ---
Date of Service October 29, 2022 Assessment & Plan (1) Mechanical low back pain: Plan: Acute,surgery did review and is not considering surgical intervention - previous MRI 10/25/22 w/o contrast of lumbar spine,Postoperative and spondylotic changedidexclude HNP - Pain control with APAP 1g TID, OxyIR 5 milligram as needed Did receive 1 dose of dexamethasone in the emergency department, dosing will continue daily baclofen prn -may benefit from pain management consultation or appointment shortly after discharge (2) Atrial fibrillation: Plan: Chronic/stable - Diltiazem CD 240mg daily - Coumadin on admission INR is low will follow chronic hypertension is stable continue diltiazem and losartan Chronic cad is stable, on aspriin and atorvastatin, will hold asa incase procedure is warranted PT has bicuspid aortic valve Admission and Anticipated Discharge Date Admission Date: October 28, 2022 Subjective Patient continues to feel improved will now ambulate in the hallways having less radicular pain but does have exacerbation of pain with movement Physical Exam Physical Exam: Patient awake and alert. He has no radicular pain but does have some upper hip lower back pain on the left side. He has no other physical complaints and remainder of his examination is unremarkable. He does not have pain with straight leg raising he has no neurological cuts or deficits Results & Data Results & Data Vital Signs (Past 12 Hours) Vital Signs Temp Pulse Resp BP Pulse Ox O2 Del Method 10/29/22 11:48 97.9 F 92 H 18 128/82 94 Room Air 10/29/22 03:30 97.5 F L 86 18 128/89 96 Room Air PG Care Time/CCT Total # of Minutes Spent Total Time Spent with Patient: Total time spent is greater than 50% in coordination of care (as documented) at patient's floor/unit and/or counseling patient: Coding Level of Care Code 06675 SUB INP/OBS CARE 2/35MIN Diagnoses Mechanical low back pain M54.59 Atrial fibrillation I48.91
[2022-10-29] MEDS: WARFARIN SOD 5 MG TAB PO SCH (16:30)
[2022-10-29] MEDS: ATORVASTATIN 20 MG TAB PO SCH (20:12)
[2022-10-30] MEDS: dexAMETHasone 6 MG in SYRINGE 0 ML IV SCH (08:18)
[2022-10-30] MEDS: guaiFENesin 600 MG TABCR PO SCH (08:19)
[2022-10-30] MEDS: LOSARTAN POTASSIUM 50 MG TAB PO SCH (08:19)
[2022-10-30] MEDS: dilTIAZem HCL 240 MG CAPCR PO SCH (08:19)
[2022-10-30] MEDS: WARFARIN SOD 5 MG TAB PO SCH (15:36)
--- NOTE | 2022-10-30 16:54 | Discharge Summary ---
Date of Service October 30, 2022 Admission HPI Per Admitting Provider The patient is an 82-year-old male with a past medical history including mechanical low back pain, bicuspid aortic valve, atrial fibrillation, long-term use of warfarin, acute kidney injury, syncope, carotid stenosis, near syncope, hypertension, hypertensive crisis, lumbar stenosis and rib pain. He was admitted to [facility] from 10/25-10/26 for severe lower left back pain. During that admission he underwent an MRI of the lumbar spine, which showed postoperative and spondylitic change with no destructive bony lesion seen and degenerative disc disease as noted. He was seen by orthopedic spine surgery during that admission, and there was felt no indication for surgery. He was then discharged to home. Had a recurrence of his severe pain, and return to the emergency department for assessment today. Principal Diagnosis left sided back pain Discharge Exam Patient awake and alert. He has no radicular pain but does have some upper hip lower back pain on the left side. He has no other physical complaints and remainder of his examination is unremarkable. He does not have pain with straight leg raising he has no neurological cuts or deficits Discharge Data Allergies Allergy/AdvReac Type Severity Reaction Status Date / Time No Known Allergies Allergy Verified 10/27/22 19:51 Consultations 10/27/22 20:46 ED Decision to Admit Stat Hospital Course (1) Mechanical low back pain: Acute,surgery did review and is not considering surgical intervention - previous MRI 10/25/22 w/o contrast of lumbar spine,Postoperative and spondylotic changedidexclude HNP - Pain control with APAP 1g TID, OxyIR 5 milligram as needed Did receive 1 dose of dexamethasone in the emergency department, dosing will continue daily tapering dose -may benefit from pain management consultation or appointment shortly after discharge (2) Atrial fibrillation: Chronic/stable - Diltiazem CD 240mg daily - Coumadin on admission INR is low will follow chronic hypertension is stable continue diltiazem and losartan Chronic cad is stable, on aspriin and atorvastatin, will hold asa incase procedure is warranted PT has bicuspid aortic valve Total Time Total Time Spent Total Time Spent (In Minutes): It required greater than 30 minutes to prepare this patient for discharge Discharge Plan Discharge Items Patient Disposition: Home - Self-Care Reason For Visit: LOW BACK PAIN Discharge Diagnosis: low back pain broad based disc bulge Activity: Per Instructions section Activity Comment: activity per physical therapy Non-emergency contact: Primary Care Provider Call non-emergency contact if: your symptoms worsen Follow-up/Referrals: PCP,NO [Primary Care Provider] - Diet: Regular Addtl Attending Provider Instructions: please move carefully, follow up with Dr Ayon consider seeing pain managment, a referral has been sent to their office and they will contact you complete steroid taper Pending Studies at Discharge: No Stand-Alone Forms: [facility], Smoking Cessation Medications and DC Order Prescriptions: New dexamethasone 2 mg tablet 2 mg PO UD Qty: 30 0RF Rx Instructions: 3 a day for 5 days then 2 a day for 5 days then one a day Continued atorvastatin 20 mg tablet 20 mg PO QPM Qty: 90 3RF losartan 100 mg tablet 100 mg PO QAM Qty: 90 3RF diltiazem HCl 240 mg capsule,extended release 24hr 240 mg PO QAM Qty: 90 1RF aspirin 81 mg Tablet,Delayed Release (Dr/Ec) 81 mg PO QAM warfarin 5 mg tablet See Rx Instructions .ROUTE .COMPLEX Protocol: Dose Management Condition: Sunday (Week One) Dose/Route: 5 mg Instruction: 1 x 5 mg tablet Condition: Sunday Dose/Route: 5 mg Instruction: 1 x 5 mg tablet Condition: Sunday Dose/Route: 0 mg Instruction: 0 tablets Condition: Sunday Dose/Route: 0 mg Instruction: 0 tablets Condition: Dose/Route: 5 mg Instruction: 1 x 5 mg tablet Condition: Sunday Dose/Route: 5 mg Instruction: 1 x 5 mg tablet Condition: Sunday Dose/Route: 5 mg Instruction: 1 x 5 mg tablet Condition: Sunday (Week Two) Dose/Route: 5 mg Instruction: 1 x 5 mg tablet Condition: Sunday Dose/Route: 5 mg Instruction: 1 x 5 mg tablet Condition: Sunday Dose/Route: 2.5 mg Instruction: 0.5 x 5 mg tablets Condition: Sunday Dose/Route: 5 mg Instruction: 1 x 5 mg tablet Condition: Dose/Route: 5 mg Instruction: 1 x 5 mg tablet Condition: Sunday Dose/Route: 5 mg Instruction: 1 x 5 mg tablet Condition: Sunday Dose/Route: 5 mg Instruction: 1 x 5 mg tablet Protocol Text: Adjustment Start Date: Sunday10/24/22 INR Value: 3.8 INR Date: 10/24/22 Recheck Date: 11/02/22 Rx Instructions: 5 mg orally ;TAKES QPM @ 1600, TAKES 5 MG EVERY DAY, EXCEPT TUESDAYS--TAKES 2.5 MG. acetaminophen [Tylenol Extra Strength] 500 mg tablet 1,000 mg PO DIRECTED PRN (Reason: Pain) oxycodone 5 mg Tablet 5 mg PO Q4H PRN (Reason: Pain) Rx Instructions: PER PT "USED 1 TAB". Discharge Orders: Discharge Order (Routine); Ordered 10/30/22 Ordered By: Matias Sanchez/Other Patient Handouts: What to Know When TakingWarfarin Admission Data Admit Date/Time: 10/28/22 14:14 Attending Provider: Matias Pereyra Admit Provider: Zafar Coleman Primary Care Provider: PCP,NO Other Providers: Zafar Coleman Other Interventions: Discharge Summary Assessment (RN) Last Done: 10/30/22 14:56 Coding Level of Care Code 38885 INP/OBS DISCH >30 MIN Diagnoses Mechanical low back pain M54.59 Atrial fibrillation I48.91
[2022-10-31] MEDS ORDERED: WARFARIN SOD 2.5 MG TAB PO SCH (16:00)
== END 2022-10-30 15:49 | disposition home or self-care (01) | DRG 552 ==
LOC: ED 17:32 → 3E 17:32 → SUATTDRO 20:40 → 3E 22:13

== ENCOUNTER 2022-11-19 04:44 | Inpatient (IN) ==
[2022-11-19] MEDS ORDERED: SODIUM CHLORIDE 0.9% 1000ML 1,000 ML IV ONE (05:05)
[2022-11-19 05:18] LABS: iSTAT Hemoglobin 11.2 g/dl (14.0-18.0); iSTAT Ionized Calcium 1.15 mmol/l (1.12-1.32); iSTAT Potassium 5.1 mmol/L (3.3-5.0)
[2022-11-19 05:29] LABS: Basophils # (auto) 0.02 K/uL (0-0.2); Basophils % (auto) 0.2 %; Eosinophils # (auto) 0.14 K/uL (0-0.50); Eosinophils % (auto) 1.4 %; Hematocrit (blood only) 32.3 % (42.0-52.0); Immature Granulocytes # (auto) 0.19 K/uL (0.01-0.20); Immature Granulocytes % (auto) 1.8 %; Lymphocytes # (auto) 1.45 K/uL (1.2-3.4); Mean Corpuscular Hemoglobin 29.4 pg (25.0-34.0); Mean Corpuscular Hgb Conc 34.1 g/dL (32.0-36.0); Mean Corpuscular Volume 86.4 fL (80.0-100.0); Mean Platelet Volume 10.1 fL (9.4-12.4); Monocytes # (auto) 0.74 K/uL (0.11-0.59); Monocytes % (auto) 7.2 %; Neutrophils % (auto) 75.4 %; Platelet Count 163 K/uL (130-400); RDW Coefficient of Variation 14.6 % (11.5-14.5); RDW Standard Deviation 45.9 fL (36.4-46.3); Red Blood Count 3.74 M/uL (4.70-6.10); White Blood Count 10.34 K/ul (4.8-10.8)
[2022-11-19 05:34] LABS: Alanine Aminotransferase 41 U/L (7-52); Albumin Globulin Ratio 1.4 (0.9-2); Albumin Level 3.1 gm/dl (3.4-5.0); Alkaline Phosphatase 53 U/L (34-104); Anion Gap 5 (3-11); Aspartate Aminotransferase 17 U/L (13-39); BUN Creatinine Ratio 57.4 (10-20); Bilirubin,Total 0.5 mg/dl (0.2-1.0); Blood Urea Nitrogen 62 mg/dl (6-23); Calcium 8.4 mg/dl (8.6-10.3); Carbon Dioxide 24 mmol/L (21-32); Chloride 103 mmol/L (98-107); Est GFR (African American) 74.2 ml/min; Globulin 2.2 gm/dl (2.5-4.0); Glucose 214 mg/dl (70-99(Fasting)); Lipase 19 U/L (11-82); Magnesium 1.8 mg/dl (1.7-2.4); Potassium 5.1 mmol/L (3.5-5.1); Sodium 132 mmol/L (136-145); Total Protein 5.3 gm/dl (6.0-8.3)
--- NOTE | 2022-11-19 05:34 | Emergency Department Note ---
Impression & Plan Diarrhea, Acute hypotension, Acute GI bleeding, Atrial fibrillation with rapid ventricular response ED Provider Note ED Provider Note NAME: VENKATESH MONDRAGON AGE:82 SEX: Male : 1940 ARRIVES VIA: Private vehicle INFORMANT: Patient, ED PROVIDER(s): Cheryl Piper DO CHIEF COMPLAINT: Diarrhea, GI bleed HPI: This is an 82-year-old male presents emergency department after a significant episode of diarrhea at home with accompanying blood noted in his stool. Patient found to be significantly hypotensive in triage and was immediately rushed back to room B1 and I was called to the room. Patient states he has been feeling ill for several days and thought perhaps he got bad food however his has not been ill. No other known sick contacts. No new medications. Patient does use Coumadin daily due to history of atrial fibrillation. He states he has had loose stools the past 2 days. He states with the episode of explosive diarrhea this evening he thinks he did notice some blood accompanying the watery stool, no blood clots were noted. He denies noting any prior blood with his bowel movements. He denies abdominal pain although states he feels uncomfortable and bloated. He denies nausea or vomit ing although admits he has not had a normal appetite. No hx of IBS/IBD. He states his most recent INR was 1.6 although it had previously been significantly elevated over 7 while he was admitted for back pain. Patient denies any use of NSAIDs. No recent change in diet. No history of GERD/PUD. PAST MEDICAL HISTORY:See Below PAST SURGICAL HISTORY:See Below FAMILY HISTORY:See Below SOCIAL HISTORY:See Below HOME MEDICATIONS:See Below ALLERGIES:See Below VITALS:See Below PHYSICAL EXAMINATION: GENERAL: alert, unwell appearing, well nourished, no distress, non-toxic EYE EXAM: normal conjunctiva, PERRL and EOM's grossly intact OROPHARYNX: no exudate, no erythema, lips, buccal mucosa, and tongue normal and mucous membranes are dry NECK: supple, no nuchal rigidity, no adenopathy, non-tender LUNGS: Clear to auscultation. Normal chest wall mechanics, no w/r/r HEART: no murmurs, S1 normal and S2 normal ABDOMEN: abdomen soft, non-tender, normo-active bowel sounds, no masses, no rebound or guarding. BACK: Back is symmetrical on inspection and there is no deformity, no midline tenderness, no CVA tenderness. SKIN: no rashes, petechiae, orbruising UPPER EXTREMITIES: upper extremities are grossly normal. FROM, nml pulses b/l. LOWER EXTREMITIES: No pitting edema. FROM, nml pulses b/l. NEURO EXAM: Normal sensorium, cranial nerves II-XII grossly intact, normal spee ch, no facial droop,nogross weakness of arms, no gross weakness of legs. Gross sensation intact. No ataxia. Vital Signs: reviewed and remarkable Differential Diagnosis: Viral syndrome, colitis, diverticulitis, diverticular bleed, mesenteric is chemia, medication ADR, supratherapeutic INR, RONALD, electrolyte abnormality, upper GI bleed, AVM, as well as others were considered MEDICAL DECISION MAKING: This is an 82-year-old male presents emergency department due to concern for diarrhea, weakness, and possible GI bleed. Patient found to be markedly hypotensive in triage and was immediately placed in room B1. I was called to the room urgently. Patient was awake and talking although was ill-appearing, was hypotensive and tachycardic although rate was noted to be atrial fibrillation of which patient does have history. 2 IVs were established, labs drawn and sent, EKG performed at bedside and interpreted by me and patient started on IV fluids. Patient's blood pressure did begin to improve with IV fluid volume repletion. Upon discussion additionally with the patient and patient likely with volume depletion from recent GI illness with accompanying diarrhea over the last 2 days as well as decreased oral intake due to poor appetite. Patient's H&H appears stable although was noted to be down several g arnoldo per deciliter compared to his previously noted baseline. Patient is anticoagulated with Coumadin because of the A-fib, his INR was noted to be elevated at 4.3. After patient had a recurrent episode here, he was given IV vitamin K for reversal. Due to keeping the patient n.p.o. initially while awaiting CT results and monitoring his condition patient was started on a diltiazem drip and lieu of his oral diltiazem which she takes daily for his atrial fibrillation. Patient's recurrent episode of diarrhea here the blood appeared darker although not black. Due to concern and consideration for possible occult upper GI bleed Protonix bolus and drip were added additionally. Of note while patient was admitted recently he did take a course of steroids which could have contributed to upper GI irritation. No prior history of PUD and he denies any recent GERD symptoms additionally. Patient continued to remain stable here, and CT ultimately read by radiology without any acutely concerning pathology or evidence of active bleed. Case discussed with hospitalist for additional evaluation and management as well as with GI. While hospitalist initially suggested FFP additionally GI would prefer PCC. This was discussed with Dr. New per protocol who was in agreement with plan for use of PCC and the patient. She also recommended additional IV vitamin K which was also given. Patient given additional product. Patient and family updated on results. Consultation(s): 0825: Discussed with Dr. Mendoza. He would like 2 un FFP given additionally and feels patient likely should go to the ICU. 0835: Discussed with Dr. Pinto. He would prefer patient be given PCC. Plan for procedure tomorrow unless condition changes. 0850: Discussed with Dr. New. Agrees with PCC. ER Treatment Provided: See below 0452: I was called urgently to room B1 as patient had been noted to be significantly hypotensive and ill-appearing in triage. After IV was established IV fluids immediately started, patient's blood pressure slowly began to improve. Patient was awake and talking throughout. 0525: Patient's blood pressure continues to improve with volume repletion. Tachycardia slightly improved additionally, although patient does have a history of atrial fibrillation. 0633: Patient's blood pressure continues to hold after finishing the first liter of IV fluids and being transition to a maintenance rate. Due to concern for GI bleed patient kept NPO. Will start diltiazem drip and lieu of giving his morning dose of oral diltiazem while awaiting CT results. 0805: Patient reexamined at bedside and updated. Patient did have r ecurrent episode of diarrhea here and blood was noted by staff. Nursing staff states no obvious clots however blood appeared darker. He states patient only with intermittent GERD, no history of peptic ulcer disease. No prior history of GI bleed. Diagnostics Interpreted By Me: -ECG: Atrial fibrillation at a rate of 130, normal axis, normal QRS and QTc, nonspecific ST/T wave changes -Cardiac Monitoring: An order was placed for continuous cardiac monitoring. The monitor shows a rate of 109 with atrial fibrillation rhythm. -Laboratory studies: As stated above and show below. -Imaging studies: [] Triage Nursing Note Reviewed Prior/Outside Records Reviewed Procedures: Critical care of 51 min performed to assess and manage high likelihood of life- threatening Gi bleed, involving labs and imaging performed with assessment to evaluate GI bleed diagnosis with frequent reassessment. This time includes bedside time, treatment discussions with patient/family/consultants, documentation time and excludes procedure time. Past Med/Surg History Medical History Atrial fibrillation Atrial fibrillation Bicuspid aortic valve Carotid stenosis HTN (hypertension) Hypertension Long-term (current) use of anticoagulants, INR goal 2.0-3.0 Lumbar spondylosis No significant family history Sacroiliitis Surgical History History of lumbar fusion instrumented, L2-3, Dr. Cooper - 08/2017 History of removal of cyst (04/03/22) FINAL DIAGNOSIS: In office procedure Dr. Pickens 04/03/2022 Skin, thigh cyst, excision: - Benign glomangioma (glomus tumor) No significant past surgical history Social History Smoking Status: Former smoker Second Hand Exposure: No; Do You Dip or Chew Tobacco: No; Hx Alcohol Use: Yes Alcohol type: beer and wine Hx Substance Use: No Preferred Language: Tongan Communication Ability: Effective Parts Interpreter Required: No Beliefs That Will Affect Care: None marital status: Current Living Situation: Spouse How many Children do You have: 2 Feels Safe at Home: Yes Assistive Devices: Cane, Denture - Upper, Denture - Lower, Glasses and Walker Allergies Allergies Allergy/AdvReac Type Severity Reaction Status Date / Time No Known Allergies Allergy Verified 11/08/22 10:47 Home Meds Home Medications Medication Instructions Recorded Confirmed aspirin 81 mg tablet,delayed 81 mg PO QAM 10/27/20 11/19/22 release warfarin 5 mg tablet 5 mg PO [id number] 10/25/22 11/19/22 acetaminophen 500 mg tablet 1,000 mg PO DIRECTED PRN Pain 10/27/22 11/19/22 (Tylenol Extra Strength) warfarin 5 mg tablet 2.5 mg PO 2XWK 11/19/22 11/19/22 Previous Rx's Medication Instructions Recorded atorvastatin 20 mg tablet 20 mg PO QPM #90 tabs 01/09/22 losartan 100 mg tablet 100 mg PO QAM #90 tabs 02/23/22 diltiazem HCl 240 mg 240 mg PO QAM #90 caps 07/10/22 capsule,extended release 24 hr Results & Data (ED) Vital Signs Vital Signs - 24 hr 11/19/22 04:47 11/19/22 04:57 11/19/22 05:02 Temperature 36.4 C L Temperature Source Oral Pulse Rate 62 149 H 133 H Pulse Rate from SpO2 Sensor Respiratory Rate 20 20 Respiratory Effort / Characteristics Non-Labored Respiratory Depth Normal Blood Pressure 65/44 L 81/62 L Blood Pressure Mean 51 68 Pulse Oximetry 97 99 Oxygen Delivery Method Room Air Room Air Sepsis Recent Fever Within 48 Hours No Sepsis New/Unexplained Change in Mental Status N/A Sepsis Action Taken by Nursing No Action Required 11/19/22 05:10 11/19/22 05:16 11/19/22 05:30 Temperature Temperature Source Pulse Rate 123 H 117 H 106 H Pulse Rate from SpO2 Sensor Respiratory Rate 18 16 18 Respiratory Effort / Characteristics Respiratory Depth Blood Pressure 98/65 L 101/61 111/72 Blood Pressure Mean 76 74 85 Pulse Oximetry 99 100 99 Oxygen Delivery Method Room Air Room Air Room Air Sepsis Recent Fever Within 48 Hours Sepsis New/Unexplained Change in Mental Status Sepsis Action Taken by Nursing 11/19/22 06:15 11/19/22 06:30 11/19/22 06:30 Temperature Temperature Source Pulse Rate 116 H 115 H Pulse Rate from SpO2 Sensor 80 Respiratory Rate 16 24 Respiratory Effort / Characteristics Respiratory Depth Blood Pressure 115/62 112/74 Blood Pressure Mean 79 86 Pulse Oximetry 100 97 Oxygen Delivery Method Room Air Sepsis Recent Fever Within 48 Hours Sepsis New/Unexplained Change in Mental Status Sepsis Action Taken by Nursing 11/19/22 06:57 11/19/22 06:57 11/19/22 07:01 Temperature Temperature Source Pulse Rate 119 H Pulse Rate from SpO2 Sensor 99 H Respiratory Rate 23 Respiratory Effort / Characteristics Respiratory Depth Blood Pressure 106/72 103/75 Blood Pressure Mean 83 84 Pulse Oximetry 95 Oxygen Delivery Method Sepsis Recent Fever Within 48 Hours Sepsis New/Unexplained Change in Mental Status Sepsis Action Taken by Nursing 11/19/22 07:01 11/19/22 07:35 11/19/22 08:00 Temperature Temperature Source Pulse Rate 135 H 109 H 117 H Pulse Rate from SpO2 Sensor 92 H Respiratory Rate 20 17 14 Respiratory Effort / Characteristics Respiratory Depth Blood Pressure 136/74 99/59 L Blood Pressure Mean 94 72 Pulse Oximetry 98 100 99 Oxygen Delivery Method Room Air Room Air Sepsis Recent Fever Within 48 Hours Sepsis New/Unexplained Change in Mental Status Sepsis Action Taken by Nursing 11/19/22 08:38 11/19/22 08:15 11/19/22 08:30 Temperature Temperature Source Pulse Rate 114 H 116 H 109 H Pulse Rate from SpO2 Sensor Respiratory Rate 14 18 Respiratory Effort / Characteristics Respiratory Depth Blood Pressure 109/63 116/69 Blood Pressure Mean 78 84 Pulse Oximetry 98 100 Oxygen Delivery Method Room Air Room Air Sepsis Recent Fever Within 48 Hours Sepsis New/Unexplained Change in Mental Status Sepsis Action Taken by Nursing 11/19/22 08:45 11/19/22 09:00 11/19/22 09:15 Temperature Temperature Source Pulse Rate 111 H 108 H 110 H Pulse Rate from SpO2 Sensor Respiratory Rate 14 14 13 Respiratory Effort / Characteristics Respiratory Depth Blood Pressure 102/62 109/70 100/62 Blood Pressure Mean 75 83 74 Pulse Oximetry 93 100 98 Oxygen Delivery Method Room Air Room Air Room Air Sepsis Recent Fever Within 48 Hours Sepsis New/Unexplained Change in Mental Status Sepsis Action Taken by Nursing 11/19/22 09:31 11/19/22 09:45 11/19/22 10:00 Temperature Temperature Source Pulse Rate 103 H 104 H 105 H Pulse Rate from SpO2 Sensor Respiratory Rate 14 14 12 Respiratory Effort / Characteristics Respiratory Depth Blood Pressure 106/74 110/65 111/71 Blood Pressure Mean 84 80 84 Pulse Oximetry 99 97 100 Oxygen Delivery Method Room Air Room Air Room Air Sepsis Recent Fever Within 48 Hours Sepsis New/Unexplained Change in Mental Status Sepsis Action Taken by Nursing 11/19/22 10:16 11/19/22 10:30 11/19/22 10:45 Temperature Temperature Source Pulse Rate 106 H 113 H 107 H Pulse Rate from SpO2 Sensor Respiratory Rate 14 18 13 Respiratory Effort / Characteristics Respiratory Depth Blood Pressure 101/72 115/73 112/75 Blood Pressure Mean 81 87 87 Pulse Oximetry 99 99 100 Oxygen Delivery Method Room Air Room Air Room Air Sepsis Recent Fever Within 48 Hours Sepsis New/Unexplained Change in Mental Status Sepsis Action Taken by Nursing Laboratory Data 11/19/22 05:00 11/19/22 05:00 Lab Results 11/19/22 11/19/22 11/19/22 Range/Units 05:00 05:00 05:00 WBC 10.34 (4.8-10.8) K/ul RBC 3.74 L (4.70-6.10) M/uL Hgb 11.0 L (14.0-18.0) g/dl POC Hgb (14.0-18.0) g/dl Hct 32.3 L (42.0-52.0) % POC Hct (42-52) % MCV 86.4 (80.0-100.0) fL MCH 29.4 (25.0-34.0) pg MCHC 34.1 (32.0-36.0) g/dL RDW Std Deviation 45.9 (36.4-46.3) fL RDW Coeff of Demetrius 14.6 H (11.5-14.5) % Plt Count 163 (130-400) K/uL MPV 10.1 (9.4-12.4) fL Immature Gran % (Auto) 1.8 % Neut % (Auto) 75.4 % Lymph % (Auto) 14.0 % Archer % (Auto) 7.2 % Eos % (Auto) 1.4 % Baso % (Auto) 0.2 % Neut # (Auto) 7.80 H (1.40-6.50) K/uL Lymph # (Auto) 1.45 (1.2-3.4) K/uL Archer # (Auto) 0.74 H (0.11-0.59) K/uL Eos # (Auto) 0.14 (0-0.50) K/uL Baso # (Auto) 0.02 (0-0.2) K/uL Immature Gran # (Auto) 0.19 (0.01-0.20) K/uL PT 43.4 H (9.0-12.0) Seconds INR 4.3 H (0.9-1.1) POC Sodium (135-144) mmol/L Sodium 132 L (136-145) mmol/L POC Potassium (3.3-5.0) mmol/L Potassium 5.1 (3.5-5.1) mmol/L POC Chloride (101-112) mmol/L Chloride 103 (98-107) mmol/L Carbon Dioxide 24 (21-32) mmol/L POC Total CO2 (24-31) mmol/L Anion Gap 5 (3-11) POC Anion Gap (16-25) mmol/L POC BUN (7-18) mg/dl BUN 62 H (6-23) mg/dl Creatinine 1.08 (0.6-1.4) mg/dl POC Creatinine (0.6-1.3) mg/dl Est Cr Clr Drug Dosing Not Reportable Est GFR ( Amer) 74.2 ml/min Est GFR (Non-Af Amer) 64.0 ml/min BUN/Creatinine Ratio 57.4 H (10-20) Glucose 214 H (70-99(Fasting)) mg/dl POC Glucose (other) (70-99) mg/dl Lactate (0.4-2.0) mmol/L Calcium 8.4 L (8.6-10.3) mg/dl POC Ioniz Calcium Neha (1.12-1.32) mmol/l Phosphorus 2.8 (2.5-4.9) mg/dl Magnesium 1.8 (1.7-2.4) mg/dl Total Bilirubin 0.5 (0.2-1.0) mg/dl AST 17 (13-39) U/L ALT 41 (7-52) U/L Alkaline Phosphatase 53 (34-104) U/L Total Protein 5.3 L (6.0-8.3) gm/dl Albumin 3.1 L (3.4-5.0) gm/dl Globulin 2.2 L (2.5-4.0) gm/dl Albumin/Globulin Ratio 1.4 (0.9-2) Lipase 19 (11-82) U/L Stl C. cayetanensis PCR (NotDetected) Stool Rotavirus A PCR (NotDetected) Stl Adenov F 40/41 PCR (NotDetected) Stool Astrovirus (PCR) (NotDetected) Stool Campylobacter PCR (NotDetected) Stool Cryptosporidium PCR (NotDetected) Stl E.coli Shiga Tox PCR (NotDetected) Stl Enterotoxigenic E PCR (NotDetected) Stool EPEC (PCR) (NotDetected) Stool EAEC (PCR) (NotDetected) Stl E. histolytica PCR (NotDetected) Stool Giardia Lamblia PCR (NotDetected) Stool Salmonella PCR (NotDetected) Stool Sapovirus (PCR) (NotDetected) Stl P. shigelloides PCR (NotDetected) Stl Shigella/EIEC PCR (NotDetected) St Y.enterocolitica PCR (NotDetected) Stool Vibrio (PCR) (NotDetected) Stl Vibrio cholerae PCR (NotDetected) Stl Norovirus GI/GII PCR (NotDetected) SARS-CoV-2, RNA, NAAT (NEGATIVE) Blood Type Antibody Screen 11/19/22 11/19/22 11/19/22 Range/Units 05:05 05:15 06:25 WBC (4.8-10.8) K/ul RBC (4.70-6.10) M/uL Hgb (14.0-18.0) g/dl POC Hgb 11.2 L (14.0-18.0) g/dl Hct (42.0-52.0) % POC Hct 33 L (42-52) % MCV (80.0-100.0) fL MCH (25.0-34.0) pg MCHC (32.0-36.0) g/dL RDW Std Deviation (36.4-46.3) fL RDW Coeff of Demetrius (11.5-14.5) % Plt Count (130-400) K/uL MPV (9.4-12.4) fL Immature Gran % (Auto) % Neut % (Auto) % Lymph % (Auto) % Archer % (Auto) % Eos % (Auto) % Baso % (Auto) % Neut # (Auto) (1.40-6.50) K/uL Lymph # (Auto) (1.2-3.4) K/uL Archer # (Auto) (0.11-0.59) K/uL Eos # (Auto) (0-0.50) K/uL Baso # (Auto) (0-0.2) K/uL Immature Gran # (Auto) (0.01-0.20) K/uL PT (9.0-12.0) Seconds INR (0.9-1.1) POC Sodium 132 L (135-144) mmol/L Sodium (136-145) mmol/L POC Potassium 5.1 H (3.3-5.0) mmol/L Potassium (3.5-5.1) mmol/L POC Chloride 101 (101-112) mmol/L Chloride (98-107) mmol/L Carbon Dioxide (21-32) mmol/L POC Total CO2 22 L (24-31) mmol/L Anion Gap (3-11) POC Anion Gap 16.0 (16-25) mmol/L POC BUN 55 H (7-18) mg/dl BUN (6-23) mg/dl Creatinine (0.6-1.4) mg/dl POC Creatinine 1.0 (0.6-1.3) mg/dl Est Cr Clr Drug Dosing Est GFR ( Amer) ml/min Est GFR (Non-Af Amer) ml/min BUN/Creatinine Ratio (10-20) Glucose (70-99(Fasting)) mg/dl POC Glucose (other) 214 H (70-99) mg/dl Lactate 1.4 (0.4-2.0) mmol/L Calcium (8.6-10.3) mg/dl POC Ioniz Calcium Neha 1.15 (1.12-1.32) mmol/l Phosphorus (2.5-4.9) mg/dl Magnesium (1.7-2.4) mg/dl Total Bilirubin (0.2-1.0) mg/dl AST (13-39) U/L ALT (7-52) U/L Alkaline Phosphatase (34-104) U/L Total Protein (6.0-8.3) gm/dl Albumin (3.4-5.0) gm/dl Globulin (2.5-4.0) gm/dl Albumin/Globulin Ratio (0.9-2) Lipase (11-82) U/L Stl C. cayetanensis PCR (NotDetected) Stool Rotavirus A PCR (NotDetected) Stl Adenov F 40/41 PCR (NotDetected) Stool Astrovirus (PCR) (NotDetected) Stool Campylobacter PCR (NotDetected) Stool Cryptosporidium PCR (NotDetected) Stl E.coli Shiga Tox PCR (NotDetected) Stl Enterotoxigenic E PCR (NotDetected) Stool EPEC (PCR) (NotDetected) Stool EAEC (PCR) (NotDetected) Stl E. histolytica PCR (NotDetected) Stool Giardia Lamblia PCR (NotDetected) Stool Salmonella PCR (NotDetected) Stool Sapovirus (PCR) (NotDetected) Stl P. shigelloides PCR (NotDetected) Stl Shigella/EIEC PCR (NotDetected) St Y.enterocolitica PCR (NotDetected) Stool Vibrio (PCR) (NotDetected) Stl Vibrio cholerae PCR (NotDetected) Stl Norovirus GI/GII PCR (NotDetected) SARS-CoV-2, RNA, NAAT (NEGATIVE) Blood Type O Negative Antibody Screen NEGATIVE 11/19/22 11/19/22 11/19/22 Range/Units 07:34 07:43 08:30 WBC (4.8-10.8) K/ul RBC (4.70-6.10) M/uL Hgb (14.0-18.0) g/dl POC Hgb 10.5 L (14.0-18.0) g/dl Hct (42.0-52.0) % POC Hct 31 L (42-52) % MCV (80.0-100.0) fL MCH (25.0-34.0) pg MCHC (32.0-36.0) g/dL RDW Std Deviation (36.4-46.3) fL RDW Coeff of Demetrius (11.5-14.5) % Plt Count (130-400) K/uL MPV (9.4-12.4) fL Immature Gran % (Auto) % Neut % (Auto) % Lymph % (Auto) % Archer % (Auto) % Eos % (Auto) % Baso % (Auto) % Neut # (Auto) (1.40-6.50) K/uL Lymph # (Auto) (1.2-3.4) K/uL Archer # (Auto) (0.11-0.59) K/uL Eos # (Auto) (0-0.50) K/uL Baso # (Auto) (0-0.2) K/uL Immature Gran # (Auto) (0.01-0.20) K/uL PT (9.0-12.0) Seconds INR (0.9-1.1) POC Sodium 134 L (135-144) mmol/L Sodium (136-145) mmol/L POC Potassium 4.8 (3.3-5.0) mmol/L Potassium (3.5-5.1) mmol/L POC Chloride 102 (101-112) mmol/L Chloride (98-107) mmol/L Carbon Dioxide (21-32) mmol/L POC Total CO2 22 L (24-31) mmol/L Anion Gap (3-11) POC Anion Gap 16.0 (16-25) mmol/L POC BUN 55 H (7-18) mg/dl BUN (6-23) mg/dl Creatinine (0.6-1.4) mg/dl POC Creatinine 0.9 (0.6-1.3) mg/dl Est Cr Clr Drug Dosing Est GFR ( Amer) ml/min Est GFR (Non-Af Amer) ml/min BUN/Creatinine Ratio (10-20) Glucose (70-99(Fasting)) mg/dl POC Glucose (other) 166 H (70-99) mg/dl Lactate (0.4-2.0) mmol/L Calcium (8.6-10.3) mg/dl POC Ioniz Calcium Neha 1.11 L (1.12-1.32) mmol/l Phosphorus (2.5-4.9) mg/dl Magnesium (1.7-2.4) mg/dl Total Bilirubin (0.2-1.0) mg/dl AST (13-39) U/L ALT (7-52) U/L Alkaline Phosphatase (34-104) U/L Total Protein (6.0-8.3) gm/dl Albumin (3.4-5.0) gm/dl Globulin (2.5-4.0) gm/dl Albumin/Globulin Ratio (0.9-2) Lipase (11-82) U/L Stl C. cayetanensis PCR Not Detected (NotDetected) Stool Rotavirus A PCR Not Detected (NotDetected) Stl Adenov F 40/41 PCR Not Detected (NotDetected) Stool Astrovirus (PCR) Not Detected (NotDetected) Stool Campylobacter PCR Not Detected (NotDetected) Stool Cryptosporidium PCR Not Detected (NotDetected) Stl E.coli Shiga Tox PCR Not Detected (NotDetected) Stl Enterotoxigenic E PCR Not Detected (NotDetected) Stool EPEC (PCR) Not Detected (NotDetected) Stool EAEC (PCR) Not Detected (NotDetected) Stl E. histolytica PCR Not Detected (NotDetected) Stool Giardia Lamblia PCR Not Detected (NotDetected) Stool Salmonella PCR Not Detected (NotDetected) Stool Sapovirus (PCR) Not Detected (NotDetected) Stl P. shigelloides PCR Not Detected (NotDetected) Stl Shigella/EIEC PCR Not Detected (NotDetected) St Y.enterocolitica PCR Not Detected (NotDetected) Stool Vibrio (PCR) Not Detected (NotDetected) Stl Vibrio cholerae PCR Not Detected (NotDetected) Stl Norovirus GI/GII PCR Not Detected (NotDetected) SARS-CoV-2, RNA, NAAT NEGATIVE (NEGATIVE) Blood Type Antibody Screen Administered Medications Sodium Chloride (Nss 1000ml) 1,000 mls @ 75 mls/hr IV .[id number] [facility] Stop: 12/19/22 05:44 Last Admin: 11/19/22 14:33 Dose: 75 mls/hr Documented By: Infusion: 11/19/22 14:33 Dose: 75 mls/hr Documented By: Admin: 11/19/22 06:10 Dose: 125 mls/hr Documented By: EPHRAIM Diltiazem HCl 125 mg/ Dextrose 125 mls @ 10 mls/hr IV .[id number] [facility]; Protocol Stop: 12/19/22 07:44 Last Titration: 11/19/22 17:41 Dose: 10 mg/hr, 10 mls/hr Documented By: TEAGAN Co-signed By: HALEY Titration: 11/19/22 17:15 Dose: 5 mg/hr, 5 mls/hr Documented By: TEAGAN Co-signed By: ROXANNA Admin: 11/19/22 16:26 Dose: 10 mg/hr, 10 mls/hr Documented By: TEAGAN Co-signed By: HALEY Titration: 11/19/22 16:26 Dose: 15 mg/hr, 15 mls/hr Documented By: TEAGAN Co-signed By: HALEY Titration: 11/19/22 09:55 Dose: 15 mg/hr, 15 mls/hr Documented By: WILL Co-signed By: HIRAL Titration: 11/19/22 08:53 Dose: 10 mg/hr, 10 mls/hr Documented By: WILL Co-signed By: HIRAL Admin: 11/19/22 07:48 Dose: 5 mg/hr, 5 mls/hr Documented By: WILL Co-signed By: HIRAL Pantoprazole Sodium 40 mg/ (Syringe) 10 mls @ 5 mls/min IV BID GAYLA Stop: 12/19/22 20:59 Last Admin: 11/19/22 20:30 Dose: 5 mls/min Documented By: TG Discontinued Medications Sodium Chloride (Nss 1000ml) 1,000 mls @ 999 mls/hr IV .[id number] ONE Stop: 11/19/22 06:05 Last Infusion: 11/19/22 06:10 Dose: 0 mls/hr Documented By: Admin: 11/19/22 05:09 Dose: 999 mls/hr Documented By: EPHRAIM Pantoprazole Sodium (Protonix Bolus/Drip) 0 mls @ 1 mls/hr IV ONE STA Stop: 11/19/22 08:11 Last Admin: 11/19/22 09:03 Dose: Not Given Documented By: WILL Pantoprazole Sodium 80 mg/ (Dextrose) 120 mls @ 400 mls/hr IV NOW ONE Stop: 11/19/22 08:27 Last Infusion: 11/19/22 09:21 Dose: 0 mls/hr Documented By: Admin: 11/19/22 09:03 Dose: 400 mls/hr Documented By: WILL Pantoprazole Sodium 40 mg/ (Dextrose) 100 mls @ 20 mls/hr IV Q5H GAYLA Stop: 12/19/22 08:29 Last Infusion: 11/19/22 14:23 Dose: 0 mg/hr, 0 mls/hr Documented By: Admin: 11/19/22 14:22 Dose: Not Given Documented By: Admin: 11/19/22 09:19 Dose: 8 mg/hr, 20 mls/hr Documented By: WILL Phytonadione 2.5 mg/ Dextrose 50.25 mls @ 100.5 mls/hr IV ONE ONE Stop: 11/19/22 08:39 Last Infusion: 11/19/22 09:06 Dose: 0 mls/hr Documented By: Admin: 11/19/22 08:30 Dose: 100.5 mls/hr Documented By: WILL Phytonadione 5 mg/ Dextrose 50.5 mls @ 101 mls/hr IV ONE ONE Stop: 11/19/22 09:15 Last Infusion: 11/19/22 09:56 Dose: 0 mls/hr Documented By: Admin: 11/19/22 09:25 Dose: 101 mls/hr Documented By: WILL Prothrombin Complex Concent ( (Human) 3,000 units/ Syringe) 120 mls @ 10 mls/min IV TODAY@0900 ONE; Protocol Stop: 11/19/22 09:11 Last Admin: 11/19/22 09:11 Dose: 10 mls/min Documented By: WILL Ioversol (Optiray 320 100ml) 90 ml IV ONCE ONE Stop: 11/19/22 06:09 Last Admin: 11/19/22 06:08 Dose: 90 ml Documented By: SHELLY Miscellaneous (Stat Iv Infusion Titration Per Protocol) 1 each N/A NOW STA Stop: 11/19/22 07:33 Last Admin: 11/19/22 07:48 Dose: 1 each Documented By: WILL Imaging Data Radiologist's Impression: Abdomen/Pelvis CT 11/19/22 05:27 CT abd pelvis IV con only CLINICAL HISTORY: diarrhea, gi bleed TECHNIQUE: Helical axial images of the abdomen and pelvis were obtained and displayed. Automated dose lowering techniques and/or adjustment according to patient size were utilized for this exam. This exam was performed with int ravenous contrast. CT DOSE: 1051.59 mGy.cm COMPARISON: Comparison is made to CT abdomen pelvis 10/25/2022 FINDINGS: Lower chest: Mild interstitial thickening and bronchial wall thickening are se en compatible with chronic fibrotic change. Liver: Hepatic steatosis is noted. Gallbladder and biliary tree: Cholelithiasis is seen without evidence of cholecystitis. No intra- or extrahepatic biliary ductal dilation. Pancreas: Unremarkable, no focal lesions. Spleen: Calcifications are noted in the spleen compatible with prior granulomatous disease. Adrenals: Unremarkable. Kidneys and ureters: Perinephric stranding is noted bilaterally. Bladder: Unremarkable. Reproductive organs: Prostatomegaly is seen. Bowel: Diverticulosis is seen without evidence of diverticulitis. The appendix is normal. There is a small hiatal hernia. Duodenal diverticulum is noted. Lymph nodes Retroperitoneal: Unremarkable. Pelvic: Unremarkable. Mesenteric: Unremarkable. Peritoneum: Normal. Vessels: Atherosclerotic calcifications are seen. An infrarenal aortic aneurysm near the bifurcation measures 28 mm. There is aneurysmal enlargement of the bilateral common iliac artery origins measuring 29 mm on the right and 22 mm on the left. 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 Abdominal wall: Fluid is noted in the right inguinal canal. Bones: Degenerative changes in the visualized spine. Posterior fixation hardware spans L2-L3. IMPRESSION: 1. Diverticulosis is seen without evidence of diverticulitis. Within limits of a nonangiographic exam, no evidence of active GI bleeding. 2. 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 This is approximately unchanged from prior. 3. Cholelithiasis without cholecystitis. 4. Additional findings as above. ACT 112: Negative or not required by law. Electronically signed by: Sal De Leon M.D. 11/19/2022 7:54 AM Discharge Plan Visit Data Chief Complaint: Weakness Stated Complaint: WEAKNESS ED Provider: Cheryl Piper Discharge Problem: Diarrhea, Acute hypotension, Acute GI bleeding, Atrial fibrillation with rapid ventricular response Patient Disposition: Admitted As Inpatient Discharge Instructions Interventions: ED Discharge Assessment Last Done: 11/19/22 14:13
[2022-11-19 05:54] LABS: INR 4.3 (0.9-1.1); Prothrombin Time 43.4 Seconds (9.0-12.0)
[2022-11-19] MEDS ORDERED: OPTIRAY 320 100ml IV ONE (06:08)
[2022-11-19] MEDS: SODIUM CHLORIDE 0.9% 1000ML 1,000 ML IV SCH ×2 (06:10→14:33)
[2022-11-19 06:28] LABS: Phosphorus 2.8 mg/dl (2.5-4.9)
--- NOTE | 2022-11-19 07:10 | Electrocardiogram Report ---
Test Reason : Blood Pressure : / mmHG Vent. Rate : 130 BPM Atrial Rate : 000 BPM P-R Int : 000 ms QRS Dur : 070 ms QT Int : 312 ms P-R-T Axes : 000 039 032 degrees QTc Int : 459 ms Atrial fibrillation with rapid ventricular response Abnormal ECG When compared with ECG of 05-JUN-2022 11:42, No significant change was found Confirmed by Jose Luis Andersen ([id number]) on 11/19/2022 7:09:55 AM Referred By: REFERRED SELF Confirmed By:Dennis Andersen
[2022-11-19] MEDS ORDERED: STAT IV Infusion **Titration per Protocol STA (07:32)
[2022-11-19] MEDS: dilTIAZem HCL 125 MG in DEXTROSE 5% 100 ML IV SCH ×2 (07:48→16:26)
[2022-11-19 07:55] LABS: iSTAT Creatinine 0.9 mg/dl (0.6-1.3); iSTAT Hemoglobin 10.5 g/dl (14.0-18.0); iSTAT Ionized Calcium 1.11 mmol/l (1.12-1.32); iSTAT Potassium 4.8 mmol/L (3.3-5.0)
--- NOTE | 2022-11-19 07:56 | CT Scan Report ---
CT abd pelvis IV con only CLINICAL HISTORY: diarrhea, gi bleed TECHNIQUE: Helical axial images of the abdomen and pelvis were obtained and displayed. Automated dose lowering techniques and/or adjustment according to patient size were utilized for this exam. This e xam was performed with intravenous contrast. CT DOSE: 1051.59 mGy.cm COMPARISON: Comparison is made to CT abdomen pelvis 10/25/2022 FINDINGS: Lower chest: Mild interstitial thickening and bronchial wall thickening are seen compatible with chr onic fibrotic change. Liver: Hepatic steatosis is noted. Gallbladder and biliary tree: Cholelithiasis is seen without evidence of cholecystitis. No intra- or extrahepatic biliary ductal dilation. Pancreas: Unremarkable, no focal lesions. Spleen: Calcifications are noted in the spleen compatible with prior granulomatous disease. Adrenals: Unremarkable. Kidneys and ureters: Perinephric stranding is noted bilaterally. Bladder: Unremarkable. Reproductive organs: Prostatomegaly is seen. Bowel: Diverticulosis is seen without evidence of diverticulitis. The appendix is normal. There is a small hiatal hernia. Duodenal diverticulum is noted. Lymph nodes Retroperitoneal: Unremarkable. Pelvic: Unremarkable. Mesenteric: Unremarkable. Peritoneum: Normal. Vessels: Atherosclerotic calcifications are seen. An infrarenal aortic aneurysm near the bifurcation measures 28 mm. There is aneurysmal enlargement of the bilateral common iliac artery origins measurin g 29 mm on the right and 22 mm on the left. 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 Abdominal wall: Fluid is noted in the right inguinal canal. Bones: Degenerative changes in the visualized spine. Posterior fixation hardware spans L2-L3. IMPRESSION: 1. Diverticulosis is seen without evidence of diverticulitis. Within limits of a nonangiographic exa m, no evidence of active GI bleeding. 2. 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 This is approx imately unchanged from prior. 3. Cholelithiasis without cholecystitis. 4. Additional findings as above. ACT 112: Negative or not required by law. Electronically signed by: Sal eD Leon M.D. 11/19/2022 7:54 AM
[2022-11-19] MEDS ORDERED: PANTOprazole 80 MG in DEXTROSE 5% 100 ML IV ONE (08:10)
[2022-11-19] MEDS ORDERED: PHYTONADIONE 2.5 MG in DEXTROSE 5% 50 ML IV ONE (08:10)
[2022-11-19] MEDS ORDERED: SODIUM CHLORIDE 0.9% 250 ML IV PRN (08:32)
[2022-11-19] MEDS ORDERED: PHYTONADIONE 5 MG in DEXTROSE 5% 50 ML IV ONE (08:46)
[2022-11-19 08:59] LABS: Adenovirus F 40/41 PCR Not Detected (NotDetected); Astrovirus PCR Not Detected (NotDetected); Campylobacter PCR Not Detected (NotDetected); Cryptosporidium PCR Not Detected (NotDetected); Cyclospora cayetanensis PCR Not Detected (NotDetected); Entamoeba histolytica PCR Not Detected (NotDetected); Enteroaggregative E.coli(EAEC) Not Detected (NotDetected); Enteropathogenic E.coli (EPEC) Not Detected (NotDetected); Enterotoxigenic E.coli (ETEC) Not Detected (NotDetected); Giardia lamblia PCR Not Detected (NotDetected); Norovirus GI/GII PCR Not Detected (NotDetected); Plesiomonas shigelloides PCR Not Detected (NotDetected); Rotavirus A PCR Not Detected (NotDetected); Salmonella PCR Not Detected (NotDetected); Sapovirus PCR Not Detected (NotDetected); Shiga-like Toxin E.coli (STEC) Not Detected (NotDetected); Shigella/Enteroinvasive E.coli Not Detected (NotDetected); Vibrio cholerae PCR Not Detected (NotDetected); Vibrio species PCR Not Detected (NotDetected); Yersinia enterocolitica PCR Not Detected (NotDetected)
[2022-11-19] MEDS ORDERED: PROTHROMBIN COMP CONC- KCENTRA 3,000 UNITS in SYRINGE 0 ML IV ONE (09:00)
[2022-11-19] MEDS: PANTOPRAZOLE BOLUS/DRIP 1 EACH IV STA ×2 (09:03)
[2022-11-19] MEDS: PANTOprazole 40 MG in DEXTROSE 5% 100 ML IV SCH ×2 (09:19→14:22)
--- NOTE | 2022-11-19 11:07 | History & Physical Report ---
Date of Service November 19, 2022 Assessment & Plan (1) Diarrhea: Plan: Suspect viral enteritis etiology. BioFire is negative. Symptomatic treatment (2) Acute hypotension: Plan: Suspected combination of hemorrhagic shock and hypovolemic shock present on admission that has resolved with IV fluid resuscitation. (3) Acute GI bleeding: Plan: Hemoglobin has drifted down to 11 with Hemoccult positive stool. He is Coumadin toxic. Coumadin has been reversed and Coumadin is on hold. We will continue to monitor serial hemoglobin levels (4) Atrial fibrillation with rapid ventricular response: Plan: Chronic. Rapid rate at this time. He is now on a diltiazem drip (5) Coumadin toxicity: Plan: INR is greater than 4. He has received vitamin K. Kcentra was given in stead of fresh frozen plasma per gastroenterology recommendation. Coumadin is on hold Plan To be determined History of Present Illness Chief Complaint: Weakness, diarrhea Primary Care Provider: Homar Enriquez MD 82-year-old male with several days of diarrhea and weakness. He was brought to the ED for evaluation. He was hypotensive on arrival but responded to IV fluids. He probably has a combination of hemorrhagic and hypovolemic shock that resolved with fluid resuscitation. I suspect he has underlying viral gastroent eritis. Stools are Hemoccult positive and hemoglobin has dropped to 11 from 14. He is Coumadin toxic with INR greater than 4. He has received vitamin K and Kcentra in the ED. Kcentra was given in place of fresh frozen plasma at the request of gastroenterology who has been consulted. His chronic atrial fibrillation is rapid and he is now on a diltiazem drip. Allergies Allergy/AdvReac Type Severity Reaction Status Date / Time No Known Allergies Allergy Verified 11/08/22 10:47 Home Medications Medication Instructions Recorded Confirmed Type aspirin 81 mg tablet,delayed 81 mg PO QAM 10/27/20 11/19/22 History release atorvastatin 20 mg tablet 20 mg PO QPM #90 tabs 01/09/22 11/19/22 Rx losartan 100 mg tablet 100 mg PO QAM #90 tabs 02/23/22 11/19/22 Rx diltiazem HCl 240 mg 240 mg PO QAM #90 caps 07/10/22 11/19/22 Rx capsule,extended release 24 hr warfarin 5 mg tablet 5 mg PO 5XWK 10/25/22 11/19/22 History acetaminophen 500 mg tablet 1,000 mg PO DIRECTED PRN Pain 10/27/22 11/19/22 History (Tylenol Extra Strength) warfarin 5 mg tablet 2.5 mg PO 2XWK 11/19/22 11/19/22 History Past Med/Surg History Medical History Atrial fibrillation Atrial fibrillation Bicuspid aortic valve Carotid stenosis HTN (hypertension) Hypertension Long-term (current) use of anticoagulants, INR goal 2.0-3.0 Lumbar spondylosis No significant family history Sacroiliitis Surgical History History of lumbar fusion instrumented, L2-3, Dr. Cooper - 08/2017 History of removal of cyst (04/03/22) FINAL DIAGNOSIS: In office procedure Dr. 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 Diarrhea with bloody stool -no urinary retention, no urinary incontinence, no dysuria, no hematuria Musculoskeletal-no joint pain, no muscle tenderness Skin-no bruising, no rashes, no pruritus Neuro-generalized weakness. No syncope Psych-no depression, no anxiety Physical Exam Physical Exam: General-alert and oriented x3, no fevers, no chills HEENT-head atraumatic and normocephalic, pupils equal and reactive to light, extraocular muscles intact Neck-no lymphadenopathy or thyromegaly, trachea midline Chest-clear to auscultation percussion. No rales wheezing or rhonchi Cardiac-regular rate and rhythm, normal S1 and S2, no murmurs Abdomen-normal bowel sounds, nontender, no hepatosplenomegaly Extremities-no cyanosis, clubbing, or edema Neuro-cranial nerves II through XII intact, motor and sensory function within normal limits, strength symmetrical 5/5, no focal deficits Psych-normal affect, normal mood Results & Data Results & Data Vital Signs (Past 12 Hours) Vital Signs Temp Pulse Resp BP Pulse Ox O2 Del Method 11/19/22 10:30 113 H 18 115/73 99 Room Air 11/19/22 10:16 106 H 14 101/72 99 Room Air 11/19/22 10:00 105 H 12 111/71 100 Room Air 11/19/22 09:45 104 H 14 110/65 97 Room Air 11/19/22 09:31 103 H 14 106/74 99 Room Air 11/19/22 09:15 110 H 13 100/62 98 Room Air 11/19/22 09:00 108 H 14 109/70 100 Room Air 11/19/22 08:45 111 H 14 102/62 93 Room Air 11/19/22 08:30 109 H 18 116/69 100 Room Air 11/19/22 08:15 116 H 14 109/63 98 Room Air 11/19/22 08:38 114 H 11/19/22 08:00 117 H 14 99/59 L 99 Room Air 11/19/22 07:35 109 H 17 136/74 100 Room Air 11/19/22 07:01 135 H 20 98 11/19/22 07:01 103/75 11/19/22 06:57 119 H 23 95 11/19/22 06:57 106/72 11/19/22 06:30 115 H 24 97 11/19/22 06:30 112/74 11/19/22 06:15 116 H 16 115/62 100 Room Air 11/19/22 05:30 106 H 18 111/72 99 Room Air 11/19/22 05:16 117 H 16 101/61 100 Room Air 11/19/22 05:10 123 H 18 98/65 L 99 Room Air 11/19/22 05:02 133 H 20 81/62 L 99 Room Air 11/19/22 04:57 149 H 11/19/22 04:47 36.4 C L 62 20 65/44 L 97 Room Air Laboratory Results 11/19/22 05:00 11/19/22 05:00 PG Care Time/CCT Total # of Minutes Spent Total Time Spent with Patient: Total time spent is greater than 50% in coordination of care (as documented) at patient's floor/unit and/or counseling patient: Coding Level of Care Code 46344 INT INP/OBS CARE 3/75MIN Diagnoses Diarrhea R19.7 Acute hypotension I95.9 Acute GI bleeding K92.2 Atrial fibrillation with rapid ventricular response I48.91 Coumadin toxicity T45.511A
--- NOTE | 2022-11-19 11:49 | Consultation ---
Date of Consultation November 19, 2022 History of Present Illness Reason for Consultation: GIB History of Present Illness 82 yo M on coumadin and low dose ASA for A fib presents with dark loose stool for 2-3 days. He was hypotensive with systolic in the 60's but improved to low 100's within 20 mins after 1 liter NS. He had dark red/black bBM x 1 in ER. His labs on admit were sig for hgb 11 from baseline 15, BUN 60's. His INR was 4, for which he received K centra and 2.5 vitamin K. Denies NSAID use. Pulse low 100's on dilt drip BP 120/70 when I see him. PE: Comfortable, NAD HEENT: sclera moist and not pale CV: IRIR Resp: CTA ABd: soft and NT Rectal: Gross melena Labs reviewed. A/P: UGIB in pt on coumadin with supratherapeutic INR, ASA - Appears to have stabilized after volume and correction of coagulopathy. X fuse for target hgb 7-8. Will plan PPI gtt overnight, NPO overnight. Anticipate EGD tomorrow, or sooner if needed. Allergies Allergy/AdvReac Type Severity Reaction Status Date / Time No Known Allergies Allergy Verified 11/08/22 10:47 Home Medications Medication Instructions Recorded Confirmed Type aspirin 81 mg tablet,delayed 81 mg PO QAM 10/27/20 11/19/22 History release atorvastatin 20 mg tablet 20 mg PO QPM #90 tabs 01/09/22 11/19/22 Rx losartan 100 mg tablet 100 mg PO QAM #90 tabs 02/23/22 11/19/22 Rx diltiazem HCl 240 mg 240 mg PO QAM #90 caps 07/10/22 11/19/22 Rx capsule,extended release 24 hr warfarin 5 mg tablet 5 mg PO 5XWK 10/25/22 11/19/22 History acetaminophen 500 mg tablet 1,000 mg PO DIRECTED PRN Pain 10/27/22 11/19/22 History (Tylenol Extra Strength) warfarin 5 mg tablet 2.5 mg PO 2XWK 11/19/22 11/19/22 History Patient History Medical History Atrial fibrillation Atrial fibrillation Bicuspid aortic valve Carotid stenosis HTN (hypertension) Hypertension Long-term (current) use of anticoagulants, INR goal 2.0-3.0 Lumbar spondylosis No significant family history Sacroiliitis Surgical History History of lumbar fusion instrumented, L2-3, Dr. Cooper - 08/2017 History of removal of cyst (04/03/22) FINAL DIAGNOSIS: In office procedure Dr. 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 Beliefs That Will Affect Care: None marital status: Current Living Situation: Spouse How many Children do You have: 2 Feels Safe at Home: Yes Assistive Devices: None, Cane and Walker Results & Data Vital Signs (Past 12 Hours) Vital Signs Temp Pulse Resp BP Pulse Ox O2 Del Method 11/19/22 11:30 105 H 12 108/59 L 96 Room Air 11/19/22 11:15 102 H 14 108/62 97 Room Air 11/19/22 11:00 115 H 14 105/72 100 Room Air 11/19/22 10:45 107 H 13 112/75 100 Room Air 11/19/22 10:30 113 H 18 115/73 99 Room Air 11/19/22 10:16 106 H 14 101/72 99 Room Air 11/19/22 10:00 105 H 12 111/71 100 Room Air 11/19/22 09:45 104 H 14 110/65 97 Room Air 11/19/22 09:31 103 H 14 106/74 99 Room Air 11/19/22 09:15 110 H 13 100/62 98 Room Air 11/19/22 09:00 108 H 14 109/70 100 Room Air 11/19/22 08:45 111 H 14 102/62 93 Room Air 11/19/22 08:30 109 H 18 116/69 100 Room Air 11/19/22 08:15 116 H 14 109/63 98 Room Air 11/19/22 08:38 114 H 11/19/22 08:00 117 H 14 99/59 L 99 Room Air 11/19/22 07:35 109 H 17 136/74 100 Room Air 11/19/22 07:01 135 H 20 98 11/19/22 07:01 103/75 11/19/22 06:57 119 H 23 95 11/19/22 06:57 106/72 11/19/22 06:30 115 H 24 97 11/19/22 06:30 112/74 11/19/22 06:15 116 H 16 115/62 100 Room Air 11/19/22 05:30 106 H 18 111/72 99 Room Air 11/19/22 05:16 117 H 16 101/61 100 Room Air 11/19/22 05:10 123 H 18 98/65 L 99 Room Air 11/19/22 05:02 133 H 20 81/62 L 99 Room Air 11/19/22 04:57 149 H 11/19/22 04:47 36.4 C L 62 20 65/44 L 97 Room Air
[2022-11-19 16:24] LABS: INR 1.2 (0.9-1.1); Prothrombin Time 12.6 Seconds (9.0-12.0)
[2022-11-19] MEDS: PANTOprazole 40 MG in SYRINGE 0 ML IV SCH (20:30)
[2022-11-20] MEDS: dilTIAZem HCL 125 MG in DEXTROSE 5% 100 ML IV SCH ×3 (03:58→09:00)
[2022-11-20] MEDS: SODIUM CHLORIDE 0.9% 1000ML 1,000 ML IV SCH (03:58)
[2022-11-20 05:58] LABS: Hematocrit (blood only) 25.5 % (42.0-52.0); Hemoglobin 8.6 g/dl (14.0-18.0); Mean Corpuscular Hemoglobin 29.3 pg (25.0-34.0); Mean Corpuscular Hgb Conc 33.7 g/dL (32.0-36.0); Mean Corpuscular Volume 86.7 fL (80.0-100.0); RDW Coefficient of Variation 14.6 % (11.5-14.5); RDW Standard Deviation 45.9 fL (36.4-46.3); Red Blood Count 2.94 M/uL (4.70-6.10); White Blood Count 8.04 K/ul (4.8-10.8)
[2022-11-20 05:59] LABS: Basophils # (auto) 0.01 K/uL (0-0.2); Basophils % (auto) 0.1 %; Eosinophils % (auto) 2.5 %; Immature Granulocytes # (auto) 0.05 K/uL (0.01-0.20); Immature Granulocytes % (auto) 0.6 %; Lymphocytes # (auto) 1.02 K/uL (1.2-3.4); Lymphocytes % (auto) 12.7 %; Mean Platelet Volume 10.2 fL (9.4-12.4); Monocytes # (auto) 0.54 K/uL (0.11-0.59); Monocytes % (auto) 6.7 %; Neutrophils # (auto) 6.22 K/uL (1.40-6.50); Neutrophils % (auto) 77.4 %; Platelet Count 117 K/uL (130-400)
[2022-11-20 06:16] LABS: BUN Creatinine Ratio 36.7 (10-20); Calcium 7.3 mg/dl (8.6-10.3); Creatinine Clr Calc Pharmacy 85.8 ml/min; Est GFR (African American) 97.6 ml/min; Est GFR (Non-African American) 84.2 ml/min; Potassium 4.5 mmol/L (3.5-5.1)
[2022-11-20 06:40] LABS: INR 1.2 (0.9-1.1); Prothrombin Time 12.8 Seconds (9.0-12.0)
[2022-11-20] MEDS ORDERED: [UNRECOGNIZED DRUG - REMARK] ONE ×2 (08:45→11:00)
[2022-11-20] MEDS ORDERED: Nursing to Pharmacy Communication SCH (08:45)
[2022-11-20] MEDS: PANTOprazole 40 MG in SYRINGE 0 ML IV SCH ×2 (08:47→20:29)
[2022-11-20] MEDS: dilTIAZem HCL 240 MG CAPCR PO SCH (08:47)
[2022-11-20 10:05] LABS: Hematocrit (blood only) 24.9 % (42.0-52.0); Hemoglobin 8.4 g/dl (14.0-18.0); Mean Corpuscular Hemoglobin 29.3 pg (25.0-34.0); Mean Corpuscular Hgb Conc 33.7 g/dL (32.0-36.0); Mean Corpuscular Volume 86.8 fL (80.0-100.0); Mean Platelet Volume 9.3 fL (9.4-12.4); Platelet Count 105 K/uL (130-400); RDW Coefficient of Variation 14.6 % (11.5-14.5); RDW Standard Deviation 46.1 fL (36.4-46.3); Red Blood Count 2.87 M/uL (4.70-6.10); White Blood Count 7.47 K/ul (4.8-10.8)
--- NOTE | 2022-11-20 10:14 | History & Physical Bridge Note ---
Date of Service November 20, 2022 History & Physical Bridge Note I have examined the patient, reviewed the History & Physical and in the interval since the performance of the History & Physical I have noted the following changes of clinical significance: no changes noted. Patient reports dark stools for the past 3 days. He admits he was moving his bowels every hour. he has a history of A fib on coumadin/asa. On admission was found to have hgb of 11 which then dropped to 9. Today hgb 8.6. He was given Vit K, INR today 1.2 He tells otherwise no GI concerns. Planned for EGD this morning. no sob/chest pain.
--- NOTE | 2022-11-20 10:35 | Anesthesiology Consultation ---
Date of Service November 20, 2022 History Surgery Operation Date: 11/20/22 16:45 Proposed Procedures p Esophagogastroduodenoscopy Dr. Xiong - Jose Manuel Xiong MD Height/Weight Height: 5 ft 11 in Weight: 92.8 kg Allergies Allergy/AdvReac Type Severity Reaction Status Date / Time No Known Allergies Allergy Verified 11/08/22 10:47 Medications Home Medications Medication Instructions Recorded Confirmed Last Taken aspirin 81 mg tablet,delayed 81 mg PO QAM 10/27/20 11/19/22 11/18/22 release atorvastatin 20 mg tablet 20 mg PO QPM #90 tabs 01/09/22 11/19/22 11/18/22 losartan 100 mg tablet 100 mg PO QAM #90 tabs 02/23/22 11/19/22 11/18/22 diltiazem HCl 240 mg 240 mg PO QAM #90 caps 07/10/22 11/19/22 11/18/22 capsule,extended release 24 hr warfarin 5 mg tablet 5 mg PO 5XWK 10/25/22 11/19/22 11/18/22 acetaminophen 500 mg tablet 1,000 mg PO DIRECTED PRN Pain 10/27/22 11/19/22 Unknown (Tylenol Extra Strength) warfarin 5 mg tablet 2.5 mg PO 2XWK 11/19/22 11/19/22 11/16/22 Active Medications Generic Name Dose Route Start Last Admin Trade Name Freq PRN Reason Stop Dose Admin Diltiazem HCl 240 mg 11/20/22 09:00 11/20/22 08:47 Diltiazem Hcl 240 Mg Capcr PO 12/20/22 08:59 240 mg QAM GAYLA Administration Sodium Chloride 1,000 mls @ 75 mls/hr 11/19/22 05:45 11/20/22 03:58 Nss 1000ml IV 12/19/22 05:44 75 mls/hr .[id number] GAYLA Administration Diltiazem HCl 125 mg/ Dextrose 125 mls @ 10 mls/hr 11/19/22 07:45 11/20/22 10:20 IV 11/20/22 11:00 Infused .[id number] GAYLA Titration Protocol 10 MG/HR Pantoprazole Sodium 40 mg/ 10 mls @ 5 mls/min 11/19/22 21:00 11/20/22 08:47 Syringe IV 12/19/22 20:59 5 mls/min BID GAYLA Administration Miscellaneous 1 each 11/20/22 11:00 11/20/22 10:21 Diltiazem ~ Stop Order N/A 11/20/22 11:01 1 each ONE ONE Administration Past Medical History Medical History Atrial fibrillation Atrial fibrillation Bicuspid aortic valve Carotid stenosis HTN (hypertension) Hypertension Long-term (current) use of anticoagulants, INR goal 2.0-3.0 Lumbar spondylosis No significant family history Sacroiliitis Past Surgical History Surgical History History of lumbar fusion instrumented, L2-3, Dr. Cooper - 08/2017 History of removal of cyst (04/03/22) FINAL DIAGNOSIS: In office procedure Dr. Pickens 04/03/2022 Skin, thigh cyst, excision: - Benign glomangioma (glomus tumor) No significant past surgical history Social History Smoking Status: Former smoker tobacco type: cigars Do You Dip or Chew Tobacco: No Hx Alcohol Use: Yes Alcohol type: beer and wine alcohol intake frequency: holidays/special occasions only Hx Substance Use: No substance use type: does not use Physical Exam Vital Signs Last Vital Signs Temp 36.7 C 11/20/22 04:00 Pulse 103 H 11/20/22 07:00 Resp 16 11/20/22 07:00 BP 114/80 11/20/22 07:00 Pulse Ox 91 11/20/22 07:00 O2 Del Method Room Air 11/20/22 07:00 Testing Laboratory Results 11/20/22 09:48 11/20/22 05:24 PT 12.8 Seconds (9.0-12.0) H 11/20/22 05:24 INR 1.2 (0.9-1.1) H 11/20/22 05:24 Blood Type O Negative 11/19/22 05:15 Antibody Screen NEGATIVE 11/19/22 05:15 Electrocardiogram Date: 11/19/22 Test Reason : Blood Pressure : / mmHG Vent. Rate : 130 BPM Atrial Rate : 000 BPM P-R Int : 000 ms QRS Dur : 070 ms QT Int : 312 ms P-R-T Axes : 000 039 032 degrees QTc Int : 459 ms Atrial fibrillation with rapid ventricular response Abnormal ECG When compared with ECG of 05-JUN-2022 11:42, No significant change was found Confirmed by Jose Luis Andersen ([id number]) on 11/19/2022 7:09:55 AM
--- NOTE | 2022-11-20 10:35 | Anesthesiology Consultation ---
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 Xiong - Jose Manuel Xiong MD Height/Weight Height: 5 ft 11 in Weight: 92.8 kg Allergies Allergy/AdvReac Type Severity Reaction Status Date / Time No Known Allergies Allergy Verified 11/20/22 10:36 Medications Home Medications Medication Instructions Recorded Confirmed Last Taken aspirin 81 mg tablet,delayed 81 mg PO QAM 10/27/20 11/19/22 11/18/22 release atorvastatin 20 mg tablet 20 mg PO QPM #90 tabs 01/09/22 11/19/22 11/18/22 losartan 100 mg tablet 100 mg PO QAM #90 tabs 02/23/22 11/19/22 11/18/22 diltiazem HCl 240 mg 240 mg PO QAM #90 caps 07/10/22 11/19/22 11/18/22 capsule,extended release 24 hr warfarin 5 mg tablet 5 mg PO 5XWK 10/25/22 11/19/22 11/18/22 acetaminophen 500 mg tablet 1,000 mg PO DIRECTED PRN Pain 10/27/22 11/19/22 Unknown (Tylenol Extra Strength) warfarin 5 mg tablet 2.5 mg PO 2XWK 11/19/22 11/19/22 11/16/22 Active Medications Generic Name Dose Route Start Last Admin Trade Name Freq PRN Reason Stop Dose Admin Diltiazem HCl 240 mg 11/20/22 09:00 11/20/22 08:47 Diltiazem Hcl 240 Mg Capcr PO 12/20/22 08:59 240 mg QAM GAYLA Administration Sodium Chloride 1,000 mls @ 75 mls/hr 11/19/22 05:45 11/20/22 03:58 Nss 1000ml IV 12/19/22 05:44 75 mls/hr .[id number] GAYLA Administration Diltiazem HCl 125 mg/ Dextrose 125 mls @ 10 mls/hr 11/19/22 07:45 11/20/22 10:20 IV 11/20/22 11:00 Infused .[id number] GAYLA Titration Protocol 10 MG/HR Pantoprazole Sodium 40 mg/ 10 mls @ 5 mls/min 11/19/22 21:00 11/20/22 08:47 Syringe IV 12/19/22 20:59 5 mls/min BID GAYLA Administration Miscellaneous 1 each 11/20/22 11:00 11/20/22 10:21 Diltiazem ~ Stop Order N/A 11/20/22 11:01 1 each ONE ONE Administration Past Medical History Medical History (Updated 11/20/22 @ 10:38 by Jose Luis Sosa MD) Atrial fibrillation Atrial fibrillation Bicuspid aortic valve Carotid stenosis Encounter for pre-operative examination HTN (hypertension) Hypertension Long-term (current) use of anticoagulants, INR goal 2.0-3.0 Lumbar spondylosis No significant family history Sacroiliitis Past Surgical History Surgical History History of lumbar fusion instrumented, L2-3, Dr. Cooper - 08/2017 History of removal of cyst (04/03/22) FINAL DIAGNOSIS: In office procedure Dr. Pickens 04/03/2022 Skin, thigh cyst, excision: - Benign glomangioma (glomus tumor) No significant past surgical history Social History Smoking Status: Former smoker tobacco type: cigars Do You Dip or Chew Tobacco: No Hx Alcohol Use: Yes Alcohol type: beer and wine alcohol intake frequency: holidays/special occasions only Hx Substance Use: No substance use type: does not use Physical Exam Vital Signs Last Vital Signs Temp 36.7 C 11/20/22 04:00 Pulse 103 H 11/20/22 07:00 Resp 16 11/20/22 07:00 BP 114/80 11/20/22 07:00 Pulse Ox 91 11/20/22 07:00 O2 Del Method Room Air 11/20/22 07:00 Testing Laboratory Results 11/20/22 09:48 11/20/22 05:24 PT 12.8 Seconds (9.0-12.0) H 11/20/22 05:24 INR 1.2 (0.9-1.1) H 11/20/22 05:24 Blood Type O Negative 11/19/22 05:15 Antibody Screen NEGATIVE 11/19/22 05:15 Electrocardiogram Date: 11/19/22 Test Reason : Blood Pressure : / mmHG Vent. Rate : 130 BPM Atrial Rate : 000 BPM P-R Int : 000 ms QRS Dur : 070 ms QT Int : 312 ms P-R-T Axes : 000 039 032 degrees QTc Int : 459 ms Atrial fibrillation with rapid ventricular response Abnormal ECG When compared with ECG of 05-JUN-2022 11:42, No significant change was found Confirmed by Jose Luis Andersen ([id number]) on 11/19/2022 7:09:55 AM Chest X-Ray Date: 06/05/22 XR chest 1V portable CLINICAL HISTORY: Dyspnea. COMPARISON STUDY: Chest radiograph October 27, 2020. FINDINGS: Lung volumes are normal. Lungs are clear. There is no pneumothorax or pleural effusion. Cardiomegaly is unchanged. Mediastinal contours are normal. There is no evidence for pulmonary edema. IMPRESSION: No acute cardiopulmonary findings. No change in appearance of the chest. Echocardiogram Date: 01/04/22 EF: 55-60% LV Function: normal RWMA: + none Valvular Disease: + (mild)
--- NOTE | 2022-11-20 11:39 | GI REPORT ---
Patient Name: Varun Thomas Procedure Date: 11/20/2022 10:46 AM Date of : 1940 Admit Type: Inpatient Age: 82 Gender: Male Attending MD: Jose Manuel Xiong MD, Procedure: Upper GI endoscopy Providers: Jose Manuel Xiong MD Referring MD: Mariam Ceja Md Indications: Melena Medicines: Monitored Anesthesia Care Complications: No immediate complications. Estimated blood loss: None. Estimated Blood Loss: Estimated blood loss: none. Procedure: Pre-Anesthesia Assessment: - Prior Anticoagulants: The patient has taken no anticoagulant or antiplatelet agents. - ASA Grade Assessment: III - A patient with severe systemic disease. After obtaining informed consent, the endoscope was passed under direct vision. Throughout the procedure, the patient's blood pressure, pulse, and oxygen saturations were monitored continuously. The Endoscope was introduced through the mouth, and advanced to the second part of duodenum. The upper GI endoscopy was accomplished without difficulty. The patient tolerated the procedure well. Findings: A small hiatal hernia was present. The exam of the esophagus was otherwise normal. Diffuse moderate inflammation characterized by erosions, erythema and shallow ulcerations was found in the stomach. Biopsies were taken with a cold forceps for Helicobacter pylori testing. Estimated blood loss: none. Few non-bleeding large cratered duodenal ulcers with no stigmata of bleeding were found in the duodenal bulb. The second portion of the duodenum was normal. Impression: - Small hiatal hernia. - Gastritis. Biopsied. - Non-bleeding duodenal ulcers with no stigmata of bleeding. - Normal second portion of the duodenum. Recommendation: - [facility] to [facility] for [facility] care. - Clear liquid diet today. advance as tolerated tonight for dinner if stable. -protonix 40 mg BID -supportive care, IVFs Jose Manuel Xiong MD 11/20/2022 11:39:16 AM This report has been signed electronically. Note Initiated On: 11/20/2022 10:46 AM Number of Addenda: 0 I attest to the content of the Intraoperative Record and orders documented therein, exceptions below {[id number]}
[2022-11-20] MEDS ORDERED: CALCIUM GLUCONATE 10% 1,000 MG in DEXTROSE 5% 50 ML IV ONE (12:30)
--- NOTE | 2022-11-20 13:20 | Anesthesiology Progress Note ---
Date of Service November 20, 2022 Anesthesia Post Procedure Vital Signs Vital Signs: Temp Pulse Pulse Resp BP BP Pulse Ox 11/20/22 13:01 102 H 24 108/64 98 11/20/22 12:18 96 H 16 119/76 96 11/20/22 12:17 102 H 16 98/74 L 96 11/20/22 12:18 36.6 C 11/20/22 12:02 111 H 20 114/73 97 11/20/22 11:46 94 H 18 86/64 L 98 11/20/22 11:32 72 16 93/68 L 95 11/20/22 10:00 98 H 19 118/69 97 11/20/22 09:00 99 H 14 111/73 96 11/20/22 08:00 110 H 15 107/80 93 11/20/22 10:37 36.2 C L 76 18 107/74 97 11/20/22 07:00 103 H 16 114/80 91 11/20/22 06:00 103 H 15 104/70 94 11/20/22 05:00 99 H 15 99/68 L 97 11/20/22 04:00 36.7 C 109 H 16 112/84 95 11/20/22 03:00 111 H 15 115/77 100 11/20/22 02:00 96 H 14 110/69 99 11/20/22 01:00 88 15 105/59 L 98 11/20/22 00:00 36.5 C 105 H 17 105/71 99 11/19/22 23:01 108 H 17 109/82 11/19/22 23:00 97 H 15 96 11/19/22 22:00 98 H 15 110/81 98 11/20/22 00:00 102 H 11/19/22 21:00 106 H 16 111/71 99 11/19/22 20:01 36.6 C 100 H 22 111/70 98 11/19/22 19:00 107 H 15 96/61 L 96 11/19/22 20:00 106 H 11/19/22 18:37 97 H 23 101/74 99 11/19/22 18:00 116 H 18 95/74 L 92 11/19/22 16:00 36.5 C 11/19/22 17:09 106 H 22 116/79 98 11/19/22 17:00 97 H 25 H 97/62 L 99 11/19/22 16:00 99 H 21 108/75 98 11/19/22 14:30 11/19/22 15:00 105 H 18 121/70 93 11/19/22 14:36 115 H 20 111/65 92 11/19/22 14:00 92 H 14 108/74 95 11/19/22 13:30 103 H 13 120/74 96 O2 Del Method 11/20/22 13:01 Room Air 11/20/22 12:18 Room Air 11/20/22 12:17 Room Air 11/20/22 12:18 11/20/22 12:02 Room Air 11/20/22 11:46 Room Air 11/20/22 11:32 Room Air 11/20/22 10:00 Room Air 11/20/22 09:00 Room Air 11/20/22 08:00 Room Air 11/20/22 10:37 Room Air 11/20/22 07:00 Room Air 11/20/22 06:00 Room Air 11/20/22 05:00 Room Air 11/20/22 04:00 11/20/22 03:00 Room Air 11/20/22 02:00 Room Air 11/20/22 01:00 11/20/22 00:00 Nasal Cannula 11/19/22 23:01 11/19/22 23:00 11/19/22 22:00 11/20/22 00:00 11/19/22 21:00 11/19/22 20:01 Room Air 11/19/22 19:00 Room Air 11/19/22 20:00 11/19/22 18:37 Room Air 11/19/22 18:00 Room Air 11/19/22 16:00 11/19/22 17:09 Room Air 11/19/22 17:00 Room Air 11/19/22 16:00 Room Air 11/19/22 14:30 Room Air 11/19/22 15:00 Room Air 11/19/22 14:36 Room Air 11/19/22 14:00 Room Air 11/19/22 13:30 Room Air Transfer of Care Handoff Completed per policy Notes Mental Status: alert / awake / arousable and participated in evaluation Patient Amnestic to Procedure: Yes Nausea / Vomiting: adequately controlled Pain: adequately controlled Airway Patency, RR, SpO2: stable & adequate BP & HR: stable & adequate Hydration State: stable & adequate Anesthetic Complications: no major complications apparent
[2022-11-20] MEDS ORDERED: ACETAMINOPHEN 500 MG TAB PO PRN (15:07)
[2022-11-20] MEDS ORDERED: FUROSEMIDE INJ 20 MG/2 ML VIAL IV ONE ×2 (15:07→15:12)
--- NOTE | 2022-11-20 15:10 | Hospitalist Progress Note ---
Date of Service November 20, 2022 Assessment & Plan (1) Acute blood loss anemia: Plan: Hemoglobin down to 8.4 but stable from this morning. Baseline hemoglobin 15 and was 11 on presentation. Secondary to upper GI bleed from peptic ulcer disease EGD with nonbleeding ulcers found throughout the duodenum and in the stomach Likely secondary to recent prednisone use and stress from hospitalization for back pain several weeks ago, in the setting of taking aspirin and Coumadin. Coumadin reversed with vitamin K and he was also given PCC on admission INR was greater than 4 and is now down to 1.2 No further melena or GI bleeding today Was severely hypotensive on admission which responded to IV fluid boluses. He has not required blood transfusion and remains hemodynamically stable at this point -Follow CBC again in the morning -Transfuse if hemoglobin less than 8 -Continue to hold Coumadin, aspirin and would not restart for at least a couple of days -Continue Protonix 40 mg IV twice daily -Appreciate GI consultation -Check iron studies, B12, folate in the morning and replace as needed (2) Acute GI bleeding: Plan: As above, secondary to peptic ulcer disease H. pylori testing from EGD pending Continue to hold Coumadin and aspirin Give IV calcium for hypocalcemia but also as clotting factor Continue Protonix Advance diet to clear liquids for lunch and then low fiber for dinner as tolerated DC IV fluids (3) Diarrhea: Plan: 2/2 melena. BioFire is negative Resolved (4) PUD (peptic ulcer disease): Plan: As above (5) Hypocalcemia: Plan: Serum calcium corrected as well as ionized calcium slightly low on admission Give calcium gluconate 1000 mg x 1 now Follow calcium levels in the morning Check vitamin D in the morning (6) Peripheral edema: Plan: Recent development of ankle and foot edema, likely secondary to copious IV fluids Echocardiogram from 12/2021 with preserved EF, mild aortic stenosis Give Lasix 20 Mg IV x1 DC IV fluids (7) Thrombocytopenia: Plan: Platelets mildly low and slightly decreased since admission down to 105 Secondary to acute consumption perhaps? This is acute and he does not traditionally have lower platelets, but will check B12 and folate in the morning (8) Chronic cough: Plan: Ongoing for 10 years, slightly worse today. Typically cough caused by postnasal drip-he is taking Mucinex DM frequently at home, but has not tried any antihistamines Perhaps slight worsening of cough now due to recent procedure for EGD as well as mild volume overload? -Give Lasix 20 Mg IV x1 -Start cetirizine 10 mg p.o. daily -Tessalon Perles as needed -Cough drops as needed (9) Acute hypotension: Plan: Suspected combination of hemorrhagic shock and hypovolemic shock present on admission that has resolved with IV fluid resuscitation. Okay to restart home diltiazem for rate control for A-fib (10) Atrial fibrillation with rapid ventricular response: Plan: Chronic. Rapid rate on admission due to hypovolemia with compensatory tachycardia Now resolved with normal rates Okay to continue home diltiazem for rate control -Monitor on telemetry -Holding home Coumadin (11) Carotid stenosis: Plan: With a history of carotid endarterectomy Holding home aspirin Can restart statin (12) Fatty liver: Plan: Noted on CT abdomen/pelvis Follow-up as an outpatient Plan DVT prophylaxis-add on SCDs Disposition-continued stay in PCU, PT/OT consultations placed. Patient was attending outpatient physical therapy for his ongoing lower back pain prior to admission. Also has ongoing bilateral planter fasciitis. May be able to discharge on Sunday if hemoglobin remains stable and no further GI bleeding. Care discussed with at the bedside on 11/20. Also notified patient's primary nuclear station operator, Dr. Schroeder, that the patient's Coumadin will be held temporarily for GI bleed. Admission and Anticipated Discharge Date Admission Date: November 19, 2022 Subjective No further melena since admission. Has some epigastric soreness. No nausea. Tele with rate controlled afib. He has noticed ankle swelling since being in the hospital. Has a nagging cough for the last 10 years, slightly worse since today Physical Exam Constitutional: WD/WN, vitals as above Neck: trachea midline, no thyromegaly Respiratory: normal respiratory effort, lungs clear to auscultation Cardiovascular: Rate/Rhythm: regular rate and + irregularly irregular Heart Sounds: no murmur Extremities: + edema (1+ ankle/foot and distal leg edema bilat, L>R) Chest (Breasts): Chest: normal inspection of chest Gastrointestinal (Abdomen): normal bowel sounds, soft, nontender, no hepatosplenomegaly Musculoskeletal: Extremities: extremities normal to inspection; no cyanosis and no clubbing Skin: no rashes, warm and dry (except some petechiae ankles,bruise right foot) Neurologic: moves all extremities and awake; no focal motor deficits Psychiatric: A+Ox3, euthymic affect Results & Data Results & Data Vital Signs (Past 12 Hours) Vital Signs Temp Pulse Pulse Resp BP BP Pulse Ox 11/20/22 14:00 102 H 21 107/74 95 11/20/22 13:01 102 H 24 108/64 98 11/20/22 12:18 96 H 16 119/76 96 11/20/22 12:17 102 H 16 98/74 L 96 11/20/22 12:18 36.6 C 11/20/22 12:02 111 H 20 114/73 97 11/20/22 11:46 94 H 18 86/64 L 98 11/20/22 11:32 72 16 93/68 L 95 11/20/22 10:00 98 H 19 118/69 97 11/20/22 09:00 99 H 14 111/73 96 11/20/22 08:00 110 H 15 107/80 93 11/20/22 10:37 36.2 C L 76 18 107/74 97 11/20/22 07:00 103 H 16 114/80 91 11/20/22 06:00 103 H 15 104/70 94 11/20/22 05:00 99 H 15 99/68 L 97 11/20/22 04:00 36.7 C 109 H 16 112/84 95 O2 Del Method 11/20/22 14:00 Room Air 11/20/22 13:01 Room Air 11/20/22 12:18 Room Air 11/20/22 12:17 Room Air 11/20/22 12:18 11/20/22 12:02 Room Air 11/20/22 11:46 Room Air 11/20/22 11:32 Room Air 11/20/22 10:00 Room Air 11/20/22 09:00 Room Air 11/20/22 08:00 Room Air 11/20/22 10:37 Room Air 11/20/22 07:00 Room Air 11/20/22 06:00 Room Air 11/20/22 05:00 Room Air 11/20/22 04:00 Laboratory Results CBC x 2, BMP, INR, Stool PCR reviewed PG Care Time/CCT Total # of Minutes Spent Total Time Spent with Patient: Total time spent is greater than 50% in coordination of care (as documented) at patient's floor/unit and/or counseling patient: Coding Level of Care Code 90326 SUB INP/OBS CARE 3/50MIN Diagnoses Acute blood loss anemia D62 Acute GI bleeding K92.2 Diarrhea R19.7 PUD (peptic ulcer disease) K27.9 Hypocalcemia E83.51 Peripheral edema R60.9 Thrombocytopenia D69.6 Chronic cough R05.3 Acute hypotension I95.9 Atrial fibrillation with rapid ventricular response I48.91 Carotid stenosis I65.29 Fatty liver K76.0
[2022-11-20] MEDS: CETIRIZINE HCL 10 MG TABLET PO SCH (15:58)
[2022-11-20] MEDS ORDERED: BENZONATATE 100 MG CAPSULE PO PRN (18:48)
[2022-11-20] MEDS ORDERED: COUGH DROP (SUGAR FREE) LOZ 24 LOZ/1 BOX BUCCAL ONE (18:50)
[2022-11-20] MEDS ORDERED: BENZONATATE 100 MG CAPSULE ONE (18:51)
[2022-11-20] MEDS: ATORVASTATIN 20 MG TAB PO SCH (20:29)
[2022-11-21] MEDS ORDERED: SODIUM CHLORIDE 0.9% 1000ML 1,000 ML IV ONE (02:17)
[2022-11-21 03:25] LABS: Basophils # (auto) 0.01 K/uL (0-0.2); Basophils % (auto) 0.2 %; Eosinophils # (auto) 0.16 K/uL (0-0.50); Eosinophils % (auto) 2.7 %; Hematocrit (blood only) 22.4 % (42.0-52.0); Hemoglobin 7.6 g/dl (14.0-18.0); Immature Granulocytes # (auto) 0.03 K/uL (0.01-0.20); Immature Granulocytes % (auto) 0.5 %; Lymphocytes # (auto) 0.81 K/uL (1.2-3.4); Lymphocytes % (auto) 13.8 %; Mean Corpuscular Hemoglobin 29.6 pg (25.0-34.0); Mean Corpuscular Hgb Conc 33.9 g/dL (32.0-36.0); Mean Corpuscular Volume 87.2 fL (80.0-100.0); Mean Platelet Volume 9.7 fL (9.4-12.4); Monocytes # (auto) 0.48 K/uL (0.11-0.59); Monocytes % (auto) 8.2 %; Neutrophils # (auto) 4.36 K/uL (1.40-6.50); Neutrophils % (auto) 74.6 %; Platelet Count 104 K/uL (130-400); RDW Coefficient of Variation 14.5 % (11.5-14.5); RDW Standard Deviation 45.8 fL (36.4-46.3); Red Blood Count 2.57 M/uL (4.70-6.10); White Blood Count 5.85 K/ul (4.8-10.8)
[2022-11-21 03:41] LABS: BUN Creatinine Ratio 20.9 (10-20); Calcium 7.9 mg/dl (8.6-10.3); Creatinine Clr Calc Pharmacy 74.1 ml/min; Est GFR (African American) 91.3 ml/min; Est GFR (Non-African American) 78.8 ml/min; Magnesium 1.6 mg/dl (1.7-2.4)
[2022-11-21 03:46] LABS: INR 1.2 (0.9-1.1); Prothrombin Time 13.3 Seconds (9.0-12.0)
[2022-11-21 03:48] LABS: RBC Morphology Unremarkable
[2022-11-21 04:01] LABS: Ferritin 341.7 ng/ml (8-388)
[2022-11-21] MEDS ORDERED: SODIUM CHLORIDE 0.9% 250 ML IV PRN ×2 (04:01→05:25)
[2022-11-21 04:08] LABS: Vitamin D, 25 Hydrox 10.8 ng/ml (30-100)
[2022-11-21] MEDS ORDERED: ERGOCALCIFEROL 50,000 UNITS 1250 MCG CAP PO ONE (07:37)
--- NOTE | 2022-11-21 08:30 | Communication Note ---
Date of Service: November 21, 2022 Patient is s/p EGD. EGD 11/20/22 small hiatal hernia, Gastritis, nonbleeding duodenal ulcers. Pathology is pending. he denies any further melena. hgb did drop to 7.6 and he is currently being transfused with 1 unit. he denies nausea, vomiting, heartburn, abdominal pain. he is tolerating his breakfast. continue protonix 40mg IV bid.
[2022-11-21] MEDS: CYANOCOBALAMIN (B-12) 500 MCG TABLET PO SCH (08:33)
[2022-11-21] MEDS: MAGNESIUM SULFATE / D5W 1 GM/100 ML BAG IV SCH ×2 (08:33→10:10)
[2022-11-21] MEDS: CETIRIZINE HCL 10 MG TABLET PO SCH (08:34)
[2022-11-21] MEDS: PANTOprazole 40 MG in SYRINGE 0 ML IV SCH ×2 (08:37→20:31)
--- NOTE | 2022-11-21 11:38 | Hospitalist Progress Note ---
Date of Service November 21, 2022 Assessment & Plan (1) Atrial fibrillation with rapid ventricular response: Plan: Permanent Typically on cardizem CD 240mg daily On chronic coumadin - reversed due to acute GI bleeding Attempted to give IR cardizem 30mg qid BP did not tolerate Thus, hold cardizem IR in addition to his usual extended release For rate control will load with digoxin 250mcg IV x 1 now, followed by another dose in 6 hours Cont to hold coumadin (2) Acute blood loss anemia: Plan: 2nd to acute upper GI bleeding due to gastritis, gastric ulcerations, and duodenal ulcers as seen on EGD 11/20/22 H pylori negative on gastric biopsy Appreciate GI consult & assistance Typical baseline Hb 14-15 11 at presentation hemoglobin trend since admission noted including this afternoon's Hb of 8.8 s/p 2 units of PRBCs since admission Repeat CBC in am Consider supplemental IV iron Continue IV PPI Diet as tolerated (3) Acute GI bleeding: Plan: 2nd to gastritis/gastric ulcerations/duodenal ulcers Continue to hold Coumadin and aspirin Cont IV PPI twice daily Diet as tolerated Repeat H/H this afternoon wnl (4) Diarrhea: Plan: Stool BioFire negative Loose stools likely due to GI bleeding (5) PUD (peptic ulcer disease): Plan: As above (6) Hypocalcemia: Plan: likely 2nd to PRBCs vitamin D deficiency can also contribute (7) Peripheral edema: Plan: Despite the LE edema he otherwise does not examine in acute CHF s/p lasix yesterday given his low or low-normal BPs defer on additional diuresis today (8) Thrombocytopenia: Plan: Likely from consumption in the setting of acute GI bleeding Low B12 can contribute but, since the drop in platelet count is acute, likely from GI bleeding itself (9) Chronic cough: Plan: Lung cuts from CT a/p showed "Lower chest: Mild interstitial thickening and bronchial wall thickening are seen compatible with chronic fibrotic change." Ultimately would benefit from HR chest CT, pulmonary referral as outpatient, and PFTs add mucinex BID add combivent QID schedule the tessalon TID (10) Acute hypotension: Plan: Combination of hemorrhagic shock and hypovolemic shock present on admission that resolved with IVF BPs could not tolerate even low-dose cardizem today thus hold for now (11) Carotid stenosis: Plan: With a history of carotid endarterectomy Holding home aspirin due to #1, #2 Continue statin (12) B12 deficiency: Plan: B12 level = 174 start vitamin B12 1000mcg daily x 6-12 months (13) Vitamin D deficiency: Plan: 25-OH vit D level = 10.8 start ergocalciferol 53433 units once weekly x 8 weeks (14) Hypomagnesemia: Plan: replace with 2 grams mag sulfate IV x 1 repeat mag level am Plan care d/w pt's at bedside needs PT/OT as tolerated Admission and Anticipated Discharge Date Admission Date: November 19, 2022 Subjective tele overnight - a.fib, rates >100 patient resting upon arrival at bedside patient denies any further melena stools today no abd pain denies nausea or emesis main complaint is that of cough chronic - present for months (or years?) - intermittent/episodic last 2-3 days it has been "severe" better during sleep worse while awake mainly dry with times of sputum production he denies ANY dyspnea either here or at home no dyspnea on exertion he feels it comes from the chest and NOT the sinuses or throat he was a former smoker, then switched to cigars, then finally quit about 10 years ago worked at [employer] - [employer] division - no chemical exposure to his knowledge Review of Systems Review of Systems: gen - no fevers or chills, good appetite cv - no chest pain pulm - no wheezing to his knowledge; no prior h/o asthma or COPD GI - no pain with eating food today Physical Exam Physical Exam: gen - coughing, NAD, pleasant skin - pallor mouth - MMM neck - no JVD heart - irregularly irregular, s1 s2, no murmur lungs - minimal end-exp wheezes b/l, no rales, good airation, coughing abd - soft NT ND BS+ ext - 1+ edema b/l, pulses 2+ b/l psych - a/o x 3 Results & Data Results & Data Vital Signs (Past 12 Hours) Vital Signs Temp Pulse Resp BP Pulse Ox O2 Del Method 11/21/22 09:15 37 C 93 H 20 95/58 L 11/21/22 08:08 37 C 115 H 18 103/55 L 98 11/21/22 07:31 120 H 12 98 11/21/22 07:31 87/63 L 11/21/22 07:15 122 H 18 97 Room Air 11/21/22 07:15 111/64 05/23/23 07:00 107 H 15 96 11/21/22 07:00 112/76 11/21/22 07:35 Room Air 11/21/22 07:34 97 H 11/21/22 07:08 37 C 107 H 16 112/76 11/21/22 06:38 36.9 C 98 H 15 103/65 98 11/21/22 06:23 37 C 104 H 16 118/66 98 11/21/22 06:03 37.2 C 129 H 15 99/64 L 95 11/21/22 05:00 105 H 15 112/70 96 Room Air 11/21/22 04:30 108 H 17 117/71 95 Room Air 11/21/22 04:00 117 H 20 117/72 97 Room Air 11/21/22 03:30 103 H 17 111/57 L 97 11/21/22 03:16 105 H 17 120/63 97 11/21/22 03:01 37 C 115 H 18 121/68 92 Room Air 11/21/22 02:52 108 H 16 102/57 L 98 11/21/22 02:44 115 H 19 119/72 98 11/21/22 02:33 114 H 17 110/67 97 11/21/22 02:21 103 H 15 114/65 94 11/21/22 02:10 101 H 18 90/64 L 98 11/21/22 02:06 115 H 17 67/46 L 96 11/21/22 02:02 97 H 18 78/57 L 90 11/21/22 02:00 97 H 15 79/43 L 94 11/21/22 01:35 116 H 15 90/43 L 94 Room Air 11/21/22 00:00 101 H 11/21/22 01:00 99 H 16 97 Room Air 11/21/22 00:00 37.1 C 107 H 15 105/66 93 Room Air Laboratory Results Laboratory Results - last 24 hr 11/19/22 11/21/22 11/21/22 05:15 03:09 03:09 WBC RBC Hgb Hct MCV MCH MCHC RDW Std Deviation RDW Coeff of Demetrius Plt Count MPV Immature Gran % (Auto) Neut % (Auto) Lymph % (Auto) [place] % (Auto) Eos % (Auto) Baso % (Auto) Neut # (Auto) Lymph # (Auto) [place] # (Auto) Eos # (Auto) Baso # (Auto) Immature Gran # (Auto) RBC Morphology PT 13.3 H INR 1.2 H Sodium 135 L Potassium 4.0 Chloride 105 Carbon Dioxide 24 Anion Gap 6 BUN 19 Creatinine 0.91 Est Cr Clr Drug Dosing 74.1 Est GFR ( Amer) 91.3 Est GFR (Non-Af Amer) 78.8 BUN/Creatinine Ratio 20.9 H Glucose 110 H Calcium 7.9 L Magnesium 1.6 L Iron 37 TIBC 219 L Unsaturated IBC 182 Transferrin % Sat 17 L Ferritin 341.7 Vitamin B12 25-OH Vitamin D Total Folate Blood Type O Negative Antibody Screen NEGATIVE Crossmatch See Detail 11/21/22 11/21/22 11/21/22 03:09 03:09 03:09 WBC 5.85 RBC 2.57 L Hgb 7.6 L Hct 22.4 L MCV 87.2 MCH 29.6 MCHC 33.9 RDW Std Deviation 45.8 RDW Coeff of Demetrius 14.5 Plt Count 104 L MPV 9.7 Immature Gran % (Auto) 0.5 Neut % (Auto) 74.6 Lymph % (Auto) 13.8 [place] % (Auto) 8.2 Eos % (Auto) 2.7 Baso % (Auto) 0.2 Neut # (Auto) 4.36 Lymph # (Auto) 0.81 L [place] # (Auto) 0.48 Eos # (Auto) 0.16 Baso # (Auto) 0.01 Immature Gran # (Auto) 0.03 RBC Morphology Unremarkable PT INR Sodium Potassium Chloride Carbon Dioxide Anion Gap BUN Creatinine Est Cr Clr Drug Dosing Est GFR ( Amer) Est GFR (Non-Af Amer) BUN/Creatinine Ratio Glucose Calcium Magnesium Iron TIBC Unsaturated IBC Transferrin % Sat Ferritin Vitamin B12 174 L 25-OH Vitamin D Total 10.8 L Folate 17.40 Blood Type Antibody Screen Crossmatch PG Care Time/CCT Total # of Minutes Spent Total Time Spent with Patient: Total time spent is greater than 50% in coordination of care (as documented) at patient's floor/unit and/or counseling patient: Coding Level of Care Code 89707 SUB INP/OBS CARE 3/50MIN Diagnoses Atrial fibrillation with rapid ventricular response I48.91 Acute blood loss anemia D62 Acute GI bleeding K92.2 Diarrhea R19.7 PUD (peptic ulcer disease) K27.9 Hypocalcemia E83.51 Peripheral edema R60.9 Thrombocytopenia D69.6 Chronic cough R05.3 Acute hypotension I95.9 Carotid stenosis I65.29 B12 deficiency E53.8 Vitamin D deficiency E55.9 Hypomagnesemia E83.42
[2022-11-21] MEDS: guaiFENesin 600 MG TABCR PO SCH ×2 (12:32→20:26)
[2022-11-21] MEDS: dilTIAZem HCL 30 MG TAB PO SCH ×2 (12:32→18:02)
[2022-11-21 12:59] LABS: Hematocrit (blood only) 25.7 % (42.0-52.0); Hemoglobin 8.8 g/dl (14.0-18.0)
[2022-11-21] MEDS ORDERED: IPRATROPIUM BROMIDE/ALBUTEROL respimat INH INH SCH (13:00)
[2022-11-21] MEDS: IPRATROPIUM BROMIDE HFA INHALER INH SCH ×2 (15:02→20:08)
[2022-11-21] MEDS: ALBUTEROL HFA 8 GM INHALER INH SCH ×2 (15:02→20:07)
[2022-11-21] MEDS: BENZONATATE 100 MG CAPSULE PO SCH ×2 (15:35→20:27)
[2022-11-21] MEDS ORDERED: DIGOXIN 250 MCG in SYRINGE 9 ML IV STA (18:03)
[2022-11-21] MEDS: ATORVASTATIN 20 MG TAB PO SCH (20:27)
[2022-11-22] MEDS ORDERED: DIGOXIN 250 MCG in SYRINGE 9 ML IV ONE ×2 (00:30→07:45)
[2022-11-22 05:34] LABS: Basophils # (auto) 0.01 K/uL (0-0.2); Basophils % (auto) 0.3 %; Eosinophils # (auto) 0.13 K/uL (0-0.50); Eosinophils % (auto) 3.8 %; Hematocrit (blood only) 23.8 % (42.0-52.0); Hemoglobin 8.2 g/dl (14.0-18.0); Immature Granulocytes # (auto) 0.03 K/uL (0.01-0.20); Immature Granulocytes % (auto) 0.9 %; Lymphocytes # (auto) 0.55 K/uL (1.2-3.4); Lymphocytes % (auto) 15.9 %; Mean Corpuscular Hemoglobin 29.7 pg (25.0-34.0); Mean Corpuscular Hgb Conc 34.5 g/dL (32.0-36.0); Mean Corpuscular Volume 86.2 fL (80.0-100.0); Mean Platelet Volume 9.8 fL (9.4-12.4); Monocytes # (auto) 0.38 K/uL (0.11-0.59); Neutrophils # (auto) 2.36 K/uL (1.40-6.50); Neutrophils % (auto) 68.1 %; Platelet Count 105 K/uL (130-400); RDW Coefficient of Variation 14.6 % (11.5-14.5); RDW Standard Deviation 45.4 fL (36.4-46.3); Red Blood Count 2.76 M/uL (4.70-6.10); White Blood Count 3.46 K/ul (4.8-10.8)
[2022-11-22 05:36] LABS: BUN Creatinine Ratio 17.6 (10-20); Calcium 7.6 mg/dl (8.6-10.3); Creatinine Clr Calc Pharmacy 90.5 ml/min; Est GFR (African American) 100.3 ml/min; Est GFR (Non-African American) 86.5 ml/min; Potassium 3.7 mmol/L (3.5-5.1)
[2022-11-22] MEDS: IPRATROPIUM BROMIDE HFA INHALER INH SCH ×4 (07:15→19:59)
[2022-11-22] MEDS: ALBUTEROL HFA 8 GM INHALER INH SCH ×4 (07:15→19:59)
[2022-11-22] MEDS: COUGH DROP (SUGAR FREE) LOZ 24 LOZ/1 BOX BUCCAL PRN (08:00)
[2022-11-22] MEDS: PANTOprazole 40 MG in SYRINGE 0 ML IV SCH ×2 (08:37→20:36)
[2022-11-22] MEDS: BENZONATATE 100 MG CAPSULE PO SCH ×3 (08:37→20:31)
[2022-11-22] MEDS: guaiFENesin 600 MG TABCR PO SCH ×2 (08:48→20:33)
[2022-11-22] MEDS: CYANOCOBALAMIN (B-12) 500 MCG TABLET PO SCH (08:48)
[2022-11-22] MEDS: CETIRIZINE HCL 10 MG TABLET PO SCH (08:48)
[2022-11-22] MEDS ORDERED: IRON SUCROSE 200 MG in 0.9 % SODIUM CHLORIDE 100 ML IV ONE (11:04)
[2022-11-22 12:03] LABS: Hematocrit (blood only) 27.3 % (42.0-52.0); Hemoglobin 9.3 g/dl (14.0-18.0)
--- NOTE | 2022-11-22 12:27 | Fluoroscopy Report ---
FL video swallow CLINICAL HISTORY: r/o silent aspiration TECHNIQUE: Video fluoroscopy of the pharyngeal region was performed as barium mixtures of varying con sistencies were administered to the patient by the speech pathologist. A formal esophagram was not pe rformed. Comparison: None available at the time of this dictation. FINDINGS: Total fluoroscopy time: 49 minutes. Radiation dose: 4.04 mGy. The patient swallowed the different barium consistencies without difficulty. There was no laryngeal v estibular penetration or olivia tracheal aspiration. Pooling of barium was noted in the bilateral piri form sinuses and valleculae. IMPRESSION: No evidence of aspiration. Please see the speech pathology report for further details. ACT 112: Negative or not required by law. Electronically signed by: Sal De Leon M.D. 11/22/2022 12:26 PM
--- NOTE | 2022-11-22 12:45 | Hospitalist Progress Note ---
Date of Service November 22, 2022 Assessment & Plan (1) Atrial fibrillation with rapid ventricular response: Plan: Permanent a.fib Due to low or low-normal BPs in the face of #2 he was given digoxin 250mcg x 3 doses over the last 24 hours Despite such rate control remains suboptimal Will attempt to resume cardizem today Start with 30mg of cardizem IR q6h If he tolerates such then advance to 60mg qid Ultimate goal is to resume his usual cardizem CD 240mg daily On chronic coumadin - reversed due to acute GI bleeding Cont to hold coumadin for now Will make a decision tomorrow about continuing digoxin orally (2) Acute blood loss anemia: Plan: 2nd to acute upper GI bleeding due to gastritis, gastric ulcerations, and duodenal ulcers as seen on EGD 11/20/22 H pylori negative on gastric biopsy Appreciate GI consult & assistance Typical baseline Hb 14-15 11 at presentation s/p 2 units of PRBCs since admission Repeat H/H this afternoon stable Give IV venofer x 3 doses, first dose today Continue IV PPI Diet as tolerated (3) Acute GI bleeding: Plan: 2nd to gastritis/gastric ulcerations/duodenal ulcers Continue to hold Coumadin and aspirin Cont IV PPI twice daily Diet as tolerated Repeat H/H this afternoon stable/acceptable Repeat CBC am (4) Diarrhea: Plan: Stool BioFire negative Loose stools likely due to GI bleeding itself causing GI tract irritation (5) PUD (peptic ulcer disease): Plan: As above (6) Hypocalcemia: Plan: likely 2nd to PRBCs vitamin D deficiency can also contribute calcium level today low-normal when corrected for hypoalbuminemia (7) Peripheral edema: Plan: Despite the LE edema he otherwise does not examine in acute CHF s/p lasix yesterday given his low or low-normal BPs continue to defer on additional diuresis at this time (8) Thrombocytopenia: Plan: Likely from consumption in the setting of acute GI bleeding Low B12 can contribute but, since the drop in platelet count is acute, likely from GI bleeding itself Level has yet to rise but hopefully will do so next 1-2 days CBC in am (9) Chronic cough: Plan: Lung cuts from CT a/p showed "Lower chest: Mild interstitial thickening and bronchial wall thickening are seen compatible with chronic fibrotic change." Cough improved with meds as below Ultimately would benefit from HR chest CT, pulmonary referral as outpatient, and PFTs Cont mucinex BID Cont combivent QID Cont scheduled tessalon TID (10) Acute hypotension: Plan: Combination of hemorrhagic shock and hypovolemic shock present on admission that resolved with IVF Some ongoing low-normal BPs likely due to rapid a.fib and poor filling time Monitor (11) Carotid stenosis: Plan: With a history of carotid endarterectomy Holding home aspirin due to #1, #2 Continue statin (12) B12 deficiency: Plan: B12 level = 174 vitamin B12 1000mcg daily x 6-12 months (13) Vitamin D deficiency: Plan: 25-OH vit D level = 10.8 started ergocalciferol 62628 units once weekly x 8 weeks (14) Hypomagnesemia: Plan: replaced resolved Plan care d/w pt's and family at bedside PT/OT as tolerated progressing Admission and Anticipated Discharge Date Admission Date: November 19, 2022 Subjective a.fib rates remain >100 despite dig loading yesterday/overnight patient reports dark melena stool x 1 today denies any abd pain, nausea, emesis, or GI intolerance to his meals denies dyspnea cough IS improved with inhalers, mucinex, etc last pm his family was present and felt he didn't look good - was pale, etc. today they feel he looks better pt did sit in chair this am but got tired after a period of time otherwise very little activity to date Review of Systems Review of Systems: gen - no fevers, good appetite cv - no chest pain, no orthopnea pulm - no dyspnea or RAND GI - no nausea/emesis Physical Exam Physical Exam: gen - looks good today, pleasant, laying in bed comfortably skin - pallor mouth - MMM neck - no JVD heart - irregularly irregular, s1 s2, no murmur, tachy lungs - scant rales bases, no wheezes, good airation, coughing improved today abd - soft NT ND BS+ ext - <1+ edema b/l, pulses 2+ b/l psych - a/o x 3 Results & Data Results & Data Vital Signs (Past 12 Hours) Vital Signs Temp Pulse Pulse Pulse Resp BP BP 11/22/22 11:35 96 H 18 11/22/22 09:55 108 H 16 96/67 L 11/22/22 09:12 130 H 20 87/58 L 11/22/22 09:00 119 H 22 94/70 L 11/22/22 08:43 131 H 19 86/60 L 11/22/22 08:00 125 H 16 115/80 11/22/22 11:14 11/22/22 08:53 117 H 86/60 L 11/22/22 08:37 123 H 11/22/22 07:42 37.2 C 127 H 17 97/71 L 11/22/22 07:15 109 H 18 11/22/22 04:00 99 H 15 11/22/22 04:00 118/72 11/22/22 03:00 105 H 16 11/22/22 02:00 134 H 18 11/22/22 04:39 36.9 C 11/22/22 01:00 127 H 18 11/22/22 00:46 119 H Pulse Ox O2 Del Method 11/22/22 11:35 101 H Room Air 11/22/22 09:55 97 Room Air 11/22/22 09:12 98 11/22/22 09:00 96 11/22/22 08:43 95 Room Air 11/22/22 08:00 94 Room Air 11/22/22 11:14 Room Air 11/22/22 08:53 11/22/22 08:37 11/22/22 07:42 95 Room Air 11/22/22 07:15 96 Room Air 11/22/22 04:00 93 11/22/22 04:00 11/22/22 03:00 95 11/22/22 02:00 93 11/22/22 04:39 11/22/22 01:00 94 11/22/22 00:46 Laboratory Results Laboratory Results - last 24 hr 11/21/22 11/22/22 11/22/22 12:49 04:57 04:57 WBC 3.46 L RBC 2.76 L Hgb 8.8 L 8.2 L Hct 25.7 L 23.8 L MCV 86.2 MCH 29.7 MCHC 34.5 RDW Std Deviation 45.4 RDW Coeff of Demetrius 14.6 H Plt Count 105 L MPV 9.8 Immature Gran % (Auto) 0.9 Neut % (Auto) 68.1 Lymph % (Auto) 15.9 [place] % (Auto) 11.0 Eos % (Auto) 3.8 Baso % (Auto) 0.3 Neut # (Auto) 2.36 Lymph # (Auto) 0.55 L [place] # (Auto) 0.38 Eos # (Auto) 0.13 Baso # (Auto) 0.01 Immature Gran # (Auto) 0.03 Sodium 135 L Potassium 3.7 Chloride 105 Carbon Dioxide 25 Anion Gap 5 BUN 13 Creatinine 0.74 Est Cr Clr Drug Dosing 90.5 Est GFR ( Amer) 100.3 Est GFR (Non-Af Amer) 86.5 BUN/Creatinine Ratio 17.6 Glucose 112 H Calcium 7.6 L 11/22/22 11:35 WBC RBC Hgb 9.3 L Hct 27.3 L MCV MCH MCHC RDW Std Deviation RDW Coeff of Demetrius Plt Count MPV Immature Gran % (Auto) Neut % (Auto) Lymph % (Auto) [place] % (Auto) Eos % (Auto) Baso % (Auto) Neut # (Auto) Lymph # (Auto) [place] # (Auto) Eos # (Auto) Baso # (Auto) Immature Gran # (Auto) Sodium Potassium Chloride Carbon Dioxide Anion Gap BUN Creatinine Est Cr Clr Drug Dosing Est GFR ( Amer) Est GFR (Non-Af Amer) BUN/Creatinine Ratio Glucose Calcium PG Care Time/CCT Total # of Minutes Spent Total Time Spent with Patient: Total time spent is greater than 50% in coordination of care (as documented) at patient's floor/unit and/or counseling patient: Coding Level of Care Code 17684 SUB INP/OBS CARE 2/35MIN Diagnoses Atrial fibrillation with rapid ventricular response I48.91 Acute blood loss anemia D62 Acute GI bleeding K92.2 Diarrhea R19.7 PUD (peptic ulcer disease) K27.9 Hypocalcemia E83.51 Peripheral edema R60.9 Thrombocytopenia D69.6 Chronic cough R05.3 Acute hypotension I95.9 Carotid stenosis I65.29 B12 deficiency E53.8 Vitamin D deficiency E55.9 Hypomagnesemia E83.42
[2022-11-22] MEDS: dilTIAZem HCL 30 MG TAB PO SCH ×2 (13:47→16:39)
[2022-11-22] MEDS: ATORVASTATIN 20 MG TAB PO SCH (20:30)
[2022-11-22] MEDS: dilTIAZem HCl 60 MG TAB PO SCH (20:32)
[2022-11-23 05:07] LABS: Basophils # (auto) 0.01 K/uL (0-0.2); Basophils % (auto) 0.3 %; Eosinophils # (auto) 0.08 K/uL (0-0.50); Eosinophils % (auto) 2.5 %; Hematocrit (blood only) 24.8 % (42.0-52.0); Hemoglobin 8.4 g/dl (14.0-18.0); Immature Granulocytes # (auto) 0.04 K/uL (0.01-0.20); Immature Granulocytes % (auto) 1.3 %; Lymphocytes # (auto) 0.65 K/uL (1.2-3.4); Lymphocytes % (auto) 20.3 %; Mean Corpuscular Hemoglobin 29.1 pg (25.0-34.0); Mean Corpuscular Hgb Conc 33.9 g/dL (32.0-36.0); Mean Corpuscular Volume 85.8 fL (80.0-100.0); Mean Platelet Volume 9.7 fL (9.4-12.4); Monocytes # (auto) 0.33 K/uL (0.11-0.59); Monocytes % (auto) 10.3 %; Neutrophils # (auto) 2.09 K/uL (1.40-6.50); Neutrophils % (auto) 65.3 %; Platelet Count 124 K/uL (130-400); RDW Coefficient of Variation 14.6 % (11.5-14.5); RDW Standard Deviation 44.8 fL (36.4-46.3); Red Blood Count 2.89 M/uL (4.70-6.10)
[2022-11-23 05:25] LABS: BUN Creatinine Ratio 14.4 (10-20); Calcium 7.6 mg/dl (8.6-10.3); Creatinine Clr Calc Pharmacy 69.1 ml/min; Est GFR (African American) 84.5 ml/min; Est GFR (Non-African American) 72.9 ml/min; Potassium 3.5 mmol/L (3.5-5.1)
[2022-11-23] MEDS: ALBUTEROL HFA 8 GM INHALER INH SCH ×5 (07:15→19:26)
[2022-11-23] MEDS: IPRATROPIUM BROMIDE HFA INHALER INH SCH ×5 (07:16→19:27)
[2022-11-23] MEDS: PANTOprazole 40 MG in SYRINGE 0 ML IV SCH ×2 (07:42→20:07)
[2022-11-23] MEDS: dilTIAZem HCl 60 MG TAB PO SCH ×4 (07:43→20:05)
[2022-11-23] MEDS: guaiFENesin 600 MG TABCR PO SCH ×2 (07:43→20:06)
[2022-11-23] MEDS: CYANOCOBALAMIN (B-12) 500 MCG TABLET PO SCH (07:43)
[2022-11-23] MEDS: BENZONATATE 100 MG CAPSULE PO SCH ×3 (07:43→20:04)
[2022-11-23] MEDS: CETIRIZINE HCL 10 MG TABLET PO SCH (07:43)
[2022-11-23] MEDS ORDERED: DIGOXIN 0.125 MG TAB PO ONE (08:58)
[2022-11-23] MEDS: POTASSIUM CHLORIDE CRTAB 20 MEQ TABCR PO SCH (09:20)
[2022-11-23] MEDS ORDERED: IRON SUCROSE 300 MG in SODIUM CHLORIDE 0.9% 250 ML IV ONE (10:00)
[2022-11-23] MEDS: COUGH DROP (SUGAR FREE) LOZ 24 LOZ/1 BOX BUCCAL PRN (20:04)
[2022-11-23] MEDS: ATORVASTATIN 20 MG TAB PO SCH (20:05)
[2022-11-24 04:51] LABS: Hematocrit (blood only) 24.2 % (42.0-52.0); Hemoglobin 8.1 g/dl (14.0-18.0); Mean Corpuscular Hemoglobin 29.6 pg (25.0-34.0); Mean Corpuscular Hgb Conc 33.5 g/dL (32.0-36.0); Mean Corpuscular Volume 88.3 fL (80.0-100.0); Mean Platelet Volume 9.3 fL (9.4-12.4); Nucleated RBC # (auto) 0.03 K/uL (0-0.12); Nucleated RBC % (auto) 0.7 %; Platelet Count 134 K/uL (130-400); RDW Coefficient of Variation 14.9 % (11.5-14.5); RDW Standard Deviation 46.5 fL (36.4-46.3); Red Blood Count 2.74 M/uL (4.70-6.10); White Blood Count 4.11 K/ul (4.8-10.8)
[2022-11-24 05:09] LABS: Calcium 7.7 mg/dl (8.6-10.3); Est GFR (African American) 74.2 ml/min; Magnesium 1.7 mg/dl (1.7-2.4); Potassium 3.9 mmol/L (3.5-5.1)
[2022-11-24] MEDS: IPRATROPIUM BROMIDE HFA INHALER INH SCH (06:57)
[2022-11-24] MEDS: ALBUTEROL HFA 8 GM INHALER INH SCH (06:57)
[2022-11-24] MEDS ORDERED: IRON SUCROSE 300 MG in SODIUM CHLORIDE 0.9% 250 ML IV ONE (07:30)
--- NOTE | 2022-11-24 07:40 | Hospitalist Progress Note ---
Date of Service November 23, 2022 Assessment & Plan (1) Atrial fibrillation with rapid ventricular response: Plan: Permanent a.fib s/p digoxin load this admission followed by PO digoxin 0.125mg daily + cardizem 60mg qid rates improved with combination of meds as above cont both dig/cardizem --> convert latter back to CD tomorrow if rates remain controlled Previously on chronic coumadin - reversed due to acute GI bleeding Corresponded with Dr Schroeder his primary treer - he feels that DOAC could be used in lisa of coumadin Cost of Eliquis 5mg BID --> ~$20/month patient agreeable to changing to such No aspirin moving forward will inquire with GI about when they feel anticoagulation can be safely resumed (2) Acute blood loss anemia: Plan: 2nd to acute upper GI bleeding due to gastritis, gastric ulcerations, and duodenal ulcers as seen on EGD 11/20/22 H pylori negative on gastric biopsy Appreciate GI consult & assistance Typical baseline Hb 14-15 11 at presentation s/p 2 units of PRBCs since admission Repeat H/H stable Give IV venofer x 3 doses, 2nd dose today Continue IV PPI --> convert to PO PPI tomorrow Diet as tolerated - change to AHA from low fiber (he wants to eat salad) CBC am (3) Acute GI bleeding: Plan: 2nd to gastritis/gastric ulcerations/duodenal ulcers Continue to hold Coumadin and aspirin see discussion above Cont IV PPI twice daily Diet as tolerated Repeat CBC am (4) Diarrhea: Plan: Stool BioFire negative Loose stools likely due to GI bleeding itself causing GI tract irritation Stools have normalized (5) PUD (peptic ulcer disease): Plan: As above (6) Hypocalcemia: Plan: likely 2nd to PRBCs vitamin D deficiency can also contribute calcium level again today low-normal when corrected for hypoalbuminemia (7) Peripheral edema: Plan: Despite the LE edema he otherwise does not examine in acute CHF LE edema improved again today given his low or low-normal BPs continue to defer on additional diuresis at this time (8) Thrombocytopenia: Plan: Likely from consumption in the setting of acute GI bleeding Low B12 can contribute but, since the drop in platelet count is acute, likely from GI bleeding itself Level has leveled off and starting to trend up repeat CBC am (9) Chronic cough: Plan: Lung cuts from CT a/p showed "Lower chest: Mild interstitial thickening and bronchial wall thickening are seen compatible with chronic fibrotic change." Cough improved with meds as below Ultimately would benefit from HR chest CT, pulmonary referral as outpatient, and PFTs Cont mucinex BID Cont combivent QID Cont scheduled tessalon TID (10) Acute hypotension: Plan: Combination of hemorrhagic shock and hypovolemic shock present on admission that resolved with IVF Resolved (11) Carotid stenosis: Plan: With a history of carotid endarterectomy Holding home aspirin due to #1, #2 Continue statin (12) B12 deficiency: Plan: B12 level = 174 vitamin B12 1000mcg daily x 6-12 months (13) Vitamin D deficiency: Plan: 25-OH vit D level = 10.8 started ergocalciferol 61453 units once weekly x 8 weeks (14) Hypomagnesemia: Plan: replaced resolved Plan cleared by PT/OT for home if stable overnight -- d/c home tomorrow with ? Admission and Anticipated Discharge Date Admission Date: November 19, 2022 Subjective a.fib rates overnight 90s/100s after digoxin this am along with cardizem rates now fairly consistent <100 he feels well tolerating regular diet w/o abd pain/nausea/emesis had stool today - melena nearly resolved, fairly brown worked with PT - no dizziness, no dyspnea with walking felt good no other new complaints Review of Systems Review of Systems: gen - good appetite cv - no chest pain, no orthopnea pulm - no dyspnea; cough much improved GI - no nausea/emesis/abd pain/brbpr Physical Exam Physical Exam: gen - looks great, NAD mouth - MMM neck - no JVD heart - irregularly irregular, s1 s2, no murmur, rate <100 lungs - scant rales bases, no wheezes, good airation abd - soft NT ND BS+ ext - trace edema b/l, pulses 2+ b/l, varicose veins present b/l legs psych - a/o x 3 Results & Data Results & Data Vital Signs (Past 12 Hours) Vital Signs Temp Pulse Pulse Resp BP BP Pulse Ox 11/23/22 15:23 36.5 C 86 20 102/52 L 95 11/23/22 11:00 99 H 16 94 11/23/22 11:00 109/65 11/23/22 10:45 85 16 94 11/23/22 10:45 101/64 11/23/22 10:42 102/54 L 11/23/22 10:42 84 20 11/23/22 10:30 90 17 11/23/22 10:15 97 H 15 11/23/22 10:00 110 H 16 11/23/22 11:00 37.2 C 86 16 109/65 94 11/23/22 09:20 104 H 11/23/22 08:00 11/23/22 08:00 104 H Laboratory Results Laboratory Results - last 48 hr 11/22/22 11/23/22 11/23/22 11:35 04:48 04:48 WBC 3.20 L RBC 2.89 L Hgb 9.3 L 8.4 L Hct 27.3 L 24.8 L MCV 85.8 MCH 29.1 MCHC 33.9 RDW Std Deviation 44.8 RDW Coeff of Demetrius 14.6 H Plt Count 124 L MPV 9.7 Immature Gran % (Auto) 1.3 Neut % (Auto) 65.3 Lymph % (Auto) 20.3 [place] % (Auto) 10.3 Eos % (Auto) 2.5 Baso % (Auto) 0.3 Neut # (Auto) 2.09 Lymph # (Auto) 0.65 L [place] # (Auto) 0.33 Eos # (Auto) 0.08 Baso # (Auto) 0.01 Immature Gran # (Auto) 0.04 Absolute Nucleated RBC Nucleated RBC % (auto) Sodium 137 Potassium 3.5 Chloride 106 Carbon Dioxide 26 Anion Gap 5 BUN 14 Creatinine 0.97 Est Cr Clr Drug Dosing 69.1 Est GFR ( Amer) 84.5 Est GFR (Non-Af Amer) 72.9 BUN/Creatinine Ratio 14.4 Glucose 106 H Calcium 7.6 L Magnesium Anaplasma Smear See Comment PG Care Time/CCT Total # of Minutes Spent Total Time Spent with Patient: Total time spent is greater than 50% in coordination of care (as documented) at patient's floor/unit and/or counseling patient: Coding Level of Care Code 21800 SUB INP/OBS CARE 2/35MIN Diagnoses Atrial fibrillation with rapid ventricular response I48.91 Acute blood loss anemia D62 Acute GI bleeding K92.2 Diarrhea R19.7 PUD (peptic ulcer disease) K27.9 Hypocalcemia E83.51 Peripheral edema R60.9 Thrombocytopenia D69.6 Chronic cough R05.3 Acute hypotension I95.9 Carotid stenosis I65.29 B12 deficiency E53.8 Vitamin D deficiency E55.9 Hypomagnesemia E83.42
[2022-11-24] MEDS: guaiFENesin 600 MG TABCR PO SCH (08:11)
[2022-11-24] MEDS: POTASSIUM CHLORIDE CRTAB 20 MEQ TABCR PO SCH (08:11)
[2022-11-24] MEDS: BENZONATATE 100 MG CAPSULE PO SCH ×2 (08:11→15:03)
[2022-11-24] MEDS: CYANOCOBALAMIN (B-12) 500 MCG TABLET PO SCH (08:12)
[2022-11-24] MEDS: CETIRIZINE HCL 10 MG TABLET PO SCH (08:12)
[2022-11-24] MEDS ORDERED: PANTOprazole 40 MG TAB PO SCH (09:00)
[2022-11-24] MEDS: dilTIAZem HCL 240 MG CAPCR PO SCH (09:09)
[2022-11-24] MEDS ORDERED: IPRATROPIUM BROMIDE HFA INHALER INH PRN (10:58)
[2022-11-24] MEDS ORDERED: ALBUTEROL HFA 8 GM INHALER INH PRN (10:58)
[2022-11-24 11:33] LABS: Hematocrit (blood only) 26.8 % (42.0-52.0); Hemoglobin 8.9 g/dl (14.0-18.0)
[2022-11-24 11:38] VITALS: TEMP 97.8; O2SAT 96
[2022-11-24 15:13] VITALS: BP 119/60
[2022-11-24 15:22] VITALS: PULSE 111
--- NOTE | 2022-11-24 15:39 | Discharge Summary ---
Date of Service November 24, 2022 Admission HPI Per Admitting Provider 82-year-old male with several days of diarrhea and weakness. He was brought to the ED for evaluation. He was hypotensive on arrival but responded to IV fluids. He probably has a combination of hemorrhagic and hypovolemic shock that resolved with fluid resuscitation. I suspect he has underlying viral gastroenteritis. Stools are Hemoccult positive and hemoglobin has dropped to 11 from 14. He is Coumadin toxic with INR greater than 4. He has received vitamin K and Kcentra in the ED. Kcentra was given in place of fresh frozen plasma at the request of gastroenterology who has been consulted. His chronic atrial fibrillation is rapid and he is now on a diltiazem drip. Discharge Exam gen - looks great, NAD mouth - MMM neck - no JVD heart - irregularly irregular, s1 s2, no murmur, rate <100 lungs - scant rales bases, no wheezes, good airation abd - soft NT ND BS+ ext - trace edema b/l, pulses 2+ b/l, varicose veins present b/l legs psych - a/o x 3 Discharge Data Allergies Allergy/AdvReac Type Severity Reaction Status Date / Time No Known Allergies Allergy Verified 11/20/22 10:36 Consultations 11/19/22 08:23 ED Decision to Admit Stat 11/19/22 10:58 Consult Gastroenterology Stat Procedures Performed Operation Date: 11/20/22 16:45 Actual Procedures p EGD Biopsy Cytology - Jose Manuel Xiong MD Ordered Studies 11/19/22 05:27 CT abd pelvis IV con only Stat 11/22/22 11:00 FL video swallow Routine Hospital Course (1) Atrial fibrillation with rapid ventricular response: Permanent a.fib s/p digoxin load this admission followed by PO digoxin 0.125mg daily + cardizem 60mg qid rates improved with combination of meds as above cont both dig/cardizem --> convert latter back to CD tomorrow if rates remain controlled Previously on chronic coumadin - reversed due to acute GI bleeding 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 - he feels that DOAC could be used in lisa of coumadin Cost of Eliquis 5mg BID --> ~$20/month patient agreeable to changing to such No aspirin moving forward will inquire with GI about when they feel anticoagulation can be safely resumed (2) Acute blood loss anemia: 2nd to acute upper GI bleeding due to gastritis, gastric ulcerations, and duodenal ulcers as seen on EGD 11/20/22 H pylori negative on gastric biopsy Appreciate GI consult & assistance Typical baseline Hb 14-15 11 at presentation s/p 2 units of PRBCs since admission Repeat H/H stable Give IV venofer x 3 doses, 2nd dose today Continue IV PPI --> convert to PO PPI tomorrow Diet as tolerated - change to AHA from low fiber (he wants to eat salad) CBC am (3) Acute GI bleedinnd to gastritis/gastric ulcerations/duodenal ulcers Continue to hold Coumadin and aspirin see discussion above Cont IV PPI twice daily Diet as tolerated Repeat CBC am (4) Diarrhea: Stool BioFire negative Loose stools likely due to GI bleeding itself causing GI tract irritation Stools have normalized (5) PUD (peptic ulcer disease): As above (6) Hypocalcemia: likely 2nd to PRBCs vitamin D deficiency can also contribute calcium level again today low-normal when corrected for hypoalbuminemia (7) Peripheral edema: Despite the LE edema he otherwise does not examine in acute CHF LE edema improved again today given his low or low-normal BPs continue to defer on additional diuresis at this time (8) Thrombocytopenia: Likely from consumption in the setting of acute GI bleeding Low B12 can contribute but, since the drop in platelet count is acute, likely from GI bleeding itself Level has leveled off and starting to trend up repeat CBC am (9) Chronic cough: Lung cuts from CT a/p showed "Lower chest: Mild interstitial thickening and bronchial wall thickening are seen compatible with chronic fibrotic change." Cough improved with meds as below Ultimately would benefit from HR chest CT, pulmonary referral as outpatient, and PFTs Cont mucinex BID Cont combivent QID Cont scheduled tessalon TID (10) Acute hypotension: Combination of hemorrhagic shock and hypovolemic shock present on admission that resolved with IVF Resolved (11) Carotid stenosis: With a history of carotid endarterectomy Holding home aspirin due to #1, #2 Continue statin (12) B12 deficiency: B12 level = 174 vitamin B12 1000mcg daily x 6-12 months (13) Vitamin D deficiency: 25-OH vit D level = 10.8 started ergocalciferol 87235 units once weekly x 8 weeks (14) Hypomagnesemia: replaced resolved Plan cleared by PT/OT for home if stable overnight -- d/c home tomorrow with ? Discharge Plan Discharge Items Patient Disposition: Home - Self-Care Reason For Visit: Gastrointestinal Bleeding Discharge Diagnosis: 1. Gastrointestinal (GI) bleeding due to #2, #3, #4 2. Gastritis (irritated, inflamed stomach) 3. Ulcerations in the stomach 4. Ulcers of the duodenum (first part of small intestine) 5. Anemia due to bleeding, low iron, and low vitamin B12 6. Vitamin B12 deficiency 7. Vitamin D deficiency 8. Chronic cough 9. Atrial fibrillation Activity: As commented below Activity Comment: light activities only for now Exercise/Sports: Wait until after follow-up appointment Exercise Comment: no physical therapy at this time Driving/Machine Use: Resume 1 day after discharge Non-emergency contact: Primary Care Provider, Rn Family and Ticket Sales Supervisor Call non-emergency contact if: you have any medication questions and your symptoms worsen Follow-up/Referrals: Ronnie Schroeder MD [Physician] - 12/14/22 10:00 am Gustavo Upton MD [Physician] - (Please call to schedule an apt with pulm in 6-8 weeks for ongoing cough. I was unable to make this apt for you.) Homar Enriquez MD [Primary Care Provider] - 12/11/22 2:05 pm (WITH DR CAMARILLO) Diet: Heart Healthy Addtl Attending Provider Instructions: Mr Thomas, You were hospitalized for gastrointestinal bleeding. This caused a drop in your red cells (hemoglobin). You required a blood transfusion because of the bleeding. Your aspirin was stopped, and you were given medication to rid your system of coumadin. On 11/20 you underwent upper endoscopy ("EGD") by Dr Xiong with [facility]. This showed irritation in your stomach (gastritis), gastric ulcerations, and duodenal ulcers. These three things caused your bleeding. It is likely that chronic aspirin use was the main culprit in causing the ulcers and irritation. Recent physical stress and use of steroids for your back may have contributed as well. You improved with use of IV acid reducers (pantoprazole acid personnel specialist). At home you will take pantroprazole 40mg twice daily for at least 3 months to treat your ulcers. Your blood counts remained stable later in your stay. Your hemoglobin level at discharge was 8.9. In addition to blood you received 3 runs of IV iron. A diet was resumed and you are tolerating this well. In addition to the above we addressed the following - 1. atrial fibrillation - * we added a medication called Digoxin once daily to help with your afib * we will be starting Eliquis blood thinner which will take the place of your coumadin; this will start next week (see below) * you will need a blood draw next week on Sunday to check your digoxin level 2. vitamin D deficiency (your level was 10.8; normal is greater than 30) * you were started on vitamin D supplementation * your supplement is ergocalciferol 49816 units ONCE A WEEK x 7 weeks starting on November 30, 2022 3. vitamin B12 deficiency (your level was 174; normal is greater than 180) * take txdi-oru-yrhudbj vitamin B12 1000mcg daily for 6 months 4. chronic cough - * your CT scan showed that the bottom of the lungs had bronchial irritation * this may be the cause of your chronic cough * please take Breo inhaler 1 puff daily every day * be sure to rinse your mouth with water after taking Breo * you may also use tessalon pearles 100mg every 8 hours as needed for cough * you can also take ejys-lwr-lgodrzl mucinex up to 1200mg twice daily as desired for cough/congestion * please see [facility] for your chronic cough 5. blood thinner medication - * we STOPPED your coumadin; there are no plans to resume it * we STOPPED your aspirin; please do not take any longer * in place of coumadin we are starting ELIQUIS 5MG TWICE DAILY * please start the Eliquis on the AM of November 30, 2022 * you do not need blood levels checked while taking Eliquis * you do not need to restrict your diet in any way while taking Eliquis 6. diet - * avoid spicy foods, fried foods, acidic foods & beverages (large amounts of coffee, red sauces, etc), and alcohol for about 1 week 7. Avoid use of all anti-inflammatory pills including exjr-kqf-patfula Motrin, Ibuprofen, Aspirin, Aleve, Naprosyn 8. HOLD your losartan Additional information - * you do not need to take an oral iron supplement at home * it is OK to take yocg-onh-bpawlsh tylenol for aches/pains; tylenol does NOT cause stomach irritation or bleeding * you may see some mild dark stool for the next 2-3 days; this is OLD blood that simply has to pass; the stools will return to normal brown color thereafter Follow-up - * see separate section for appointment dates/times * on Sunday morning, November 28 please have a blood draw at the hospital main lab Return to [facility] if - * you are feeling dizzy or lightheaded * you have extreme weakness * you are seeing large amounts of dark, tarry material in your stool * you see bright red blood in your stool * you are having abdominal pains * you are short of breath * any other concerns It was our pleasure to care for you! -Dr Ramirez Pending Studies at Discharge: No Stand-Alone Forms: [facility], Smoking Cessation Medications and DC Order Prescriptions: New Eliquis 5 mg tablet 5 mg PO BID Qty: 60 2RF benzonatate 100 mg Capsule 100 mg PO TID PRN (Reason: cough) Qty: 20 0RF pantoprazole 40 mg Tablet,Delayed Release (Dr/Ec) 40 mg PO BID Qty: 60 2RF digoxin [Digitek] 125 mcg (0.125 mg) Tablet 0.125 mg PO DAILY@1600 Qty: 30 2RF fluticasone furoate-vilanterol [Breo Ellipta] 100-25 mcg/dose blister with device 1 inh inhalation DAILY Qty: 60 2RF Rx Instructions: rinse mouth with water after each use; spit the water out, do not swallow. cyanocobalamin (vitamin B-12) 1,000 mcg tablet 1,000 mcg PO DAILY Qty: 90 1RF Rx Instructions: purchase lwau-cow-urommjs ergocalciferol (vitamin D2) 1,250 mcg (50,000 unit) capsule 50,000 unit PO .once a week 49 Days Qty: 7 0RF Rx Instructions: first dose on 11/30/22. Then once a week thereafter. Continued atorvastatin 20 mg tablet 20 mg PO QPM Qty: 90 3RF diltiazem HCl 240 mg capsule,extended release 24hr 240 mg PO QAM Qty: 90 1RF Changed acetaminophen [Tylenol Extra Strength] 500 mg tablet 1,000 mg PO Q6H PRN (Reason: Pain) Qty: 1 0RF Rx Instructions: purchase rrqf-gpl-ekjjget; maximum amount - 3000mg in 24 hours. Discontinued losartan 100 mg tablet 100 mg PO QAM Qty: 90 3RF aspirin 81 mg Tablet,Delayed Release (Dr/Ec) 81 mg PO QAM warfarin 5 mg tablet 5 mg PO [id number] Protocol: Dose Management Condition: Sunday (Week One) Dose/Route: 0 mg Instruction: 0 tablets Condition: Sunday Dose/Route: 5 mg Instruction: 1 x 5 mg tablet Condition: Sunday Dose/Route: 2.5 mg Instruction: 0.5 x 5 mg tablets Condition: Sunday Dose/Route: 5 mg Instruction: 1 x 5 mg tablet Condition: Dose/Route: 2.5 mg Instruction: 0.5 x 5 mg tablets Condition: Sunday Dose/Route: 0 mg Instruction: 0 tablets Condition: Sunday Dose/Route: 0 mg Instruction: 0 tablets Condition: Sunday (Week Two) Dose/Route: 2.5 mg Instruction: 0.5 x 5 mg tablets Condition: Sunday Dose/Route: 2.5 mg Instruction: 0.5 x 5 mg tablets Condition: Sunday Dose/Route: 2.5 mg Instruction: 0.5 x 5 mg tablets Condition: Sunday Dose/Route: 5 mg Instruction: 1 x 5 mg tablet Condition: Dose/Route: 2.5 mg Instruction: 0.5 x 5 mg tablets Condition: Sunday Dose/Route: 5 mg Instruction: 1 x 5 mg tablet Condition: Sunday Dose/Route: 5 mg Instruction: 1 x 5 mg tablet Protocol Text: Adjustment Start Date: Sunday11/10/22 INR Value: 4.6 INR Date: 11/10/22 Rx Instructions: 5 mg orally ;TAKES QPM @ 1600, TAKES 5 MG EVERY DAY, EXCEPT TUESDAYS--TAKES 2.5 MG. warfarin 5 mg tablet 2.5 mg PO 2XWK Rx Instructions: SUNDAY AND SUNDAY; 5 mg orally ;TAKES QPM @ 1600, TAKES 5 MG EVERY DAY, EXCEPT TUESDAYS--TAKES 2.5 MG. Discharge Orders: Discharge Order (Routine); Ordered 11/24/22 Ordered By: Surjit Sanchez/Other Patient Handouts: ED Peptic Ulcer Admission Data Admit Date/Time: 11/19/22 11:00 Attending Provider: Surjit Ramirez Admit Provider: Surjit Mendoza Primary Care Provider: Homar Enriquez Other Providers: Surjit Mendoza ; Nemesio Pinto Other Interventions: Discharge Summary Assessment (RN) Last Done: 11/24/22 15:16 Coding Diagnoses Atrial fibrillation with rapid ventricular response I48.91 Acute blood loss anemia D62 Acute GI bleeding K92.2 Diarrhea R19.7 PUD (peptic ulcer disease) K27.9 Hypocalcemia E83.51 Peripheral edema R60.9 Thrombocytopenia D69.6 Chronic cough R05.3 Acute hypotension I95.9 Carotid stenosis I65.29 B12 deficiency E53.8 Vitamin D deficiency E55.9 Hypomagnesemia E83.42
[2022-11-24] MEDS ORDERED: DIGOXIN 0.125 MG TAB PO SCH (16:00)
== END 2022-11-24 16:19 | disposition home or self-care (01) | DRG 377 ==
LOC: ED 04:44 → 1E 11:00 → SUATTDRO 11:00 → 1E 14:13

== ENCOUNTER 2023-12-19 23:50 | Inpatient (IN) ==
--- NOTE | 2023-12-20 00:08 | Emergency Department Note ---
History of Present Illness General Chief complaint: Constipation Stated complaint: ABD PAIN,CAN'T HAVE A BM Time Seen by Provider: 12/19/23 23:57 History of Present Illness Maximum Pain Intensity: 5 This 83-year-old male presents ER complaining of abdominal pain bloating nausea and vomiting this got progressively worse for the past 3 days. Patient states he had a bowel blockage in the past. Patient is has tried stool softeners with no relief. Patient denies chest pain, dyspnea, fevers, leg pain, urinary symptoms. Home Medications Medication Instructions Recorded Confirmed Type acetaminophen 500 mg tablet 1,000 mg (2 x 500 mg) PO Q6H PRN 11/24/22 12/20/23 Rx (Tylenol Extra Strength) Pain #1 tab cyanocobalamin (vitamin B-12) 1,000 mcg PO DAILY #90 tabs 11/24/22 12/20/23 Rx 1,000 mcg tablet atorvastatin 20 mg tablet 20 mg PO QPM #90 tabs 01/15/23 12/20/23 Rx apixaban 5 mg tablet (Eliquis) 5 mg PO BID #180 tabs 02/27/23 12/20/23 Rx diltiazem HCl 240 mg 240 mg PO QAM #90 caps 06/13/23 12/20/23 Rx capsule,extended release 24 hr pantoprazole 40 mg tablet,delayed 40 mg PO QAM 12/05/23 12/20/23 History release ipratropium bromide 42 mcg (0.06 2 spray intranasal QID PRN POST 12/20/23 12/20/23 History %) nasal spray NASAL DRIP Allergies Allergy/AdvReac Type Severity Reaction Status Date / Time No Known Allergies Allergy Verified 12/20/23 01:40 Past Med/Surg History Problem List (Updated 12/20/23 @ 02:01 by Background Daemon) Small bowel obstruction (Acute) LPRD (laryngopharyngeal reflux disease) Dysphagia Diarrhea Abdominal pain, vomiting, and diarrhea Dehydration Vomiting Weakness (Acute) Hypomagnesemia (Acute) Atrial fibrillation with rapid ventricular response (Acute) RONALD (acute kidney injury) (Acute) Acute dehydration (Acute) Abnormal PFTs (pulmonary function tests) Allergic rhinitis with postnasal drip Ex-cigar smoker Abnormal chest CT Upper airway cough syndrome Duodenal ulcer Gastritis Superficial thrombophlebitis of right leg (Acute) Chronic cough Sacroiliitis History of lumbar fusion instrumented, L2-3, Dr. Cooper - 08/2017 Lumbar spondylosis Acute abdominal pain in left flank (Acute) History of removal of cyst (04/03/22) FINAL DIAGNOSIS: In office procedure Dr. 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 with INR goal of 2.0-3.0 Acute kidney injury Syncope (Acute) Low back pain (Acute) Rib pain (Acute) Lumbar stenosis Hypertensive crisis Bronchitis (Acute) Near syncope (Acute) Hypertension (Chronic) Near syncope (Acute) Bicuspid aortic valve Medical History GERD (gastroesophageal reflux disease) Hx-TIA (transient ischemic attack) 2012, no residual effects History of sleep study "told he was fine and didn't need a device" Upper airway cough syndrome Lumbar stenosis Hx of blood clots 2022, above right knee and above right wrist, unknown cause Chronic cough Bicuspid aortic valve Allergic rhinitis with postnasal drip ongoing Vitamin D deficiency B12 deficiency Fatty liver Acute blood loss anemia resolved, occurred in 2022 PUD (peptic ulcer disease) hx Atrial fibrillation with rapid ventricular response f/u dr. navarro, [facility] [place] Acute GI bleeding resolved, occurred in 2022 Acute hypotension resolved, occurred in 2022 Long-term (current) use of anticoagulants, INR goal 2.0-3.0 No significant family history HTN (hypertension) Carotid stenosis (05/26/13) Hypertension duplicate Surgical History S/P trigger finger release left hand Hx of umbilical hernia repair Hx of colonoscopy History of bilateral carotid endarterectomy 2012, had each side done separately, [facility] History of esophagogastroduodenoscopy (EGD) Hx of removal of cyst FINAL DIAGNOSIS: In office procedure Dr. Pickens 04/03/2022 Skin, thigh cyst, excision: - Benign glomangioma (glomus tumor) History of lumbar fusion instrumented, L2-3, Dr. 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 Beliefs That Will Affect Care: None marital status: Current Living Situation: Spouse How many Children do You have: 2 Feels Safe at Home: Yes Assistive Devices: Denture - Upper and Denture - Lower Review of Systems A total of 10 systems reviewed and were otherwise negative Physical Exam Vital Signs Vital Signs - 24 hr 12/19/23 23:51 12/19/23 23:59 Temperature 36.1 C L Temperature Source Temporal Artery Scan Pulse Rate 88 Respiratory Rate 16 Respiratory Effort / Characteristics Non-Labored Spontaneous Respiratory Depth Normal Blood Pressure 123/72 Blood Pressure Mean 89 Blood Pressure Position Sitting Pulse Oximetry 94 98 Oxygen Delivery Method Room Air Room Air Sepsis Recent Fever Within 48 Hours No Sepsis New/Unexplained Change in Mental Status N/A Sepsis Action Taken by Nursing No Action Required VITALS: Vitals are noted on the nurse's note and reviewed by myself. Vital signs stable. GENERAL: Pleasant gentleman, in no acute distress, nondiaphoretic, well- developed well-nourished. SKIN: Capillary reflex less than 2 seconds. HEENT: Normocephalic. PERRLA. EOMI. Nares patent. Mucous membranes moist. Neck is supple without nuchal rigidity. HEART: Regular rate and rhythm LUNGS: Clear to auscultation bilaterally without wheezes, rales or rhonchi. No retractions or accessory muscle use. ABDOMEN: Positive bowel sounds x 4. Normal tympanic percussion. Soft, distended tender lower abdomen, without masses or organomegaly. Lima sign negative. No guarding or rebound tenderness. no CVA tenderness MUSCULOSKELETAL: No gross musculoskeletal defects. NEURO: Patient was alert and oriented to person place and time. No focal neurological deficits. Course Administered Medications Discontinued Medications Sodium Chloride (Nss) 500 mls @ 999 mls/hr IV .Q31M ONE Stop: 12/20/23 00:33 Last Infusion: 12/20/23 00:56 Dose: Infused Documented By: Admin: 12/20/23 00:10 Dose: 999 mls/hr Documented By: KORY Ioversol (Optiray 320 100ml) 100 ml IV ONCE ONE Stop: 12/20/23 00:25 Last Admin: 12/20/23 00:25 Dose: 91 ml Documented By: MELINDA Ondansetron HCl (Ondansetron Inj 2 Mg/Ml 2 Ml Vial) 4 mg IV NOW STA Stop: 12/20/23 00:04 Last Admin: 12/20/23 00:10 Dose: 4 mg Documented By: KORY Medical Decision Making Medical Records Attestation: I reviewed the patient's medical records. Home Medications Current Medication List: was personally reviewed by me Laboratory Data Attestation: I reviewed the patient's lab results. 12/19/23 00:07 12/19/23 00:07 Lab Results 12/19/23 12/20/23 Range/Units 00:07 00:13 WBC 11.07 H (4.8-10.8) K/ul RBC 5.63 (4.70-6.10) M/uL Hgb 16.5 (14.0-18.0) g/dl POC Hgb 17.7 (14.0-18.0) g/dl Hct 49.0 (42.0-52.0) % POC Hct 52 (42-52) % MCV 87.0 (80.0-100.0) fL MCH 29.3 (25.0-34.0) pg MCHC 33.7 (32.0-36.0) g/dL RDW Std Deviation 41.8 (36.4-46.3) fL RDW Coeff of Demetrius 13.2 (11.5-14.5) % Plt Count 224 (130-400) K/uL MPV 10.2 (9.4-12.4) fL Immature Gran % (Auto) 0.5 % Neut % (Auto) 75.5 % Lymph % (Auto) 13.6 % [place] % (Auto) 9.1 % Eos % (Auto) 0.8 % Baso % (Auto) 0.5 % Neut # (Auto) 8.37 H (1.40-6.50) K/uL Lymph # (Auto) 1.50 (1.20-3.40) K/uL [place] # (Auto) 1.01 H (0.11-0.59) K/uL Eos # (Auto) 0.09 (0.00-0.50) K/uL Baso # (Auto) 0.05 (0.00-0.20) K/uL Immature Gran # (Auto) 0.05 (0.01-0.20) K/uL POC Sodium 136 (135-144) mmol/L Sodium 134 L (136-145) mmol/L POC Potassium 4.3 (3.3-5.0) mmol/L Potassium 4.4 (3.5-5.1) mmol/L POC Chloride 98 L (101-112) mmol/L Chloride 97 L (98-107) mmol/L Carbon Dioxide 28 (21-32) mmol/L POC Total CO2 27 (24-31) mmol/L Anion Gap 9 (3-11) POC Anion Gap 17.0 (16-25) mmol/L POC BUN 16 (7-18) mg/dl BUN 15 (6-23) mg/dl Creatinine 1.39 (0.6-1.4) mg/dl POC Creatinine 1.3 (0.6-1.3) mg/dl Est Cr Clr Drug Dosing 46.4 ml/min Est GFR ( Amer) 54.3 ml/min Est GFR (Non-Af Amer) 46.9 ml/min BUN/Creatinine Ratio 10.8 (10-20) Glucose 174 H (70-99(Fasting)) mg/dl POC Glucose (other) 169 H (70-99) mg/dl Lactate 1.4 (0.4-2.0) mmol/L Calcium 10.7 H (8.6-10.3) mg/dl POC Ioniz Calcium Neha 1.23 (1.12-1.32) mmol/l Total Bilirubin 1.4 H (0.2-1.0) mg/dl AST 18 (13-39) U/L ALT 17 (7-52) U/L Alkaline Phosphatase 144 H (34-104) U/L Troponin I High Sens 7.8 (0-20) pg/ml Total Protein 8.4 H (6.0-8.3) gm/dl Albumin 4.9 (3.4-5.0) gm/dl Globulin 3.5 (2.5-4.0) gm/dl Albumin/Globulin Ratio 1.4 (0.9-2) Lipase 10 L (11-82) U/L Imaging Data Attestation: I personally reviewed and interpreted this imaging study as follows: Radiologist's Impression: Abdomen/Pelvis CT 12/19/23 23:57 Exam(s): CT ABDOMEN + PELVIS With Contrast IV Amt: 911 ml optiray 320 EXAM: CT Abdomen and Pelvis With Intravenous Contrast CLINICAL HISTORY: Reason for exam: abd pain, no BM. TECHNIQUE: Axial computed tomography images of the abdomen and pelvis with intravenous contrast. CTDI is 26.72 mGy and DLP is 1384.1 mGy-cm. Automated exposure control was utilized for the study. A dose lowering technique was utilized adhering to the principles of ALARA. CONTRAST: Patient received 911 ml optiray 320 of IV contrast COMPARISON: 11/19/2022. FINDINGS: Lung bases: Bilateral lower lobe atelectasis. Heart: Borderline cardiomegaly with coronary artery calcifications. Mediastinum: There is fluid within the esophagus consistent with reflux. ABDOMEN: Liver: Unremarkable. No mass. Gallbladder and bile ducts: Tiny gallstone in the dependent portion of the gallbladder fundus. Nonspecific distention of the gallbladder. Otherwise unremarkable gallbladder and biliary system. No ductal dilation. Pancreas: Diffuse pancreatic atrophy. Otherwise unremarkable pancreas. No ductal dilation. Spleen: Punctate splenic granulomata, otherwise unremarkable spleen. Adrenals: Unremarkable. No mass. Kidneys and ureters: Unremarkable. No hydronephrosis. Normal right kidney. Normal left kidney. Stomach and bowel: Distention of small bowel loops up to a maximum diameter of 3.6 cm with the distal ileum revealing normal caliber up to 2. 4-2.0 cm, combination of findings suggestive of small bowel obstruction, zone of transition indeterminate and likely within the distal ileum. Nonspecific distention of the stomach. Scattered diverticulosis throughout the colon more severe through the sigmoid with no signs of diverticulitis. PELVIS: Appendix: Normal appendix. Bladder: Unremarkable. No mass. Reproductive: Unremarkable as visualized. ABDOMEN and PELVIS: Intraperitoneal space: Unremarkable. No free air. No significant fluid collection. Bones/joints: Advanced degenerative disease of the spine with posterior fusion at L2-L3. No acute fracture. No dislocation. Soft tissues: Unremarkable. Vasculature: Unremarkable. No abdominal aortic aneurysm. Lymph nodes: Unremarkable. No enlarged lymph nodes. IMPRESSION: 1. Findings concerning for small bowel obstruction, zone of transition indeterminate and likely within the distal ileum. Diverticulosis with no signs of diverticulitis. No acute appendicitis. 2. Possible tiny punctate gallstone within the gallbladder otherwise unremarkable gallbladder and biliary system. Remainder of abdominal viscera reveal no acute process. Electronically signed by: Criss Tobias MD 12/20/23 01:27 AM MDM Narrative Prior records/ancillary studies reviewed. Triage Nursing notes reviewed. Additional history obtained from family. The patient's history was concerning for abdominal pain. Differential diagnosis: Etiologies such as appendicitis, diverticulitis, PUD, biliary pathology, UTI, pancreatitis, obstruction, mesenteric ischemia, aortic pathology, infections, inflammatory bowel disease, renal colic, as well as others were entertained. Physical examination findings: As above. ER treatment provided: An order was placed for continuous cardiac monitoring. The monitor shows a rate of 60-100 with a sinus rhythm per my Independent interpretation. Zofran, IV fluids On reassessment the patient felt better. Diagnostics interpreted by me: ECG: Ordered for upper abdominal pain EKG: Irregularly irregular with no acute ST-T wave changes, rate of 101. Impression atrial fibrillation ventricular rate of 101 independently interpreted by myself The labs Independently Interpreted by myself revealed mild leukocytosis, negative lactic Imaging studies: CT as above Consultation: A consultation was placed with the surgeon, Dr. Minor. The case was discussed and diagnostics were reviewed. She recommends medical admission and of the patient's vomiting to put an NG tube or if the stomach is full. She recommends placing the patient NPO. Medicine was consulted and the case was discussed. Patient was admitted to the medical service. Exam and history seem consistent with small bowel obstruction. Surgery and medicine were consulted. Patient was not vomiting. NG tube was not placed. He was placed n.p.o. Medicine is agreeable to treatment plan of admission. Patient was admitted to the medical service with a surgical consult. Negative lactic. Stable H&H. No worrisome leukocytosis. By the evaluation outlined above emergent etiologies such as appendicitis, diverticulitis, PUD, biliary pathology, UTI, pancreatitis, mesenteric ischemia, aortic pathology, infections, inflammatory bowel disease, renal colic, as well as others were deemed relatively unlikely. The pt informed about the findings as listed above. All questions were answered and pleased with the treatment. The chart was completed utilizing [employer] Speech voice recognition software. Grammatical errors, random word insertions, pronoun errors, and incomplete sentences are an occassional consequence of this system due to software limitations, ambient noise, and hardware issues. Any formal questions or concerns about the content, text, or information contained within the body of this dictation should be directly addressed to the physician purchasing assistant for clarification. Attending Attestation: I David Mcnulty MD I have reviewed the advanced practitioner's documentation and agree with the plan of care. I accept the responsibility for the associated risk of managing the patient. CT with findings of SBO will be admitted to medicine with surgery on consult. If any significant nausea develops NG tube will be utilized. Impression & Plan Small bowel obstruction Discharge Plan Visit Data Chief Complaint: Constipation Stated Complaint: ABD PAIN,CAN'T HAVE A BM ED Provider: David Mcnulty ED Midlevel Provider: Bridget Davis Discharge Problem: Small bowel obstruction Patient Disposition: Admitted As Inpatient Condition: Good Forms Stand Alone Forms: My [employer] Prescriptions Prescriptions: No Action atorvastatin 20 mg tablet 20 mg PO QPM Qty: 90 3RF Eliquis 5 mg tablet 5 mg PO BID Qty: 180 3RF diltiazem HCl 240 mg capsule,extended release 24hr 240 mg PO QAM Qty: 90 3RF cyanocobalamin (vitamin B-12) 1,000 mcg tablet 1,000 mcg PO DAILY Qty: 90 1RF Rx Instructions: purchase [id number] acetaminophen [Tylenol Extra Strength] 500 mg tablet 1,000 mg PO Q6H PRN (Reason: Pain) Qty: 1 0RF Rx Instructions: purchase [id number]; maximum amount - 3000mg in 24 hours. pantoprazole 40 mg tablet,delayed release (DR/EC) 40 mg PO QAM ipratropium bromide 42 mcg (0.06 %) spray,non-aerosol 2 spray INTRANASAL QID PRN (Reason: POST NASAL DRIP) Referrals Referrals: Homar Enriquez MD [Primary Care Provider] -
[2023-12-20] MEDS: SODIUM CHLORIDE 0.9% 500 ML IV ONE (00:10)
[2023-12-20] MEDS: ONDANSETRON INJ 2 MG/ML 2 ML VIAL IV STA (00:10)
[2023-12-20 00:25] LABS: Basophils # (auto) 0.05 K/uL (0.00-0.20); Basophils % (auto) 0.5 %; Eosinophils # (auto) 0.09 K/uL (0.00-0.50); Eosinophils % (auto) 0.8 %; Hemoglobin 16.5 g/dl (14.0-18.0); Immature Granulocytes # (auto) 0.05 K/uL (0.01-0.20); Immature Granulocytes % (auto) 0.5 %; Lymphocytes % (auto) 13.6 %; Mean Corpuscular Hemoglobin 29.3 pg (25.0-34.0); Mean Corpuscular Hgb Conc 33.7 g/dL (32.0-36.0); Mean Platelet Volume 10.2 fL (9.4-12.4); Monocytes # (auto) 1.01 K/uL (0.11-0.59); Monocytes % (auto) 9.1 %; Neutrophils # (auto) 8.37 K/uL (1.40-6.50); Neutrophils % (auto) 75.5 %; Platelet Count 224 K/uL (130-400); RDW Coefficient of Variation 13.2 % (11.5-14.5); RDW Standard Deviation 41.8 fL (36.4-46.3); Red Blood Count 5.63 M/uL (4.70-6.10); White Blood Count 11.07 K/ul (4.8-10.8)
[2023-12-20] MEDS: OPTIRAY 320 100ml IV ONE (00:25)
[2023-12-20 00:26] LABS: iSTAT Creatinine 1.3 mg/dl (0.6-1.3); iSTAT Hemoglobin 17.7 g/dl (14.0-18.0); iSTAT Ionized Calcium 1.23 mmol/l (1.12-1.32); iSTAT Potassium 4.3 mmol/L (3.3-5.0)
[2023-12-20 00:42] LABS: Albumin Globulin Ratio 1.4 (0.9-2); Albumin Level 4.9 gm/dl (3.4-5.0); BUN Creatinine Ratio 10.8 (10-20); Bilirubin,Total 1.4 mg/dl (0.2-1.0); Calcium 10.7 mg/dl (8.6-10.3); Creatinine Clr Calc Pharmacy 46.4 ml/min; Est GFR (African American) 54.3 ml/min; Est GFR (Non-African American) 46.9 ml/min; Globulin 3.5 gm/dl (2.5-4.0); Potassium 4.4 mmol/L (3.5-5.1); Total Protein 8.4 gm/dl (6.0-8.3)
[2023-12-20 00:57] LABS: Troponin I High Sensitivity 7.8 pg/ml (0-20)
--- NOTE | 2023-12-20 01:28 | CT Scan Report ---
Exam(s): CT ABDOMEN + PELVIS With Contrast IV Amt: 911 ml optiray 320 EXAM: CT Abdomen and Pelvis With Intravenous Contrast CLINICAL HISTORY: Reason for exam: abd pain, no BM. TECHNIQUE: Axial computed tomography images of the abdomen and pelvis with intravenous contrast. CTDI is 26.72 mGy and DLP is 1384.1 mGy-cm. Automated exposure control was utilized for the study. A dose lowering technique was utilized adhering to the principles of ALARA. CONTRAST: Patient received 911 ml optiray 320 of IV contrast COMPARISON: 11/19/2022. FINDINGS: Lung bases: Bilateral lower lobe atelectasis. Heart: Borderline cardiomegaly with coronary artery calcifications. Mediastinum: There is fluid within the esophagus consistent with reflux. ABDOMEN: Liver: Unremarkable. No mass. Gallbladder and bile ducts: Tiny gallstone in the dependent portion of the gallbladder fundus. Nonspecific distention of the gallbladder. Otherwise unremarkable gallbladder and biliary system. No ductal dilation. Pancreas: Diffuse pancreatic atrophy. Otherwise unremarkable pancreas. No ductal dilation. Spleen: Punctate splenic granulomata, otherwise unremarkable spleen. Adrenals: Unremarkable. No mass. Kidneys and ureters: Unremarkable. No hydronephrosis. Normal right kidney. Normal left kidney. Stomach and bowel: Distention of small bowel loops up to a maximum diameter of 3.6 cm with the distal ileum revealing normal caliber up to 2. 4-2.0 cm, combination of findings suggestive of small bowel obstruction, zone of transition indeterminate and likely within the distal ileum. Nonspecific distention of the stomach. Scattered diverticulosis throughout the colon more severe through the sigmoid with no signs of diverticulitis. PELVIS: Appendix: Normal appendix. Bladder: Unremarkable. No mass. Reproductive: Unremarkable as visualized. ABDOMEN and PELVIS: Intraperitoneal space: Unremarkable. No free air. No significant fluid collection. Bones/joints: Advanced degenerative disease of the spine with posterior fusion at L2-L3. No acute fracture. No dislocation. Soft tissues: Unremarkable. Vasculature: Unremarkable. No abdominal aortic aneurysm. Lymph nodes: Unremarkable. No enlarged lymph nodes. IMPRESSION: 1. Findings concerning for small bowel obstruction, zone of transition indeterminate and likely within the distal ileum. Diverticulosis with no signs of diverticulitis. No acute appendicitis. 2. Possible tiny punctate gallstone within the gallbladder otherwise unremarkable gallbladder and biliary system. Remainder of abdominal viscera reveal no acute process. Electronically signed by: Criss Tobias MD 12/20/23 01:27 AM
--- NOTE | 2023-12-20 01:40 | History & Physical Report ---
Date of Service December 20, 2023 Assessment & Plan (1) Small bowel obstruction: Plan: 83yo male with two days of progressive abdominal pain, distention, developed worsening pain tonight with vomiting. CT as above with concerning for SBO. Patient has had hernia surgery in the past. Small BM in the ER with improvement in abdominal distention and symptoms -Admit to medical -Keep NPO -LR at 80mL/hr x 2L -Will hold off on NGT placement for now given lack of nausea, recent small BM -Morphine PRN pain -Zofran PRN nausea Plan Chronic Medical Issues: Atrial Fibrillation - permanent. Rate controlled. Anticoagulated on Eliquis -Continue Diltiazem -Continue Eliquis HLP - chronic. stable -Continue Atorvastatin GERD - chronic. stable -Continue Protonix History of Present Illness Chief Complaint: abdominal pain Primary Care Provider: Homar Enriquez MD Varun Thomas is a pleasant 83yo male with history of AF, prior VTE on Eliquis anticoagulation, HTN, GERD and prior TIA presenting form home with 2 days of progressive abdominal pain and distention as well as constipation. Patient reports last having a BM on 12/17/23. He has been passing a small amount of gas. This evening he went out to dinner with his for their anniversary. He had spaghetti and salad after which he developed severe, diffuse abdominal pain as well as nausea with vomiting x 2 episodes. Last episode of vomiting 12/19/23 at 22:00. Patient did have a small, soft BM in the ER with improvement in his abdominal symptoms. ER Course: NSS Zofran Allergies Allergy/AdvReac Type Severity Reaction Status Date / Time No Known Allergies Allergy Verified 12/20/23 01:40 Home Medications Medication Instructions Recorded Confirmed Type acetaminophen 500 mg tablet 1,000 mg (2 x 500 mg) PO Q6H PRN 11/24/22 12/20/23 Rx (Tylenol Extra Strength) Pain #1 tab cyanocobalamin (vitamin B-12) 1,000 mcg PO DAILY #90 tabs 11/24/22 12/20/23 Rx 1,000 mcg tablet atorvastatin 20 mg tablet 20 mg PO QPM #90 tabs 01/15/23 12/20/23 Rx apixaban 5 mg tablet (Eliquis) 5 mg PO BID #180 tabs 02/27/23 12/20/23 Rx diltiazem HCl 240 mg 240 mg PO QAM #90 caps 06/13/23 12/20/23 Rx capsule,extended release 24 hr pantoprazole 40 mg tablet,delayed 40 mg PO QAM 12/05/23 12/20/23 History release ipratropium bromide 42 mcg (0.06 2 spray intranasal QID PRN POST 12/20/23 12/20/23 History %) nasal spray NASAL DRIP Past Med/Surg History Problem List Small bowel obstruction (Acute) LPRD (laryngopharyngeal reflux disease) Dysphagia Diarrhea Abdominal pain, vomiting, and diarrhea Dehydration Vomiting Weakness (Acute) Hypomagnesemia (Acute) Atrial fibrillation with rapid ventricular response (Acute) RONALD (acute kidney injury) (Acute) Acute dehydration (Acute) Abnormal PFTs (pulmonary function tests) Allergic rhinitis with postnasal drip Ex-cigar smoker Abnormal chest CT Upper airway cough syndrome Duodenal ulcer Gastritis Superficial thrombophlebitis of right leg (Acute) Chronic cough Sacroiliitis History of lumbar fusion instrumented, L2-3, Dr. Cooper - 08/2017 Lumbar spondylosis Acute abdominal pain in left flank (Acute) History of removal of cyst (04/03/22) FINAL DIAGNOSIS: In office procedure Dr. 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 with INR goal of 2.0-3.0 Acute kidney injury Syncope (Acute) Low back pain (Acute) Rib pain (Acute) Lumbar stenosis Hypertensive crisis Bronchitis (Acute) Near syncope (Acute) Hypertension (Chronic) Near syncope (Acute) Bicuspid aortic valve Medical History GERD (gastroesophageal reflux disease) Hx-TIA (transient ischemic attack) 2012, no residual effects History of sleep study "told he was fine and didn't need a device" Upper airway cough syndrome Lumbar stenosis Hx of blood clots 2022, above right knee and above right wrist, unknown cause Chronic cough Bicuspid aortic valve Allergic rhinitis with postnasal drip ongoing Vitamin D deficiency B12 deficiency Fatty liver Acute blood loss anemia resolved, occurred in 2022 PUD (peptic ulcer disease) hx Atrial fibrillation with rapid ventricular response f/u dr[place] [facility] [place] GI bleeding resolved, occurred in 2022 Acute hypotension resolved, occurred in 2022 Long-term (current) use of anticoagulants, INR goal 2.0-3.0 No significant family history HTN (hypertension) Carotid stenosis (05/26/13) Hypertension duplicate Surgical History S/P trigger finger release left hand Hx of umbilical hernia repair Hx of colonoscopy History of bilateral carotid endarterectomy 2012, had each side done separately, [facility] History of esophagogastroduodenoscopy (EGD) Hx of removal of cyst FINAL DIAGNOSIS: In office procedure Dr. Pickens 04/03/2022 Skin, thigh cyst, excision: - Benign glomangioma (glomus tumor) History of lumbar fusion instrumented, L2-3, Dr. Cooper - 08/2016 Social History Smoking Status: Former smoker Tobacco Type: Cigarettes and Cigars Age Started Using Tobacco: 19; Age Quit Using Tobacco: 72; packs per day: 0.5; Cigarettes Per Day: 1 cigar per day for 40 years quit in 2012; Second Hand Exposure: Yes (hx as child); Do You Dip or Chew Tobacco: No; Hx Alcohol Use: Yes (none since 2021, "used to drink a lot of beer") Alcohol type: beer Hx Substance Use: No Preferred Language: Yoruba Communication Ability: Effective Manager Occupational Required: No Beliefs That Will Affect Care: None marital status: Current Living Situation: Spouse How many Children do You have: 2 Feels Safe at Home: Yes Assistive Devices: Denture - Upper and Denture - Lower Review of Systems Review of Systems: All systems reviewed & are unremarkable except as noted in HPI & below Physical Exam Physical Exam: General: patient resting comfortably, NAD, non-toxic in appearance, AA&O x 4 Skin: warm, dry, intact, no rashes or lesions HEENT: NC/AT, PERRL, EOMI, anicteric sclera, conjunctiva without injection, external ear normal to inspection and nontender, nares patent, moist mucus membranes, dentition intact, no oropharyngeal lesions, neck supple, trachea midline, no LAD, no thyromegaly, no JVD Heart: +S1/S2, irregularly irregular, no m/r/g Lungs: equal air entry bilaterally, no rales/rhonchi/wheezes Abd: +BS, distended, tympanic to percussion, diffuse tenderness without rebound/guarding Ext: warm, 2+ pulses in UE/LE bilaterally, no clubbing/cyanosis or edema Neuro: nonfocal, patient AA&O x 4, speech intact, no facial droop, moving all extremities on command with equal strength 5/5 Results & Data Results & Data Vital Signs (Past 12 Hours) Vital Signs Temp Pulse Resp BP Pulse Ox O2 Del Method 12/19/23 23:59 98 Room Air 12/19/23 23:51 36.1 C L 88 16 123/72 94 Room Air Laboratory Results Laboratory Results WBC 11.07 K/ul (4.8-10.8) H 12/19/23 00:07 RBC 5.63 M/uL (4.70-6.10) 12/19/23 00:07 Hgb 16.5 g/dl (14.0-18.0) 12/19/23 00:07 POC Hgb 17.7 g/dl (14.0-18.0) 12/20/23 00:13 Hct 49.0 % (42.0-52.0) 12/19/23 00:07 POC Hct 52 % (42-52) 12/20/23 00:13 MCV 87.0 fL (80.0-100.0) 12/19/23 00:07 MCH 29.3 pg (25.0-34.0) 12/19/23 00:07 MCHC 33.7 g/dL (32.0-36.0) 12/19/23 00:07 RDW Std Deviation 41.8 fL (36.4-46.3) 12/19/23 00:07 RDW Coeff of Demetrius 13.2 % (11.5-14.5) 12/19/23 00:07 Plt Count 224 K/uL (130-400) 12/19/23 00:07 MPV 10.2 fL (9.4-12.4) 12/19/23 00:07 Immature Gran % (Auto) 0.5 % 12/19/23 00:07 Neut % (Auto) 75.5 % 12/19/23 00:07 Lymph % (Auto) 13.6 % 12/19/23 00:07 [place] % (Auto) 9.1 % 12/19/23 00:07 Eos % (Auto) 0.8 % 12/19/23 00:07 Baso % (Auto) 0.5 % 12/19/23 00:07 Neut # (Auto) 8.37 K/uL (1.40-6.50) H 12/19/23 00:07 Lymph # (Auto) 1.50 K/uL (1.20-3.40) 12/19/23 00:07 [place] # (Auto) 1.01 K/uL (0.11-0.59) H 12/19/23 00:07 Eos # (Auto) 0.09 K/uL (0.00-0.50) 12/19/23 00:07 Baso # (Auto) 0.05 K/uL (0.00-0.20) 12/19/23 00:07 Immature Gran # (Auto) 0.05 K/uL (0.01-0.20) 12/19/23 00:07 POC Sodium 136 mmol/L (135-144) 12/20/23 00:13 Sodium 134 mmol/L (136-145) L 12/19/23 00:07 POC Potassium 4.3 mmol/L (3.3-5.0) 12/20/23 00:13 Potassium 4.4 mmol/L (3.5-5.1) 12/19/23 00:07 POC Chloride 98 mmol/L (101-112) L 12/20/23 00:13 Chloride 97 mmol/L (98-107) L 12/19/23 00:07 Carbon Dioxide 28 mmol/L (21-32) 12/19/23 00:07 POC Total CO2 27 mmol/L (24-31) 12/20/23 00:13 Anion Gap 9 (3-11) 12/19/23 00:07 POC Anion Gap 17.0 mmol/L (16-25) 12/20/23 00:13 POC BUN 16 mg/dl (7-18) 12/20/23 00:13 BUN 15 mg/dl (6-23) 12/19/23 00:07 Creatinine 1.39 mg/dl (0.6-1.4) 12/19/23 00:07 POC Creatinine 1.3 mg/dl (0.6-1.3) 12/20/23 00:13 Est Cr Clr Drug Dosing 46.4 ml/min 12/19/23 00:07 Est GFR ( Amer) 54.3 ml/min 12/19/23 00:07 Est GFR (Non-Af Amer) 46.9 ml/min 12/19/23 00:07 BUN/Creatinine Ratio 10.8 (10-20) 12/19/23 00:07 Glucose 174 mg/dl (70-99(Fasting)) H 12/19/23 00:07 POC Glucose (other) 169 mg/dl (70-99) H 12/20/23 00:13 Lactate 1.4 mmol/L (0.4-2.0) 12/19/23 00:07 Calcium 10.7 mg/dl (8.6-10.3) H 12/19/23 00:07 POC Ioniz Calcium Neha 1.23 mmol/l (1.12-1.32) 12/20/23 00:13 Total Bilirubin 1.4 mg/dl (0.2-1.0) H 12/19/23 00:07 AST 18 U/L (13-39) 12/19/23 00:07 ALT 17 U/L (7-52) 12/19/23 00:07 Alkaline Phosphatase 144 U/L (34-104) H 12/19/23 00:07 Troponin I High Sens 7.8 pg/ml (0-20) 12/19/23 00:07 Total Protein 8.4 gm/dl (6.0-8.3) H 12/19/23 00:07 Albumin 4.9 gm/dl (3.4-5.0) 12/19/23 00:07 Globulin 3.5 gm/dl (2.5-4.0) 12/19/23 00:07 Albumin/Globulin Ratio 1.4 (0.9-2) 12/19/23 00:07 Lipase 10 U/L (11-82) L 12/19/23 00:07 Impressions Abdomen/Pelvis CT 12/19/23 23:57 Exam(s): CT ABDOMEN + PELVIS With Contrast IV Amt: 911 ml optiray 320 EXAM: CT Abdomen and Pelvis With Intravenous Contrast CLINICAL HISTORY: Reason for exam: abd pain, no BM. TECHNIQUE: Axial computed tomography images of the abdomen and pelvis with intravenous contrast. CTDI is 26.72 mGy and DLP is 1384.1 mGy-cm. Automated exposure control was utilized for the study. A dose lowering technique was utilized adhering to the principles of ALARA. CONTRAST: Patient received 911 ml optiray 320 of IV contrast COMPARISON: 11/19/2022. FINDINGS: Lung bases: Bilateral lower lobe atelectasis. Heart: Borderline cardiomegaly with coronary artery calcifications. Mediastinum: There is fluid within the esophagus consistent with reflux. ABDOMEN: Liver: Unremarkable. No mass. Gallbladder and bile ducts: Tiny gallstone in the dependent portion of the gallbladder fundus. Nonspecific distention of the gallbladder. Otherwise unremarkable gallbladder and biliary system. No ductal dilation. Pancreas: Diffuse pancreatic atrophy. Otherwise unremarkable pancreas. No ductal dilation. Spleen: Punctate splenic granulomata, otherwise unremarkable spleen. Adrenals: Unremarkable. No mass. Kidneys and ureters: Unremarkable. No hydronephrosis. Normal right kidney. Normal left kidney. Stomach and bowel: Distention of small bowel loops up to a maximum diameter of 3.6 cm with the distal ileum revealing normal caliber up to 2. 4-2.0 cm, combination of findings suggestive of small bowel obstruction, zone of transition indeterminate and likely within the distal ileum. Nonspecific distention of the stomach. Scattered diverticulosis throughout the colon more severe through the sigmoid with no signs of diverticulitis. PELVIS: Appendix: Normal appendix. Bladder: Unremarkable. No mass. Reproductive: Unremarkable as visualized. ABDOMEN and PELVIS: Intraperitoneal space: Unremarkable. No free air. No significant fluid collection. Bones/joints: Advanced degenerative disease of the spine with posterior fusion at L2-L3. No acute fracture. No dislocation. Soft tissues: Unremarkable. Vasculature: Unremarkable. No abdominal aortic aneurysm. Lymph nodes: Unremarkable. No enlarged lymph nodes. IMPRESSION: 1. Findings concerning for small bowel obstruction, zone of transition indeterminate and likely within the distal ileum. Diverticulosis with no signs of diverticulitis. No acute appendicitis. 2. Possible tiny punctate gallstone within the gallbladder otherwise unremarkable gallbladder and biliary system. Remainder of abdominal viscera reveal no acute process. Electronically signed by: Criss Tobias MD 12/20/23 01:27 AM ECG Additional Comments: EKG with atrial fibrillation at 101bpm, no acute ischemic changes Code Status & VTE Plan VTE Prophylaxis Plan VTE Prophylaxis will be ordered: Yes PG Care Time/CCT Total # of Minutes Spent Total Time Spent with Patient: Total time spent is greater than 50% in coordination of care (as documented) at patient's floor/unit and/or counseling patient: Coding Level of Care Code 95331 INT INP/OBS CARE 2/55MIN Diagnoses Small bowel obstruction K56.609
[2023-12-20] MEDS ORDERED: ONDANSETRON INJ 2 MG/ML 2 ML VIAL IV PRN ×2 (03:30)
[2023-12-20] MEDS ORDERED: MoRPHine SULFATE 2 MG/ML CARP IV PRN ×2 (03:30→03:35)
[2023-12-20] MEDS ORDERED: IPRATROPIUM BROMIDE NASAL SPRAY 0.06% 15ML PRN (03:30)
[2023-12-20] MEDS: LACTATED RINGER'S 1,000 ML IV SCH (04:03)
[2023-12-20 04:05] LABS: Magnesium 1.8 mg/dl (1.7-2.4)
[2023-12-20] MEDS: APIXABAN 5 MG TABLET PO SCH ×2 (07:31→20:04)
[2023-12-20] MEDS: dilTIAZem HCL 240 MG CAPCR PO SCH (07:31)
[2023-12-20] MEDS: PANTOprazole 40 MG TAB PO SCH (07:32)
--- NOTE | 2023-12-20 08:34 | Surgery Consultation ---
<Statement entered by Torrey Edwards DO - 12/20/23 10:44> I have seen and examined this patient with the surgical PA. I agree with the plan. Patient should ambulate aggressively. Date of Consultation December 20, 2023 Assessment & Plan (1) Small bowel obstruction: This is an 83yM with a PMH of afib on eliquis, bicuspid aortic valve, who presents to the [facility] ED on 12/20/23 with complaints of abdominal pain across the mid abdomen along with constipation. Due to his symptoms he presented to the ER for evaluation and showed findings concerning for small bowel obstruction, zone of transition indeterminate and likely within the distal ileum. The patient reports abdominal surgical history of an open L inguinal hernia repair years ago with Dr. Burciaga. He states he had a similar episode to this (abdominal pain/constipation) after his back surgery by Dr. Cooper in 2017 and required a few extra days of hospitalization for it to resolve. He did not require an NGT to his knowledge or any surgical intervention. He did have a couple BMs in the ER and feels a bit better. He is maybe passing a small amount of gas. He reports some intermittent abdominal discomfort at this point. He is usually regular with his BMs and goes daily. He has been told by a different specialty that he has an abdominal hernia, but does not get bothered much by it or even knew he had one. However this may be more like a diastasis. -Admission labs show WBC 11, Hbg 16, Cr1.3. Vital signs are stable. On exam patient's abdomen is soft with mild distention and mild discomfort centrally. There is a possibility of a diastasis seen. As patient denies nausea/vomiting at this time agree we can hold off on the NGT. KUB is pending this AM. He is passing a small amount of gas and had some BMs. Leave NPO with ice/small sips for now. If KUB shows improvement can maybe consider clears later. No indication for surgical intervention at this time. Will follow. History of Present Illness Attending Physician: Samina Jane DO History of Present Illness This is an 83yM with a PMH of afib on eliquis, bicuspid aortic valve, who presents to the [facility] ED on 12/20/23 with complaints of abdominal pain across the mid abdomen and constipation. He rated his pain a 7-8/10 in severity at its worst. Due to his symptoms he presented to the ER for evaluation and showed findings concerning for small bowel obstruction, zone of transition indeterminate and likely within the distal ileum. The patient reports abdominal surgical history of an open L inguinal hernia repair years ago with Dr. Burciaga. He states he had a similar episode to this after his back surgery by Dr. Cooper in 2017 and required a few extra days of hospitalization for it to resolve. He reported some nausea and self induced vomiting prior to admission. Denies fevers/chills, CP or shortness of breath. He did have a couple BMs in the ER and feels a bit better. He reports some intermittent abdominal discomfort at this point. He is usually regular with his BMs and goes daily. He has been told by a different specialty that he has an abdominal hernia, but does not get bothered much by it or even knew he had one. However this may be more like a diastasis. Allergies Allergy/AdvReac Type Severity Reaction Status Date / Time No Known Allergies Allergy Verified 12/20/23 01:40 Home Medications Medication Instructions Recorded Confirmed Type acetaminophen 500 mg tablet 1,000 mg (2 x 500 mg) PO Q6H PRN 11/24/22 12/20/23 Rx (Tylenol Extra Strength) Pain #1 tab cyanocobalamin (vitamin B-12) 1,000 mcg PO DAILY #90 tabs 11/24/22 12/20/23 Rx 1,000 mcg tablet atorvastatin 20 mg tablet 20 mg PO QPM #90 tabs 01/15/23 12/20/23 Rx apixaban 5 mg tablet (Eliquis) 5 mg PO BID #180 tabs 02/27/23 12/20/23 Rx diltiazem HCl 240 mg 240 mg PO QAM #90 caps 06/13/23 12/20/23 Rx capsule,extended release 24 hr pantoprazole 40 mg tablet,delayed 40 mg PO QAM 12/05/23 12/20/23 History release ipratropium bromide 42 mcg (0.06 2 spray intranasal QID PRN POST 12/20/23 12/20/23 History %) nasal spray NASAL DRIP Patient History Medical History GERD (gastroesophageal reflux disease) Hx-TIA (transient ischemic attack) 2012, no residual effects History of sleep study "told he was fine and didn't need a device" Upper airway cough syndrome Lumbar stenosis Hx of blood clots 2022, above right knee and above right wrist, unknown cause Chronic cough Bicuspid aortic valve Allergic rhinitis with postnasal drip ongoing Vitamin D deficiency B12 deficiency Fatty liver Acute blood loss anemia resolved, occurred in 2022 PUD (peptic ulcer disease) hx Atrial fibrillation with rapid ventricular response f/u dr. navarro, [facility] [place] Acute GI bleeding resolved, occurred in 2022 Acute hypotension resolved, occurred in 2022 Long-term (current) use of anticoagulants, INR goal 2.0-3.0 No significant family history HTN (hypertension) Carotid stenosis (05/26/13) Hypertension duplicate Surgical History S/P trigger finger release left hand Hx of umbilical hernia repair Hx of colonoscopy History of bilateral carotid endarterectomy 2012, had each side done separately, [facility] History of esophagogastroduodenoscopy (EGD) Hx of removal of cyst FINAL DIAGNOSIS: In office procedure Dr. Pickens 04/03/2022 Skin, thigh cyst, excision: - Benign glomangioma (glomus tumor) History of lumbar fusion instrumented, L2-3, Dr. Cooper - 08/2016 Social History Smoking Status: Former smoker Tobacco Type: Cigarettes Age Started Using Tobacco: 19; Age Quit Using Tobacco: 72; packs per day: 0.5; Cigarettes Per Day: 1 cigar per day for 40 years quit in 2012; Second Hand Exposure: Yes (hx as child); Do You Dip or Chew Tobacco: No; Hx Alcohol Use: No Hx Substance Use: No Preferred Language: Guatemalan Communication Ability: Effective Brick Washer Required: No Beliefs That Will Affect Care: None marital status: Current Living Situation: Spouse How many Children do You have: 2 Feels Safe at Home: Yes Assistive Devices: Glasses Review of Systems Constitutional: no fever and no chills Respiratory: no dyspnea Cardiovascular: no chest pain Gastrointestinal: + abdominal pain, + nausea, + vomiting a nd + constipation Genitourinary: no problem reported Physical Exam Physical Exam: awake/alert,no distress Constitutional: well developed and well nourished; no acute distress Respiratory: normal respiratory effort Gastrointestinal (Abdomen): Inspection/Auscultation: + abdomen distended and + abdominal surgical scar (L open inguinal hernia scar) Percussion/Palpation: + abdomen tender (very mild discomfort in mid abdomen ) and abdomen soft ?diastasis Results & Data Vital Signs (Past 12 Hours) Vital Signs Temp Pulse Pulse Resp BP BP Pulse Ox 12/20/23 07:06 97.5 F L 84 18 123/81 95 12/20/23 03:32 97.5 F L 88 16 146/87 H 93 12/19/23 23:59 98 12/19/23 23:51 97.0 F L 88 16 123/72 94 O2 Del Method 12/20/23 07:06 Room Air 12/20/23 03:32 Room Air 12/19/23 23:59 Room Air 12/19/23 23:51 Room Air Diagnostic Findings xam(s): CT ABDOMEN + PELVIS With Contrast IV Amt: 911 ml optiray 320 EXAM: CT Abdomen and Pelvis With Intravenous Contrast CLINICAL HISTORY: Reason for exam: abd pain, no BM. TECHNIQUE: Axial computed tomography images of the abdomen and pelvis with intravenous contrast. CTDI is 26.72 mGy and DLP is 1384.1 mGy-cm. Automated exposure control was utilized for the study. A dose lowering technique was utilized adhering to the principles of ALARA. CONTRAST: Patient received 911 ml optiray 320 of IV contrast COMPARISON: 11/19/2022. FINDINGS: Lung bases: Bilateral lower lobe atelectasis. Heart: Borderline cardiomegaly with coronary artery calcifications. Mediastinum: There is fluid within the esophagus consistent with reflux. ABDOMEN: Liver: Unremarkable. No mass. Gallbladder and bile ducts: Tiny gallstone in the dependent portion of the gallbladder fundus. Nonspecific distention of the gallbladder. Otherwise unremarkable gallbladder and biliary system. No ductal dilation. Pancreas: Diffuse pancreatic atrophy. Otherwise unremarkable pancreas. No ductal dilation. Spleen: Punctate splenic granulomata, otherwise unremarkable spleen. Adrenals: Unremarkable. No mass. Kidneys and ureters: Unremarkable. No hydronephrosis. Normal right kidney. Normal left kidney. Stomach and bowel: Distention of small bowel loops up to a maximum diameter of 3.6 cm with the distal ileum revealing normal caliber up to 2. 4-2.0 cm, combination of findings suggestive of small bowel obstruction, zone of transition indeterminate and likely within the distal ileum. Nonspecific distention of the stomach. Scattered diverticulosis throughout the colon more severe through the sigmoid with no signs of diverticulitis. PELVIS: Appendix: Normal appendix. Bladder: Unremarkable. No mass. Reproductive: Unremarkable as visualized. ABDOMEN and PELVIS: Intraperitoneal space: Unremarkable. No free air. No significant fluid collection. Bones/joints: Advanced degenerative disease of the spine with posterior fusion at L2-L3. No acute fracture. No dislocation. Soft tissues: Unremarkable. Vasculature: Unremarkable. No abdominal aortic aneurysm. Lymph nodes: Unremarkable. No enlarged lymph nodes. IMPRESSION: 1. Findings concerning for small bowel obstruction, zone of transition indeterminate and likely within the distal ileum. Diverticulosis with no signs of diverticulitis. No acute appendicitis. 2. Possible tiny punctate gallstone within the gallbladder otherwise unremarkable gallbladder and biliary system. Remainder of abdominal viscera reveal no acute process. Electronically signed by: Criss Tobias MD 12/20/23 01:27 AM PG Care Time/CCT Total # of Minutes Spent Total Time Spent with Patient: Total time spent is greater than 50% in coordination of care (as documented) at patient's floor/unit and/or counseling patient: Coding Level of Care Code 19955 INT INP/OBS CARE 1/40MIN Diagnoses Small bowel obstruction K56.609
--- NOTE | 2023-12-20 09:15 | XRay Report ---
XR KUB/Abdomen 1 view CLINICAL HISTORY: eval for sbo TECHNIQUE: 1 view of the abdomen was obtained. Comparison: Comparison is made to CT abdomen pelvis 12/20/2023 FINDINGS: Lung bases are unremarkable. The osseous structures are grossly unremarkable. Gas distended loops of small bowel measure up to 44 mm in diameter. A small to moderate amount of stool is noted within the large bowel. IMPRESSION: Multiple dilated loops of small bowel are seen compatible with ileus versus partial small bowel obstr uction. ACT 112: Negative or not required by law. Electronically signed by: Sal De Leon M.D. 12/20/2023 9:13 AM
--- NOTE | 2023-12-20 10:12 | Electrocardiogram Report ---
Test Reason : Blood Pressure : / mmHG Vent. Rate : 101 BPM Atrial Rate : 000 BPM P-R Int : 000 ms QRS Dur : 076 ms QT Int : 344 ms P-R-T Axes : 000 029 032 degrees QTc Int : 446 ms Atrial fibrillation with rapid ventricular response Abnormal ECG When compared with ECG of 11-MAR-2023 10:52, Vent. rate has decreased BY 55 BPM Confirmed by Rishi Rodriguez ([id number]) on 12/20/2023 10:12:07 AM Referred By: REFERRED SELF Confirmed By:Rishi Rodriguez
--- OUTSIDE RECORDS SUMMARY | 2023-12-20 10:12 | External Medical Summary | Continuity of Care Document ---
Author Name Unknown Organization [id number] Address [address] [place] [phone] Care Team Providers Care Local Sales Associate Name Role Phone Zoe Homar Reese Primary Care Physician [phone] Encounter [facility] [id number] Date(s): 12/10/23 - 12/10/23 [facility] [employer] [id number] [address] [place] [id number] Encounter Diagnosis Trigger index finger of left hand(Discharge Diagnosis) - 12/10/23 Preop testing(Discharge Diagnosis) - 12/10/23 Discharge Disposition: Home or Self Care Attending Physician: JONATHAN Soliman, Jeri Crockett Referring Physician: MD Boston, Marvin Tucker Allergies, Adverse Reactions, Alerts No Known Allergies Immunizations Given and Recorded Vaccine Date Status Refusal Reason influenza virus vaccine, inactivated 04/11/23 Give n influenza virus vaccine, inactivated 1 05/22/22 Gi mariza influenza virus vaccine, inactivated 2 05/03/21 Gi mariza influenza virus vaccine, inactivated 06/16/20 Give n influenza virus vaccine, inactivated 05/30/18 Give n influenza virus vaccine, inactivated 03/27/17 Give n influenza virus vaccine, inactivated 05/16/16 Give n influenza virus vaccine, inactivated 05/25/15 Give n influenza virus vaccine, inactivated 06/29/14 Give n pneumococcal 23-valent vaccine 05/30/18 Given pneumococcal 13-valent vaccine 05/16/16 Given zoster vaccine live 09/02/12 Recorded tetanus/diphtheria/pertuss, acel (Tdap) 05/10/07 R ecorded 1Result Comment: Tammie Oshea RN 2Result Comment: verified by Clari Robertson lpn Medications atorvastatin 20 mg oral tablet Start: 04/25/18 8:51:00 AM EDT, 1 tab, PO, qhs Start Date: 04/25/18 Status: Ordered DilTIAZem Hydrochloride CD 240 mg/24 hours oral capsule, extended release Start: 12/14/22 7:53:00 AM EDT, 1 cap, PO, Daily, Disp# 90 cap, Refills: 0, Pharmacy: [id number] Start Date: 12/14/22 Status: Ordered Eliquis 5 mg oral tablet Start: 02/28/23 8:38:00 AM EDT, 1 tab, PO, bid, Disp# 180 tab, Refills: 3, Pharmacy: [id number] Start Date: 02/28/23 Status: Ordered ipratropium 42 mcg/inh (0.06%) nasal spray Start: 11/27/23 10:06:00 AM EDT, 2 spray, each nostril, qid, Disp# 1 each, PRN: as needed for allergy symptoms, Pharmacy: [id number] Start Date: 11/27/23 Status: Ordered [place] 5 mg-325 mg oral tablet Start: 12/10/23 2:15:00 PM EDT, See Instructions, Disp# 5 tab, Refills: 0, 1-2 tabs po every 4-6 hours, Note to Pharmacy: initial therapy, PRN: as needed for pain, Stop: 12/27/23 2:16:00 PM EDT, Pharmacy: [id number], Earliest Fill Date: 12/10/23 Start Date: 12/10/23 Stop Date: 12/27/23 Status: Ordered pantoprazole 40 mg oral delayed release tablet TAKE 1 TABLET BY MOUTH ONCE DAILY Start Date: 10/23/23 Status: Ordered Vitamin B12 1000 mcg oral tablet Start: 12/04/22 10:24:00 AM EDT, 1 tab, PO, Daily Start Date: 12/04/22 Status: Ordered Mental Status 12/10/23 Barriers to Learning one year None evide nt Mandatory Health Literacy Documentation Yes Health Literacy Communication Barriers N ever Primary Language Guamanian Problem List Condition Confirmation Course Effective Dates Status H ealt Status Informant Patient has active power of environmental attorney for health care Confirmed Active Peptic ulcer Confirmed Active Iliac aneurysm Confirmed Active Aortic valve defect Confirmed Active Aortic stenosis Confirmed Active Arthritis Confirmed Active Atrial fibrillation Confirmed Active Bicuspid aortic valve Confirmed Active Carotid artery stenosis Confirmed Active Chronic back pain Confirmed Active Common iliac aneurysm Confirmed Active Diverticulosis Confirmed Active H/O carotid endarterectomy Confirmed Active Alpha-lipoproteinemia Confirmed Active HTN (hypertension) Confirmed Active Lump of left thigh Confirmed Active Mixed hyperlipidemia Confirmed Active Trigger index finger of left hand Confirmed Active Weight disorder Confirmed Active Diagnosis Diagnosis Type Effective Dates Health Status Cl inical Service Informant Preop testing Discharge Diagnosis 12/10/23 Non-Specified Trigger index finger of left hand Discharge Diagnosis 12/10/23 Procedures Procedure Date Related Diagnosis Body Site Status Ultrasound scan of right upper limb 1 11/28/22 Completed Upper GI (gastrointestinal) endoscopy 2 11/20/22 Completed Cyst 3 04/03/22 Completed Laminectomy approach to lumb ar spine, pedical screw intrumentation L2-3, posterolateral fusion 09/27/[address] angio of abdomen and pelvis 4 09/20/[address] 5 01/30/17 Completed Lumbar epidural steroid injection 6 06/22/16 Completed Imaging 04/27/15 Completed Colonoscopy 7 03/19/15 Completed Upper GI endoscopy 8 03/19/15 Comp leted Hip X-ray 9 12/02/14 Completed Chest x-ray 10 04/03/14 Completed Carotid endarterectomy 05/26/13 Co mpleted Carotid endarterectomy 03/11/13 Co mpleted Colonoscopy 11 10/27/09 Completed Hernia Completed Surgery 12 Completed Tonsils and adenoids Comp leted Trigger finger Completed 1Impression: 1. There is no sonographic evidence of deep venous thrombosis indentified in the right upper extremity. 2. Occlusive superficial venous thrombosis in the right cephalic vein as above. 2Small Hiatal hernia, Gastritis Biopsied non bleeding duodenal ulcers with no stigmata of bleeding. Normal second position of the duodenum 3left thigh excision 41. 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 2. 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 3. Bilateral fusiform common iliac artery aneurysm. The right common iliac artery measures 27mm, and the left common iliac artery measures 23 mm. 4. Short segment dissection involving the left common iliac artery. 5. No evidence of hemodynamically significant celiac or superior mesenteric artery stenosis. The inferior mesenteric artery is patent. 51. Mild dilatation of the ascending throacic aorta which measures 43 mm in diameter. 2. No evidence of aortic dissection. 3. No evidence of focal pulmonary consolidation. 4. No evidence of pathologic adenopathy. 6L3-4, L4-5 7Diverticulosis in the sigmoid colon and in the descending colon. No specimens collected. 8One duodenal ulcer with clean base. The examination was otherwise normal. No specimens collected. 9Mild to moderate left hip psteoarthritis 10Stable mild cardiomegaly. Otherwise no acute process wihtin the chest 11Diverticulosis entire examind colon. The exam was otherwise normal to the cecum. Repeat colonoscopyin 5 years for screening purposes. 12rotator cuff, arteries cleaned out and gum surgery. Vital Signs Most recent to oldest [Reference Range]: 1 Height 176.0 cm (12/10/23 1:58 PM) Patient Weight 94.4 kg (12/10/23 1:58 PM) Body Mass Index 30.48 kg/m2 (12/10/23 1:58 PM) Temperature [36.5-37.9 DegC] 36.2 DegC *LOW* (12/10/23 1:58 PM) Respiratory Rate 20 br/min (12/10/23 1:58 PM) Blood Pressure 118/60mmHg (12/10/23 1:58 PM) Cuff Pulse Pressure 58 mmHg (12/10/23 1:58 PM) Social History Social History Type Response Tobacco Former smoker, Cigar ettes 1 Smoking Status Never smoked cigaret jaswant Sex Male 1Quit January 2013 Pre-OP H & P * JONATHAN Soliman, Jeri R: PERFORM, MODIFY Event Display: Pre-OP H & P Authored Date: [id number] Name:VENKATESH MONDRAGON Patient Number:[id number] :1940 Date of Service:12/10/2023 Chief Complaint pre op L finger index History of Present Illness Elsy Mcintosh presents today for preoperative history and physical. He is scheduled fora leftindex finger trigger digit release with Dr. Miller December 25, 2023. Patient complains of painful triggering and locking of his left index finger several times per day. He is unable to play his ukulele or other string instruments as it locks up when changing cords. I previously performed a trigger digit release in his left ring finger 15+ years ago thatis doing well. He also mentions numbness of his right hand and is scheduled for an EMG/NCS in December.He noticed the numbness while eating or reading based on the position of his arm. Review of Systems Denies any recent cough, cold, fevers, chills or flulike symptoms. He denies any lightheadedness, dizziness, syncopal episodes, headaches, migraines or seizures. Denies any bleeding or clotting disorders or history of DVT or pulmonary embolism. Denies any recent hospitalizations. Denies any historyof metal sensitivity, latex allergy or MRSA. Denies any shortness of breath or chest pain. Denies abdominal pain, heartburn, indigestion, nausea, vomiting, diarrhea or constipation. Denies any urinary tract infections. Denies any hearing or vision changes. Denies any dental problems. Physical Exam Vitals & Measurements T:36.2C RR:20 BP:118/60 SpO2:96% HT:176.0cm WT:94.4kg WT:94.400kg(Dosing) BMI:30.48 BMI:30.48 kg/m2 Vitals:Last Updated 12/10/23 13:58 Date Temp BP Location Pulse RR SpO2 Pain 12/10/23 36.2 118/60 20 96 12/10/23 0 12/06/23 36.6 115/72 95 Height and Weight:Last Updated 12/10/23 13:58 Date BMI Wt(kg) Wt(lb) Method Ht(cm) (ft-in) Method 12/10/23 30.48 94.4 208 Standing Scale 176.0 5-9 11/23/23 94.4 208 Standing Scale 10/23/23 30.86 95.6 210 Standing Scale 176.0 5-9 Standing General:Well-dressed, well-nourished. Normal mood and affect. Alert and oriented x3. HEENT:Head: Atraumatic, normocephalic. Eyes: Extraocular movements intact, pupils equal round and reactive to light, sclera normal. Ears: Ears grossly normal, TMs are clear normal light reflex.Nose: Nares are patent bilaterally. Throat: Oropharynx clear mucous membranes moist good dentition uvula midline. Neck:Supple, no lymphadenopathy, nontender palpation, full range of motion. Cardiac:Irregular regularrate and rhythm, normal S1, S2. No murmurs, rubs or gallops appreciated. Lungs:Clear to auscultation bilaterally. No adventitious sounds. No accessory muscle use. Abdomen:Soft, nontender, nondistended, normal bowel sounds heard in all 4 quadrants. Extremities: Focus on the left upper extremity (hand/index finger): Tender nodule base of A1 pau of index finger Intermittent catching FDP and FDS intact Digital nerves intact No significant swelling Diagnostic Results I obtained and personally interpreted 3 views of the left hand, stored in [facility],reveals minimal degenerative changes and no significantchange at MCP joint of the index finger Assessment/Plan 1.Trigger index finger of left hand Scheduled for left index finger trigger digit release with Dr. Mead on December 25, 2023. Risk and complications of the procedure were explained to the patient and include but are not limited to infection, pain, bleeding, scarring, nerve or blood vessel damage, wound problems, weakness, stiffness, incomplete relief of symptoms,recurrence, tendon or ligament injury, heart attack, stroke and . All questions were answered and informed consent was obtained. Preoperatively we will obtain a preoperative CBC and PRP. He will obtain preoperative medical clearance and we will also getrecommendations on when we can safely hold his Eliquis prior to surgery. It will be resumed directly after his procedure. He will be notified of those instructions once obtained. He had an EKG performed in March 2023 and no further EKG was done today. Postoperative course was discussed. He will follow-up in physical therapy as scheduledon December 31 at 10:30 AM. He was given a pr escription for [place] forpostoperative pain control. 5 tablets were provided. The [place] PDMP was checked with no issues identified. This was electronically sent to his pharmacy. He was also instructed to take Tylenol for mild pain after surgery. He understands and agrees with the plan. Hewas instructed on the usage of the CHG wipes. All questions were answered and he knows to call with any further problems, questions or concerns. This chart was completed utilizing Spindle voice recognition software. Grammatical errors, random word insertions, pronoun errors, and in complete sentences are an occasional consequence of the system. Any questions or concerns about the content, text, or information contained within the body of this dictation should be addressed directly to the provider for clarification. Problem List/Past Medical History Ongoing Alpha-lipoproteinemia Aortic stenosis Aortic valve defect Arthritis Atrial fibrillation Bicuspid aortic valve Carotid artery stenosis Chronic back pain Common iliac aneurysm Diverticulosis H/O carotid endarterectomy HTN (hypertension) Iliac aneurysm Lump of left thigh Mixed hyperlipidemia Patient has active power of environmental attorney for health care Peptic ulcer Trigger index finger of left hand Weight disorder Procedure/Surgical History Ultrasound scan of right upper limb| Service Date: 11/28/2022Upper GI (gastrointestinal) endoscopy| Service Date: 3Cyst| Service Date: 04/03/2022Laminectomy approach to lumbar spine, pedical screw intrumentation L2-3, posterolateral fusion| Service Date: 09/27/2017CT angio of abdomen and pelvis| Service Date: 09/20/2017Chest CT| Service Date: 01/30/2017Lumbar epidural steroid injection| Service Date: 06/22/2016Imaging| Service Date: 04/27/2015Upper GI endoscopy| Service Date: 03/19/2015Colonoscopy| Service Date: 03/19/2015Hip X-ray| Service Date: 12/02/2014Chest x-ray| Service Date: 04/03/2014Carotid endarterectomy| Service Date: 05/26/2013Carotid endarterectomy| Service Date: 03/11/2013Colonoscopy| Service Date: 10/27/2009SurgeryHerniaTrigger fingerTonsils and adenoids Medications Home apixaban(Eliquis 5 mg oral tablet), 5 mg= 1 tab, PO, bid, 3 refills atorvastatin(atorvastatin 20 mg oral tablet), 20 mg= 1 tab, PO, qhs cyanocobalamin(Vitamin B12 1000 mcg oral tablet), 1000 mcg= 1 tab, PO, Daily dilTIAZem(DilTIAZem Hydrochloride CD 240 mg/24 hours oral capsule, extended release), 240 mg= 1 cap, PO, Daily ipratropium nasal(ipratropium 42 mcg/inh (0.06%) nasal spray), 2 spray, each nostril, qid, PRN pantoprazole(pantoprazole 40 mg oral delayed release tablet) Allergies NKA Social History Smoking Status Never smoked cigarettes Alcohol - Denies Alcohol Use Exercise - Regular exercise Nutrition/Health - Low Risk Substance Abuse - Denies Substance Abuse Tobacco - Denies Tobacco Use Use:Former smoker Type:Cigarettes - Comments: Quit January 2013 Family History Cancer: Father. Diabetes insipidus: Mother. Hypertension: Brother. Electronic Signature on File Electronically Reviewed/Signed by: Jeri Soliman PA-C Author Signature Dt/Tm:12/12/2023 11:33AM Division of Sports Medicine Electronically Reviewed/Signed by: Marvin Mead MD Cosigner Signature Dt/Tm: 12/12/2023 12:02 PM Major Appliance Assembly Supervisor for Clinical Affairs, [facility] Amanda Professor in Orthopaedics Rpg Programmer Analyst, [facility] Patient Care team information Care Team Personnel Name: DO Leigh Kristen M Position: Physician - Family Med Member Role: Lifetime Relationship Address: Address: [address] [place] [address] [place] Name: MD Zoe, Homar Leigh Position: Physician - Internal Med Member Role: Primary Care Provider Address: Address: [address] [place] [address] [place] Name: JONATHAN Vazquez Lynn Position: Physician Hogshead Mat Assembler Exempt - Vasc Surg Member Role: Lifetime Relationship Address: Address: [address] [place] [id number] Care Team Related Persons Name: TAMIKA MONDRAGON Address: [address] [place] [id number]"
--- NOTE | 2023-12-20 13:07 | Hospitalist Progress Note ---
Date of Service December 20, 2023 Assessment & Plan (1) Small bowel obstruction: Plan: Patient presented after 2 days of progressive abdominal pain, distention, worsening pain with vomiting. -CT on admission concerning for SBO. Patient has history of hernia surgery in the past. -Small bowel movement in the ED with improvement in abdominal distention and discomfort. -Deferred NGT placement given lack of nausea and bowel movement in the ED. -Patient had clear liquid diet for lunch, well-tolerated. Advanced to full liquids for dinner 12/19. -Continues to pass gas and had another bowel movement 12/19. -Repeat KUB ordered for 12/20 AM. -Morphine PRN pain -Zofran PRN nausea Plan Updated at bedside Advanced diet to clear liquids then full liquids Ordered repeat KUB for tomorrow morning Reviewed surgical consultation note Chronic Medical Issues: Atrial Fibrillation - permanent. Rate controlled. Anticoagulated on Eliquis -Continue Diltiazem -Continue Eliquis HLP - chronic. stable -Continue Atorvastatin GERD - chronic. stable -Continue Protonix CODE STATUS: Full code Admission and Anticipated Discharge Date Admission Date: December 20, 2023 Subjective Patient seen and evaluated at bedside with . He reports another bowel movement this morning as well as passing gas multiple times. He denies any abdominal pain, discomfort, nausea, or vomiting. He notes that his stomach is softer than yesterday, but still distended compared to his baseline. He has been walking the halls this morning. Diet advanced to clear liquids for lunch, well-tolerated. Will advance to full liquids for dinner. Patient has no other complaints or concerns at this time. Physical Exam Physical Exam: General: No acute distress, nondiaphoretic, well-developed, well-nourished. Skin: The skin was without rashes, erythema, edema, or bruising. Cardiac: Irregularly irregular without murmurs gallops or rubs. Pulm: Clear to auscultation bilaterally without wheezes, rales or rhonchi. No respiratory distress. Abdominal: Soft, nontender to palpation. Distended. Bowel sounds present. No rebound/guarding. Neuro: A&O x3. No focal neurological deficits. Results & Data Results & Data Vital Signs (Past 12 Hours) Vital Signs Temp Pulse Resp BP Pulse Ox O2 Del Method 12/20/23 07:06 36.4 C L 84 18 123/81 95 Room Air 12/20/23 03:32 36.4 C L 88 16 146/87 H 93 Room Air Laboratory Results Reviewed H&H Reviewed chemistries Diagnostic Findings Reviewed KUB 12/20/2023 FINDINGS: Lung bases are unremarkable. The osseous structures are grossly unremarkable. Gas distended loops of small bowel measure up to 44 mm in diameter. A small to moderate amount of stool is noted within the large bowel. IMPRESSION: Multiple dilated loops of small bowel are seen compatible with ileus versus partial small bowel obstruction. PG Care Time/CCT Total # of Minutes Spent Total Time Spent with Patient: Total time spent is greater than 50% in coordination of care (as documented) at patient's floor/unit and/or counseling patient: Coding Level of Care Code 42899 SUB INP/OBS CARE 350MIN Diagnoses Small bowel obstruction K56.609
[2023-12-20] MEDS: ATORVASTATIN 20 MG TAB PO SCH (20:04)
[2023-12-21 07:25] LABS: Basophils # (auto) 0.04 K/uL (0.00-0.20); Basophils % (auto) 0.6 %; Eosinophils # (auto) 0.14 K/uL (0.00-0.50); Eosinophils % (auto) 2.1 %; Hematocrit (blood only) 45.5 % (42.0-52.0); Hemoglobin 15.4 g/dl (14.0-18.0); Immature Granulocytes # (auto) 0.01 K/uL (0.01-0.20); Immature Granulocytes % (auto) 0.2 %; Lymphocytes # (auto) 1.07 K/uL (1.20-3.40); Lymphocytes % (auto) 16.2 %; Mean Corpuscular Hgb Conc 33.8 g/dL (32.0-36.0); Mean Corpuscular Volume 88.7 fL (80.0-100.0); Mean Platelet Volume 9.8 fL (9.4-12.4); Monocytes # (auto) 0.73 K/uL (0.11-0.59); Monocytes % (auto) 11.1 %; Neutrophils % (auto) 69.8 %; Platelet Count 174 K/uL (130-400); RDW Standard Deviation 42.5 fL (36.4-46.3); Red Blood Count 5.13 M/uL (4.70-6.10); White Blood Count 6.59 K/ul (4.8-10.8)
[2023-12-21 07:54] LABS: BUN Creatinine Ratio 12.4 (10-20); Creatinine Clr Calc Pharmacy 56.6 ml/min; Est GFR (African American) 69.8 ml/min; Est GFR (Non-African American) 60.2 ml/min; Potassium 4.6 mmol/L (3.5-5.1)
--- NOTE | 2023-12-21 07:54 | Surgery Progress Note ---
Date of Service December 21, 2023 Assessment & Plan (1) Small bowel obstruction: Plan: Pt here with concern for SBO Recommend conservative management As he started having more bowel fxn yesterday he was advanced to liquids by medicine He denies pain/n/v this AM. and states he is passing gas/BM KUB is ordered and pending If improving can consider ongoing diet advancement to low fiber No need to f/u with us in the office Admission and Anticipated Discharge Date Admission Date: December 20, 2023 Supervising Physician Co-Signing Physician Notes I have seen this patient this a.m. He is completely asymptomatic, continues with bowel function tolerating clear liquids. Advance to low fiber diet and may be discharged if he tolerates his diet later today as per medicine provider there are no other medical concerns. Subjective Patient feeling well. States he is passing gas and some small BMs. Denies abdominal pain or nausea. Feels like his distention has improved. Denies recent belching. Tolerating liquid diet. Physical Exam Physical Exam: awake/alert,no distress Constitutional: well developed and well nourished; no acute distress Respiratory: normal respiratory effort Gastrointestinal (Abdomen): Inspection/Auscultation: + abdomen distended (mild) and + abdominal surgical scar (L open inguinal hernia scar) Percussion/Palpation: abdomen soft; abdomen nontender PG Care Time/CCT Total # of Minutes Spent Total Time Spent with Patient: Total time spent is greater than 50% in coordination of care (as documented) at patient's floor/unit and/or counseling patient: Coding Level of Care Code 39161 SUB INP/OBS CARE 07/26MIN Diagnoses Small bowel obstruction K56.609
[2023-12-21 07:57] VITALS: BP 154/82; PULSE 78; RESP 18; TEMP 98.2; O2SAT 96
--- NOTE | 2023-12-21 11:37 | XRay Report ---
KUB CLINICAL HISTORY: Small bowel obstruction. FINDINGS: 2 AP, portable, supine abdominal radiographs are compared to abdominal radiographs and CT d ated 12/20/2023. Moderate fecal retention is noted throughout the colon. There is persistent gaseous d istention of the small bowel loops consistent with known obstruction. The degree of distention appear s modestly improved from yesterday. A mesenteric calcification in the right lateral abdomen is unchan ged. Phleboliths are seen in the pelvis. The skeletal structures are osteopenic and appear intact. Sp ondylotic and postsurgical change is noted in the lumbar spine. IMPRESSION: There is evidence of persistent small bowel obstruction. The degree of distention appears somewhat improved from yesterday. Electronically signed by: Paul Phillips M.D. 12/21/2023 11:35 AM
--- NOTE | 2023-12-21 16:07 | Discharge Summary ---
Discharge Summary Date of Service December 21, 2023 Principal Dx & Hospital Course #1 = Principal Diagnosis (1) Small bowel obstruction: Patient presented after 2 days of progressive abdominal pain, distention, worsening pain with vomiting. -CT on admission concerning for SBO. Patient has history of hernia surgery in the past. -Small bowel movement in the ED with improvement in abdominal distention and discomfort. -Deferred NGT placement given lack of nausea and bowel movement in the ED. -Repeat KUB 12/20 revealed evidence of persistent small bowel obstruction, however the degree of distention appears somewhat improved from 12/19. -Continued to pass gas and have small bowel movements. -Diet was advanced from NPO --> clears --> low fiber, well tolerated. Recommended following low fiber diet x 1 week. Plan Chronic Medical Issues: Atrial Fibrillation - permanent. Rate controlled. Anticoagulated on Eliquis -Continue Diltiazem -Continue Eliquis HLP - chronic. stable -Continue Atorvastatin GERD - chronic. stable -Continue Protonix CODE STATUS: Full code Notes For Next Care Provider Patient presented with small bowel obstruction, NGT deferred given lack of nausea and bowel movement in ED on arrival. Well-tolerated advancement of diet and continued to pass gas and stool. Medication Changes From Visit None. 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 Patient reports last having a BM on 12/17/23. He has been passing a small amount of gas. This evening he went out to dinner with his for their anniversary. He had spaghetti and salad after which he developed severe, diffuse abdominal pain as well as nausea with vomiting x 2 episodes. Last episode of vomiting 12/19/23 at 22:00. Patient did have a small, soft BM in the ER with improvement in his abdominal symptoms. ER Course: NSS Zofran Admission Exam Per Admitting Provider General: patient resting comfortably, NAD, non-toxic in appearance, AA&O x 4 Skin: warm, dry, intact, no rashes or lesions HEENT: NC/AT, PERRL, EOMI, anicteric sclera, conjunctiva without injection, external ear normal to inspection and nontender, nares patent, moist mucus membranes, dentition intact, no oropharyngeal lesions, neck supple, trachea midline, no LAD, no thyromegaly, no JVD Heart: +S1/S2, irregularly irregular, no m/r/g Lungs: equal air entry bilaterally, no rales/rhonchi/wheezes Abd: +BS, distended, tympanic to percussion, diffuse tenderness without rebound/guarding Ext: warm, 2+ pulses in UE/LE bilaterally, no clubbing/cyanosis or edema Neuro: nonfocal, patient AA&O x 4, speech intact, no facial droop, moving all extremities on command with equal strength 5/5 Discharge Exam General: No acute distress, nondiaphoretic, well-developed, well-nourished. Skin: The skin was without rashes, erythema, edema, or bruising. Cardiac: Irregularly irregular without murmurs gallops or rubs. Pulm: Clear to auscultation bilaterally without wheezes, rales or rhonchi. No respiratory distress. Abdominal: Soft, nontender to palpation. Distended, improved. Bowel sounds present. No rebound/guarding. Neuro: A&O x3. No focal neurological deficits. Updated Medication List Medication Instructions Recorded Confirmed Type acetaminophen 500 mg tablet 1,000 mg (2 x 500 mg) PO Q6H PRN 11/24/22 12/20/23 Rx (Tylenol Extra Strength) Pain #1 tab cyanocobalamin (vitamin B-12) 1,000 mcg PO DAILY #90 tabs 11/24/22 12/20/23 Rx 1,000 mcg tablet atorvastatin 20 mg tablet 20 mg PO QPM #90 tabs 01/15/23 12/20/23 Rx apixaban 5 mg tablet (Eliquis) 5 mg PO BID #180 tabs 02/27/23 12/20/23 Rx diltiazem HCl 240 mg 240 mg PO QAM #90 caps 06/13/23 12/20/23 Rx capsule,extended release 24 hr pantoprazole 40 mg tablet,delayed 40 mg PO QAM 12/05/23 12/20/23 History release ipratropium bromide 42 mcg (0.06 2 spray intranasal QID PRN POST 12/20/23 12/20/23 History %) nasal spray NASAL DRIP Hospital Stay Data Consultations 12/20/23 01:31 ED Decision to Admit Stat 12/20/23 01:39 Consult General Surgery Routine Diagnostic Imagining Performed 12/19/23 23:57 CT abd pelvis IV con only Stat Pending Results Patient Have Any Pending Studies at Discharge: No Discharge Instructions Given to Patient (Per Discharging Provider) Mr. Thomas, Vance were admitted to the hospital for a small bowel obstruction (SBO). A small bowel obstruction is a condition in which the small intestine gets blocked, then air, fluid, and food gets stuck in the intestine. They cannot move through the small intestine the way they normally would. This is most commonly caused from past surgery in the belly - after surgery, scar tissue can form in the belly and press on the intestine. This improved on its own, and did not require surgery. When you leave the hospital, you may still have some discomfort and your stomach may still feel bloated. Listed below are recommendations to follow for your diet. Please follow these recommendations for the next week, then advance your diet as tolerated back to your normal diet/routine. Follow these instructions for how to take care of yourself at home: * Eat small amounts of food several times a day (do not eat 3 large meals) for 1 week. * Please eat a low fiber diet for 1 week. -- These foods include breads, biscuits, pancakes, waffles, bagels, saltines, nalini crackers, bananas, melons, applesauce, white rice, pasta, tender meat, fish and poultry, ham, laird, shellfish, lunch meat, and dairy products. * Avoid high-fiber foods and raw fruits and vegetables. -- These include whole grains, popcorn, brown rice, oatmeal, granola, quinoa, nuts, seeds, dried beans, baked beans, peas and lentils, dried fruit. * Drink plenty of fluids. * Stay physically active as tolerated. * Continue all of your home medications as prescribed. There have been NO medication changes during your hospitalization. Please return to the hospital if you experience any of the following: Fever of 100.4 F or chills, worsening pain, vomiting, or if you cannot pass gas or stool. It was a pleasure taking care of you while you were in the hospital, Eulalia Mcwilliams PA-C Total Time Total Time Spent Total Time Spent (In Minutes): Greater than 30 minutes spent completing this discharge process including direct patient care, medication reconciliation, documentation, review of labs and images, and coordination of care. Coding Level of Care Code 86645 INP/OBS DISCH >30 MIN Diagnoses Small bowel obstruction K56.609
== END 2023-12-21 12:47 | disposition home or self-care (01) | DRG 389 ==
LOC: ED 23:50 → SUATTDRO 12-20 01:39 → 3E 12-20 01:39
DX: I10 Essential (primary) hypertension; Z86.73 Personal history of transient ischemic attack (TIA), and cerebral infarction without residual deficits; Z87.891 Personal history of nicotine dependence; Z79.01 Long term (current) use of anticoagulants; Z79.899 Other long term (current) drug therapy; I48.21 Permanent atrial fibrillation; K21.9 Gastro-esophageal reflux disease without esophagitis; E78.5 Hyperlipidemia, unspecified; K56.609 Unspecified intestinal obstruction, unspecified as to partial versus complete obstruction

== ENCOUNTER 2024-01-10 17:14 | Observation (INO) ==
[2024-01-10 17:54] LABS: Basophils # (auto) 0.05 K/uL (0.00-0.20); Basophils % (auto) 0.9 %; Eosinophils # (auto) 0.14 K/uL (0.00-0.50); Eosinophils % (auto) 2.5 %; Hematocrit (blood only) 47.3 % (42.0-52.0); Hemoglobin 15.9 g/dl (14.0-18.0); Immature Granulocytes # (auto) 0.01 K/uL (0.01-0.20); Immature Granulocytes % (auto) 0.2 %; Lymphocytes # (auto) 1.34 K/uL (1.20-3.40); Lymphocytes % (auto) 23.6 %; Mean Corpuscular Hemoglobin 29.6 pg (25.0-34.0); Mean Corpuscular Hgb Conc 33.6 g/dL (32.0-36.0); Mean Corpuscular Volume 87.9 fL (80.0-100.0); Monocytes % (auto) 12.3 %; Neutrophils # (auto) 3.44 K/uL (1.40-6.50); Neutrophils % (auto) 60.5 %; Platelet Count 190 K/uL (130-400); RDW Coefficient of Variation 12.8 % (11.5-14.5); Red Blood Count 5.38 M/uL (4.70-6.10); White Blood Count 5.68 K/ul (4.8-10.8)
[2024-01-10 18:13] LABS: Albumin Globulin Ratio 1.5 (0.9-2); Albumin Level 4.5 gm/dl (3.4-5.0); BUN Creatinine Ratio 10.9 (10-20); Bilirubin,Total 0.9 mg/dl (0.2-1.0); Calcium 9.7 mg/dl (8.6-10.3); Creatinine Clr Calc Pharmacy 50.1 ml/min; Est GFR (Non-African American) 51.8 ml/min; Potassium 4.4 mmol/L (3.5-5.1); Total Protein 7.5 gm/dl (6.0-8.3)
[2024-01-10 18:16] LABS: Appearance Urine Clear (Clear); Bilirubin Urine Negative (Negative); Blood Urine Negative (Negative); Color Urine Yellow; Glucose Urine UA Negative (Negative); Ketones Urine Negative (Negative); Leukocyte Esterase Urine Negative (Negative); Nitrite Urine Negative (Negative); Protein Urine Negative (Negative); Specific Gravity Urine 1.006 (1.000-1.030); Urobilinogen Urine Negative (Negative)
--- NOTE | 2024-01-10 18:38 | Emergency Department Note ---
Impression & Plan Partial small bowel obstruction ED Provider Note Diagnosis: Partial small bowel obstruction Disposition: Admission CHIEF COMPLAINT: HPI: This patient is an 83-year-old male presenting with complaint of abdominal pain. Patient states that pain is diffuse and lower abdominal region. Patient states that he has been having bowel movements but they have not been his normal. Patient states stool has been darker in color. Patient does admit to using Pepto-Bismol once a couple days prior. Patient is on Eliquis for atrial fibrillation is worried about blood in his stool. Patient states approximately a year ago he had some bleeding peptic ulcers that made his blood count drop in half. Patient denies any lightheadedness or dizziness. PAST MEDICAL HISTORY: See Below PAST SURGICAL HISTORY: See Below SOCIAL HISTORY: See Below HOME MEDICATIONS: See Below ALLERGIES: See Below VITALS: See Below PHYSICAL EXAMINATION: GENERAL: Well appearing, well nourished, NAD, non-toxic. EYE EXAM: Normal conjunctiva. OROPHARYNX: Moist mucus membranes. Grossly normal dentition. NECK: Supple, LUNGS: Clear to auscultation. Normal chest wall mechanics. HEART: NSR ABDOMEN: Abdomen soft, lower abdominal tenderness BACK: No CVA TTP. SKIN: No rashes and no bruising. UPPER EXTREMITIES: Upper extremities are grossly normal LOWER EXTREMITIES: Grossly normal, no edema. NEURO EXAM: A&O x3,, normal speech, moves all 4 extremities PSYCH: Cooperative MEDICAL DECISION MAKING: Reviewed external documents: History obtained from: Patient ER Course: Patient is a 83-year-old male presenting with lower abdominal pain and distention. Patient states this feels similar to when he had a bowel obstruction 2 to 3 weeks prior. Patient states his stool has been darker in color. Patient is on Eliquis due to A-fib. Patient hemoglobin today 15.9. Patient had rectal exam performed with nurse candle molder present. Patient's Hemoccult negative. Patient CT scan reports ileus versus partial small bowel obstruction. Patient having no vomiting currently. Patient placed on maintenance IV fluids. Labs (independently interpreted) are significant for: Hemoglobin stable Medications given: Normal saline Consultants: Hospitalist service Triage Nursing notes reviewed and agree them. Vital Signs: reviewed and remarkable for: no significant abnormalities Past Med/Surg History Problem List (Updated 01/10/24 @ 23:56 by Jaquan Lee DO) Partial small bowel obstruction (Acute) Constipation Lesion of nasal septum LPRD (laryngopharyngeal reflux disease) Dysphagia Diarrhea Abdominal pain, vomiting, and diarrhea Dehydration Vomiting Weakness (Acute) Hypomagnesemia (Acute) Atrial fibrillation with rapid ventricular response (Acute) RONALD (acute kidney injury) (Acute) Acute dehydration (Acute) Abnormal PFTs (pulmonary function tests) Allergic rhinitis with postnasal drip Ex-cigar smoker Abnormal chest CT Upper airway cough syndrome Duodenal ulcer Gastritis Superficial thrombophlebitis of right leg (Acute) Chronic cough Sacroiliitis History of lumbar fusion instrumented, L2-3, Dr. Cooper - 08/2017 Lumbar spondylosis Acute abdominal pain in left flank (Acute) History of removal of cyst (04/03/22) FINAL DIAGNOSIS: In office procedure Dr. 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 with INR goal of 2.0-3.0 Acute kidney injury Syncope (Acute) Low back pain (Acute) Rib pain (Acute) Lumbar stenosis Hypertensive crisis Bronchitis (Acute) Near syncope (Acute) Hypertension (Chronic) Near syncope (Acute) Bicuspid aortic valve Medical History Small bowel obstruction GERD (gastroesophageal reflux disease) Hx-TIA (transient ischemic attack) History of sleep study Upper airway cough syndrome Lumbar stenosis Hx of blood clots Chronic cough Bicuspid aortic valve Allergic rhinitis with postnasal drip Vitamin D deficiency B12 deficiency Fatty liver Acute blood loss anemia PUD (peptic ulcer disease) Atrial fibrillation with rapid ventricular response Acute GI bleeding Acute hypotension Long-term (current) use of anticoagulants, INR goal 2.0-3.0 No significant family history HTN (hypertension) Carotid stenosis (05/26/13) Hypertension Surgical History S/P trigger finger release Hx of umbilical hernia repair Hx of colonoscopy History of bilateral carotid endarterectomy History of esophagogastroduodenoscopy (EGD) Hx of removal of cyst History of lumbar fusion Social History Smoking Status: Former smoker Tobacco Type: Cigarettes Age Started Using Tobacco: 19; Age Quit Using Tobacco: 72; packs per day: 0.5; Cigarettes Per Day: 1 cigar per day for 40 years quit in 2013; Second Hand Exposure: Yes (hx as child); Do You Dip or Chew Tobacco: No; Hx Alcohol Use: No Hx Substance Use: No Preferred Language: Kittitian Communication Ability: Effective 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 Beliefs That Will Affect Care: None marital status: Current Living Situation: Spouse How many Children do You have: 2 Feels Safe at Home: Yes Assistive Devices: Cane and Walker Allergies Allergies Allergy/AdvReac Type Severity Reaction Status Date / Time No Known Allergies Allergy Verified 01/09/24 10:34 Home Meds Previous Rx's Medication Instructions Recorded acetaminophen 500 mg tablet 1,000 mg (2 x 500 mg) PO Q6H PRN 11/24/22 (Tylenol Extra Strength) Pain #1 tab cyanocobalamin (vitamin B-12) 1,000 mcg PO DAILY #90 tabs 11/24/22 1,000 mcg tablet apixaban 5 mg tablet (Eliquis) 5 mg PO BID #180 tabs 02/27/23 diltiazem HCl 240 mg 240 mg PO QAM #90 caps 06/13/23 capsule,extended release 24 hr atorvastatin 20 mg tablet See Rx Instructions .Route 01/08/24 .COMPLEX #90 tabs ipratropium bromide 42 mcg (0.06 2 spray intranasal QID PRN POST 01/09/24 %) nasal spray NASAL DRIP #15 mL pantoprazole 20 mg tablet,delayed 20 mg PO QAM #90 tabs 01/09/24 release Results & Data (ED) Vital Signs Vital Signs - 24 hr 01/10/24 17:14 01/10/24 19:15 01/10/24 19:18 Temperature 36.6 C Temperature Source Temporal Artery Scan Pulse Rate 84 73 Pulse Rate [Apical] 78 Pulse Rhythm [Apical] Regular Pulse Strength [Apical] Normal Respiratory Rate 18 22 Respiratory Effort / Characteristics Non-Labored Spontaneous Respiratory Depth Normal Respiratory Pattern Regular Blood Pressure 108/72 Blood Pressure [Right Arm] 136/94 Blood Pressure Mean 84 Blood Pressure Mean [Right Arm] 108 Blood Pressure Position [Right Arm] Lying Pulse Oximetry 97 96 Oxygen Delivery Method Room Air Sepsis Recent Fever Within 48 Hours No Sepsis New/Unexplained Change in Mental Status N/A Sepsis Action Taken by Nursing No Action Required 01/10/24 21:00 01/10/24 23:00 01/10/24 23:09 Temperature Temperature Source Pulse Rate 87 Pulse Rate [Apical] 86 72 Pulse Rhythm [Apical] Regular Regular Pulse Strength [Apical] Normal Normal Respiratory Rate 18 18 Respiratory Effort / Characteristics Non-Labored Spontaneous Non-Labored Respiratory Depth Normal Normal Respiratory Pattern Regular Blood Pressure Blood Pressure [Right Arm] 149/100 H 134/106 H Blood Pressure Mean Blood Pressure Mean [Right Arm] 116 115 Blood Pressure Position [Right Arm] Lying Lying Pulse Oximetry 98 96 Oxygen Delivery Method Room Air Room Air Sepsis Recent Fever Within 48 Hours Sepsis New/Unexplained Change in Mental Status Sepsis Action Taken by Nursing Laboratory Data 01/10/24 17:36 01/10/24 17:36 Lab Results 01/10/24 Range/Units 17:36 WBC 5.68 (4.8-10.8) K/ul RBC 5.38 (4.70-6.10) M/uL Hgb 15.9 (14.0-18.0) g/dl Hct 47.3 (42.0-52.0) % MCV 87.9 (80.0-100.0) fL MCH 29.6 (25.0-34.0) pg MCHC 33.6 (32.0-36.0) g/dL RDW Std Deviation 41.0 (36.4-46.3) fL RDW Coeff of Demetrius 12.8 (11.5-14.5) % Plt Count 190 (130-400) K/uL MPV 10.0 (9.4-12.4) fL Immature Gran % (Auto) 0.2 % Neut % (Auto) 60.5 % Lymph % (Auto) 23.6 % [place] % (Auto) 12.3 % Eos % (Auto) 2.5 % Baso % (Auto) 0.9 % Neut # (Auto) 3.44 (1.40-6.50) K/uL Lymph # (Auto) 1.34 (1.20-3.40) K/uL [place] # (Auto) 0.70 H (0.11-0.59) K/uL Eos # (Auto) 0.14 (0.00-0.50) K/uL Baso # (Auto) 0.05 (0.00-0.20) K/uL Immature Gran # (Auto) 0.01 (0.01-0.20) K/uL Sodium 139 (136-145) mmol/L Potassium 4.4 (3.5-5.1) mmol/L Chloride 102 (98-107) mmol/L Carbon Dioxide 30 (21-32) mmol/L Anion Gap 7 (3-11) BUN 14 (6-23) mg/dl Creatinine 1.28 (0.6-1.4) mg/dl Est Cr Clr Drug Dosing 50.1 ml/min Est GFR ( Amer) 60.0 ml/min Est GFR (Non-Af Amer) 51.8 ml/min BUN/Creatinine Ratio 10.9 (10-20) Glucose 112 H (70-99(Fasting)) mg/dl Calcium 9.7 (8.6-10.3) mg/dl Total Bilirubin 0.9 (0.2-1.0) mg/dl AST 16 (13-39) U/L ALT 13 (7-52) U/L Alkaline Phosphatase 127 H (34-104) U/L Total Protein 7.5 (6.0-8.3) gm/dl Albumin 4.5 (3.4-5.0) gm/dl Globulin 3.0 (2.5-4.0) gm/dl Albumin/Globulin Ratio 1.5 (0.9-2) Lipase 18 (11-82) U/L Urine Color Yellow Urine Appearance Clear (Clear) Urine pH 7.0 (4.5-7.5) Ur Specific [place] 1.006 (1.000-1.030) Urine Protein Negative (Negative) Urine Glucose (UA) Negative (Negative) Urine Ketones Negative (Negative) Urine Blood Negative (Negative) Urine Nitrite Negative (Negative) Urine Bilirubin Negative (Negative) Urine Urobilinogen Negative (Negative) Ur Leukocyte Esterase Negative (Negative) Administered Medications Discontinued Medications Sodium Chloride (Nss) 1,000 mls @ 80 mls/hr IV .[id number] [facility] Stop: 02/09/24 21:59 Last Admin: 01/10/24 21:56 Dose: 80 mls/hr Documented By: CLAIRE Ioversol (Optiray 320 100ml) 93 ml IV ONCE ONE Stop: 01/10/24 18:54 Last Admin: 01/10/24 18:53 Dose: 93 ml Documented By: SHELLY Imaging Data Radiologist's Impression: Abdomen/Pelvis CT 01/10/24 18:36 Exam(s): CT ABDOMEN + PELVIS With Contrast IV Amt: 94ml optiray 320 EXAM: CT Abdomen and Pelvis With Intravenous Contrast CLINICAL HISTORY: Reason for exam: abd pain, dark stool, hx of SBO. TECHNIQUE: Axial computed tomography images of the abdomen and pelvis with intravenous contrast. CTDI is 25.25 mGy and DLP is 1345.56 mGy-cm. Automated exposure control was utilized for the study. A dose lowering technique was utilized adhering to the principles of ALARA. CONTRAST: Patient received 94ml optiray 320 of IV contrast COMPARISON: CT abdomen/pelvis on 12/20/2023 FINDINGS: Lung bases: Mild lower lung atelectasis. Heart: Coronary artery angiograph calcifications. Mild cardiomegaly. Mediastinum: Small hiatal hernia. ABDOMEN: Liver: Unremarkable. No mass. Gallbladder and bile ducts: Probable small stones or sludge in the gallbladder. No ductal dilation. Pancreas: Atrophy of the pancreas. No ductal dilation. Spleen: Calcified granulomas in the spleen. Adrenals: Unremarkable. No mass. Kidneys and ureters: Nonspecific bilateral perinephric fat stranding. Small hypodensities in the left kidney are too small to definitively characterize. No hydronephrosis or obstructing ureteral stone. Stomach and bowel: Dilated fluid and gas-filled small bowel loops may represent enteritis versus ileus versus partial small bowel obstruction. Evaluation of the stomach is limited by underdistention. Diverticulosis without evidence of diverticulitis. PELVIS: Appendix: Appendix is not definitely visualized on this exam. Bladder: Unremarkable. No mass. Reproductive: Mild prostatomegaly. ABDOMEN and PELVIS: Intraperitoneal space: Unremarkable. No free air. No significant fluid collection. Bones/joints: Degenerative changes of the spine. Postsurgical changes at L2-3. No acute fracture. No dislocation. Soft tissues: Small fat-containing umbilical hernia. Vasculature: Atherosclerotic changes of the vasculature. Mild ectasia/aneurysmal dilatations in the infrarenal abdominal aorta measuring approximately 3.0 cm in diameter. 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 Phleboliths of the pelvis. Lymph nodes: Unremarkable. No enlarged lymph nodes. IMPRESSION: Dilated fluid and gas-filled small bowel loops may represent enteritis versus ileus versus partial small bowel obstruction. Electronically signed by: Papa Thornton M.D. 01/10/24 20:22 PM Discharge Plan Visit Data Chief Complaint: Abdominal Pain Stated Complaint: ABD PAIN ED Provider: Jaquan Lee Discharge Problem: Partial small bowel obstruction Forms Stand Alone Forms: [facility] Prescriptions Prescriptions: No Action Eliquis 5 mg tablet 5 mg PO BID Qty: 180 3RF diltiazem HCl 240 mg capsule,extended release 24hr 240 mg PO QAM Qty: 90 3RF atorvastatin 20 mg tablet See Rx Instructions .ROUTE .COMPLEX Qty: 90 3RF Dose Instruction: TAKE 1 TABLET BY MOUTH ONCE DAILY IN THE EVENING Rx Instructions: TAKE 1 TABLET BY MOUTH ONCE DAILY IN THE EVENING pantoprazole 20 mg tablet,delayed release (DR/EC) 20 mg PO QAM Qty: 90 2RF ipratropium bromide 42 mcg (0.06 %) spray,non-aerosol 2 spray INTRANASAL QID PRN (Reason: POST NASAL DRIP) Qty: 15 6RF cyanocobalamin (vitamin B-12) 1,000 mcg tablet 1,000 mcg PO DAILY Qty: 90 1RF Rx Instructions: purchase [id number]-[id number] acetaminophen [Tylenol Extra Strength] 500 mg tablet 1,000 mg PO Q6H PRN (Reason: Pain) Qty: 1 0RF Rx Instructions: purchase [id number]; maximum amount - 3000mg in 24 hours. Referrals Referrals: Homar Enriquez MD [Primary Care Provider] -
[2024-01-10] MEDS: OPTIRAY 320 100ml IV ONE (18:53)
--- NOTE | 2024-01-10 20:23 | CT Scan Report ---
Exam(s): CT ABDOMEN + PELVIS With Contrast IV Amt: 94ml optiray 320 EXAM: CT Abdomen and Pelvis With Intravenous Contrast CLINICAL HISTORY: Reason for exam: abd pain, dark stool, hx of SBO. TECHNIQUE: Axial computed tomography images of the abdomen and pelvis with intravenous contrast. CTDI is 25.25 mGy and DLP is 1345.56 mGy-cm. Automated exposure control was utilized for the study. A dose lowering technique was utilized adhering to the principles of ALARA. CONTRAST: Patient received 94ml optiray 320 of IV contrast COMPARISON: CT abdomen/pelvis on 12/20/2023 FINDINGS: Lung bases: Mild lower lung atelectasis. Heart: Coronary artery angiograph calcifications. Mild cardiomegaly. Mediastinum: Small hiatal hernia. ABDOMEN: Liver: Unremarkable. No mass. Gallbladder and bile ducts: Probable small stones or sludge in the gallbladder. No ductal dilation. Pancreas: Atrophy of the pancreas. No ductal dilation. Spleen: Calcified granulomas in the spleen. Adrenals: Unremarkable. No mass. Kidneys and ureters: Nonspecific bilateral perinephric fat stranding. Small hypodensities in the left kidney are too small to definitively characterize. No hydronephrosis or obstructing ureteral stone. Stomach and bowel: Dilated fluid and gas-filled small bowel loops may represent enteritis versus ileus versus partial small bowel obstruction. Evaluation of the stomach is limited by underdistention. Diverticulosis without evidence of diverticulitis. PELVIS: Appendix: Appendix is not definitely visualized on this exam. Bladder: Unremarkable. No mass. Reproductive: Mild prostatomegaly. ABDOMEN and PELVIS: Intraperitoneal space: Unremarkable. No free air. No significant fluid collection. Bones/joints: Degenerative changes of the spine. Postsurgical changes at L2-3. No acute fracture. No dislocation. Soft tissues: Small fat-containing umbilical hernia. Vasculature: Atherosclerotic changes of the vasculature. Mild ectasia/aneurysmal dilatations in the infrarenal abdominal aorta measuring approximately 3.0 cm in diameter. 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 Phleboliths of the pelvis. Lymph nodes: Unremarkable. No enlarged lymph nodes. IMPRESSION: Dilated fluid and gas-filled small bowel loops may represent enteritis versus ileus versus partial small bowel obstruction. Electronically signed by: Papa Thornton M.D. 01/10/24 20:22 PM
[2024-01-10] MEDS: SODIUM CHLORIDE 0.9% 1,000 ML IV SCH (21:56)
--- NOTE | 2024-01-10 22:33 | History & Physical Report ---
Date of Service January 10, 2024 Assessment & Plan (1) Small bowel obstruction: (2) Constipation: (3) Atrial fibrillation with rapid ventricular response: (4) Upper airway cough syndrome: (5) Gastritis: (6) Low back pain: (7) Hypertension: (8) Bicuspid aortic valve: Plan Varun is an 83M w/ PMH of bicuspid aortic valve, HTN, lumbar stenosis w/ LBP, A Fib on Eliquis, chronic cough, gastritis/duodenal ulcers/dysphagia, and laryngopharyngeal reflux disease who presented to the hospital for evaluation of worsening abdominal pain. Patient was recently admitted for SBO 12/19-12/20. Illeus +/- SBO - Recent admission for SBO 12/19-12/20, not requiring NGT for resolution - Under anesthesia 12/24 for trigger finger release - Now with progressive constipation and darkening of stools (Belknap 1 >2) - CBC, CMP, and urinalysis unremarkable - CTAP Dilated fluid and gas-filled small bowel loops may represent enteritis versus ileus versus partial small bowel obstruction. Diverticulosis without evidence of diverticulitis. - NPO - Start mIVF w/ LR @ 130 cc/hr - Avoid narcotic pain medications - Continue dietary and lifestyle conversations for constipation Patient will require bowel regimen upon discharge (previous intermittent use of Miralax) Melena vs Darkening of Stools Hx of bleeding duodenal ulcers - Darkening most c/w progressive constipation/ileus - H&H wnl, hemodynamically stable, no epigastric pain - Hemocult ordered Eliquis held while pending, would restart as soon as known to be negative - NPO & mIVFs as above Chronic Conditions - HTN/AFib/Bicuspid Aortic Valve/HLD: statin and Eliquis held, continue Diltiazem - Lumbar stenosis w/ LBP: tylenol held - Chronic cough: continue Ipratropium bromide - Gastritis/Duodenal ulcers: continue PPI as IV inpatient Code: Full Diet: NPO IVF: LR @ 130 DVT: Hold Eliquis d/t melena, would resume pending Hemoccult if no bleeding Dispo: Med/surg History of Present Illness Chief Complaint: Abdominal Pain Primary Care Provider: Homar Enriquez MD Varun is an 83M w/ PMH of bicuspid aortic valve, HTN, lumbar stenosis w/ LBP, A Fib on Eliquis, chronic cough, gastritis/duodenal ulcers/dysphagia, and laryngopharyngeal reflux disease who presented to the hospital for evaluation of worsening abdominal pain. Patient was recently admitted for SBO 12/19-12/20. ED: NSS @ 80 ml/hr HPI: - [place] like things were back to normal when he got home from the hospital 12/20 - Started to become constipated again after hand surgery 12/24 - Started taking Miralax with mild benefit, having some small bowel movements - Notes movements were very dark - Presented due to concern for dark stools d/t history of dark stools from bleeding duodenal ulcers (Hgb dropped to 7.6) - Describes bowel movements as small dry pellets (Belknap 1 and 2) - Denies abdominal pain at rest, but is uncomfortable with palpation - No nausea or emesis at presentation (1 week ago did have an episode of emesis when he couldn't move his bowels) - Completed a week of low fiber diet, trying to avoid excess carbs, endorses drinking adequate water - Urinating well without dysuria, frequency or suprapubic pain - No chest pain, dyspnea, lightheadedness, dizziness, headaches, or vision changes PSH: Open L inguinal hernia w/ Dr. Burciaga. Similar SBO episode after back surgery w/ Dr. Cooper (2017). Allergies Allergy/AdvReac Type Severity Reaction Status Date / Time No Known Allergies Allergy Verified 01/09/24 10:34 Home Medications Medication Instructions Recorded Confirmed Type acetaminophen 500 mg tablet 1,000 mg (2 x 500 mg) PO Q6H PRN 11/24/22 01/10/24 Rx (Tylenol Extra Strength) Pain #1 tab cyanocobalamin (vitamin B-12) 1,000 mcg PO DAILY #90 tabs 11/24/22 01/10/24 Rx 1,000 mcg tablet apixaban 5 mg tablet (Eliquis) 5 mg PO BID #180 tabs 02/27/23 01/10/24 Rx diltiazem HCl 240 mg 240 mg PO QAM #90 caps 06/13/23 01/10/24 Rx capsule,extended release 24 hr atorvastatin 20 mg tablet See Rx Instructions .Route 01/08/24 01/10/24 Rx .COMPLEX #90 tabs ipratropium bromide 42 mcg (0.06 2 spray intranasal QID PRN POST 01/09/24 01/10/24 Rx %) nasal spray NASAL DRIP #15 mL pantoprazole 20 mg tablet,delayed 20 mg PO QAM #90 tabs 01/09/24 01/10/24 Rx release Past Med/Surg History Problem List (Updated 01/10/24 @ 23:56 by Jaquan Lee, DO) Partial small bowel obstruction (Acute) Constipation Lesion of nasal septum LPRD (laryngopharyngeal reflux disease) Dysphagia Diarrhea Abdominal pain, vomiting, and diarrhea Dehydration Vomiting Weakness (Acute) Hypomagnesemia (Acute) Atrial fibrillation with rapid ventricular response (Acute) RONALD (acute kidney injury) (Acute) Acute dehydration (Acute) Abnormal PFTs (pulmonary function tests) Allergic rhinitis with postnasal drip Ex-cigar smoker Abnormal chest CT Upper airway cough syndrome Duodenal ulcer Gastritis Superficial thrombophlebitis of right leg (Acute) Chronic cough Sacroiliitis History of lumbar fusion instrumented, L2-3, Dr. Cooper - 08/2017 Lumbar spondylosis Acute abdominal pain in left flank (Acute) History of removal of cyst (04/03/22) FINAL DIAGNOSIS: In office procedure Dr. Pickens 04/03/2022 Skin, thigh cyst, excision: - Benign glomangioma (glomus tumor) Cyst Atrial fibrillation nursing home current use of anticoagulants with INR goal of 2.0-3.0 Acute kidney injury Syncope (Acute) Low back pain (Acute) Rib pain (Acute) Lumbar stenosis Hypertensive crisis Bronchitis (Acute) Near syncope (Acute) Hypertension (Chronic) Near syncope (Acute) Bicuspid aortic valve Medical History Small bowel obstruction GERD (gastroesophageal reflux disease) Hx-TIA (transient ischemic attack) History of sleep study Upper airway cough syndrome Lumbar stenosis Hx of blood clots Chronic cough Bicuspid aortic valve Allergic rhinitis with postnasal drip Vitamin D deficiency B12 deficiency Fatty liver Acute blood loss anemia PUD (peptic ulcer disease) Atrial fibrillation with rapid ventricular response Acute GI bleeding Acute hypotension Long-term (current) use of anticoagulants, INR goal 2.0-3.0 No significant family history HTN (hypertension) Carotid stenosis (05/26/13) Hypertension Surgical History S/P trigger finger release Hx of umbilical hernia repair Hx of colonoscopy History of bilateral carotid endarterectomy History of esophagogastroduodenoscopy (EGD) Hx of removal of cyst History of lumbar fusion Social History Smoking Status: Former smoker Tobacco Type: Cigarettes Age Started Using Tobacco: 19; Age Quit Using Tobacco: 72; packs per day: 0.5; Cigarettes Per Day: 1 cigar per day for 40 years quit in 2012; Second Hand Exposure: No; Do You Dip or Chew Tobacco: No; Hx Alcohol Use: Yes (two years ago) Alcohol type: beer Hx Substance Use: No Preferred Language: Sammarinese Communication Ability: Effective Behavior Support Specialist Required: No Beliefs That Will Affect Care: None marital status: Current Living Situation: Spouse How many Children do You have: 2 Other Information That Helps Us Care for You: No Feels Safe at Home: Yes Safety Concerns: Feels Safe At This Time Assistive Devices: Denture - Upper and Denture - Lower Assistive Devices Comment: reading glasses Physical Exam Physical Exam: Gen: NAD, alert, interactive HEENT: Supple, no LAD, no thyromegaly, no JVD Resp:Non-labored, no wheezing/rhonchi/rales, CTAB CV:RRR, normal S1/S2, no M/R/G Abd: Soft, non-distended, no TTP, normoactive bowels, no masses - chronic diastasis recti w/o hernia Extr: 2+ dp bilaterally, no edema Skin: No rashes lesions or erythema Results & Data Results & Data Vital Signs (Past 12 Hours) Vital Signs Temp Pulse Pulse Resp BP BP Pulse Ox 01/10/24 21:00 86 18 149/100 H 98 01/10/24 19:18 73 01/10/24 19:15 78 22 136/94 96 01/10/24 17:14 36.6 C 84 18 108/72 97 O2 Del Method 01/10/24 21:00 Room Air 01/10/24 19:18 01/10/24 19:15 Room Air 01/10/24 17:14 Supervising Physician Co-Signing Physician Notes Attending addendum: I have physically seen this patient, have supervised the medical residents activities, and agree with the H&P unless as otherwise noted. Assessment and Plan: Ileus/partial small bowel obstruction- Most recent admission from 12/19-12/21/2023 managed conservatively with resolution Underwent anesthesia for recent outpatient same-day surgery for trigger finger release of left index finger by orthopedic surgery on 12/24 CT abdomen pelvis with differential of enteritis versus ileus versus partial small bowel obstruction N.p.o. LR at 130 mL/h Pain control as noted, avoidance of narcotics Dark stools/history of bleeding duodenal ulcers- Hemoglobin 15.9 on admission Hemoccults ordered Hold Eliquis for now N.p.o. until assessment completed Pantoprazole 40 mg IV Hypertension/A-fib/bicuspid aortic valve- Continue diltiazem Hold Eliquis as noted above Resident Activity Tracking Resident Involvement: Resident Care Provided Care Provided: Adult Hospital Medicine
[2024-01-11] MEDS ORDERED: ONDANSETRON INJ 2 MG/ML 2 ML VIAL IV PRN (00:32)
[2024-01-11] MEDS ORDERED: IPRATROPIUM BROMIDE NASAL SPRAY 0.06% 15ML PRN (00:32)
[2024-01-11] MEDS: LACTATED RINGER'S 1,000 ML IV SCH (00:47)
--- NOTE | 2024-01-11 06:27 | Billing Data ---
Date of Service January 11, 2024 Coding Level of Care Code 25421 INT INP/OBS CARE
[2024-01-11] MEDS: bisacodyL 10 MG SUPP PR STA (07:42)
[2024-01-11] MEDS ORDERED: PANTOprazole 40 MG in SYRINGE 0 ML IV SCH (09:00)
[2024-01-11] MEDS: CYANOCOBALAMIN (B-12) 500 MCG TABLET PO SCH (09:29)
[2024-01-11] MEDS: dilTIAZem HCL 240 MG CAPCR PO SCH (09:29)
[2024-01-11] MEDS: APIXABAN 5 MG TABLET PO SCH (09:32)
[2024-01-11] MEDS: PANTOprazole 40 MG TAB PO SCH (09:32)
[2024-01-11] MEDS ORDERED: LAVAGE SOLUTION 4000ML PO SCH (13:30)
--- OUTSIDE RECORDS SUMMARY | 2024-01-11 14:22 | External Medical Summary | Continuity of Care Document ---
Author Name Unknown Organization [id number] Address [address] [place] [phone] Care Team Providers Care Communication Equipment Mechanic Name Role Phone Zoe Homar Reese Primary Care Physician [phone] Encounter [facility] [id number] Date(s): 01/07/24 - 01/07/24 [facility] [place] [id number] [address] [place] [id number] Encounter Diagnosis Trigger index finger of left hand(Discharge Diagnosis) - 01/07/24 Discharge Disposition: Home or Self Care Attending Physician: MD [place], Marvin Tucker Allergies, Adverse [...] Medications atorvastatin 20 mg oral tablet Start: 01/09/24 4:33:00 PM EDT, 1 tab, PO, qhs, Disp# 90 tab, Refills: 2, Pharmacy: [id number] Start Date: 01/09/24 Stop Date: 10/05/24 Status: Ordered DilTIAZem Hydrochloride CD 240 mg/24 hours oral capsule, extended release Start: 12/14/22 7:53:00 AM EDT, 1 cap, PO, Daily, Disp# 90 cap, Refills: 0, Pharmacy: [id number] Start Date: 12/14/22 Status: Ordered Eliquis 5 mg oral tablet Start: 02/28/23 8:38:00 AM EDT, 1 tab, PO, bid, Disp# 180 tab, Refills: 3, Pharmacy: [id number] Start Date: 02/28/23 Status: Ordered ipratropium 42 mcg/inh (0.06%) nasal spray Start: 11/27/23 10:06:00 AM EDT, 2 spray, each nostril, qid, Disp# 1 each, PRN: as needed for allergy symptoms, Pharmacy: [facility] Start Date: 11/27/23 Status: Ordered pantoprazole 40 mg oral delayed release tablet TAKE 1 TABLET BY MOUTH ONCE DAILY Start Date: 10/23/23 Status: Ordered Vitamin B12 1000 mcg oral tablet Start: 12/04/22 10:24:00 AM EDT, 1 tab, PO, Daily Start Date: 12/04/22 Status: Ordered Mental Status 01/07/24 Barriers to Learning one year None evide nt Mandatory Health Literacy Documentation Yes Health Literacy Communication Barriers N ever Primary Language Arabic Problem List Condition Confirmation Course Effective Dates Status H ealt Status Informant 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 Confirmed Active Peptic ulcer [...] Diagnosis Diagnosis Type Effective Dates Health Status inical Service Informant Trigger index finger of left hand Discharge Diagnosis 01/07/24 Procedures Procedure Date Related Diagnosis Body Site Status Procedure 1 12/25/23 Completed Ultrasound scan of right upper limb 2 11/28/22 Completed Upper GI (gastrointestinal) endoscopy 3 11/20/22 Completed Cyst 4 04/03/22 Completed Laminectomy approach to lumb ar spine, pedical screw intrumentation L2-3, posterolateral fusion 09/27/[address] angio of abdomen and pelvis 5 09/20/[address] 6 01/30/17 Completed Lumbar epidural steroid injection 7 06/22/16 Completed Imaging 04/27/15 Completed Colonoscopy 8 03/19/15 Completed Upper GI endoscopy 9 03/19/15 Comp leted Hip X-ray 10 12/02/14 Completed Chest x-ray 11 04/03/14 Completed Carotid endarterectomy 05/26/13 Co mpleted Carotid endarterectomy 03/11/13 Co mpleted Colonoscopy 12 10/27/09 Completed Hernia Completed Surgery 13 Completed Tonsils and adenoids Comp leted Trigger finger Completed 1A1 pau release left index finger local with sedation. 2Impression: 1. There is no sonographic evidence of deep venous thrombosis indentified in the right upper extremity. 2. Occlusive superficial venous thrombosis in the right cephalic vein as above. 3Small Hiatal hernia, Gastritis Biopsied non bleeding duodenal ulcers with no stigmata of bleeding. Normal second position of the duodenum 4left thigh excision 51. 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 [...] stenosis. The inferior mesenteric artery is patent. 61. Mild dilatation of the ascending throacic aorta which measures 43 mm in diameter. 2. No evidence of aortic dissection. 3. No evidence of focal pulmonary consolidation. 4. No evidence of pathologic adenopathy. 7L3-4, L4-5 8Diverticulosis in the sigmoid colon and in the descending colon. No specimens collected. 9One duodenal ulcer with clean base. The examination was otherwise normal. No specimens collected. 10Mild to moderate left hip psteoarthritis 11Stable mild cardiomegaly. Otherwise no acute process wihtin the chest 12Diverticulosis entire examind colon. The exam was otherwise normal to the cecum. Repeat colonoscopyin 5 years for screening purposes. 13rotator cuff, arteries cleaned out and gum surgery. Social History Social History Type Response Tobacco Former smoker, Cigar ettes 1 Smoking Status Never smoked cigaret jaswant Sex Male 1Quit January 2013 Ortho Outpt Note * Wilma Guerra: PERFORM, MODIFY Event Display: Ortho Outpt Note Authored Date: [id number] Name:VENKATESH MONDRAGON Patient Number:[id number] :1940 Date of Service:01/07/2024 CHIEF COMPLAINT: Follow-up s/p left index finger trigger digit release; DOS: 12/25/2023 HPI: Elsy Mcintosh presents today forfollow-up s/p the above noted procedure. He is working on obtaining full finger extension and flexion. He denies any catching or locking. He is not taking any medication for his finger at this point. He is going to PT focusing on ROM. PHYSICAL EXAM: Focus on the left upper extremity (index): No locking or catching EPL and FPL intact Sutures removed, steri strips applied. Incision well healed Lacks a few degrees full finger extension and flexion IMPRESSION: 2 weeks s/p left index trigger digit release PLAN: Continue rehabilitation and activity progression as tolerated Follow-up in 6 weeks for clinical evaluation ATTESTATION: IWilma, scribing for and in the presence of, Marvin Mead, on this date,01/07/2024 09:54:47. Electronic Signature on File Electronically Reviewed/Signed by: Wilma Guerra Author Signature Dt/Tm:01/07/2024 10:30 AM Electronically Reviewed/Signed by: Marvin Mead MD Cosigner Signature Dt/Tm: 01/07/2024 11:37 AM High Raw Sugar Boiler for Clinical Affairs, [facility] Julisa Professor in Orthopaedics Clerk Television Production, [facility] [place] Patient Care team information Care Team Personnel Name: DO Leigh Kristen M Position: Physician - Family Med Member Role: Lifetime Relationship Address: Address: [address] [place] [id number] Name: MD Enriquez Michael P Position: Physician - Internal Med Member Role: Primary Care Provider Address: Address: [address] [place] [id number] [place] Name: JONATHAN Vazquez Lynn Position: Physician International Account Executive Exempt - Vasc Surg Member Role: Lifetime Relationship Address: Address: [address] [place] [address] [address] [place] [address] Care Team Related Persons Name: ALANNA TAMIKA K Address: home [address] [place] [address] SIERRA DUNN [phone]
--- NOTE | 2024-01-11 18:11 | Hospitalist Progress Note ---
Date of Service January 11, 2024 Assessment & Plan (1) Small bowel obstruction: Plan: 83-year-old man recently admitted for SBO 11/2020, admitted with recurrent ileus versus SBO, obstipation no distention or emesis, had stool overnight so does not appear to be obstructed. Advance diet to clears, ordered small/1 L GoLytely prep. felt a bit nauseated and full after this so continue clear liquid diet for dinner monitor symptoms and serial exams place NG tube with significant emesis/distention a.m. BMP, mag, CBC (2) Constipation: Plan: unclear precipitant for his change in bowel habits over the past month or so. Following last discharge took MiraLAX daily for for 5 days and stopped. does not have any medications other than diltiazem which would contribute to constipation. will need a regular bowel regimen written out for discharge. Discussed with his and daughter as well (3) Hypertension: (4) Bicuspid aortic valve: Plan dark stools on Eliquisnursing reported brown stool overnight, guaiac negative x 2. Continue anticoagulation atrial fibrillationcontinue rate control with diltiazem, anticoagulation with Eliquis history of gastritis and duodenal ulcerscontinue oral PPI Admission and Anticipated Discharge Date Admission Date: January 10, 2024 Subjective Feels better today, abdomen less distended and feels hungry, never had emesis, had one dark brown stool overnight No recent changes in meds Physical Exam 2 Physical Exam: PHYSICAL EXAMINATION Last 24h vital signs reviewed, see documentation in flowsheet General: comfortable appearing, no distress HEENT: Normocephalic, atraumatic, pupils round and equal, sclerae anicteric, no conjunctival injection, moist mucus membranes Lungs: Normal respiratory effort. Clear to auscultation bilaterally. No RRW Heart: Regular rate and rhythm, no murmurs. No JVD Abdomen: Soft, nontender, minimally distended. Bowel sounds present. Extremities: Warm, dry, well-perfused. No extremity edema. left first finger trigger finger, small surgical dressing Neuro: Alert and oriented x 4, face symmetric, moves 4 extremities well Psych: Normal affect and behavior Results & Data Results & Data Vital Signs (Past 12 Hours) Vital Signs Temp Pulse Resp BP Pulse Ox O2 Del Method 01/11/24 14:54 36.4 C L 83 16 125/80 92 Room Air 01/11/24 08:29 36.5 C 82 16 111/74 95 Room Air Laboratory Results 01/10/24 17:36 01/10/24 17:36 PG Care Time/CCT Total # of Minutes Spent Total Time Spent with Patient: Total time spent is greater than 50% in coordination of care (as documented) at patient's floor/unit and/or counseling patient: Coding Level of Care Code 90463 SUB INP/OBS CARE 2/35MIN Diagnoses Small bowel obstruction K56.609 Constipation K59.00 Hypertension I10 Bicuspid aortic valve Q23.1
[2024-01-11] MEDS: ATORVASTATIN 20 MG TAB PO SCH (21:06)
[2024-01-12 07:05] LABS: Hematocrit (blood only) 48.6 % (42.0-52.0); Hemoglobin 16.6 g/dl (14.0-18.0); Mean Corpuscular Hemoglobin 29.9 pg (25.0-34.0); Mean Corpuscular Hgb Conc 34.2 g/dL (32.0-36.0); Mean Corpuscular Volume 87.6 fL (80.0-100.0); Mean Platelet Volume 10.3 fL (9.4-12.4); Platelet Count 205 K/uL (130-400); RDW Coefficient of Variation 12.7 % (11.5-14.5); RDW Standard Deviation 40.8 fL (36.4-46.3); Red Blood Count 5.55 M/uL (4.70-6.10); White Blood Count 5.93 K/ul (4.8-10.8)
[2024-01-12 07:18] LABS: BUN Creatinine Ratio 9.9 (10-20); Calcium 9.6 mg/dl (8.6-10.3); Creatinine Clr Calc Pharmacy 57.5 ml/min; Est GFR (African American) 71.3 ml/min; Est GFR (Non-African American) 61.5 ml/min; Magnesium 1.8 mg/dl (1.7-2.4)
[2024-01-12] MEDS: POLYETHYLENE (MIRALAX) 17 GM PACK PO SCH (07:30)
--- NOTE | 2024-01-12 13:34 | Discharge Summary ---
Discharge Summary Date of Service January 12, 2024 Principal Dx & Hospital Course #1 = Principal Diagnosis (1) Constipation: 83-year-old man recently admitted for SBO 11/2020, admitted with concern for recurrent SBO/ileus however symptoms resolved after treatment for obstipation following previous discharge she did take daily MiraLAX for for 5 days then stopped. He had a minor surgerytrigger finger release. Following that he was constipated and had no stools except for a few hard dark pebble-like ones and worsening abdominal discomfort though no olivia pain and no nausea or vomiting. He was concerned about dark stools and possible GI bleeding so he came to the ED. He had repeat abdominal CT which showed dilated small bowel concerning for ileus versus SBO. he did have firm stool the evening of admission. He was treated with bowel rest, did not require NG tube, IV fluids and laxatives. He had very large stool output following 1 L of GoLytely and after that he was able to advance his diet without difficulty counseled with respect to ongoing bowel regimen at home he will try MiraLAX at least once daily possibly twice daily and 1-2 senna tabs per day, bisacodyl as needed for refractory constipation reviewed his medication list and history he has not had any changes to medications and the only constipating medication would be his diltiazem. He will follow a low fiber diet for a few days until bowels and appetite seem nor mal then resume his usual diet. Follow-up in primary care (2) Hypertension: continue diltiazem (3) Bicuspid aortic valve: Plan dark stools on Eliquisnursing reported brown stool, guaiac negative x 2. Continue anticoagulation. dark stools at home more probably caused by constipation atrial fibrillationcontinue rate control with diltiazem, anticoagulation with Eliquis history of gastritis and duodenal ulcerscontinue oral PPI Notes For Next Care Provider please adjust bowel regimen consider referral to gastroenterology to evaluate change in bowel habits, has not had recent colonoscopy Admission HPI Per Admitting Provider Varun is an 83M w/ PMH of bicuspid aortic valve, HTN, lumbar stenosis w/ LBP, A Fib on Eliquis, chronic cough, gastritis/duodenal ulcers/dysphagia, and laryngopharyngeal reflux disease who presented to the hospital for evaluation of worsening abdominal pain. Patient was recently admitted for SBO 12/19-12/20. ED: NSS @ 80 ml/hr HPI: - Marsteller like things were back to normal when he got home from the hospital 12/20 - Started to become constipated again after hand surgery 12/24 - Started taking Miralax with mild benefit, having some small bowel movements - Notes movements were very dark - Presented due to concern for dark stools d/t history of dark stools from bleeding duodenal ulcers (Hgb dropped to 7.6) - Describes bowel movements as small dry pellets (Vidalia 1 and 2) - Denies abdominal pain at rest, but is uncomfortable with palpation - No nausea or emesis at presentation (1 week ago did have an episode of emesis when he couldn't move his bowels) - Completed a week of low fiber diet, trying to avoid excess carbs, endorses drinking adequate water - Urinating well without dysuria, frequency or suprapubic pain - No chest pain, dyspnea, lightheadedness, dizziness, headaches, or vision changes PSH: Open L inguinal hernia w/ Dr. Burciaga. Similar SBO episode after back surgery w/ Dr. Cooper (2017). Discharge Exam PHYSICAL EXAMINATION Last 24h vital signs reviewed, see documentation in flowsheet General: comfortable appearing, no distress HEENT: Normocephalic, atraumatic, pupils round and equal, sclerae anicteric, no conjunctival injection, moist mucus membranes Lungs: Normal respiratory effort. Clear to auscultation bilaterally. No RRW Heart: Regular rate and rhythm, no murmurs. No JVD Abdomen: Soft, nontender, minimally distended. Bowel sounds present. Extremities: Warm, dry, well-perfused. No extremity edema. left first finger trigger finger, small surgical dressing Neuro: Alert and oriented x 4, face symmetric, moves 4 extremities well Psych: Normal affect and behavior Updated Medication List Medication Instructions Recorded Confirmed Type acetaminophen 500 mg tablet 1,000 mg (2 x 500 mg) PO Q6H PRN 11/24/22 01/10/24 Rx (Tylenol Extra Strength) Pain #1 tab cyanocobalamin (vitamin B-12) 1,000 mcg PO DAILY #90 tabs 11/24/22 01/10/24 Rx 1,000 mcg tablet apixaban 5 mg tablet (Eliquis) 5 mg PO BID #180 tabs 08/29/23 07/11/24 Rx diltiazem HCl 240 mg 240 mg PO QAM #90 caps 06/13/23 01/10/24 Rx capsule,extended release 24 hr atorvastatin 20 mg tablet See Rx Instructions .Route 01/08/24 01/10/24 Rx .COMPLEX #90 tabs ipratropium bromide 42 mcg (0.06 2 spray intranasal QID PRN POST 01/09/24 01/10/24 Rx %) nasal spray NASAL DRIP #15 mL pantoprazole 20 mg tablet,delayed 20 mg PO QAM #90 tabs 01/09/24 01/10/24 Rx release polyethylene glycol 3350 17 gram 17 g PO DAILY constipation #0 ea 01/12/24 Rx oral powder packet (Miralax) sennosides 8.6 mg tablet (Senokot) 8.6 mg PO HS #0 tabs 01/12/24 Rx Hospital Stay Data Diagnostic Imagining Performed 01/10/24 18:36 CT abd pelvis IV con only Stat Pending Results Patient Have Any Pending Studies at Discharge: No Discharge Instructions Given to Patient (Per Discharging Provider) You were treated for severe constipation. I do not think you were actually having a bowel obstruction. Once we treated with laxatives you improved. Stay on a bowel regimen from now on. Take a dose of miralax at minimum once a day (one capful or one packet), and you may need twice a day (morning and afternoon) so that you are having a good soft stool at least once a day. If your stools are firm/hard you need more laxative. You may also add one or two tabs of senna per day. These medications are ok for termination clerk use. If you are getting constipated (no BM for a day or more) despite twice a day miralax and senna, you can take dulcolax (bisacodyl) as needed - this is available as a tablet or suppository. Its best to use this as needed, not on a daily basis. You may want to stay on a bland low-fiber diet for a few days, but its ok to resume your usual foods soon as long as you are not having abdominal pain or nausea. Ultimately, fiber in your diet is healthy and helps prevent constipation (vegetables, salad, fruit, whole grains etc.) Seek medical attention if you have recurrent abdominal pain, distention, vomiting. We did not find any blood in your stools. It was a pleasure taking care of you in the hospital, Eulalia Mccann MD Total Time Total Time Spent Total Time Spent (In Minutes): less than 30 minutes Coding Level of Care Code 85199 IN/OBS DISCH 30 MIN/LESS Diagnoses Constipation K59.00 Hypertension I10 Bicuspid aortic valve Q23.1
[2024-01-12] MEDS ORDERED: SENNA 8.6 MG TAB PO SCH (21:00)
== END 2024-01-12 11:30 | disposition home or self-care (01) ==
LOC: 3N 17:14 → ED 17:14 → SUATTDRO 23:31 → 3N 23:59

== ENCOUNTER 2025-03-08 21:12 | Inpatient (IN) ==
--- NOTE | 2025-03-08 21:32 | Emergency Department Note ---
History of Present Illness General Chief complaint: Nausea Stated complaint: NAUSEA,CONSTIPATION,ABD PAIN Time Seen by Provider: 03/08/25 21:23 History of Present Illness Maximum Pain Intensity: 10 This 84-year-old male on Eliquis with a history of small bowel obstructions presents ER complaint of abdominal pain, nausea and concerns for recurrent small bowel obstruction. Patient denies chest pain, dyspnea, fevers, cough, congestion, flulike illness. No other concerns per patient. He is not passing gas. No bowel movement today. Home Medications Medication Instructions Recorded Confirmed Type acetaminophen 500 mg tablet 1,000 mg (2 x 500 mg) PO Q6H PRN 11/24/22 03/08/25 Rx (Tylenol Extra Strength) Pain #1 tab cyanocobalamin (vitamin B-12) 1,000 mcg PO DAILY #90 tabs 11/24/22 03/08/25 Rx 1,000 mcg tablet apixaban 5 mg tablet (Eliquis) 5 mg PO BID #180 tabs 02/27/23 03/08/25 Rx ipratropium bromide 42 mcg (0.06 2 spray intranasal QID PRN POST 01/09/24 03/08/25 Rx %) nasal spray NASAL DRIP #15 mL sennosides 8.6 mg tablet (Senokot) 8.6 mg PO HS #0 tabs 01/12/24 03/08/25 Rx diltiazem HCl 240 mg 240 mg PO QAM #90 caps 07/21/24 03/08/25 Rx capsule,extended release 24 hr pantoprazole 20 mg tablet,delayed 20 mg PO QAM #90 tabs 10/16/24 03/08/25 Rx release atorvastatin 20 mg tablet 20 mg PO QPM #90 tabs 01/13/25 03/08/25 Rx polyethylene glycol 3350 17 gram 17 g PO DAILY PRN constipation 03/08/25 03/08/25 History oral powder packet (Miralax) Allergies Allergy/AdvReac Type Severity Reaction Status Date / Time No Known Allergies Allergy Verified 04/17/24 10:22 Past Med/Surg History Problem List (Updated 03/08/25 @ 23:36 by Bridget Davis PA-C) Small bowel obstruction (Acute) Constipation Lesion of nasal septum LPRD (laryngopharyngeal reflux disease) Dysphagia Diarrhea Abdominal pain, vomiting, and diarrhea Dehydration Vomiting Weakness (Acute) Hypomagnesemia (Acute) Atrial fibrillation with rapid ventricular response (Acute) RONALD (acute kidney injury) (Acute) Acute dehydration (Acute) Abnormal PFTs (pulmonary function tests) Allergic rhinitis with postnasal drip Ex-cigar smoker Abnormal chest CT Upper airway cough syndrome Duodenal ulcer Gastritis Superficial thrombophlebitis of right leg (Acute) Chronic cough Sacroiliitis History of lumbar fusion instrumented, L2-3, Dr. Cooper - 08/2017 Lumbar spondylosis Acute abdominal pain in left flank (Acute) History of removal of cyst (04/03/22) FINAL DIAGNOSIS: In office procedure Dr. Pickens 04/03/2022 Skin, thigh cyst, excision: - Benign glomangioma (glomus tumor) Cyst Atrial fibrillation (Acute) custodial current use of anticoagulants with INR goal of 2.0-3.0 Acute kidney injury Syncope (Acute) Low back pain (Acute) Rib pain (Acute) Lumbar stenosis Hypertensive crisis Bronchitis (Acute) Near syncope (Acute) Hypertension (Chronic) Near syncope (Acute) Bicuspid aortic valve Medical History Small bowel obstruction GERD (gastroesophageal reflux disease) Hx-TIA (transient ischemic attack) History of sleep study Upper airway cough syndrome Lumbar stenosis Hx of blood clots Chronic cough Bicuspid aortic valve Allergic rhinitis with postnasal drip Vitamin D deficiency B12 deficiency Fatty liver Acute blood loss anemia PUD (peptic ulcer disease) Atrial fibrillation with rapid ventricular response Acute GI bleeding Acute hypotension Long-term (current) use of anticoagulants, INR goal 2.0-3.0 No significant family history HTN (hypertension) Carotid stenosis (05/26/13) Hypertension Surgical History S/P trigger finger release Hx of umbilical hernia repair Hx of colonoscopy History of bilateral carotid endarterectomy History of esophagogastroduodenoscopy (EGD) Hx of removal of cyst History of lumbar fusion Social History Smoking Status: Never smoker Tobacco Type: Cigarettes Age Started Using Tobacco: 19; Age Quit Using Tobacco: 72; packs per day: 0.5; Cigarettes Per Day: 1 cigar per day for 40 years quit in 2012; Second Hand Exposure: No; Do You Dip or Chew Tobacco: No; Hx Alcohol Use: Yes (two years ago) Alcohol type: beer Hx Substance Use: No Preferred Language: Taiwanese Communication Ability: Effective Distribution Lineman Required: No Beliefs That Will Affect Care: None marital status: Current Living Situation: Spouse How many Children do You have: 2 Feels Safe at Home: Yes Assistive Devices: Cane and Walker Review of Systems A total of 10 systems reviewed and were otherwise negative Physical Exam Vital Signs Vital Signs - 24 hr 03/08/25 21:16 03/08/25 21:25 03/08/25 21:28 Temperature 36.4 C L Temperature Source Oral Pulse Rate 71 76 Pulse Rate [Apical] 84 Pulse Rhythm [Apical] Irregular Respiratory Rate 18 23 Respiratory Effort / Characteristics Non-Labored Spontaneous Non-Labored Spontaneous Respiratory Depth Normal Normal Respiratory Pattern Regular Regular Blood Pressure 98/69 L Blood Pressure [Right Arm] 99/70 L Blood Pressure Mean 78 Blood Pressure Mean [Right Arm] 79 Blood Pressure Position Sitting Pulse Oximetry 95 91 Oxygen Delivery Method Room Air Room Air Sepsis Recent Fever Within 48 Hours No Sepsis New/Unexplained Change in Mental Status N/A Sepsis Action Taken by Nursing No Action Required 03/08/25 21:29 03/08/25 23:00 Temperature Temperature Source Pulse Rate Pulse Rate [Apical] 81 Pulse Rhythm [Apical] Respiratory Rate 17 Respiratory Effort / Characteristics Non-Labored Spontaneous Respiratory Depth Normal Respiratory Pattern Regular Blood Pressure Blood Pressure [Right Arm] 134/95 Blood Pressure Mean Blood Pressure Mean [Right Arm] 108 Blood Pressure Position Pulse Oximetry 93 94 Oxygen Delivery Method Room Air Room Air Sepsis Recent Fever Within 48 Hours Sepsis New/Unexplained Change in Mental Status Sepsis Action Taken by Nursing VITALS: Vitals are noted on the nurse's note and reviewed by myself. Vital signs stable. GENERAL: Pleasant gentleman who appears uncomfortable, in no acute distress, nondiaphoretic, well-developed well-nourished. SKIN: Capillary reflex less than 2 seconds. HEENT: Normocephalic. PERRLA. EOMI. Nares patent. Mucous membranes moist. Neck is supple without nuchal rigidity. HEART: Irregularly irregular LUNGS: Clear to auscultation bilaterally without wheezes, rales or rhonchi. No retractions or accessory muscle use. ABDOMEN: Positive bowel sounds x 4. Normal tympanic percussion. Soft, tender to palpation lower abdomen, without masses or organomegaly. Lima sign negative. No guarding or rebound tenderness. no CVA tenderness MUSCULOSKELETAL: No gross musculoskeletal defects. NEURO: Patient was alert and oriented to person place and time. No focal neurological deficits. Course Administered Medications Discontinued Medications Fentanyl Citrate (Fentanyl Citrate Pf 100 Mcg/2 Ml Vial) 50 mcg IV Q15M PRN PRN Reason: Pain Stop: 03/22/25 21:28 Last Admin: 03/09/25 01:06 Dose: 50 mcg Documented By: Admin: 03/08/25 21:43 Dose: 50 mcg Documented By: SHANICE Sodium Chloride (Nss) 500 mls @ 999 mls/hr IV .Q31M STA Stop: 03/08/25 21:59 Last Infusion: 03/08/25 22:14 Dose: Infused Documented By: Admin: 03/08/25 21:42 Dose: 999 mls/hr Documented By: SHANICE Acetaminophen (Ofirmev) 1,000 mg in 100 mls @ 400 mls/hr IV NOW STA Stop: 03/08/25 21:43 Last Infusion: 03/08/25 22:14 Dose: Infused Documented By: Admin: 03/08/25 21:42 Dose: 400 mls/hr Documented By: SHANICE Sodium Chloride (Nss) 500 mls @ 999 mls/hr IV .Q31M ONE Stop: 03/09/25 00:06 Last Infusion: 03/09/25 00:11 Dose: Infused Documented By: Admin: 03/08/25 23:44 Dose: 999 mls/hr Documented By: SHANICE Ioversol (Optiray 320 100ml) 90 ml IV ONCE ONE Stop: 03/08/25 22:08 Last Admin: 03/08/25 22:08 Dose: 90 ml Documented By: FEDERICO Ondansetron HCl (Ondansetron Inj 2 Mg/Ml 2 Ml Vial) 4 mg IV NOW STA Stop: 03/08/25 21:30 Last Admin: 03/08/25 21:43 Dose: 4 mg Documented By: SHANICE Medical Decision Making Medical Records Attestation: I reviewed the patient's medical records. Home Medications Current Medication List: was personally reviewed by me Laboratory Data Attestation: I reviewed the patient's lab results. 03/08/25 21:32 03/08/25 21:32 Lab Results 03/08/25 03/08/25 Range/Units 21:32 21:38 WBC 9.52 (4.8-10.8) K/ul RBC 5.34 (4.70-6.10) M/uL Hgb 15.6 (14.0-18.0) g/dl POC Hgb 16.7 (14.0-18.0) g/dl Hct 47.0 (42.0-52.0) % POC Hct 49 (42-52) % MCV 88.0 (80.0-100.0) fL MCH 29.2 (25.0-34.0) pg MCHC 33.2 (32.0-36.0) g/dL RDW Std Deviation 43.8 (36.4-46.3) fL RDW Coeff of Demetrius 13.5 (11.5-14.5) % Plt Count 164 (130-400) K/uL MPV 10.3 (9.4-12.4) fL Immature Gran % (Auto) 0.3 % Neut % (Auto) 69.9 % Lymph % (Auto) 17.8 % Coleman % (Auto) 10.5 % Eos % (Auto) 0.9 % Baso % (Auto) 0.6 % Neut # (Auto) 6.65 H (1.40-6.50) K/uL Lymph # (Auto) 1.69 (1.20-3.40) K/uL Coleman # (Auto) 1.00 H (0.11-0.59) K/uL Eos # (Auto) 0.09 (0.00-0.50) K/uL Baso # (Auto) 0.06 (0.00-0.20) K/uL Immature Gran # (Auto) 0.03 (0.01-0.20) K/uL POC Sodium 140 (135-144) mmol/L Sodium 140 (136-145) mmol/L POC Potassium 4.4 (3.3-5.0) mmol/L Potassium 4.4 (3.5-5.1) mmol/L POC Chloride 103 (101-112) mmol/L Chloride 102 (98-107) mmol/L Carbon Dioxide 27 (21-32) mmol/L POC Total CO2 26 (24-31) mmol/L Anion Gap 11 (3-11) POC Anion Gap 17.0 (16-25) mmol/L POC BUN 20 H (7-18) mg/dl BUN 19 (6-23) mg/dl Creatinine 1.28 (0.6-1.4) mg/dl POC Creatinine 1.3 (0.6-1.3) mg/dl Est Cr Clr Drug Dosing 49.0 ml/min eGFR 55.53 BUN/Creatinine Ratio 14.8 (10-20) Glucose 154 H (70-99(Fasting)) mg/dl POC Glucose (other) 156 H (70-99) mg/dl Lactate 1.7 (0.4-2.0) mmol/L Calcium 10.0 (8.6-10.3) mg/dl POC Ioniz Calcium Neha 1.14 (1.12-1.32) mmol/l Total Bilirubin 1.1 H (0.2-1.0) mg/dl AST 16 (13-39) U/L ALT 19 (7-52) U/L Alkaline Phosphatase 138 H (34-104) U/L Troponin I High Sens 7.8 (0-20) pg/ml Total Protein 7.8 (6.0-8.3) gm/dl Albumin 4.4 (3.4-5.0) gm/dl Globulin 3.4 (2.5-4.0) gm/dl Albumin/Globulin Ratio 1.3 (0.9-2) Lipase 15 (11-82) U/L Imaging Data Attestation: I personally reviewed and interpreted this imaging study as follows: Radiologist's Impression: Abdomen/Pelvis CT 03/08/25 21:30 Exam(s): CT ABDOMEN + PELVIS With Contrast IV Amt: 90 ml optiray 320 EXAM: CT Abdomen and Pelvis With Intravenous Contrast CLINICAL HISTORY: Reason for exam: lower abd pain, hx SBO. TECHNIQUE: Axial computed tomography images of the abdomen and pelvis with intravenous contrast. CTDI is 25.9 mGy and DLP is 1348.89 mGy-cm. Automated exposure control was utilized for the study. A dose lowering technique was utilized adhering to the principles of ALARA. CONTRAST: Patient received 90 ml optiray 320 of IV contrast COMPARISON: 04/06/2024 FINDINGS: Lung bases: Unremarkable. Heart: Coronary artery atherosclerosis. ABDOMEN: Liver: Unremarkable. No mass. Gallbladder and bile ducts: Unremarkable. No calcified stones. No ductal dilation. Pancreas: Unremarkable. No mass. No ductal dilation. Spleen: Unremarkable. No splenomegaly. Adrenals: Unremarkable. No mass. Kidneys and ureters: Symmetric renal enhancement. No hydronephrosis. Small left renal cysts; no follow-up indicated. Stomach and bowel: Colonic diverticulosis without acute diverticulitis. Dilated small bowel consistent with small-bowel obstruction. Transition point in the central abdomen just left of midline (series 3, image 87). PELVIS: Appendix: Appendix not visualized. No secondary signs of appendicitis. Bladder: Decompressed urinary bladder. Reproductive: Unremarkable as visualized. ABDOMEN and PELVIS: Intraperitoneal space: Edema within the leftward small-bowel mesentery. No free air. No significant ascites. Bones/joints: Laminectomy, posterior hardware fixation, and interbody fusion at L2-L3. Lumbar spondylosis. No acute fracture. No dislocation. Soft tissues: Unremarkable. Vasculature: Atherosclerosis. Infrarenal aortic aneurysm measuring 3.2 cm. 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 Left common iliac artery aneurysm measuring 2.5 cm. Lymph nodes: Unremarkable. No enlarged lymph nodes. IMPRESSION: Dilated small bowel consistent with small-bowel obstruction. Transition point in the central abdomen just left of midline (series 3, image 87). Electronically signed by: Colleen Centeno M.D. 03/08/25 23:25 PM [facility] Narrative Prior records/ancillary studies reviewed. Triage Nursing notes reviewed. Additional history obtained from family. The patient's history was concerning for abdominal pain. Differential diagnosis: Etiologies such as appendicitis, diverticulitis, PUD, biliary pathology, UTI, pancreatitis, obstruction, mesenteric ischemia, aortic pathology, infections, inflammatory bowel disease, renal colic, as well as others were entertained. Physical examination findings: As above. ER treatment provided: An order was placed for continuous cardiac monitoring. The monitor shows a rate of 60-100 with a sinus rhythm per my Independent interpretation. IV fluids, Zofran Tylenol and fentanyl were ordered On reassessment the patient felt better. Diagnostics interpreted by me: ECG: Ordered for abdominal pain EKG: Irregularly irregular with no acute ST-T wave changes, rate of 74. Impression rate controlled A-fib and interpreted by myself The labs Independently Interpreted by myself revealed negative lactic. No worrisome leukocytosis Mild hyperglycemia without DKA Imaging studies: Imaging was reviewed and read by radiology Consultation: A consultation was placed with the hospitalist. The case was discussed and diagnostics were reviewed. The patient was evaluated in the ER for further treatment. Exam and history seem consistent with recurrent small bowel obstruction. Patient was not vomiting so no NG tube was placed. Medicine was consulted case discussed. He will be evaluated for admission. By the evaluation outlined above emergent etiologies such as appendicitis, diverticulitis, PUD, biliary pathology, UTI, pancreatitis, mesenteric ischemia, aortic pathology, infections, inflammatory bowel disease, renal colic, as well as others were deemed relatively unlikely. The pt informed about the findings as listed above. All questions were answered and pleased with the treatment. The chart was completed utilizing [employer] Speech voice recognition software. Grammatical errors, random word insertions, pronoun errors, and incomplete sentences are an occassional consequence of this system due to software limitations, ambient noise, and hardware issues. Any formal questions or concerns about the content, text, or information contained within the body of this dictation should be directly addressed to the physician management assistant for clarification. Impression & Plan Small bowel obstruction Discharge Plan Visit Data Chief Complaint: Nausea Stated Complaint: NAUSEA,CONSTIPATION,ABD PAIN ED Provider: Izaiah Chavez ED Midlevel Provider: Bridget Davis Discharge Problem: Small bowel obstruction Patient Disposition: Admitted As Inpatient Condition: Good Discharge Instructions Interventions: ED Discharge Assessment Last Done: 03/09/25 01:28
[2025-03-08] MEDS: SODIUM CHLORIDE 0.9% 500 ML IV STA (21:42)
[2025-03-08] MEDS: ACETAMINOPHEN 1,000 MG/100 ML VIAL IV STA (21:42)
[2025-03-08] MEDS: ONDANSETRON INJ 2 MG/ML 2 ML VIAL IV STA (21:43)
[2025-03-08 21:47] LABS: Hematocrit (blood only) 47.0 % (42.0-52.0); Hemoglobin 15.6 g/dl (14.0-18.0); Immature Granulocytes # (auto) 0.03 K/uL (0.01-0.20); Immature Granulocytes % (auto) 0.3 %; Mean Corpuscular Hemoglobin 29.2 pg (25.0-34.0); Mean Corpuscular Volume 88.0 fL (80.0-100.0); Platelet Count 164 K/uL (130-400); RDW Standard Deviation 43.8 fL (36.4-46.3); Red Blood Count 5.34 M/uL (4.70-6.10); White Blood Count 9.52 K/ul (4.8-10.8)
[2025-03-08 22:03] LABS: Alanine Aminotransferase 19.0 U/L (7-52); Albumin Globulin Ratio 1.3 (0.9-2); Alkaline Phosphatase 138.0 U/L (34-104); Anion Gap 11.0 (3-11); Bilirubin,Total 1.1 mg/dl (0.2-1.0); Blood Urea Nitrogen 19.0 mg/dl (6-23); Calcium 10.0 mg/dl (8.6-10.3); Carbon Dioxide 27.0 mmol/L (21-32); Chloride 102.0 mmol/L (98-107); Creatinine Clr Calc Pharmacy 49.0 ml/min; Globulin 3.4 gm/dl (2.5-4.0); Glucose 154.0 mg/dl (70-99(Fasting)); Lipase 15.0 U/L (11-82); Potassium 4.4 mmol/L (3.5-5.1); Sodium 140.0 mmol/L (136-145); Total Protein 7.8 gm/dl (6.0-8.3)
[2025-03-08] MEDS: OPTIRAY 320 100ml IV ONE (22:08)
--- NOTE | 2025-03-08 23:26 | CT Scan Report ---
Exam(s): CT ABDOMEN + PELVIS With Contrast IV Amt: 90 ml optiray 320 EXAM: CT Abdomen and Pelvis With Intravenous Contrast CLINICAL HISTORY: Reason for exam: lower abd pain, hx SBO. TECHNIQUE: Axial computed tomography images of the abdomen and pelvis with intravenous contrast. CTDI is 25.9 mGy and DLP is 1348.89 mGy-cm. Automated exposure control was utilized for the study. A dose lowering technique was utilized adhering to the principles of ALARA. CONTRAST: Patient received 90 ml optiray 320 of IV contrast COMPARISON: 04/06/2024 FINDINGS: Lung bases: Unremarkable. Heart: Coronary artery atherosclerosis. ABDOMEN: Liver: Unremarkable. No mass. Gallbladder and bile ducts: Unremarkable. No calcified stones. No ductal dilation. Pancreas: Unremarkable. No mass. No ductal dilation. Spleen: Unremarkable. No splenomegaly. Adrenals: Unremarkable. No mass. Kidneys and ureters: Symmetric renal enhancement. No hydronephrosis. Small left renal cysts; no follow-up indicated. Stomach and bowel: Colonic diverticulosis without acute diverticulitis. Dilated small bowel consistent with small-bowel obstruction. Transition point in the central abdomen just left of midline (series 3, image 87). PELVIS: Appendix: Appendix not visualized. No secondary signs of appendicitis. Bladder: Decompressed urinary bladder. Reproductive: Unremarkable as visualized. ABDOMEN and PELVIS: Intraperitoneal space: Edema within the leftward small-bowel mesentery. No free air. No significant ascites. Bones/joints: Laminectomy, posterior hardware fixation, and interbody fusion at L2-L3. Lumbar spondylosis. No acute fracture. No dislocation. Soft tissues: Unremarkable. Vasculature: Atherosclerosis. Infrarenal aortic aneurysm measuring 3.2 cm. 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 Left common iliac artery aneurysm measuring 2.5 cm. Lymph nodes: Unremarkable. No enlarged lymph nodes. IMPRESSION: Dilated small bowel consistent with small-bowel obstruction. Transition point in the central abdomen just left of midline (series 3, image 87). Electronically signed by: Colleen Centeno M.D. 03/08/25 23:25 PM
[2025-03-08] MEDS: SODIUM CHLORIDE 0.9% 500 ML IV ONE (23:44)
--- NOTE | 2025-03-09 01:12 | History & Physical Report ---
Date of Service March 09, 2025 Assessment & Plan (1) Small bowel obstruction: (2) Vomiting: (3) Atrial fibrillation: Plan Patient is an 84-year-old male who was admitted for management of SBO. SBO Has history of umbilical hernia repair, which given region where transition point was noted on CT, possible that this may have played a role in current presentation Given exam findings and significant abdominal pain, ordered NG tube which was placed in the emergency department Admit to Med/Tele LR at 100 mL/hr Pantoprazole daily Zofran as needed for nausea N.p.o. for now; holding home meds while n.p.o. safe for Eliquis and diltiazem as detailed below. GEN surge consulted. Will appreciate their input. A-fib Noted to be in A-fib in the emergency department; rate controlled and asymptomatic Will continue home Eliquis and diltiazem Monitor telemetry Dispo: Admit to med/tele Fluids: LR 100 mL/h Diet: N.p.o. Pain control: Tylenol IV VTE ppx: Eliquis Code Status: Full History of Present Illness Chief Complaint: Abdominal pain Primary Care Provider: Homar Enriquez MD Patient is an 84 y/o M who comes to the ED due to abdominal pain with associated nausea and one episode of vomiting. He has had hx of an SBO for which he was a dmitted ~1-2 years ago, and stated that his current sxs felt similar to what they were in that episode. Surgical history includes umbilical hernia repair and was noted to have another hernia in his lower abdomen but has not lead to other complications in the past. Over the last 2-3 days, patiwang has been having progressively smaller bowel movements despite regular use of miralax as he has always done, and then today was not able to have a bowel movement at all or pass gas. Around 2 pm, he tried to eat lunch and very soon after, he started experiencing significant periumbilical abdominal pain and vomited once after that. Has not eaten anything else since then and has not had repeat episodes of vomiting, but his abdominal pain has persisted w/ minimal to no improvement. Denies associated fevers, chills, weakness, hematemesis, hematochezia, chest pain, SOB, or other systemic sxs. ED Course: NSS 500 mL bolus x2, Zofran IV, x1, Tylenol x1, NGT placed in ED with positioning confirmed on XR Labs/Imaging: CBC no leukocytosis, hemoglobin 15.6, platelets 164. Metabolic panel with no significant electrolyte abnormalities, creatinine of 1.28, blood sugar 154. Lactate 1.7. Total bilirubin 4.1, alk phos 138, AST and ALT within reference range. CTAP noting dilated small bowl consistent with SBO w/ transition noted transition point in the central abdomen just left of midline. Medical History: [Reviewed] Medications: [Reviewed] Surgical History: [Reviewed] Family history: [Reviewed] Allergies: [Reviewed] Social History: [Reviewed] Code Status: FULL Allergies Allergy/AdvReac Type Severity Reaction Status Date / Time No Known Allergies Allergy Verified 04/17/24 10:22 Home Medications Medication Instructions Recorded Confirmed Type acetaminophen 500 mg tablet 1,000 mg (2 x 500 mg) PO Q6H PRN 11/24/22 03/08/25 Rx (Tylenol Extra Strength) Pain #1 tab cyanocobalamin (vitamin B-12) 1,000 mcg PO DAILY #90 tabs 11/24/22 03/08/25 Rx 1,000 mcg tablet apixaban 5 mg tablet (Eliquis) 5 mg PO BID #180 tabs 02/27/23 03/08/25 Rx ipratropium bromide 42 mcg (0.06 2 spray intranasal QID PRN POST 01/09/24 03/08/25 Rx %) nasal spray NASAL DRIP #15 mL sennosides 8.6 mg tablet (Senokot) 8.6 mg PO HS #0 tabs 01/12/24 03/08/25 Rx diltiazem HCl 240 mg 240 mg PO QAM #90 caps 07/21/24 03/08/25 Rx capsule,extended release 24 hr pantoprazole 20 mg tablet,delayed 20 mg PO QAM #90 tabs 10/16/24 03/08/25 Rx release atorvastatin 20 mg tablet 20 mg PO QPM #90 tabs 01/13/25 03/08/25 Rx polyethylene glycol 3350 17 gram 17 g PO DAILY PRN constipation 03/08/25 03/08/25 History oral powder packet (Miralax) Past Med/Surg History Problem List (Updated 03/08/25 @ 23:36 by Bridget Davis PA-C) Small bowel obstruction (Acute) Constipation Lesion of nasal septum LPRD (laryngopharyngeal reflux disease) Dysphagia Diarrhea Abdominal pain, vomiting, and diarrhea Dehydration Vomiting Weakness (Acute) Hypomagnesemia (Acute) Atrial fibrillation with rapid ventricular response (Acute) RONALD (acute kidney injury) (Acute) Acute dehydration (Acute) Abnormal PFTs (pulmonary function tests) Allergic rhinitis with postnasal drip Ex-cigar smoker Abnormal chest CT Upper airway cough syndrome Duodenal ulcer Gastritis Superficial thrombophlebitis of right leg (Acute) Chronic cough Sacroiliitis History of lumbar fusion instrumented, L2-3, Dr. Cooper - 08/2017 Lumbar spondylosis Acute abdominal pain in left flank (Acute) History of removal of cyst (04/03/22) FINAL DIAGNOSIS: In office procedure Dr. 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 with INR goal of 2.0-3.0 Acute kidney injury Syncope (Acute) Low back pain (Acute) Rib pain (Acute) Lumbar stenosis Hypertensive crisis Bronchitis (Acute) Near syncope (Acute) Hypertension (Chronic) Near syncope (Acute) Bicuspid aortic valve Medical History Small bowel obstruction GERD (gastroesophageal reflux disease) Hx-TIA (transient ischemic attack) History of sleep study Upper airway cough syndrome Lumbar stenosis Hx of blood clots Chronic cough Bicuspid aortic valve Allergic rhinitis with postnasal drip Vitamin D deficiency B12 deficiency Fatty liver Acute blood loss anemia PUD (peptic ulcer disease) Atrial fibrillation with rapid ventricular response Acute GI bleeding Acute hypotension Long-term (current) use of anticoagulants, INR goal 2.0-3.0 No significant family history HTN (hypertension) Carotid stenosis (05/26/13) Hypertension Surgical History S/P trigger finger release Hx of umbilical hernia repair Hx of colonoscopy History of bilateral carotid endarterectomy History of esophagogastroduodenoscopy (EGD) Hx of removal of cyst History of lumbar fusion Social History Smoking Status: Never smoker Tobacco Type: Cigarettes Age Started Using Tobacco: 19; Age Quit Using Tobacco: 72; packs per day: 0.5; Cigarettes Per Day: 1 cigar per day for 40 years quit in 2013; Second Hand Exposure: No; Do You Dip or Chew Tobacco: No; Hx Alcohol Use: Yes (two years ago) Alcohol type: beer Hx Substance Use: No Preferred Language: Maltese Communication Ability: Effective Flare Breaker Required: No Beliefs That Will Affect Care: None marital status: Current Living Situation: Spouse How many Children do You have: 2 Feels Safe at Home: Yes Assistive Devices: Cane and Walker Review of Systems Review of Systems: As per HPI Physical Exam Physical Exam: GENERAL: Awake alert and oriented normal spheres, afebrile, no acute distress HEAD: Atraumatic, normocephalic EYES: EOM intact, PERRL THROAT: Normal to visual inspection CHEST: Symmetric chest expansion with respirations CARDIO: Irregular rhythm, no rubs murmurs or gallops appreciated PULMONARY: Clear to auscultation bilaterally, normal respiratory effort, no respiratory distress GI: Distended, tender to palpation more marked in periumbilical region and less intense in left lower quadrant, tympanic, no guarding or rebound tenderness EXTREMITIES: No swelling or calf tenderness noted in bilateral lower extremities Results & Data Results & Data Vital Signs (Past 12 Hours) Vital Signs Temp Pulse Pulse Resp BP BP Pulse Ox 03/08/25 23:00 81 17 134/95 94 03/08/25 21:29 93 03/08/25 21:28 76 03/08/25 21:25 84 23 99/70 L 91 03/08/25 21:16 36.4 C L 71 18 98/69 L 95 O2 Del Method 03/08/25 23:00 Room Air 03/08/25 21:29 Room Air 03/08/25 21:28 03/08/25 21:25 Room Air 03/08/25 21:16 Room Air Supervising Physician Co-Signing Physician Notes patient seen examined, chart reviewed, case discussed with Dr. Hairston and I agree with assessment plan as documented above. In brief, patient is an 84-year-old male with history of small bowel obstruction presenting with abdominal pain, decreased flatus and bowel movements. Imaging as above reveals evidence of small bowel obstruction On physical exam patient is afebrile, hemodynamically stable, significant discom fort with abdominal pain + S1, S2, irregularly irregular,, no murmur/rub/gallops Lungs CTA anteriorly Abdomen mildly distended, tympanic to percussion, tender with some voluntary guarding, no rebound or peritonitis Extremitieswarm, well-perfused Labs and images reviewed Assessment/plan NG tube placement N.p.o. IV fluids Antiemetics and pain control General Surgery consultation appreciated Remainder plan as above Resident Activity Tracking Resident Involvement: Resident Care Provided Care Provided: Adult Hospital Medicine (3) Atrial fibrillation Atrial fibrillation type: unspecified Qualified Code(s): I48.91 - Unspecified atrial fibrillation
[2025-03-09] MEDS ORDERED: ONDANSETRON INJ 2 MG/ML 2 ML VIAL IV PRN (01:28)
[2025-03-09] MEDS ORDERED: ACETAMINOPHEN 1,000 MG/100 ML VIAL IV PRN (01:28)
--- NOTE | 2025-03-09 01:48 | Emergency Department Note ---
ED Visit Note I was consulted by the Advanced Practice Provider, Bridget Olivia. I performed a substantive portion of the visit. This includes aspects of: History: This is an 84-year-old male with extensive past medical history presenting for episodes of vomiting. MDM: Patient is hemodynamically stable on arrival. Lab workup shows minimal elevation in bilirubin. Some hyperglycemia. Further imaging studies revealed a small bowel obstruction. Given the patient's age as well as comorbidities, the patient will be admitted for further care. Hospitalist team was consulted and they were agreeable to admit the patient. Izaiah Chavez DO Emergency Medicine .
--- NOTE | 2025-03-09 03:27 | XRay Report ---
EXAM: XR KUB/Abdomen 1 view CLINICAL HISTORY: NG placement confirmation TECHNIQUE: X-ray images of the abdomen were obtained in supine position. COMPARISON: 12/31/2023 CR FINDINGS: Nasogastric tube placement: The nasogastric tube is seen initially coursing below the diaphragm then coiling upwards to end above the level of the diaphragm (possibly in a hiatal hernia or in the esophagus) Gas Pattern: Colonic gaseous distension. No evidence of bowel obstruction or distention. Soft Tissues: Soft tissues of the abdomen appear normal without evidence of masses or calcifications. Liver, spleen, and kidneys are of normal size and position. No consolidation or opacities detected within the chest image. Lumbar transpedicular plate and screw fixation seen. IMPRESSION: The nasogastric tube is seen initially coursing below the diaphragm then coiling back upwards to end above the level of the diaphragm (possibly in a hiatal hernia or in the esophagus), needs repositioning (Interval new). Electronically signed by Aamir Haddad 03-09-2025 03:27 AM
--- NOTE | 2025-03-09 03:28 | Billing Data ---
Date of Service March 09, 2025 Coding Level of Care Code 74178 INT INP/OBS CARE
[2025-03-09] MEDS: LACTATED RINGER'S 1,000 ML IV SCH (04:08)
--- NOTE | 2025-03-09 08:06 | XRay Report ---
EXAM: XR KUB/Abdomen 1 view CLINICAL HISTORY: NG Placement TECHNIQUE: X-ray images of the chest and upper abdomen were obtained in the frontal position. COMPARISON: Prior dated 03/09/2025. FINDINGS: The nasogastric tube is redemonstrated, with its tip seen below the diaphragm, likely within the stomach. Gas Pattern: The gas pattern within the abdomen is normal. There is no evidence of bowel obstruction or distention. Soft Tissues: The soft tissues of the abdomen appear normal, without evidence of masses or calcifications. The visualized lungs demonstrate basal linear shadowing, which may represent atelectatic changes. The proximal lumbar spine demonstrates partially visualized plate and screw fixation of the lumbar vertebrae. IMPRESSION: Redemonstrated nasogastric tube with interval corrected position and its tip seen below the diaphragm, likely within the stomach. Electronically signed by Aamir Haddad 03-09-2025 08:05 AM
[2025-03-09] MEDS: PANTOprazole 40 MG/10 ML SYR IV SCH (10:26)
[2025-03-09] MEDS: APIXABAN 5 MG TABLET PO SCH (10:27)
--- NOTE | 2025-03-09 11:18 | Surgery Consultation ---
Date of Consultation March 09, 2025 Assessment & Plan (1) Small bowel obstruction: 84 yo make with SBO on ct scan presented to hospital with increasing abdominal pian and distention with decreased bowel function. NGT placed and with minimal output and now with return of bowel function and pain resolved. Clamp NGT, ambulate, if has another bowel movement or no pain in next few hours remove tube and can start clear liquids. No acute surgical intervention required at this time. WIll need low fiber diet for 1-2 weeks with diet advancement and on discharge. Discussed with Dr. Zavala who agrees with above. History of Present Illness Reason for Consultation: SBO Requesting Physician: Lilia Hairston MD Attending Physician: Mariam Ceja MD History of Present Illness Mr. Thomas is a 84 yo male with history of a-fib on Eliquis, HTN, bicuspid aortic valve, lumbar spondylosis, gastritis, duodenal ulcer, DVT, constipation who presented to ED with mid abdominal pain with decreased bowel function that started over the weekend. Similar pain to prior SBO a year ago. This was treated conservatively. History of left open inguinal hernia repair but no other abdominal surgeries. Takes Miralax daily for constipation. [place] bloated after larger meal and decreased bowel function. Denies of unintentional weight loss, blood in stools, black/tarry stools, pencil thin stools. Last colonoscopy 10 years ago. Currently states he is feeling much better. Has a large bowel m ovement this morning and passing some gas. Might have to have another bowel movement. Abdominal pain has resolved. NO n,v. Minimal NGT output since placed. KUB this morning to check placement of NGT showing now small bowel distention. Allergies Allergy/AdvReac Type Severity Reaction Status Date / Time No Known Allergies Allergy Verified 04/17/24 10:22 Home Medications Medication Instructions Recorded Confirmed Type acetaminophen 500 mg tablet 1,000 mg (2 x 500 mg) PO Q6H PRN 11/24/22 03/08/25 Rx (Tylenol Extra Strength) Pain #1 tab cyanocobalamin (vitamin B-12) 1,000 mcg PO DAILY #90 tabs 11/24/22 03/08/25 Rx 1,000 mcg tablet apixaban 5 mg tablet (Eliquis) 5 mg PO BID #180 tabs 08/29/23 09/07/25 Rx ipratropium bromide 42 mcg (0.06 2 spray intranasal QID PRN POST 01/09/24 03/08/25 Rx %) nasal spray NASAL DRIP #15 mL sennosides 8.6 mg tablet (Senokot) 8.6 mg PO HS #0 tabs 01/12/24 03/08/25 Rx diltiazem HCl 240 mg 240 mg PO QAM #90 caps 07/21/24 03/08/25 Rx capsule,extended release 24 hr pantoprazole 20 mg tablet,delayed 20 mg PO QAM #90 tabs 10/16/24 03/08/25 Rx release atorvastatin 20 mg tablet 20 mg PO QPM #90 tabs 01/13/25 03/08/25 Rx polyethylene glycol 3350 17 gram 17 g PO DAILY PRN constipation 03/08/25 03/08/25 History oral powder packet (Miralax) Patient History Medical History Small bowel obstruction GERD (gastroesophageal reflux disease) Hx-TIA (transient ischemic attack) History of sleep study Upper airway cough syndrome Lumbar stenosis Hx of blood clots Chronic cough Bicuspid aortic valve Allergic rhinitis with postnasal drip Vitamin D deficiency B12 deficiency Fatty liver Acute blood loss anemia PUD (peptic ulcer disease) Atrial fibrillation with rapid ventricular response Acute GI bleeding Acute hypotension Long-term (current) use of anticoagulants, INR goal 2.0-3.0 No significant family history HTN (hypertension) Carotid stenosis (05/26/13) Hypertension Surgical History S/P trigger finger release Hx of umbilical hernia repair Hx of colonoscopy History of bilateral carotid endarterectomy History of esophagogastroduodenoscopy (EGD) Hx of removal of cyst History of lumbar fusion Social History Smoking Status: Never smoker Tobacco Type: Cigarettes Age Started Using Tobacco: 19; Age Quit Using Tobacco: 72; packs per day: 0.5; Cigarettes Per Day: 1 cigar per day for 40 years quit in 2012; Second Hand Exposure: No; Do You Dip or Chew Tobacco: No; Hx Alcohol Use: No Hx Substance Use: No Preferred Language: Kyrgyz Communication Ability: Effective Bladder Blower Required: No Beliefs That Will Affect Care: None marital status: Current Living Situation: Spouse How many Children do You have: 2 Feels Safe at Home: Yes Assistive Devices: Cane and Walker Review of Systems Review of Systems: All systems reviewed & are unremarkable except as noted in HPI & below Physical Exam Constitutional: WD/WN, vitals as above cooperative and comfortable; no acute distress and not ill appearing Respiratory: normal respiratory effort; no respiratory distress, no labored breathing and no retractions Cardiovascular: Rate/Rhythm: + irregularly irregular Heart Sounds: normal S1 and normal S2 Gastrointestinal (Abdomen): Inspection/Auscultation: abdomen normal to inspection and + abdominal surgical scar (left inguinal hernia scar); abdomen not distended Percussion/Palpation: abdomen soft; abdomen nontender, no guarding, abdomen not rigid and no hernia + diastasis recti Skin: no rashes, warm and dry Psychiatric: Orientation: alert and oriented x 3 Results & Data Vital Signs (Past 12 Hours) Vital Signs Temp Pulse Pulse Resp BP BP Pulse Ox 03/09/25 10:25 98 H 16 142/78 H 95 03/09/25 09:55 88 18 141/83 H 91 03/09/25 07:17 93 H 03/09/25 04:38 36.5 C 87 17 129/99 95 03/09/25 03:00 91 H 22 125/89 94 03/09/25 02:38 94 H 20 124/82 93 03/09/25 01:23 99 H O2 Del Method O2 Flow Rate 03/09/25 10:25 Room Air 03/09/25 09:55 Room Air 03/09/25 07:17 03/09/25 04:38 Room Air 03/09/25 03:00 Nasal Cannula 2 03/09/25 02:38 Nasal Cannula 2 03/09/25 01:23 Laboratory Results 03/08/25 03/08/25 Range/Units 21:38 21:32 WBC 9.52 (4.8-10.8) K/ul RBC 5.34 (4.70-6.10) M/uL Hgb 15.6 (14.0-18.0) g/dl POC Hgb 16.7 (14.0-18.0) g/dl Hct 47.0 (42.0-52.0) % POC Hct 49 (42-52) % MCV 88.0 (80.0-100.0) fL MCH 29.2 (25.0-34.0) pg MCHC 33.2 (32.0-36.0) g/dL RDW Std Deviation 43.8 (36.4-46.3) fL RDW Coeff of Demetrius 13.5 (11.5-14.5) % Plt Count 164 (130-400) K/uL MPV 10.3 (9.4-12.4) fL Immature Gran % (Auto) 0.3 % Neut % (Auto) 69.9 % Lymph % (Auto) 17.8 % [place] % (Auto) 10.5 % Eos % (Auto) 0.9 % Baso % (Auto) 0.6 % Neut # (Auto) 6.65 H (1.40-6.50) K/uL Lymph # (Auto) 1.69 (1.20-3.40) K/uL [place] # (Auto) 1.00 H (0.11-0.59) K/uL Eos # (Auto) 0.09 (0.00-0.50) K/uL Baso # (Auto) 0.06 (0.00-0.20) K/uL Immature Gran # (Auto) 0.03 (0.01-0.20) K/uL POC Sodium 140 (135-144) mmol/L Sodium 140 (136-145) mmol/L POC Potassium 4.4 (3.3-5.0) mmol/L Potassium 4.4 (3.5-5.1) mmol/L POC Chloride 103 (101-112) mmol/L Chloride 102 (98-107) mmol/L Carbon Dioxide 27 (21-32) mmol/L POC Total CO2 26 (24-31) mmol/L Anion Gap 11 (3-11) POC Anion Gap 17.0 (16-25) mmol/L POC BUN 20 H (7-18) mg/dl BUN 19 (6-23) mg/dl Creatinine 1.28 (0.6-1.4) mg/dl POC Creatinine 1.3 (0.6-1.3) mg/dl Est Cr Clr Drug Dosing 49.0 ml/min eGFR 55.53 BUN/Creatinine Ratio 14.8 (10-20) Glucose 154 H (70-99(Fasting)) mg/dl POC Glucose (other) 156 H (70-99) mg/dl Lactate 1.7 (0.4-2.0) mmol/L Calcium 10.0 (8.6-10.3) mg/dl POC Ioniz Calcium Neha 1.14 (1.12-1.32) mmol/l Total Bilirubin 1.1 H (0.2-1.0) mg/dl AST 16 (13-39) U/L ALT 19 (7-52) U/L Alkaline Phosphatase 138 H (34-104) U/L Troponin I High Sens 7.8 (0-20) pg/ml Total Protein 7.8 (6.0-8.3) gm/dl Albumin 4.4 (3.4-5.0) gm/dl Globulin 3.4 (2.5-4.0) gm/dl Albumin/Globulin Ratio 1.3 (0.9-2) Lipase 15 (11-82) U/L Diagnostic Findings Exam(s): CT ABDOMEN + PELVIS With Contrast IV Amt: 90 ml optiray 320 EXAM: CT Abdomen and Pelvis With Intravenous Contrast CLINICAL HISTORY: Reason for exam: lower abd pain, hx SBO. TECHNIQUE: Axial computed tomography images of the abdomen and pelvis with intravenous contrast. CTDI is 25.9 mGy and DLP is 1348.89 mGy-cm. Automated exposure control was utilized for the study. A dose lowering technique was utilized adhering to the principles of ALARA. CONTRAST: Patient received 90 ml optiray 320 of IV contrast COMPARISON: 04/06/2024 FINDINGS: Lung bases: Unremarkable. Heart: Coronary artery atherosclerosis. ABDOMEN: Liver: Unremarkable. No mass. Gallbladder and bile ducts: Unremarkable. No calcified stones. No ductal dilation. Pancreas: Unremarkable. No mass. No ductal dilation. Spleen: Unremarkable. No splenomegaly. Adrenals: Unremarkable. No mass. Kidneys and ureters: Symmetric renal enhancement. No hydronephrosis. Small left renal cysts; no follow-up indicated. Stomach and bowel: Colonic diverticulosis without acute diverticulitis. Dilated small bowel consistent with small-bowel obstruction. Transition point in the central abdomen just left of midline (series 3, image 87). PELVIS: Appendix: Appendix not visualized. No secondary signs of appendicitis. Bladder: Decompressed urinary bladder. Reproductive: Unremarkable as visualized. ABDOMEN and PELVIS: Intraperitoneal space: Edema within the leftward small-bowel mesentery. No free air. No significant ascites. Bones/joints: Laminectomy, posterior hardware fixation, and interbody fusion at L2-L3. Lumbar spondylosis. No acute fracture. No dislocation. Soft tissues: Unremarkable. Vasculature: Atherosclerosis. Infrarenal aortic aneurysm measuring 3.2 cm. 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 Left common iliac artery aneurysm measuring 2.5 cm. Lymph nodes: Unremarkable. No enlarged lymph nodes. IMPRESSION: Dilated small bowel consistent with small-bowel obstruction. Transition point in the central abdomen just left of midline (series 3, image 87).
--- NOTE | 2025-03-09 12:39 | Electrocardiogram Report ---
Test Reason : Blood Pressure : */* mmHG Vent. Rate : 74 BPM Atrial Rate : * BPM P-R Int : * ms QRS Dur : 78 ms QT Int : 416 ms P-R-T Axes : * 32 34 degrees QTcB Int : 461 ms Atrial fibrillation Abnormal ECG When compared with ECG of 06-Apr-2024 09:55, Vent. rate has decreased by 49 bpm Confirmed by Rishi Rodriguez ([id number]) on 03/09/2025 12:39:25 PM Referred By: REFERRED SELF Confirmed By: Rishi Rodriguez
[2025-03-09] MEDS ORDERED: SENNA 8.6 MG TAB PO PRN (15:16)
[2025-03-09] MEDS ORDERED: POLYETHYLENE (MIRALAX) 17 GM PACK PO PRN (15:16)
[2025-03-09] MEDS ORDERED: ACETAMINOPHEN 500 MG TAB PO PRN (15:16)
--- NOTE | 2025-03-09 15:16 | Hospitalist Progress Note ---
Date of Service March 09, 2025 Assessment & Plan (1) Small bowel obstruction: (2) Vomiting: (3) Atrial fibrillation: Plan Bill is an 84-year-old man with past medical history of HTN, atrial fibrillation, TIA, GERD, SBO, vitamin D deficiency, vitamin B12 deficiency, fatty liver, and GERD. He presented to the ED with 1 day of symptoms similar to his prior small bowel obstruction. He does have a history of umbilical hernia repair and CT A/P on admission consistent with SBO with transition point in central abdomen just left of midline; possible that this prior surgical repair may have played a role in his current presentation. He had an NG tube placed in the ED, now removed. He was admitted for management of his small bowel obstruction. #SBO - NG tube removed 03/09. Has had 3 bowel movements and return of bowel sounds. No further N/V or abdominal pain - General surgery consulted and following - Start clear liquid diet. Will need 1-2 weeks of low fiber diet on discharge - Continue IVF with LR at 100 mL/hr for now, can likely discontinue IVF tomorrow 03/10 if tolerating diet advancement - Continue pantoprazole daily - Zofran as needed for nausea #A-fib | HTN | H/o TIA - Noted to be in A-fib since presenting to ED; rate controlled and asymptomatic - Continue Eliquis, diltiazem, atorvastatin #Vitamin B12 deficiencycontinue cyanocobalamin Dispo: Anticipate discharge home in the next 24-48 hours VTE ppx: Eliquis updated at bedside Advance diet Removed NG tube Resumed home meds Service not billed as patient was admitted after midnight on this date Admission and Anticipated Discharge Date Admission Date: March 09, 2025 Supervising Physician Co-Signing Physician Notes SIERRA Supervision Note: I did not personally see or examine the patient today, but I verified all johansen points of SIERRA Mcwilliams's assessment and plan with the following exceptions/additions: None Subjective Patient seen and evaluated in the ED with his present. He reports feeling "a million percent better than before." He denies any further nausea, vomiting, or abdominal pain. He has had 3 bowel movements and continues to pass gas. He had his NG tube clamped for 4 hours and then had it removed. He can advance to clear liquids now. No additional complaints or concerns at this time. Physical Exam Physical Exam: General: No acute distress, nondiaphoretic, well-developed, well-nourished. Skin: Warm, dry. No rashes or peripheral edema noted. Cardiac: Irregularly irregular rhythm, rate in 90s. No murmurs gallops or rubs appreciated. Pulm: Clear to auscultation bilaterally without wheezes, rales or rhonchi. Normal respiratory effort. 93% on room air. Abdominal: Soft, mildly distended. Nontender to palpation. No guarding or rebound tenderness. Bowel sounds present. Neuro: A&O x3. No focal neurological deficits. Results & Data Results & Data Vital Signs (Past 12 Hours) Vital Signs Temp Pulse Pulse Resp BP Pulse Ox O2 Del Method 03/09/25 13:32 98 H 16 136/84 93 Room Air 03/09/25 12:00 97.7 F 77 16 149/97 H 94 Room Air 03/09/25 10:25 98 H 16 142/78 H 95 Room Air 03/09/25 09:55 88 18 141/83 H 91 Room Air 03/09/25 07:17 93 H 03/09/25 04:38 97.7 F 87 17 129/99 95 Room Air PG Care Time/CCT Total # of Minutes Spent Total Time Spent with Patient: Total time spent is greater than 50% in coordination of care (as documented) at patient's floor/unit and/or counseling patient: Coding Level of Care Code None Diagnoses Small bowel obstruction K56.609 Vomiting R11.10 Atrial fibrillation I48.91 Atrial fibrillation type: unspecified (3) Atrial fibrillation Atrial fibrillation type: unspecified Qualified Code(s): I48.91 - Unspecified atrial fibrillation
[2025-03-09] MEDS: ATORVASTATIN 20 MG TAB PO SCH (20:32)
[2025-03-10 07:29] VITALS: BP 112/67; RESP 16; TEMP 97.7; O2SAT 94
[2025-03-10 08:25] LABS: Anion Gap 6.0 (3-11); Blood Urea Nitrogen 14.0 mg/dl (6-23); Calcium 9.5 mg/dl (8.6-10.3); Carbon Dioxide 31.0 mmol/L (21-32); Chloride 102.0 mmol/L (98-107); Creatinine Clr Calc Pharmacy 57.5 ml/min; Glucose 102.0 mg/dl (70-99(Fasting)); Potassium 4.1 mmol/L (3.5-5.1); Sodium 139.0 mmol/L (136-145)
--- NOTE | 2025-03-10 09:21 | Surgery Progress Note ---
Date of Service March 10, 2025 Assessment & Plan (1) Small bowel obstruction: Plan: SBO resolved soft diet regular later today if does well with lunch no surgical issues Admission and Anticipated Discharge Date Admission Date: March 09, 2025 Subjective feels much better having BMs no abdominal pain Review of Systems Constitutional: no fever and no chills Respiratory: no dyspnea Cardiovascular: no chest pain Gastrointestinal: no abdominal pain, no nausea, no vomiting and no change in bowel habits Neurologic: no localized weakness Psychiatric: no behavioral changes Physical Exam Constitutional: WD/WN, vitals as above Respiratory: normal respiratory effort Cardiovascular: Rate/Rhythm: regular rate and regular rhythm Gastrointestinal (Abdomen): Inspection/Auscultation: abdomen normal to inspection and + abdomen distended Percussion/Palpation: abdomen soft; abdomen nontender and no guarding Musculoskeletal: Head/Neck/Chest: normocephalic and head atraumatic Skin: no rashes, warm and dry Results & Data Vital Signs (Past 12 Hours) Vital Signs Temp Pulse Resp BP Pulse Ox O2 Del Method 03/10/25 07:00 36.5 C 81 16 112/67 94 Room Air 03/09/25 22:50 36.4 C L 68 18 129/79 93 Room Air
[2025-03-10] MEDS: CYANOCOBALAMIN (B-12) 500 MCG TABLET PO SCH (09:53)
[2025-03-10 15:16] VITALS: PULSE 93
--- NOTE | 2025-03-10 17:10 | Discharge Summary ---
"Discharge Summary Date of Service March 10, 2025 Principal Dx & Hospital Course #1 = Principal Diagnosis (1) Small bowel obstruction: (2) Vomiting: (3) Atrial fibrillation: Benjie Snell is an 84-year-old man with past medical history of HTN, atrial fibrillation, TIA, GERD, SBO, vitamin D deficiency, vitamin B12 deficiency, fatty liver, and GERD. He presented to the ED with 1 day of symptoms similar to his prior small bowel obstruction. He does have a history of umbilical hernia repair and CT A/P on admission consistent with SBO with transition point in central abdomen just left of midline; possible that this prior surgical repair may have played a role in his current presentation. He had an NG tube placed in the ED, now removed. He was admitted for management of his small bowel obstruction. #SBO - NG tube removed 03/09. Has had 3 bowel movements and return of bowel sounds. No further N/V or abdominal pain - General surgery consulted and following - Well-tolerated diet advancement. Will need 1-2 weeks of low fiber diet on discharge - Continue pantoprazole daily - Zofran as needed for nausea #A-fib | HTN | H/o TIA - Noted to be in persistent atrial fibrillation since presenting to ED; rate controlled and asymptomatic - Continue Eliquis, diltiazem, atorvastatin #Vitamin B12 deficiencycontinue cyanocobalamin #Infrarenal AAA/right common iliac artery aneurysm/left common iliac artery aneurysm-seen on CT abdomen/pelvis - Recommend follow-up with vascular surgery as an outpatient Dispo: Discharged home 03/10/2025 VTE ppx: Angelika Notes For Next Care Provider She did have vascular surgery referral as an outpatient for iliac artery aneurysms and monitoring of AAA Admission HPI Per Admitting Provider Patient is an 84 y/o M who comes to the ED due to abdominal pain with associated nausea and one episode of vomiting. He has had hx of an SBO for which he was admitted ~1-2 years ago, and stated that his current sxs felt similar to what they were in that episode. Surgical history includes umbilical hernia repair and was noted to have another hernia in his lower abdomen but has not lead to other complications in the past. Over the last 2-3 days, joshua has been having progressively smaller bowel movements despite regular use of miralax as he has always done, and then today was not able to have a bowel movement at all or pass gas. Around 2 pm, he tried to eat lunch and very soon after, he started experiencing significant periumbilical abdominal pain and vomited once after that. Has not eaten anything else since then and has not had repeat episodes of vomiting, but his abdominal pain has persisted w/ minimal to no improvement. Denies associated fevers, chills, weakness, hematemesis, hematochezia, chest pain, SOB, or other systemic sxs. ED Course: NSS 500 mL bolus x2, Zofran IV, x1, Tylenol x1, NGT placed in ED with positioning confirmed on XR Labs/Imaging: CBC no leukocytosis, hemoglobin 15.6, platelets 164. Metabolic panel with no significant electrolyte abnormalities, creatinine of 1.28, blood sugar 154. Lactate 1.7. Total bilirubin 4.1, alk phos 138, AST and ALT within reference range. CTAP noting dilated small bowl consistent with SBO w/ transition noted transition point in the central abdomen just left of midline. Medical History: [Reviewed] Medications: [Reviewed] Surgical History: [Reviewed] Family history: [Reviewed] Allergies: [Reviewed] Social History: [Reviewed] Code Status: FULL Discharge Exam General: No acute distress, nondiaphoretic, well-developed, well-nourished. Skin: Warm, dry. No rashes or peripheral edema noted. Cardiac: Irregularly irregular rhythm, rate in 90s. No murmurs gallops or rubs appreciated. Pulm: Clear to auscultation bilaterally without wheezes, rales or rhonchi. Normal respiratory effort. 94% on room air. Abdominal: Soft, mildly distended. Nontender to palpation. No guarding or rebound tenderness. Bowel sounds present. Neuro: A&O x3. No focal neurological deficits. Discharge Plan Discharge Items Patient Disposition: Home - Self-Care Reason For Visit: ABDOMINAL PAIN Discharge Diagnosis: Small bowel obstruction now resolved Condition on Discharge: Good Activity: Resume your previous activity Non-emergency contact: Primary Care Provider Call non-emergency contact if: you have any medication questions and your symptoms worsen Follow-up/Referrals: Homar Enriquez MD [Primary Care Provider] - 03/16/25 3:25 pm (Follow-up in 1-2 weeks) Diet: Low Fiber Addtl Attending Provider Instructions: Bill, You were admitted to the hospital for a small bowel obstruction (SBO). A small bowel obstruction is a condition in which the small intestine gets blocked, then air, fluid, and food gets stuck in the intestine. They cannot move through the small intestine the way they normally would. This is most commonly caused from past surgery in the belly - after surgery, scar tissue can form in the belly and press on the intestine. You had a nasogastric (NG) tube placed to decompress the fluid and air in your stomach and help keep you from vomiting. This improved on its own, and did not require surgery. When you leave the hospital, you may still have some discomfort, and your stomach may still feel bloated. Follow these instructions for how to take care of yourself at home: * Eat small amounts of food several times a day (do not eat 3 large meals). * Please eat a low fiber diet for 1-2 weeks. You can refer to the handout I attached to your discharge packet that details a low fiber diet. These foods include breads, biscuits, pancakes, waffles, bagels, saltines, nalini crackers bananas, melons, applesauce, white rice, pasta, tender meat, fish and poultry, ham, laird, shellfish, lunch meat, dairy products. * Avoid high-fiber foods and raw fruits and vegetables. These include whole grains, popcorn, brown rice, oatmeal, granola, quinoa, nuts, seeds, dried beans, baked beans, peas and lentils, dried fruit. * Encourage liquid intake. * Stay physically active as tolerated. Please follow-up with your PCP in 1-2 weeks. Please return to the hospital if you have worsening pain, vomiting, fever, chest pain, difficulty breathing, passing out, confusion, or any other symptoms concerning for you. It was a pleasure taking care of you while in the hospital! Pending Studies at Discharge: No Stand-Alone Forms: My [facility] [place] [employer], Smoking Cessation Medications and DC Order Prescriptions: Continued Eliquis 5 mg tablet 5 mg PO BID Qty: 180 3RF diltiazem HCl 240 mg capsule,extended release 24hr 240 mg PO QAM Qty: 90 3RF pantoprazole 20 mg tablet,delayed release (DR/EC) 20 mg PO QAM Qty: 90 1RF atorvastatin 20 mg tablet 20 mg PO QPM Qty: 90 3RF ipratropium bromide 42 mcg (0.06 %) spray,non-aerosol 2 spray INTRANASAL QID PRN (Reason: POST NASAL DRIP) Qty: 15 6RF cyanocobalamin (vitamin B-12) 1,000 mcg tablet 1,000 mcg PO DAILY Qty: 90 1RF Rx Instructions: purchase [id number] acetaminophen [Tylenol Extra Strength] 500 mg tablet 1,000 mg PO Q6H PRN (Reason: Pain) Qty: 1 0RF Rx Instructions: purchase [id number]; maximum amount - 3000mg in 24 hours. polyethylene glycol 3350 [Miralax] 17 gram powder in packet 17 g PO DAILY PRN (Reason: constipation) Rx Instructions: once or twice daily - buy over the counter sennosides [Senokot] 8.6 mg Tablet 8.6 mg PO HS Qty: 0 0RF Rx Instructions: 1-2 tabs a day. mild laxative. buy over the counter Discharge Orders: Discharge Order (Routine); Ordered 03/10/25 Ordered By: Eulalia Sanchez/Other Patient Handouts: Small Bowel Obstruction, Low-Fiber Diet Admission Data Admit Date/Time: 03/09/25 01:11 Attending Provider: Mariam Ceja Admit Provider: Lilia Hairston Primary Care Provider: Homar Enriquez Other Providers: Samina Jane; Gagan Celaya Other Interventions: Discharge Summary Assessment (RN) Last Done: 03/10/25 15:14 Hospital Stay Data Consultations 03/08/25 23:35 ED Decision to Admit Stat 03/09/25 01:28 Consult General Surgery Routine Diagnostic Imagining Performed 03/08/25 21:30 CT abd pelvis IV con only Stat Pending Results Patient Have Any Pending Studies at Discharge: No Discharge Instructions Given to Patient (Per Discharging Provider) Bill, You were admitted to the hospital for a small bowel obstruction (SBO). A small bowel obstruction is a condition in which the small intestine gets blocked, then air, fluid, and food gets stuck in the intestine. They cannot move through the small intestine the way they normally would. This is most commonly caused from past surgery in the belly - after surgery, scar tissue can form in the belly and press on the intestine. You had a nasogastric (NG) tube placed to decompress the fluid and air in your stomach and help keep you from vomiting. This improved on its own, and did not require surgery. When you leave the hospital, you may still have some discomfort, and your stomach may still feel bloated. Follow these instructions for how to take care of yourself at home: * Eat small amounts of food several times a day (do not eat 3 large meals). * Please eat a low fiber diet for 1-2 weeks. You can refer to the handout I attached to your discharge packet that details a low fiber diet. These foods include breads, biscuits, pancakes, waffles, bagels, saltines, nalini crackers bananas, melons, applesauce, white rice, pasta, tender meat, fish and poultry, ham, laird, shellfish, lunch meat, dairy products. * Avoid high-fiber foods and raw fruits and vegetables. These include whole grains, popcorn, brown rice, oatmeal, granola, quinoa, nuts, seeds, dried beans, baked beans, peas and lentils, dried fruit. * Encourage liquid intake. * Stay physically active as tolerated. Please follow-up with your PCP in 1-2 weeks. Please return to the hospital if you have worsening pain, vomiting, fever, chest pain, difficulty breathing, passing out, confusion, or any other symptoms conc erning for you. It was a pleasure taking care of you while in the hospital! Supervising Physician Co-Signing Physician Notes PA Supervision Note: I did not personally see or examine the patient today, but I verified all johansen points of SIERRA Mcwilliams's assessment and plan with the following exceptions/additions: None Total Time Total Time Spent Total Time Spent (In Minutes): Greater than 30 minutes spent completing this discharge process including direct patient care, medication reconciliation, documentation, review of labs and images, and coordination of care. Coding Level of Care Code 80272 INP/OBS DISCH >30 MIN Diagnoses Small bowel obstruction K56.609 Vomiting R11.10 Atrial fibrillation I48.91 Atrial fibrillation type: unspecified"
== END 2025-03-10 16:04 | disposition home or self-care (01) | DRG 389 ==
LOC: ED 21:12 → EDINP 03-09 01:11 → SUATTDRO 03-09 01:11 → 3W 03-09 01:28